=== PATIENT | female | born 1970 | race Caucasian/White ===

== ENCOUNTER → 2020-08-17 14:54 | Outpatient (BNVA) | payer MEDICARE, MEDICAID, SELFPAY | PROVIDERS: PCP Emergency Medicine; Visit Provider Physician Assistant ==

== ENCOUNTER → 2020-09-15 14:56 | Outpatient (BNVA) | payer MEDICARE, MEDICAID, SELFPAY | PROVIDERS: PCP Emergency Medicine; Referring Provider Emergency Medicine; Visit Provider Physician Assistant | DX: E10.9 Type 1 diabetes mellitus without complications (principal); E66.01 Morbid (severe) obesity due to excess calories; K31.84 Gastroparesis; I63.9 Cerebral infarction, unspecified; I10 Essential (primary) hypertension; G47.33 Obstructive sleep apnea (adult) (pediatric); J44.9 Chronic obstructive pulmonary disease, unspecified; E78.5 Hyperlipidemia, unspecified; K21.9 Gastro-esophageal reflux disease without esophagitis; E03.9 Hypothyroidism, unspecified | CPT/HCPCS: 99212 ==

== ENCOUNTER → 2020-09-29 08:21 | Outpatient (BNVA) | payer MEDICARE, SELFPAY | PROVIDERS: PCP Emergency Medicine; Visit Provider Physician Assistant ==

== ENCOUNTER 2021-10-02 19:52 | Emergency (ER) | payer MEDICARE, MEDICAID, SELFPAY ==
[2021-10-02 20:15] VITALS: BP 169/74; PULSE 102; RESP 18; TEMP 36.8; O2SAT 95; BMI 42.9
--- NOTE | 2021-10-02 21:01 | ED.BACK ---
HPI - Back Pain/Injury General Chief Complaint: Back Pain/Injury Stated Complaint: Sciatica pain Time Seen by Provider: 10/02/21 20:50 History of Present Illness HPI Narrative: Patient is a 51-year-old female presented with having back pain radiating down the left leg. There is no bowel urinary incontinence. There is no focal weakness. Positive history of having similar symptoms in the past. Positive history of a larger size. History of gastroparesis history of diabetes hypertension. No trauma. Denies any history of abdominal aortic aneurysm. Patient from home. Symptom has been ongoing getting worse over the last 3 days. No focal weakness. Related Data Home Medications Medication Instructions Recorded Confirmed aspirin 81 mg tablet,delayed 81 mg PO DAILY 09/15/20 09/15/20 release atorvastatin 80 mg tablet mg PO 09/15/20 09/15/20 cyclobenzaprine 5 mg tablet mg PO 09/15/20 09/15/20 diltiazem HCl 240 mg mg PO 09/15/20 09/15/20 capsule,extended release 24 hr, controlled famotidine 40 mg tablet mg PO 09/15/20 09/15/20 gabapentin 300 mg capsule mg PO 09/15/20 09/15/20 hydrochlorothiazide 25 mg tablet mg PO 09/15/20 09/15/20 insulin aspart U-100 100 unit/mL SUBCUT DAILY ml 09/15/20 09/15/20 subcutaneous solution insulin glargine 100 unit/mL (3 unit SUBCUT 09/15/20 09/15/20 mL) subcutaneous pen levothyroxine 75 mcg tablet mcg PO 09/15/20 09/15/20 losartan 100 mg tablet mg PO 09/15/20 09/15/20 omeprazole 40 mg capsule,delayed mg PO 09/15/20 09/15/20 release pen needle, diabetic 31 gauge x #1200 ea 09/15/20 09/15/20/16 sertraline 50 mg tablet mg PO 09/15/20 09/15/20 spironolactone 50 mg tablet mg PO 09/15/20 09/15/20 tramadol 50 mg tablet mg PO 09/15/20 09/15/20 Previous Rx's Medication Instructions Recorded methylprednisolone 4 mg tablets in 4 mg PO DAILY #21 ea 10/02/21 a dose pack (Medrol (Jose)) oxycodone 5 mg tablet 5 mg PO Q8H PRN #7 tab 10/02/21 Allergies Allergy/AdvReac Type Severity Reaction Status Date / Time lisinopril [LISINOPRIL] Allergy Severe ANGIOEDEMA, Verified 10/02/21 20:15 COUGH amlodipine [AMLODIPINE] Allergy Intermediate SWELLING Verified 10/02/21 20:15 Penicillins [PENICILLINS] Allergy Unknown RASH Verified 10/02/21 20:15 seasonal Allergy Unknown Anaphylaxis Uncoded 09/15/20 15:07 SEASONAL ALLERGIES Allergy Unknown ITCHING, Uncoded 09/15/20 15:07 WATERY EYES, STUFFY NOSE, COUGH Review of Systems Review of Systems: Positive back pain rating down the left leg Yes all other systems are reviewed and are negative FOR[facility]LY [facility] Past Medical History Attestation statement: The following information was validated with the patient. Medical History CVA (cerebral vascular accident) Surgical History Hx of appendectomy Family History Family History Mother Hypertension Father Hypertension Brother Hypertension Daughter No problems noted. Social History Social History Alcohol intake: current Alcohol intake frequency: holidays/special occasions only Advance Directives: No Physical Exam Vital Signs: Vital Signs: Last Vital Signs Temp 98.3 F 10/02/21 20:15 Pulse 102 H 10/02/21 20:15 Resp 18 10/02/21 20:15 BP 169/74 H 10/02/21 20:15 Pulse Ox 95 10/02/21 20:15 BMI result Body Mass Index 42.9 Appearance: Alert. Oriented X3. No acute distress. Eyes: Pupils equal, round and reactive to light. ENT: Pharynx normal. Neck: Normal inspection. Neck supple. No lymph nodes noted. No crepitus CVS: Normal heart rate and rhythm. Pulses normal. Normal S1 and S2 Respiratory: No respiratory distress. Breath sounds normal. No Wheezing. No rales Abdomen: Soft and nontender. No rigidity. No distention. good BS x4 Skin: Skin warm and dry. Normal skin color. Normal skin turgor. Extremities: No lower extremity edema. Neurovascular intact to all extremities. No Lacerations. No Rash. Sensation bilateral lower extremity intact. Ambulates with normal gait. Negative straight leg raise test. Neuro: Oriented X 3. No motor deficit. No sensory deficit. Moving all extermities. No slurred speech Discharge Plan Discharge Clinical Impression: Sciatica Patient Disposition: Home, Self-Care Instructions: Sciatica (ED) Prescriptions: New methylprednisolone [Medrol (Jose)] 4 mg tablets,dose pack 4 mg PO DAILY Qty: 21 0RF oxycodone 5 mg tablet 5 mg PO Q8H PRN (Reason: pain) Qty: 7 0RF No Action levothyroxine 75 mcg tablet PO 0RF cyclobenzaprine 5 mg tablet PO 0RF omeprazole 40 mg capsule,delayed release(DR/EC) PO 0RF atorvastatin 80 mg tablet PO 0RF (DME) pen needle, diabetic 31 gauge x 5/16 needle See Rx Instructions ea subcut .MEDSUPPLY Qty: 1200 0RF Rx Instructions: As directed spironolactone 50 mg tablet PO 0RF diltiazem HCl 240 mg capsule,ext.rel 24h degradable PO 0RF hydrochlorothiazide 25 mg tablet PO 0RF tramadol 50 mg tablet PO 0RF losartan 100 mg tablet PO 0RF gabapentin 300 mg capsule PO 0RF sertraline 50 mg tablet PO 0RF Lantus Solostar U-100 Insulin 100 unit/mL (3 mL) insulin pen subcut 0RF famotidine 40 mg tablet PO 0RF insulin aspart U-100 100 unit/mL solution subcut DAILY 0RF Rx Instructions: insulin pump and continuous monitor aspirin 81 mg tablet,delayed release (DR/EC) 81 mg PO DAILY 0RF Referrals: Medina Nascimento NP [Primary Care Provider] -
[2021-10-02] MEDS: oxyCODONE HCl Immed Release 5 MG TABLET PO (21:24)
== END 2021-10-02 21:35 | disposition home or self-care (01) ==
PROVIDERS: Emergency Provider Emergency Medicine Emergency Medical Services; PCP Nurse Practitioner Family
DX: M54.42 Lumbago with sciatica, left side (principal); R32 Unspecified urinary incontinence; Z79.899 Other long term (current) drug therapy
CPT/HCPCS: 99283

== ENCOUNTER → 2022-06-22 11:01 | Outpatient (REF) | payer MEDICARE, MEDICAID, SELFPAY ==
--- NOTE | 2022-06-22 11:22 | CA_ITS ---
Transthoracic Echocardiogram Patient (Last, First, Middle): Marian Mcbride A Gender: Female Date of : 1970 Age: 52 Procedure Date: 06/22/2022 Procedure Type: Transthoracic Echocardiogram Location: OP Height: 160.02 cm Weight: 102.06 kg BSA: 2.03 m2 Heart Rate: 81 bpm BP: 162 / 70 mmHg Freight Claim Investigator: TIFFANIE Referring MD: ANGELICA MONTIEL Acrylic Fabricator: Mansoor Greco MD Symptoms: HEART PALPITATIONS R00.2 GRADE 2 INTENSITY MURMUR Study Quality: Adequate w contrast ECG Rhythm: Sinus Conclusions: - 1. Hyperdynamic LV systolic function next 2. Normal cardiac valvular Doppler 3. Upper limits of normal RV systolic pressure 4. Small circumferential pericardial effusion Findings Procedure Information Contrast agent, definity, is being given per protocol without apparent complications. Left Ventricle Normal left ventricular cavity size. There is normal left ventricular wall thickness. The left ventricular systolic function is hyperdynamic. The visually estimated ejection fraction is >70%. Spectral Doppler is indicative of a normal filling pattern. Right Ventricle Normal right ventricular cavity size and systolic function. Atria Both atria are normal in size. There is no evidence of interatrial shunt. Aortic Valve Normal aortic valve structure and function. There is no aortic valve stenosis. There is no aortic valve regurgitation. Mitral Valve Normal mitral valve structure and function. There is trace mitral valve regurgitation. There is no mitral valve stenosis. Pulmonic Valve The pulmonic valve is likely normal. Tricuspid Valve Normal tricuspid valve structure. There is mild tricuspid valve regurgitation. Normal right atrial pressure. There is no evidence of pulmonary hypertension. Great Vessels All visible segments of the aorta are normal in size. The pulmonary artery was not well visualized. Venous The inferior vena cava is normal in size and collapses greater than 50% with inspiration. Pericardium/Pleural There is a small circumferential pericardial effusion. There are no definitive echocardiographic findings of tamponade physiology. Measurements 2D Linear Measurements IVSd: 1.04 0.6-0.9/0.6-1.0 cm LVIDd: 4.80 3.9-5.3/4.2-5.9 cm LVIDd Index: 2.36 2.4-3.2/2.2-3.1 cm/m2 LVIDs: 2.50 2.0-3.6 cm LVPWd: 1.08 0.7-1.1 cm LA Diam: 4.80 2.7-3.8/3.0-4.0 cm LAIDs Index: 2.36 1.5-2.3 cm/m2 LV Mass: 229.61 67-162/88-224 g LV Mass Index: 113.11 43-95/49-115 g/m2 LVOT Diam: 1.80 3.0+(-)1.3 cm 2D Systolic Function EF 4C: 74.00 >55% EF 2C: 79.20 >55% EF BiP: 76.90 >55% Mitral Valve MV Pk E: 1.27 MV PK A: 0.82 MV Decel Time: 230.00 E/A: 1.60 E'Lateral: 6.96 E'Medial: 8.05 E/E' Med: 15.80 E/E' Lat: 18.20 PHT: 67.00 MVA PHT: 3.28 Decel Rincon: 5.50 Aortic Valve AoV Pk Clarke: 1.66 AoV Mn Clarke: 1.11 AoV VTI: 0.35 AoV Pk Grad: 11.00 Aov Mn Grad: 6.00 CLARISSA Cont.VTI: 1.99 LVOT LVOT Pk Clarke: 1.31 LVOT Mn Clarke: 0.91 LVOT VTI: 0.27 LVOT Pk Grad: 7.00 LVOT Mn Grad: 4.00 LVOT Diam: 1.80 LVOT Area: 2.54 Diastolic Function MV Pk E: 1.27 MV Pk A: 0.82 E/A: 1.60 E'Medial: 8.05 E/E' Med: 15.80 E' Laterial: 6.96 E/E' Lat: 18.20 Right Ventricle TAPSE (mm): 19.40 TVS' Clarke: 14.60 Tricuspid Valve TR Pk Clarke: 2.88 TR Pk Grad: 33.00 RA Press: 3.00 RVSP: 36.00 Great Vessels Aorta Sinus of Valsalva: 2.30 2.0-3.5 cm Ao Asc: 2.90 2.1-3.4 cm Pulmonary Veins Pulm Vein S/D 0.50 Pulmonary Valve PV Pk Clarke: 1.35 Peak PV Grad: 7.00 Updated in Other Vendor System with Status of Final Mansoor Greco MD electronically signed on 06/22/2022 3:22:29 PM with status of Final
== END ==
LOC: HO.CARD 11:01
PROVIDERS: Visit Provider Nurse Practitioner Family
DX: R00.2 Palpitations (principal); R01.1 Cardiac murmur, unspecified
CPT/HCPCS: 93306; Q9957

== ENCOUNTER 2022-09-19 12:28 | Inpatient (IN) | payer MEDICARE, MEDICAID, SELFPAY ==
[2022-09-19] VITALS (14 sets, daily range): BP systolic 106–147; BP diastolic 43–60; PULSE 67–90; RESP 11–20; TEMP 36.4–37.1; O2SAT 96–100; BMI 39.9; BMI 39.4
--- NOTE | ~2022-09-19 | CT_ITS ---
EXAMINATION: CT ABDOMEN AND PELVIS WITHOUT CONTRAST CLINICAL INFORMATION: Diffuse abdominal pain COMPARISON: Previous CT of the abdomen and pelvis most recent May 2017 and abdominal ultrasound August 2018 and renal ultrasound August 2021 TECHNIQUE: Multidetector volumetric imaging was performed from the superior aspect of the liver through the pubic symphysis. Sagittal and coronal reformatted images were obtained on the technologist's workstation. This CT examination was performed using dose optimization techniques as appropriate, variously including the following: *Automated exposure control *Adjustment of mA and/or kV according to patient size (this includes techniques or standardized protocols for targeted exams where dose is matched to indication/reason for exam; i.e. extremities or head) *Use of iterative reconstruction technique DLP: 778 mGy-cm FINDINGS: LUNG BASES: There are small bilateral lower lobe pulmonary nodules. These are similar to May 2017 exam and therefore probably benign. LIVER, GALLBLADDER, AND BILIARY TREE: The liver is normal in size, shape, and attenuation. No focal hepatic lesion or biliary ductal dilatation is present. The gallbladder is unremarkable with no evidence of radiopaque gallstones, gallbladder wall thickening, or obvious pericholecystic inflammatory changes. PANCREAS: Unremarkable. SPLEEN: Unremarkable. ADRENAL GLANDS: Unremarkable. KIDNEYS AND URETERS: The kidneys are normal in size, shape, and attenuation. No hydronephrosis, hydroureter, or calculi seen. No perinephric stranding. BLADDER: Unremarkable. GASTROINTESTINAL TRACT: There is stool throughout the colon questionable for constipation. The small and large bowel are otherwise unremarkable. The appendix is not seen. No inflammatory changes in the right lower quadrant. ABDOMINAL WALL: No significant hernia is appreciated. LYMPH NODES: Normal. VASCULAR: Unremarkable. PELVIC VISCERA: There may be 2 small left ovarian cysts one measuring 2 x 2.5 cm measuring 2 cm. Uterus and adnexa are otherwise unremarkable. Uterus and adnexa are otherwise unremarkable. No fluid in the pelvis. OSSEOUS STRUCTURES: Unremarkable. CT/CT abdomen pelvis wo IV con IMPRESSION: Question constipation and 2 small left ovarian cyst. Fleischner guidelines were followed.
--- NOTE | 2022-09-19 12:50 | ED_ITS ---
HPI - Abdominal Pain General Stated Complaint: Vomiting Related Data Home Medications Medication Instructions Recorded Confirmed aspirin 81 mg tablet,delayed 81 mg PO DAILY 09/15/20 09/15/20 release atorvastatin 80 mg tablet mg PO 09/15/20 09/15/20 cyclobenzaprine 5 mg tablet mg PO 09/15/20 09/15/20 diltiazem HCl 240 mg mg PO 09/15/20 09/15/20 capsule,extended release 24 hr, controlled famotidine 40 mg tablet mg PO 09/15/20 09/15/20 gabapentin 300 mg capsule mg PO 09/15/20 09/15/20 hydrochlorothiazide 25 mg tablet mg PO 09/15/20 09/15/20 insulin aspart U-100 100 unit/mL subcut DAILY 09/15/20 09/15/20 subcutaneous solution insulin glargine 100 unit/mL (3 unit subcut 09/15/20 09/15/20 mL) subcutaneous pen levothyroxine 75 mcg tablet mcg PO 09/15/20 09/15/20 losartan 100 mg tablet mg PO 09/15/20 09/15/20 omeprazole 40 mg capsule,delayed mg PO 09/15/20 09/15/20 release pen needle, diabetic 31 gauge x #1,200 ea 09/15/20 09/15/2009/19 sertraline 50 mg tablet mg PO 09/15/20 09/15/20 spironolactone 50 mg tablet mg PO 09/15/20 09/15/20 tramadol 50 mg tablet mg PO 09/15/20 09/15/20 Previous Rx's Medication Instructions Recorded oxycodone 5 mg tablet 5 mg PO Q8H PRN pain #7 tabs 10/02/21 methylprednisolone 4 mg tablets in 4 mg PO DAILY # ea 10/03/21 a dose pack (Medrol (Jose)) methylprednisolone 4 mg tablets in 4 mg PO QAM as directed #10/03/21 a dose pack (Medrol (Jose)) Allergies Allergy/AdvReac Type Severity Reaction Status Date / Time lisinopril [LISINOPRIL] Allergy Severe ANGIOEDEMA, Verified 10/02/21 20:15 COUGH amlodipine [AMLODIPINE] Allergy Intermediate SWELLING Verified 10/02/21 20:15 Penicillins [PENICILLINS] Allergy Unknown RASH Verified 10/02/21 20:15 seasonal Allergy Unknown Anaphylaxis Uncoded 09/15/20 15:07 SEASONAL ALLERGIES Allergy Unknown ITCHING, Uncoded 09/15/20 15:07 WATERY EYES, STUFFY NOSE, COUGH PMFSH Past Medical History Medical History CVA (cerebral vascular accident) Surgical History Hx of appendectomy Family History Family History Mother Hypertension Father Hypertension Brother Hypertension Daughter No problems noted. Social History Social History Alcohol intake: current Alcohol intake frequency: holidays/special occasions only Course Course Course Narrative: This is a rapid medical exam. Deferred additional HPI, ROS, PE to primary provider. 52 yo female with history of DM, diabetic gastroporesis, GERD, hypothyroidism KIMBERLY, HTN, HLD here with complaints of vomiting since Sunday eveni ng, seemed better then vomiting began again today, feeling weak, blood sugar has been high at home. +upper abdominal pain. No diarrhea, fevers, urinary symptoms. Will obtain EKG, labs, UA, COVID screen. VSS Discharge Plan Discharge Prescriptions: No Action oxycodone 5 mg tablet 5 mg PO Q8H PRN (Reason: pain) Qty: 7 0RF methylprednisolone [Medrol (Jose)] 4 mg tablets,dose pack 4 mg PO DAILY Qty: 21 0RF Rx Instructions: As directed on pack methylprednisolone [Medrol (Jose)] 4 mg tablets,dose pack 4 mg PO QAM Qty: 21 0RF levothyroxine 75 mcg tablet PO cyclobenzaprine 5 mg tablet PO omeprazole 40 mg capsule,delayed release(DR/EC) PO atorvastatin 80 mg tablet PO (DME) pen needle, diabetic 31 gauge x 5/16 needle See Rx Instructions subcut .MEDSUPPLY Qty: 1200 Rx Instructions: As directed spironolactone 50 mg tablet PO diltiazem HCl 240 mg capsule,ext.rel 24h degradable PO hydrochlorothiazide 25 mg tablet PO tramadol 50 mg tablet PO losartan 100 mg tablet PO gabapentin 300 mg capsule PO sertraline 50 mg tablet PO Lantus Solostar U-100 Insulin 100 unit/mL (3 mL) insulin pen subcut famotidine 40 mg tablet PO insulin aspart U-100 100 unit/mL solution subcut DAILY Rx Instructions: insulin pump and continuous monitor aspirin 81 mg tablet,delayed release (DR/EC) 81 mg PO DAILY
--- NOTE | 2022-09-19 12:53 | ECG_ITS ---
Test Reason : abd pain Blood Pressure : / mmHG Vent. Rate : 085 BPM Atrial Rate : 085 BPM P-R Int : 188 ms QRS Dur : 098 ms QT Int : 378 ms P-R-T Axes : 070 086 096 degrees QTc Int : 449 ms Normal sinus rhythm Septal infarct (cited on or before 15-OCT-2016) Abnormal ECG When compared with ECG of 15-OCT-2016 09:53, Non-specific change in ST segment in Inferior leads Nonspecific T wave abnormality no longer evident in Inferior leads Referred By: Candice Costa Electronically Signed By:John Ferrara
[2022-09-19] MEDS: Ondansetron ODT 4 MG TAB.RAPDIS TRANSLINGU (12:57)
--- NOTE | 2022-09-19 13:28 | PC.NURSE ---
Alert and oriented. Reports nausea and vomiting over the weekend that resolved but then came back yesterday. States nausea and vomiting started again today and has a poor appetite and is only able to drink small amounts of fluid. Reports occasional non-productive cough. States having issues controlling blood sugars, that sugars have been going from high to low. States thyroid medications have been changed 6 times in the last few months. Reports 8/10 pain in head and stomach. States stomach pain is from throwing up. States has a heart murmur that she is following up with cardiology with this week.
--- NOTE | 2022-09-19 13:38 | ED_ITS ---
HPI - General Adult General Chief complaint: General Medical Stated complaint: Vomiting Time Seen by Provider: 09/19/22 13:22 Source: patient and family History of Present Illness HPI narrative: Patient with 3 days of vomiting and abdominal pain. No diarrhea. No prior history of similar issues. No sick contacts. She does have a sore throat now which started yesterday. No fevers. Positive chills. No urinary symptoms She states her blood sugars been very high since the illness started. It has been in the 3-400 range consistently despite giving extra doses of insulin. She has an insulin pump which has been working but not controlling her blood s ugar over the last few days. No dysuria. Surgical history significant for appendectomy at the age of 15. No other abdominal surgeries. History of DKA once multiple years ago when she had influenza. No significant cough. Related Data Home Medications Medication Instructions Recorded Confirmed aspirin 81 mg tablet,delayed 81 mg PO DAILY 09/15/20 09/15/20 release atorvastatin 80 mg tablet mg PO 09/15/20 09/15/20 cyclobenzaprine 5 mg tablet mg PO 09/15/20 09/15/20 diltiazem HCl 240 mg mg PO 09/15/20 09/15/20 capsule,extended release 24 hr, controlled famotidine 40 mg tablet mg PO 09/15/20 09/15/20 gabapentin 300 mg capsule mg PO 09/15/20 09/15/20 hydrochlorothiazide 25 mg tablet mg PO 09/15/20 09/15/20 insulin aspart U-100 100 unit/mL subcut DAILY 09/15/20 09/15/20 subcutaneous solution insulin glargine 100 unit/mL (3 unit subcut 09/15/20 09/15/20 mL) subcutaneous pen levothyroxine 75 mcg tablet mcg PO 09/15/20 09/15/20 losartan 100 mg tablet mg PO 09/15/20 09/15/20 omeprazole 40 mg capsule,delayed mg PO 09/15/20 09/15/20 release pen needle, diabetic 31 gauge x #1,200 ea 09/15/20 09/15/2009/19 sertraline 50 mg tablet mg PO 09/15/20 09/15/20 spironolactone 50 mg tablet mg PO 09/15/20 09/15/20 tramadol 50 mg tablet mg PO 09/15/20 09/15/20 Previous Rx's Medication Instructions Recorded oxycodone 5 mg tablet 5 mg PO Q8H PRN pain #7 tabs 10/02/21 methylprednisolone 4 mg tablets in 4 mg PO DAILY #21 ea 10/03/21 a dose pack (Medrol (Jose)) methylprednisolone 4 mg tablets in 4 mg PO QAM as directed #21 ea 10/03/21 a dose pack (Medrol (Jose)) Allergies Allergy/AdvReac Type Severity Reaction Status Date / Time lisinopril [LISINOPRIL] Allergy Severe ANGIOEDEMA, Verified 09/19/22 12:56 COUGH amlodipine [AMLODIPINE] Allergy Intermediate SWELLING Verified 09/19/22 12:56 Penicillins [PENICILLINS] Allergy Unknown RASH Verified 09/19/22 12:56 seasonal Allergy Unknown Anaphylaxis Uncoded 09/15/20 15:07 SEASONAL ALLERGIES Allergy Unknown ITCHING, Uncoded 09/15/20 15:07 WATERY EYES, STUFFY NOSE, COUGH Review of Systems Constitutional: Comments: General malaise. Chills without documented fever. ENT: Comments: Sore throat which she attributes to vomiting Cardiovascular: Comments: No chest pain Respiratory: Comments: Minimal cough. Patient denies dyspnea but her sister states she looked short of breath this morning Gastrointestinal: Comments: Vomiting and upper abdominal pain. No diarrhea Integumentary/Breasts: Comments: No rash Neurologic: Comments: No focal weakness. General malaise PMFSH Past Medical History Medical History CVA (cerebral vascular accident) Surgical History Hx of appendectomy Family History Family History Mother Hypertension Father Hypertension Brother Hypertension Daughter No problems noted. Social History Social History Alcohol intake: former Smoked in Last 30 Days: No Substance Use Type: Other Substance Use Type Other:: gummies at bedtime to help with sleep Substance Use Frequency: Daily Last Used Substance: Days (ago) Advance Directives: No Physical Exam ED Vital Signs: Vital Signs - 24 hr 09/19/22 12:51 09/19/22 13:05 09/19/22 13:22 Temperature 97.6 F Pulse Rate 84 90 76 Respiratory Rate 20 16 18 Blood Pressure 118/50 L 136/44 L 147/55 H Pulse Oximetry 99 99 99 Oxygen Delivery Method Room Air Room Air Room Air 09/19/22 14:39 09/19/22 15:37 09/19/22 16:06 Temperature Pulse Rate 82 80 72 Respiratory Rate 15 18 11 L Blood Pressure 122/43 L 137/53 L 114/60 Pulse Oximetry 98 100 96 Oxygen Delivery Method Room Air Room Air Room Air 09/19/22 16:49 Temperature 98.8 F Pulse Rate 75 Respiratory Rate 18 Blood Pressure 125/51 L Pulse Oximetry Oxygen Delivery Method Room Air BMI result Body Mass Index 39.4 Const Other: Awake alert. No acute distress. Vital signs stable. Afebrile here in the emergency department. Oxygen saturation 99% with a respiratory rate of 18. HENMT Other: No throat erythema. Mucosa very dry. Neck Other: No lymphadenopathy Resp Other: Clear and equal bilaterally without wheezes rales or rhonchi Cardio Other: Regular rate and rhythm . Positive systolic murmur GI Other: Soft. Nondistended. Tender across upper abdomen. Tenderness not localized to left or right side. Lower abdomen nontender Skin Other: Warm pink and dry without rash Neuro Other: Normal speech. Nonfocal neuro exam Medications Administered Generic Name Dose Route Start Last Admin Trade Name Freq PRN Reason Stop Dose Admin Insulin Human Regular 100 unit in 100 mls @ 6 mls/hr 09/19/22 15:30 09/19/22 16:35 Myxredlin IVCONT 9 unit/hr .[id number] SOLIS 9 mls/hr Titration Protocol 6 UNIT/HR Discontinued Medications Generic Name Dose Route Start Last Admin Trade Name Freq PRN Reason Stop Dose Admin Aspirin 325 mg 09/19/22 14:33 09/19/22 15:13 Aspirin Enteric Coated 325 Mg Tablet. PO 09/19/22 14:34 325 mg ONCE ONE Administration Sodium Chloride 1,000 mls @ 999 mls/hr 09/19/22 13:45 09/19/22 15:48 Ns IV 09/19/22 14:45 Infused .Q1H1M SOLIS Infusion Sodium Chloride 3,061.74 mls @ 3,061.74 mls/hr 09/19/22 14:42 09/19/22 15:05 Ns 30 ml/kg infuse over 1 hr (3061.74 ml) 09/19/22 15:41 3,061.74 mls/hr IV Administration .Q1H STA Levofloxacin 500 mg in 100 mls @ 100 mls/hr 09/19/22 14:42 09/19/22 16:36 Levaquin IV 09/19/22 15:41 Infused ONCE ONE Infusion Metronidazole 500 mg in 100 mls @ 100 mls/hr 09/19/22 14:42 09/19/22 16:38 Flagyl IV 09/19/22 15:41 100 mls/hr ONCE ONE Administration Insulin Human Regular 10 unit 09/19/22 14:06 09/19/22 14:11 Insulin Regular, Human 100 Unit/Ml 3 Ml Vial IVPUSH 09/19/22 14:07 10 unit ONCE ONE Administration Ondansetron HCl 4 mg 09/19/22 12:54 09/19/22 12:57 Ondansetron Odt 4 Mg Tab.Rapdis TRANSLINGU 09/19/22 12:55 4 mg ONCE ONE Administration Ondansetron HCl 4 mg 09/19/22 13:35 09/19/22 14:00 Ondansetron Hcl 4 Mg/2 Ml Vial IVPUSH 09/19/22 13:36 4 mg ONCE ONE Administration Medical Decision Making Medical Decision Making [facility] Narrative: Patient with intractable vomiting x3 days with hyperglycemia. Diabetic ketoacidosis Infectious causes such as urinary tract infection or pyelonephritis possible. Colitis, cholecystitis, diverticulitis, gastroenteritis all possible. Clinically she is dehydrated. Will start treatment with IV fluids and IV insulin. IV Zofran. Await lab work. Will order CT scan with IV contrast if renal function is normal. Otherwise will order without contrast. 14:45. Lab work shows multiple significant abnormalities. White count is 25.2. There is a bandemia no shift to the left. Chemistry show a creatinine of 4.75 with presumed acute kidney injury. She she has a blood glucose of 799 with pseudo hyponatremia of 124. Potassium is 5.4. Carbon dioxide is 15. Acetone is positive. Troponin is 403. EKG shows no evidence of ST elevations or significant depression. Given the above findings, will ordered noncontrast CT scan of the abdomen and pelvis. Aspirin for elevated troponin level. Troponin level, however is likely related to strain and or renal failure. She does not have symptoms consistent with myocardial infarction at the moment. Will add a 2nd troponin to check for Delta. Given abdominal symptoms with significant white count bandemia, will treat with broad-spectrum antibiotics. She is allergic to penicillin so will treat with Levaquin and Flagyl. Will start on insulin drip. Potassium is mildly elevated but will likely correct him possibly progress to hypokalemia at after treatment. Patient is otherwise hemodynamically stable despite the above findings. 16:06. CT scan is normal with the exception of constipation. Await final troponin and then disposition. 16:20. Second troponin is 379, trending down with hydration. Likely represents strain and kidney injury more so than acute coronary event. Will consult ICU Lab Data 09/19/22 13:54 09/19/22 13:54 Labs: Lab Results 09/19/22 09/19/22 09/19/22 Range/Units 11:12 13:54 13:54 WBC 25.2 H (4.8-10.8) X10*3/uL RBC 3.99 L (4.20-5.50) X10*6/uL Hgb 10.6 L (12.0-16.0) g/dl Hct 33.0 L (37.0-47.0) % MCV 82.7 (80.0-98.0) fL MCH 26.6 L (27.0-33.0) pg MCHC 32.1 (31.0-35.0) g/dl RDW 14.2 (11.0-16.0) % Plt Count 308 (160-400) X10*3/uL MPV 10.1 (9.4-12.3) fL Immature Gran % (Auto) 0.8 H (0.0-0.4) % Neut % (Auto) 93.7 H (45-73) % Lymph % (Auto) 2.8 L (20-40) % [place] % (Auto) 2.4 (2-11) % Eos % (Auto) 0.0 (0-4) % Baso % (Auto) 0.3 (0-2) % Lymph # (Auto) 0.7 L (1.2-4.9) X10*3/uL [place] # (Auto) 0.6 (0.1-1.2) X10*3/uL Eos # (Auto) 0.0 (0.0-0.4) X10*3/uL Baso # (Auto) 0.1 (0.0-0.2) X10*3/uL Abs Immat Gran (auto) 0.20 H (0.00-0.03) X10*3/uL Absolute Neuts (auto) 23.6 H (2.0-8.3) x10*3/uL Absolute Nucleated RBC 0.000 (0.0-0.012) X10*3/uL Nucleated RBC % (auto) 0.0 (0.0-0.2) /100WBC Smear Tech's Comments VERIFIED Sodium 124 L (135-145) mmol/L Potassium 5.4 H (3.3-5.1) mmol/L Chloride 92 L (96-108) mmol/L Carbon Dioxide 15 L (22-29) mmol/L Anion Gap 22 H (12-20) BUN 122 H (9-16) mg/dL Creatinine 4.75 H* (0.5-1.4) mg/dL Estim Creat Clear Calc 16.0 Estimated GFR 10 POC Glucose (60-115) mg/dL Random Glucose 799 H* (60-115) mg/dL Lactic Acid (0.5-2.0) mmol/L Calcium 9.2 (8.4-10.2) mg/dL Magnesium 2.9 H (1.6-2.6) mg/dL Total Bilirubin 0.8 (0.0-1.0) mg/dL Direct Bilirubin 0.2 (0.0-0.5) mg/dL AST 29 (5-31) U/L ALT 38 H (0-31) U/L Alkaline Phosphatase 100 (39-117) U/L Troponin I High Sens (<3.5-17.0) ng/L Total Protein 6.9 (6.5-8.0) g/dL Albumin 4.1 (3.5-5.0) g/dL Lipase 16 (8-78) U/L TSH (0.32-4.0) uIU/mL Urine Color Urine Appearance Urine pH (5.0-9.0) Ur Specific [place] (1.005-1.025) Urine Protein (Neg-Trace) mg/dL Urine Glucose (UA) (Negative) mg/dL Urine Ketones (Negative) mg/dL Urine Blood (Negative) Urine Nitrite (Negative) Ur Leukocyte Esterase (Negative) Urine RBC (0-2) /HPF Urine WBC (0-5) /HPF Ur Squamous Epith Cells (0-2) /HPF Urine Bacteria (None Seen) Hyaline Casts (0-2) /LPF Acetone, Qual Small H (Negative) COVID-19 (LITA) (Negative) COVID-19 Clin Com 09/19/22 09/19/22 09/19/22 Range/Units 13:54 13:54 13:54 WBC (4.8-10.8) X10*3/uL RBC (4.20-5.50) X10*6/uL Hgb (12.0-16.0) g/dl Hct (37.0-47.0) % MCV (80.0-98.0) fL MCH (27.0-33.0) pg MCHC (31.0-35.0) g/dl RDW (11.0-16.0) % Plt Count (160-400) X10*3/uL MPV (9.4-12.3) fL Immature Gran % (Auto) (0.0-0.4) % Neut % (Auto) (45-73) % Lymph % (Auto) (20-40) % [place] % (Auto) (2-11) % Eos % (Auto) (0-4) % Baso % (Auto) (0-2) % Lymph # (Auto) (1.2-4.9) X10*3/uL [place] # (Auto) (0.1-1.2) X10*3/uL Eos # (Auto) (0.0-0.4) X10*3/uL Baso # (Auto) (0.0-0.2) X10*3/uL Abs Immat Gran (auto) (0.00-0.03) X10*3/uL Absolute Neuts (auto) (2.0-8.3) x10*3/uL Absolute Nucleated RBC (0.0-0.012) X10*3/uL Nucleated RBC % (auto) (0.0-0.2) /100WBC Smear Tech's Comments Sodium (135-145) mmol/L Potassium (3.3-5.1) mmol/L Chloride (96-108) mmol/L Carbon Dioxide (22-29) mmol/L Anion Gap (12-20) BUN (9-16) mg/dL Creatinine (0.5-1.4) mg/dL Estim Creat Clear Calc Estimated GFR POC Glucose (60-115) mg/dL Random Glucose (60-115) mg/dL Lactic Acid 1.7 (0.5-2.0) mmol/L Calcium (8.4-10.2) mg/dL Magnesium (1.6-2.6) mg/dL Total Bilirubin (0.0-1.0) mg/dL Direct Bilirubin (0.0-0.5) mg/dL AST (5-31) U/L ALT (0-31) U/L Alkaline Phosphatase (39-117) U/L Troponin I High Sens 403.7 H* (<3.5-17.0) ng/L Total Protein (6.5-8.0) g/dL Albumin (3.5-5.0) g/dL Lipase (8-78) U/L TSH 0.98 (0.32-4.0) uIU/mL Urine Color Urine Appearance Urine pH (5.0-9.0) Ur Specific [place] (1.005-1.025) Urine Protein (Neg-Trace) mg/dL Urine Glucose (UA) (Negative) mg/dL Urine Ketones (Negative) mg/dL Urine Blood (Negative) Urine Nitrite (Negative) Ur Leukocyte Esterase (Negative) Urine RBC (0-2) /HPF Urine WBC (0-5) /HPF Ur Squamous Epith Cells (0-2) /HPF Urine Bacteria (None Seen) Hyaline Casts (0-2) /LPF Acetone, Qual (Negative) COVID-19 (LITA) (Negative) COVID-19 Clin Com 09/19/22 09/19/22 09/19/22 Range/Units 14:01 14:04 14:26 WBC (4.8-10.8) X10*3/uL RBC (4.20-5.50) X10*6/uL Hgb (12.0-16.0) g/dl Hct (37.0-47.0) % MCV (80.0-98.0) fL MCH (27.0-33.0) pg MCHC (31.0-35.0) g/dl RDW (11.0-16.0) % Plt Count (160-400) X10*3/uL MPV (9.4-12.3) fL Immature Gran % (Auto) (0.0-0.4) % Neut % (Auto) (45-73) % Lymph % (Auto) (20-40) % [place] % (Auto) (2-11) % Eos % (Auto) (0-4) % Baso % (Auto) (0-2) % Lymph # (Auto) (1.2-4.9) X10*3/uL [place] # (Auto) (0.1-1.2) X10*3/uL Eos # (Auto) (0.0-0.4) X10*3/uL Baso # (Auto) (0.0-0.2) X10*3/uL Abs Immat Gran (auto) (0.00-0.03) X10*3/uL Absolute Neuts (auto) (2.0-8.3) x10*3/uL Absolute Nucleated RBC (0.0-0.012) X10*3/uL Nucleated RBC % (auto) (0.0-0.2) /100WBC Smear Tech's Comments Sodium (135-145) mmol/L Potassium (3.3-5.1) mmol/L Chloride (96-108) mmol/L Carbon Dioxide (22-29) mmol/L Anion Gap (12-20) BUN (9-16) mg/dL Creatinine (0.5-1.4) mg/dL Estim Creat Clear Calc Estimated GFR POC Glucose > 600 H* > 600 H* (60-115) mg/dL Random Glucose (60-115) mg/dL Lactic Acid (0.5-2.0) mmol/L Calcium (8.4-10.2) mg/dL Magnesium (1.6-2.6) mg/dL Total Bilirubin (0.0-1.0) mg/dL Direct Bilirubin (0.0-0.5) mg/dL AST (5-31) U/L ALT (0-31) U/L Alkaline Phosphatase (39-117) U/L Troponin I High Sens (<3.5-17.0) ng/L Total Protein (6.5-8.0) g/dL Albumin (3.5-5.0) g/dL Lipase (8-78) U/L TSH (0.32-4.0) uIU/mL Urine Color Urine Appearance Urine pH (5.0-9.0) Ur Specific [place] (1.005-1.025) Urine Protein (Neg-Trace) mg/dL Urine Glucose (UA) (Negative) mg/dL Urine Ketones (Negative) mg/dL Urine Blood (Negative) Urine Nitrite (Negative) Ur Leukocyte Esterase (Negative) Urine RBC (0-2) /HPF Urine WBC (0-5) /HPF Ur Squamous Epith Cells (0-2) /HPF Urine Bacteria (None Seen) Hyaline Casts (0-2) /LPF Acetone, Qual (Negative) COVID-19 (LITA) Negative (Negative) COVID-19 Clin Com See Note 09/19/22 09/19/22 09/19/22 Range/Units 15:08 15:25 16:20 WBC (4.8-10.8) X10*3/uL RBC (4.20-5.50) X10*6/uL Hgb (12.0-16.0) g/dl Hct (37.0-47.0) % MCV (80.0-98.0) fL MCH (27.0-33.0) pg MCHC (31.0-35.0) g/dl RDW (11.0-16.0) % Plt Count (160-400) X10*3/uL MPV (9.4-12.3) fL Immature Gran % (Auto) (0.0-0.4) % Neut % (Auto) (45-73) % Lymph % (Auto) (20-40) % [place] % (Auto) (2-11) % Eos % (Auto) (0-4) % Baso % (Auto) (0-2) % Lymph # (Auto) (1.2-4.9) X10*3/uL [place] # (Auto) (0.1-1.2) X10*3/uL Eos # (Auto) (0.0-0.4) X10*3/uL Baso # (Auto) (0.0-0.2) X10*3/uL Abs Immat Gran (auto) (0.00-0.03) X10*3/uL Absolute Neuts (auto) (2.0-8.3) x10*3/uL Absolute Nucleated RBC (0.0-0.012) X10*3/uL Nucleated RBC % (auto) (0.0-0.2) /100WBC Smear Tech's Comments Sodium (135-145) mmol/L Potassium (3.3-5.1) mmol/L Chloride (96-108) mmol/L Carbon Dioxide (22-29) mmol/L Anion Gap (12-20) BUN (9-16) mg/dL Creatinine (0.5-1.4) mg/dL Estim Creat Clear Calc Estimated GFR POC Glucose 599 H* (60-115) mg/dL Random Glucose (60-115) mg/dL Lactic Acid (0.5-2.0) mmol/L Calcium (8.4-10.2) mg/dL Magnesium (1.6-2.6) mg/dL Total Bilirubin (0.0-1.0) mg/dL Direct Bilirubin (0.0-0.5) mg/dL AST (5-31) U/L ALT (0-31) U/L Alkaline Phosphatase (39-117) U/L Troponin I High Sens 375.1 H* (<3.5-17.0) ng/L Total Protein (6.5-8.0) g/dL Albumin (3.5-5.0) g/dL Lipase (8-78) U/L TSH (0.32-4.0) uIU/mL Urine Color Yellow Urine Appearance Clear Urine pH 5.0 (5.0-9.0) Ur Specific [place] 1.015 (1.005-1.025) Urine Protein Negative (Neg-Trace) mg/dL Urine Glucose (UA) >=1000 H (Negative) mg/dL Urine Ketones Trace (Negative) mg/dL Urine Blood Negative (Negative) Urine Nitrite Negative (Negative) Ur Leukocyte Esterase Negative (Negative) Urine RBC 0-2 (0-2) /HPF Urine WBC 0-5 (0-5) /HPF Ur Squamous Epith Cells 3-5 (0-2) /HPF Urine Bacteria None Seen (None Seen) Hyaline Casts 0-2 (0-2) /LPF Acetone, Qual (Negative) COVID-19 (LITA) (Negative) COVID-19 Clin Com 09/19/22 Range/Units 16:26 WBC (4.8-10.8) X10*3/uL RBC (4.20-5.50) X10*6/uL Hgb (12.0-16.0) g/dl Hct (37.0-47.0) % MCV (80.0-98.0) fL MCH (27.0-33.0) pg MCHC (31.0-35.0) g/dl RDW (11.0-16.0) % Plt Count (160-400) X10*3/uL MPV (9.4-12.3) fL Immature Gran % (Auto) (0.0-0.4) % Neut % (Auto) (45-73) % Lymph % (Auto) (20-40) % [place] % (Auto) (2-11) % Eos % (Auto) (0-4) % Baso % (Auto) (0-2) % Lymph # (Auto) (1.2-4.9) X10*3/uL [place] # (Auto) (0.1-1.2) X10*3/uL Eos # (Auto) (0.0-0.4) X10*3/uL Baso # (Auto) (0.0-0.2) X10*3/uL Abs Immat Gran (auto) (0.00-0.03) X10*3/uL Absolute Neuts (auto) (2.0-8.3) x10*3/uL Absolute Nucleated RBC (0.0-0.012) X10*3/uL Nucleated RBC % (auto) (0.0-0.2) /100WBC Smear Tech's Comments Sodium (135-145) mmol/L Potassium (3.3-5.1) mmol/L Chloride (96-108) mmol/L Carbon Dioxide (22-29) mmol/L Anion Gap (12-20) BUN (9-16) mg/dL Creatinine (0.5-1.4) mg/dL Estim Creat Clear Calc Estimated GFR POC Glucose 554 H* (60-115) mg/dL Random Glucose (60-115) mg/dL Lactic Acid (0.5-2.0) mmol/L Calcium (8.4-10.2) mg/dL Magnesium (1.6-2.6) mg/dL Total Bilirubin (0.0-1.0) mg/dL Direct Bilirubin (0.0-0.5) mg/dL AST (5-31) U/L ALT (0-31) U/L Alkaline Phosphatase (39-117) U/L Troponin I High Sens (<3.5-17.0) ng/L Total Protein (6.5-8.0) g/dL Albumin (3.5-5.0) g/dL Lipase (8-78) U/L TSH (0.32-4.0) uIU/mL Urine Color Urine Appearance Urine pH (5.0-9.0) Ur Specific [place] (1.005-1.025) Urine Protein (Neg-Trace) mg/dL Urine Glucose (UA) (Negative) mg/dL Urine Ketones (Negative) mg/dL Urine Blood (Negative) Urine Nitrite (Negative) Ur Leukocyte Esterase (Negative) Urine RBC (0-2) /HPF Urine WBC (0-5) /HPF Ur Squamous Epith Cells (0-2) /HPF Urine Bacteria (None Seen) Hyaline Casts (0-2) /LPF Acetone, Qual (Negative) COVID-19 (LITA) (Negative) COVID-19 Clin Com Critical Care Time Critical Care Time Critical Care Time: Yes Total Critical Care Time: 120 Attestation: Critical care time outside of separately billable procedures. It is secondary to multiple metabolic abnormalities and diabetic ketoacidosis requiring insulin drip. Also with elevated troponins and multiple electrolyte abnormalities and acute renal failure. Discharge Plan Discharge Patient Disposition: Admitted As Inpatient Prescriptions: No Action oxycodone 5 mg tablet 5 mg PO Q8H PRN (Reason: pain) Qty: 7 0RF methylprednisolone [Medrol (Jose)] 4 mg tablets,dose pack 4 mg PO DAILY Qty: 21 0RF Rx Instructions: As directed on pack methylprednisolone [Medrol (Jose)] 4 mg tablets,dose pack 4 mg PO QAM Qty: 21 0RF levothyroxine 75 mcg tablet PO cyclobenzaprine 5 mg tablet PO omeprazole 40 mg capsule,delayed release(DR/EC) PO atorvastatin 80 mg tablet PO (DME) pen needle, diabetic 31 gauge x 5/16 needle See Rx Instructions subcut .MEDSUPPLY Qty: 1200 Rx Instructions: As directed spironolactone 50 mg tablet PO diltiazem HCl 240 mg capsule,ext.rel 24h degradable PO hydrochlorothiazide 25 mg tablet PO tramadol 50 mg tablet PO losartan 100 mg tablet PO gabapentin 300 mg capsule PO sertraline 50 mg tablet PO Lantus Solostar U-100 Insulin 100 unit/mL (3 mL) insulin pen subcut famotidine 40 mg tablet PO insulin aspart U-100 100 unit/mL solution subcut DAILY Rx Instructions: insulin pump and continuous monitor aspirin 81 mg tablet,delayed release (DR/EC) 81 mg PO DAILY
[2022-09-19] MEDS: 0.9 % Sodium Chloride 1,000 ML 999 ML IV (13:55)
[2022-09-19] MEDS: ondansetron HCL 4 MG/2 ML VIAL IVPUSH (14:00)
[2022-09-19 14:02] LABS: Basophils Absolute Auto 0.1 X10*3/uL (0.0-0.2); Basophils Percent Auto 0.3 % (0-2); Hemoglobin 10.6 g/dl (12.0-16.0); Imm Gran Pct Auto 0.8 % (0.0-0.4); Lymphocytes Absolute Auto 0.7 X10*3/uL (1.2-4.9); Lymphocytes Percent Auto 2.8 % (20-40); MANUAL DIFF FLAG SCAN; Mean Corpuscular HGB Conc 32.1 g/dl (31.0-35.0); Mean Corpuscular Hemoglobin 26.6 pg (27.0-33.0); Mean Corpuscular Volume 82.7 fL (80.0-98.0); Mean Platelet Volume 10.1 fL (9.4-12.3); Monocytes Absolute Auto 0.6 X10*3/uL (0.1-1.2); Monocytes Percent Auto 2.4 % (2-11); Neutrophils Absolute Auto 23.6 x10*3/uL (2.0-8.3); Neutrophils Percent Auto 93.7 % (45-73); Platelet Count 308 X10*3/uL (160-400); Red Blood Count 3.99 X10*6/uL (4.20-5.50); Red Cell Distribution Width 14.2 % (11.0-16.0); SCAN SMEAR FLAG 1; White Blood Count 25.2 X10*3/uL (4.8-10.8)
[2022-09-19] MEDS: Insulin Regular, Human 100 UNIT/ML 3 ML VIAL 10 UNIT IVPUSH (14:11)
[2022-09-19 14:15] LABS: Lactic Acid 1.7 mmol/L (0.5-2.0)
[2022-09-19 14:16] LABS: Glucose, Whole Blood > 600 mg/dL (60-115)
[2022-09-19 14:16] LABS: Glucose, Whole Blood > 600 mg/dL (60-115)
[2022-09-19 14:26] LABS: SLIDE REVIEW VERIFIED
[2022-09-19 14:29] LABS: Troponin-I High Sensitivity 403.7 ng/L (<3.5-17.0)
[2022-09-19 14:31] LABS: Acetone, serum QL Small (Negative)
[2022-09-19 14:36] LABS: Alanine Aminotransferase 38 U/L (0-31); Albumin Level 4.1 g/dL (3.5-5.0); Alkaline Phosphatase 100 U/L (39-117); Anion Gap 22 (12-20); Aspartate Amino Transferase 29 U/L (5-31); Bilirubin Direct 0.2 mg/dL (0.0-0.5); Bilirubin Total 0.8 mg/dL (0.0-1.0); Blood Urea Nitrogen 122 mg/dL (9-16); Calcium 9.2 mg/dL (8.4-10.2); Carbon Dioxide 15 mmol/L (22-29); Chloride 92 mmol/L (96-108); Estimated Glomerular Filt Rate 10; Glucose Random 799 mg/dL (60-115); Lipase 16 U/L (8-78); Magnesium 2.9 mg/dL (1.6-2.6); Potassium 5.4 mmol/L (3.3-5.1); Sodium 124 mmol/L (135-145); Total Protein 6.9 g/dL (6.5-8.0)
[2022-09-19 14:40] LABS: TSH reflex Free T4 0.98 uIU/mL (0.32-4.0)
[2022-09-19] MEDS: 0.9 % Sodium Chloride 3,061.74 ML 3061.74 ML IV (15:05)
[2022-09-19 15:13] LABS: Glucose, Whole Blood 599 mg/dL (60-115)
[2022-09-19] MEDS: Aspirin Enteric Coated 325 MG TABLET.DR PO (15:13)
[2022-09-19 15:14] LABS: COVID-19 Test Negative (Negative); IDNOW Serial# 08D9AD1C
[2022-09-19] MEDS: Insulin Regular/NS 100 UNIT/100 ML PLAST..BAG 6 UNIT IVCONT (15:31)
[2022-09-19] MEDS: levoFLOXacin/D5W 500 MG/100 ML PIGGYBACK 100 MG IV (15:36)
--- NOTE | 2022-09-19 15:38 | PC.NURSE ---
Addendum entered by Cherri Garcia 09/19/22 15:45: NSR on monitor. Breathing even/unlabored. Skin pwd. Repeat Troponin sent. Pt denies cp or SOB at this time. Original Note: repeat blood glucose 599, iv drip started per orders. Second set of blood cultures obtained and IV abt started per order. Patient educated to remove insulin pod. Insulin POD paused patient stating she will remove pod. Offered but declined darling cath, stating she will use bedside commode. Patient reports feeling better after IV fluids and insulin. 2nd IV started.
[2022-09-19 16:19] LABS: Troponin-I High Sensitivity 375.1 ng/L (<3.5-17.0)
[2022-09-19 16:31] LABS: Glucose, Whole Blood 554 mg/dL (60-115)
[2022-09-19] MEDS: metroNIDAZOLE/NS 500 MG/100 ML PIGGYBACK 100 MG IV (16:38)
[2022-09-19 16:44] LABS: Appearance Urine Clear; Color Urine Yellow; Glucose Urine UA >=1000 mg/dL (Negative); Leukocyte Esterase Urine Negative (Negative); Nitrite Urine Negative (Negative); Specific Gravity - Urine 1.015 (1.005-1.025); UMIC TRIGGER UACC YES; Urine Blood Negative (Negative); Urine Ketones Trace mg/dL (Negative); Urine Protein Negative (Neg-Trace)
--- NOTE | 2022-09-19 16:45 | PC.NURSE ---
Alert and oriented. 1630 BS 554, insulin drip adjusted per order. no pain or sob, nsr on monitor. Patient reports feeling much better. IV abt running per order. Patient aware of plan to be admitted to ICU for BS monitoring
[2022-09-19 16:47] LABS: Bacteria Urine None Seen (None Seen); Hyaline Casts Urine 0-2 /LPF (0-2); RBC Urine 0-2 /HPF (0-2); WBC Urine 0-5 /HPF (0-5)
--- NOTE | 2022-09-19 16:55 | PM.CCHP ---
History of Present Illness Date of Service: 09/19/22 Chief Complaint: Abdominal discomfort, vomiting 52-year-old lady with underlying history of obesity, diabetes mellitus, gastroparesis, KIMBERLY /COPD overlap syndrome, hypertension, hypothyroidism being evaluated in ER for complaints of abdominal discomfort and vomiting over the last 3 days. patient noted to have diabetic ketoacidosis with significant hyperglycemia. She was started on insulin drip and IV fluids with significant improvement in her symptoms. His CT abdomen/pelvis is essentially unremarkable. She has mild troponinemia that appears to be related to underlying physiologic stress and is improving. Review of Systems Constitutional: Constitutional: Denies daytime sleepiness, Denies excessive sweating, Denies fatigue, Denies fever(s), Denies lethargy, Denies malaise, Denies night sweats, Denies snoring and Denies weight loss Eyes: Eyes: Denies blurry vision ENT: Denies nasal congestion, Denies post nasal drip, Denies sinus pain, Denies sinus pressure and Denies other ( Thrush) Cardiovascular: Cardiovascular: Denies chest pain, Denies pedal edema, Denies dyspnea, Denies orthopnea and Denies paroxysmal nocturnal dyspnea Respiratory: Respiratory: Denies cough, Denies hemoptysis, Denies excessive phlegm production, Denies dyspnea and Denies snoring Gastrointestinal: Gastrointestinal: Denies abdominal pain, Denies heartburn and Reports vomiting Musculoskeletal: Musculoskeletal: Denies myalgias, Denies arthralgias and Denies joint swelling Integumentary/Breasts: Skin/Breast: Denies rash Neurologic: Denies memory loss and Denies seizure-like activity Psychiatric: Psychiatric: Denies abnormal sleep pattern, Denies anxiety and Denies memory loss Endocrine: Endocrine: Denies excessive sweating, Denies fatigue and Denies heat intolerance Hematologic/Lymphatic: Hematologic/Lymphatic: Denies easy bruising PMFSH Past Medical History Medical History CVA (cerebral vascular accident) Family History Family History Mother Hypertension Father Hypertension Brother Hypertension Daughter No problems noted. Surgical History Surgical History Hx of appendectomy Social History Social History Alcohol intake: former Smoked in Last 30 Days: No Substance Use Type: Other Substance Use Type Other:: gummies at bedtime to help with sleep Substance Use Frequency: Daily Last Used Substance: Days (ago) Advance Directives: No Meds Allergies Allergy/AdvReac Type Severity Reaction Status Date / Time lisinopril [LISINOPRIL] Allergy Severe ANGIOEDEMA, Verified 09/19/22 12:56 COUGH amlodipine [AMLODIPINE] Allergy Intermediate SWELLING Verified 09/19/22 12:56 Penicillins [PENICILLINS] Allergy Unknown RASH Verified 09/19/22 12:56 seasonal Allergy Unknown Anaphylaxis Uncoded 09/15/20 15:07 SEASONAL ALLERGIES Allergy Unknown ITCHING, Uncoded 09/15/20 15:07 WATERY EYES, STUFFY NOSE, COUGH Active Medications: Current Medications Heparin Sodium (Porcine) (Heparin Sodium,Porcine 5,000 Unit/Ml Vial) 5,000 unit SUBCUT Q8H [facility] Insulin Human Regular (Myxredlin) 100 unit in 100 mls @ 6 mls/hr IVCONT .[id number] SOLIS; Protocol Last Titration: 09/19/22 16:35 Dose: 9 unit/hr, 9 mls/hr Lactated Ringer's (Lr) 1,000 mls @ 150 mls/hr IVCONT .Q6H40M [facility] Home Medications Medication Instructions Recorded Confirmed Last Taken Type aspirin 81 mg tablet,delayed 81 mg PO DAILY 09/15/20 09/15/20 Unknown History release atorvastatin 80 mg tablet mg PO 09/15/20 09/15/20 Unknown History cyclobenzaprine 5 mg tablet mg PO 09/15/20 09/15/20 Unknown History diltiazem HCl 240 mg mg PO 09/15/20 09/15/20 Unknown History capsule,extended release 24 hr, controlled famotidine 40 mg tablet mg PO 09/15/20 09/15/20 Unknown History gabapentin 300 mg capsule mg PO 09/15/20 09/15/20 Unknown History hydrochlorothiazide 25 mg tablet mg PO 09/15/20 09/15/20 Unknown History insulin aspart U-100 100 unit/mL subcut DAILY 09/15/20 09/15/20 Unknown History subcutaneous solution insulin glargine 100 unit/mL (3 unit subcut 09/15/20 09/15/20 Unknown History mL) subcutaneous pen levothyroxine 75 mcg tablet mcg PO 09/15/20 09/15/20 Unknown History losartan 100 mg tablet mg PO 09/15/20 09/15/20 Unknown History omeprazole 40 mg capsule,delayed mg PO 09/15/20 09/15/20 Unknown History release pen needle, diabetic 31 gauge x #1,200 ea 09/15/20 09/15/20 Unknown History 09/19 sertraline 50 mg tablet mg PO 09/15/20 09/15/20 Unknown History spironolactone 50 mg tablet mg PO 09/15/20 09/15/20 Unknown History tramadol 50 mg tablet mg PO 09/15/20 09/15/20 Unknown History Physical Exam Vital Signs: Vital Signs: Last Vital Signs Temp 98.8 F 09/19/22 16:49 Pulse 75 09/19/22 16:49 Resp 18 09/19/22 16:49 BP 125/51 L 09/19/22 16:49 Pulse Ox 96 09/19/22 16:06 O2 Del Method Room Air 09/19/22 16:49 BMI result Body Mass Index 39.4 Const: General: no acute distress and alert Nutritional Appearance: obese HEENT: Head: Yes atraumatic Mouth: no other ( thrush) Throat: No postnasal drainage Eyes: General: appearance normal, both eyes and all related structures Sclerae: sclerae normal EOM: EOMs intact bilaterally Neck: Neck: Yes supple Lymphatic: no lymphadenopathy noted Resp: Effort & Inspection: normal respiratory effort and no use of accessory muscles Auscultation: clear to auscultation bilaterally Cardio: Rate: regular rate Rhythm: regular rhythm Heart sounds: no gallops, no murmurs and no rubs GI: Palpation (GI): Soft to palpation and Other GI palpation findings present ( nontender) Skin: General skin exam: other ( warm) Rashes: no rashes Extrem: General: No clubbing, No cyanosis and Yes edema ( Trace bilateral) Results Labs 09/19/22 13:54 09/19/22 13:54 Labs: Laboratory Results - last 24 hr 09/19/22 09/19/22 09/19/22 11:12 13:54 13:54 MCV 82.7 MCH 26.6 L MCHC 32.1 RDW 14.2 Plt Count 308 MPV 10.1 Immature Gran % (Auto) 0.8 H Neut % (Auto) 93.7 H Lymph % (Auto) 2.8 L [place] % (Auto) 2.4 Eos % (Auto) 0.0 Baso % (Auto) 0.3 Lymph # (Auto) 0.7 L [place] # (Auto) 0.6 Eos # (Auto) 0.0 Baso # (Auto) 0.1 Abs Immat Gran (auto) 0.20 H Absolute Neuts (auto) 23.6 H Absolute Nucleated RBC 0.000 Nucleated RBC % (auto) 0.0 Smear Tech's Comments VERIFIED Anion Gap 22 H Estim Creat Clear Calc 16.0 Estimated GFR 10 POC Glucose Random Glucose 799 H* Lactic Acid Calcium 9.2 Magnesium 2.9 H Total Bilirubin 0.8 Direct Bilirubin 0.2 AST 29 ALT 38 H Alkaline Phosphatase 100 Troponin I High Sens Total Protein 6.9 Albumin 4.1 Lipase 16 TSH Urine Color Urine Appearance Urine pH Ur Specific [place] Urine Protein Urine Glucose (UA) Urine Ketones Urine Blood Urine Nitrite Ur Leukocyte Esterase Urine RBC Urine WBC Ur Squamous Epith Cells Urine Bacteria Hyaline Casts Acetone, Qual Small H COVID-19 (LITA) [email or web address] 09/19/22 09/19/22 09/19/22 13:54 13:54 13:54 MCV MCH MCHC RDW Plt Count MPV Immature Gran % (Auto) Neut % (Auto) Lymph % (Auto) [place] % (Auto) Eos % (Auto) Baso % (Auto) Lymph # (Auto) [place] # (Auto) Eos # (Auto) Baso # (Auto) Abs Immat Gran (auto) Absolute Neuts (auto) Absolute Nucleated RBC Nucleated RBC % (auto) Smear Tech's Comments Anion Gap Estim Creat Clear Calc Estimated GFR POC Glucose Random Glucose Lactic Acid 1.7 Calcium Magnesium Total Bilirubin Direct Bilirubin AST ALT Alkaline Phosphatase Troponin I High Sens 403.7 H* Total Protein Albumin Lipase TSH 0.98 Urine Color Urine Appearance Urine pH Ur Specific [place] Urine Protein Urine Glucose (UA) Urine Ketones Urine Blood Urine Nitrite Ur Leukocyte Esterase Urine RBC Urine WBC Ur Squamous Epith Cells Urine Bacteria Hyaline Casts Acetone, Qual COVID-19 (LITA) [id number] 09/19/22 09/19/22 09/19/22 14:01 14:04 14:26 MCV MCH MCHC RDW Plt Count MPV Immature Gran % (Auto) Neut % (Auto) Lymph % (Auto) [place] % (Auto) Eos % (Auto) Baso % (Auto) Lymph # (Auto) [place] # (Auto) Eos # (Auto) Baso # (Auto) Abs Immat Gran (auto) Absolute Neuts (auto) Absolute Nucleated RBC Nucleated RBC % (auto) Smear Tech's Comments Anion Gap Estim Creat Clear Calc Estimated GFR POC Glucose > 600 H* > 600 H* Random Glucose Lactic Acid Calcium Magnesium Total Bilirubin Direct Bilirubin AST ALT Alkaline Phosphatase Troponin I High Sens Total Protein Albumin Lipase TSH Urine Color Urine Appearance Urine pH Ur Specific [place] Urine Protein Urine Glucose (UA) Urine Ketones Urine Blood Urine Nitrite Ur Leukocyte Esterase Urine RBC Urine WBC Ur Squamous Epith Cells Urine Bacteria Hyaline Casts Acetone, Qual COVID-19 (LITA) Negative COVID-[employer] See Note 09/19/22 09/19/22 09/19/22 15:08 15:25 16:20 MCV MCH MCHC RDW Plt Count MPV Immature Gran % (Auto) Neut % (Auto) Lymph % (Auto) [place] % (Auto) Eos % (Auto) Baso % (Auto) Lymph # (Auto) [place] # (Auto) Eos # (Auto) Baso # (Auto) Abs Immat Gran (auto) Absolute Neuts (auto) Absolute Nucleated RBC Nucleated RBC % (auto) Smear Tech's Comments Anion Gap Estim Creat Clear Calc Estimated GFR POC Glucose 599 H* Random Glucose Lactic Acid Calcium Magnesium Total Bilirubin Direct Bilirubin AST ALT Alkaline Phosphatase Troponin I High Sens 375.1 H* Total Protein Albumin Lipase TSH Urine Color Yellow Urine Appearance Clear Urine pH 5.0 Ur Specific [place] 1.015 Urine Protein Negative Urine Glucose (UA) >=1000 H Urine Ketones Trace Urine Blood Negative Urine Nitrite Negative Ur Leukocyte Esterase Negative Urine RBC 0-2 Urine WBC 0-5 Ur Squamous Epith Cells 3-5 Urine Bacteria None Seen Hyaline Casts 0-2 Acetone, Qual COVID-19 (LITA) COVID-[employer] Com 09/19/22 16:26 MCV MCH MCHC RDW Plt Count MPV Immature Gran % (Auto) Neut % (Auto) Lymph % (Auto) [place] % (Auto) Eos % (Auto) Baso % (Auto) Lymph # (Auto) [place] # (Auto) Eos # (Auto) Baso # (Auto) Abs Immat Gran (auto) Absolute Neuts (auto) Absolute Nucleated RBC Nucleated RBC % (auto) Smear Tech's Comments Anion Gap Estim Creat Clear Calc Estimated GFR POC Glucose 554 H* Random Glucose Lactic Acid Calcium Magnesium Total Bilirubin Direct Bilirubin AST ALT Alkaline Phosphatase Troponin I High Sens Total Protein Albumin Lipase TSH Urine Color Urine Appearance Urine pH Ur Specific [place] Urine Protein Urine Glucose (UA) Urine Ketones Urine Blood Urine Nitrite Ur Leukocyte Esterase Urine RBC Urine WBC Ur Squamous Epith Cells Urine Bacteria Hyaline Casts Acetone, Qual COVID-19 (LITA) COVID-19 Clin Com Imaging Radiologist's Impressions: Impressions Abdomen/Pelvis CT 09/19/22 15:00 IMPRESSION: Question constipation and 2 small left ovarian cyst. Fleischner guidelines were followed. Assessment and Plan (1) DKA (diabetic ketoacidosis): Status: Acute (2) Morbid obesity: Status: Acute (3) Gastroparesis: Status: Acute (4) Type 1 diabetes mellitus: Status: Acute (5) KIMBERLY and COPD overlap syndrome: Status: Acute (6) HTN (hypertension), benign: Status: Acute Plan Assessment: 52-year-old lady with underlying diabetes mellitus, obesity, gastroparesis admitted with diabetic ketoacidosis Plan: Neuro: No acute issues. Cardiac: Mild troponinemia, improving, appears to be related to physiologic stress. Pulmonary: No acute issues. Renal: acute renal failure with metabolic acidosis, likely secondary to. Diabetic ketoacidosis. Non oliguric. Continue IV fluid support. Continue to monitor urine output and renal indices. Endo: Diabetic ketoacidosis, continue to titrate off insulin drip per protocol. GI: No acute issues. ID: leukocytosis appears to be reactive. Cultures are pending. Patient received empiric antibiotics in the emergency room. Heme/Onc: No acute issues. Psych: No acute issues. Miscellaneous: No acute issues. Prophylaxis: Heparin Diet: nothing by mouth Time Spent With Patient Time: Total time managing care of this patient today ____ minutes.
[2022-09-19 17:32] LABS: Glucose, Whole Blood 491 mg/dL (60-115)
[2022-09-19] MEDS: Lactated Ringers 1,000 ML 150 ML IVCONT (17:36)
[2022-09-19] MEDS: Heparin Sodium,Porcine 5,000 UNIT/ML VIAL 5000 UNIT SUBCUT (17:42)
--- NOTE | 2022-09-19 17:48 | PC.NURSE ---
POC 491, Per protocol rate will continue at 9units/hr. VSS.
--- NOTE | 2022-09-19 18:04 | PHA.MEDREC ---
Pharmacy Consult ? Medication Reconciliation Pharmacy has completed the medication reconciliation. Pt only uses lantus when insulin pump not working, pt does not know dose of lantus
--- NOTE | 2022-09-19 18:29 | PC.NURSE ---
Alert and oriented. Reports feeling better. Continues on IV insulin drip and LR. Family at bedside visiting. BS re-check [phone]
[2022-09-19 18:33] LABS: Glucose, Whole Blood 418 mg/dL (60-115)
--- NOTE | 2022-09-19 19:29 | PC.NURSE ---
Report to Felicia SHEPPARD in ICU.
[2022-09-19 19:37] LABS: Glucose, Whole Blood 421 mg/dL (60-115)
--- NOTE | 2022-09-19 19:46 | PC.NURSE ---
Pt BG 421. Per grant officer okay to continue rate of 7 units/hr.
[2022-09-19 20:07] LABS: Glucose, Whole Blood 357 mg/dL (60-115)
[2022-09-19 21:02] LABS: Glucose, Whole Blood 317 mg/dL (60-115)
[2022-09-19 22:08] LABS: Glucose, Whole Blood 272 mg/dL (60-115)
[2022-09-19 22:50] LABS: Anion Gap 16 (12-20); Blood Urea Nitrogen 96 mg/dL (9-16); Calcium 8.7 mg/dL (8.4-10.2); Carbon Dioxide 18 mmol/L (22-29); Chloride 108 mmol/L (96-108); Creatinine Clr Calc Pharmacy 22.5; Estimated Glomerular Filt Rate 15; Glucose Random 293 mg/dL (60-115); Potassium 5.4 mmol/L (3.3-5.1); Sodium 137 mmol/L (135-145)
[2022-09-19 22:59] LABS: Glucose, Whole Blood 218 mg/dL (60-115)
[2022-09-19] MEDS: Dextrose 5 % and Lactated Ring 1,000 ML 150 ML IVCONT (23:02)
[2022-09-19 23:45] LABS: Glucose, Whole Blood 207 mg/dL (60-115)
[2022-09-20] VITALS (18 sets, daily range): BP systolic 124–193; BP diastolic 47–107; PULSE 13–162; RESP 10–22; TEMP 36.2–37.3; O2SAT 93–99; BMI 41.7
--- NOTE | 2022-09-20 | ECG_ITS ---
Test Reason : doctor order Blood Pressure : / mmHG Vent. Rate : 147 BPM Atrial Rate : 000 BPM P-R Int : 000 ms QRS Dur : 086 ms QT Int : 296 ms P-R-T Axes : 000 065 237 degrees QTc Int : 463 ms Atrial fibrillation with rapid ventricular response Marked ST abnormality, possible inferior subendocardial injury Abnormal ECG No previous ECGs available Referred By: Maribell Lopez Electronically Signed By:John Ferrara
[2022-09-20] MEDS: Heparin Sodium,Porcine 5,000 UNIT/ML VIAL 5000 UNIT SUBCUT ×3 (01:07→16:39)
[2022-09-20 02:02] LABS: Glucose, Whole Blood 156 mg/dL (60-115)
[2022-09-20 03:05] LABS: Glucose, Whole Blood 136 mg/dL (60-115)
[2022-09-20 04:08] LABS: Glucose, Whole Blood 136 mg/dL (60-115)
[2022-09-20] MEDS: Acetaminophen 325 MG TABLET 650 MG PO ×2 (04:52→14:28)
[2022-09-20 05:04] LABS: Glucose, Whole Blood 142 mg/dL (60-115)
[2022-09-20 05:12] LABS: VBG Base Excess 1.7 mmol/L; VBG HCO3 24 mmol/L (22-26); VBG pCO2 32 mmHg; VBG pH 7.48 (7.32-7.43); VBG pO2 76 mmHg
[2022-09-20 05:25] LABS: Basophils Absolute Auto 0.1 X10*3/uL (0.0-0.2); Basophils Percent Auto 0.4 % (0-2); Eosinophils Absolute Auto 0.1 X10*3/uL (0.0-0.4); Eosinophils Percent Auto 0.5 % (0-4); Hematocrit 30.1 % (37.0-47.0); Hemoglobin 9.9 g/dl (12.0-16.0); Imm Gran Abs Auto 0.06 X10*3/uL (0.00-0.03); Imm Gran Pct Auto 0.4 % (0.0-0.4); Lymphocytes Absolute Auto 2.2 X10*3/uL (1.2-4.9); Lymphocytes Percent Auto 13.4 % (20-40); MANUAL DIFF FLAG SCAN; Mean Corpuscular HGB Conc 32.9 g/dl (31.0-35.0); Mean Corpuscular Hemoglobin 27.5 pg (27.0-33.0); Mean Corpuscular Volume 83.6 fL (80.0-98.0); Mean Platelet Volume 10.3 fL (9.4-12.3); Monocytes Absolute Auto 1.6 X10*3/uL (0.1-1.2); Monocytes Percent Auto 10.1 % (2-11); Neutrophils Absolute Auto 12.2 x10*3/uL (2.0-8.3); Neutrophils Percent Auto 75.2 % (45-73); Platelet Count 245 X10*3/uL (160-400); Red Cell Distribution Width 14.1 % (11.0-16.0); SCAN SMEAR FLAG 1; White Blood Count 16.2 X10*3/uL (4.8-10.8)
[2022-09-20] MEDS: Dextrose 5 % and Lactated Ring 1,000 ML 150 ML IVCONT (05:28)
[2022-09-20 05:45] LABS: Anion Gap 15 (12-20); Blood Urea Nitrogen 79 mg/dL (9-16); Calcium 9.2 mg/dL (8.4-10.2); Carbon Dioxide 21 mmol/L (22-29); Chloride 111 mmol/L (96-108); Estimated Glomerular Filt Rate 21; Glucose Random 142 mg/dL (60-115); Magnesium 2.4 mg/dL (1.6-2.6); Phosphorus 2.7 mg/dL (2.7-4.5); Potassium 4.3 mmol/L (3.3-5.1); Sodium 143 mmol/L (135-145)
[2022-09-20 05:53] LABS: SLIDE REVIEW VERIFIED
[2022-09-20] MEDS: Insulin Regular/NS 100 UNIT/100 ML PLAST..BAG IVCONT (05:56)
[2022-09-20 06:14] LABS: Glucose, Whole Blood 146 mg/dL (60-115)
[2022-09-20] MEDS: Losartan Potassium 50 MG TABLET PO (07:07)
[2022-09-20] MEDS: hydrALAZINE HCl 50 MG TABLET PO ×3 (07:07→19:35)
[2022-09-20 07:09] LABS: Venous Blood Gas Refer to POC result
[2022-09-20 08:07] LABS: Glucose, Whole Blood 170 mg/dL (60-115)
[2022-09-20] MEDS: Insulin Glargine,Hum.rec.anlog 100 UNIT/ML 10 ML VIAL 50 UNIT SUBCUT (09:26)
[2022-09-20 10:11] LABS: Glucose, Whole Blood 168 mg/dL (60-115)
--- NOTE | 2022-09-20 10:23 | MHC.CM.PN ---
This chief underwriter met with patient for CM assessment. From home, no services prior to admission. Reports having HCP- requested copy. D/C plan home w/ no services, family to transport. IMM completed.
[2022-09-20] MEDS: Insulin Lispro 100 UNIT/ML 3 ML VIAL SUBCUT ×3 (11:02→19:50)
--- NOTE | 2022-09-20 11:34 | PM.CCPN ---
Subjective Subjective Date of Service: 09/20/22 Interval History: 52-year-old lady with underlying history of obesity, diabetes mellitus on insulin pump, gastroparesis, KIMBERLY /COPD overlap syndrome, hypertension, hypothyroidism being evaluated in ER for complaints of abdominal discomfort and vomiting over the last 3 days. patient noted to have diabetic ketoacidosis with significant hyperglycemia. She was started on insulin drip and IV fluids with significant improvement in her symptoms. His CT abdomen/pelvis is essentially unremarkable. She has mild troponinemia that appears to be related to underlying physiologic stress and is improving. No events overnight. Titrated off insulin drip. Critical Care Time (minutes): 0 Physical Exam Vital Signs: Vital Signs: Last Vital Signs Temp 97.2 F 09/20/22 07:00 Pulse 13 L 09/20/22 11:00 Resp 12 09/20/22 11:00 BP 147/54 H 09/20/22 11:00 Pulse Ox 99 09/20/22 11:00 O2 Del Method Room Air 09/20/22 11:00 BMI result Body Mass Index 41.7 Const: General: no acute distress, alert and awake Eyes: Sclerae: sclerae normal EOM: EOMs intact bilaterally Neck: Neck: Yes no lymphadenopathy, Yes trachea midline and Yes supple Resp: Effort & Inspection: normal respiratory effort and no respiratory distress Auscultation: clear to auscultation bilaterally Cardio: Rate: regular rate Rhythm: regular rhythm Heart sounds: no gallops, no murmurs and no rubs GI: Palpation (GI): Soft to palpation and Other GI palpation findings present ( Nontender) Auscultation: normal bowel sounds Extrem: General: Yes no pedal edema, No clubbing and No cyanosis Objective Data Labs 09/20/22 05:07 09/20/22 05:06 Labs: Laboratory Results - last 24 hr 09/19/22 09/19/22 09/19/22 11:12 13:54 13:54 WBC 25.2 H RBC 3.99 L Hgb 10.6 L Hct 33.0 L MCV 82.7 MCH 26.6 L MCHC 32.1 RDW 14.2 Plt Count 308 MPV 10.1 Immature Gran % (Auto) 0.8 H Neut % (Auto) 93.7 H Lymph % (Auto) 2.8 L [place] % (Auto) 2.4 Eos % (Auto) 0.0 Baso % (Auto) 0.3 Lymph # (Auto) 0.7 L [place] # (Auto) 0.6 Eos # (Auto) 0.0 Baso # (Auto) 0.1 Abs Immat Gran (auto) 0.20 H Absolute Neuts (auto) 23.6 H Absolute Nucleated RBC 0.000 Nucleated RBC % (auto) 0.0 Smear Tech's Comments VERIFIED VBG pH VBG pCO2 VBG pO2 VBG HCO3 VBG O2 Saturation VBG Base Excess Sodium 124 L Potassium 5.4 H Chloride 92 L Carbon Dioxide 15 L Anion Gap 22 H BUN 122 H Creatinine 4.75 H* Estim Creat Clear Calc 16.0 Estimated GFR 10 POC Glucose Random Glucose 799 H* Lactic Acid Calcium 9.2 Phosphorus Magnesium 2.9 H Total Bilirubin 0.8 Direct Bilirubin 0.2 AST 29 ALT 38 H Alkaline Phosphatase 100 Troponin I High Sens Total Protein 6.9 Albumin 4.1 Lipase 16 TSH Urine Color Urine Appearance Urine pH Ur Specific [place] Urine Protein Urine Glucose (UA) Urine Ketones Urine Blood Urine Nitrite Ur Leukocyte Esterase Urine RBC Urine WBC Ur Squamous Epith Cells Urine Bacteria Hyaline Casts Acetone, Qual Small H COVID-19 (LITA) [employer] 09/19/22 09/19/22 09/19/22 13:54 13:54 13:54 WBC RBC Hgb Hct MCV MCH MCHC RDW Plt Count MPV Immature Gran % (Auto) Neut % (Auto) Lymph % (Auto) [place] % (Auto) Eos % (Auto) Baso % (Auto) Lymph # (Auto) [place] # (Auto) Eos # (Auto) Baso # (Auto) Abs Immat Gran (auto) Absolute Neuts (auto) Absolute Nucleated RBC Nucleated RBC % (auto) Smear Tech's Comments VBG pH VBG pCO2 VBG pO2 VBG HCO3 VBG O2 Saturation VBG Base Excess Sodium Potassium Chloride Carbon Dioxide Anion Gap BUN Creatinine Estim Creat Clear Calc Estimated GFR POC Glucose Random Glucose Lactic Acid 1.7 Calcium Phosphorus Magnesium Total Bilirubin Direct Bilirubin AST ALT Alkaline Phosphatase Troponin I High Sens 403.7 H* Total Protein Albumin Lipase TSH 0.98 Urine Color Urine Appearance Urine pH Ur Specific [place] Urine Protein Urine Glucose (UA) Urine Ketones Urine Blood Urine Nitrite Ur Leukocyte Esterase Urine RBC Urine WBC Ur Squamous Epith Cells Urine Bacteria Hyaline Casts Acetone, Qual COVID-19 (LITA) [employer] 09/19/22 09/19/22 09/19/22 14:01 14:04 14:26 WBC RBC Hgb Hct MCV MCH MCHC RDW Plt Count MPV Immature Gran % (Auto) Neut % (Auto) Lymph % (Auto) [place] % (Auto) Eos % (Auto) Baso % (Auto) Lymph # (Auto) [place] # (Auto) Eos # (Auto) Baso # (Auto) Abs Immat Gran (auto) Absolute Neuts (auto) Absolute Nucleated RBC Nucleated RBC % (auto) Smear Tech's Comments VBG pH VBG pCO2 VBG pO2 VBG HCO3 VBG O2 Saturation VBG Base Excess Sodium Potassium Chloride Carbon Dioxide Anion Gap BUN Creatinine Estim Creat Clear Calc Estimated GFR POC Glucose > 600 H* > 600 H* Random Glucose Lactic Acid Calcium Phosphorus Magnesium Total Bilirubin Direct Bilirubin AST ALT Alkaline Phosphatase Troponin I High Sens Total Protein Albumin Lipase TSH Urine Color Urine Appearance Urine pH Ur Specific [place] Urine Protein Urine Glucose (UA) Urine Ketones Urine Blood Urine Nitrite Ur Leukocyte Esterase Urine RBC Urine WBC Ur Squamous Epith Cells Urine Bacteria Hyaline Casts Acetone, Qual COVID-19 (LITA) Negative COVID-19 [employer] [facility] See Note 09/19/22 09/19/22 09/19/22 15:08 15:25 16:20 WBC RBC Hgb Hct MCV MCH MCHC RDW Plt Count MPV Immature Gran % (Auto) Neut % (Auto) Lymph % (Auto) [place] % (Auto) Eos % (Auto) Baso % (Auto) Lymph # (Auto) [place] # (Auto) Eos # (Auto) Baso # (Auto) Abs Immat Gran (auto) Absolute Neuts (auto) Absolute Nucleated RBC Nucleated RBC % (auto) Smear Tech's Comments VBG pH VBG pCO2 VBG pO2 VBG HCO3 VBG O2 Saturation VBG Base Excess Sodium Potassium Chloride Carbon Dioxide Anion Gap BUN Creatinine Estim Creat Clear Calc Estimated GFR POC Glucose 599 H* Random Glucose Lactic Acid Calcium Phosphorus Magnesium Total Bilirubin Direct Bilirubin AST ALT Alkaline Phosphatase Troponin I High Sens 375.1 H* Total Protein Albumin Lipase TSH Urine Color Yellow Urine Appearance Clear Urine pH 5.0 Ur Specific [place] 1.015 Urine Protein Negative Urine Glucose (UA) >=1000 H Urine Ketones Trace Urine Blood Negative Urine Nitrite Negative Ur Leukocyte Esterase Negative Urine RBC 0-2 Urine WBC 0-5 Ur Squamous Epith Cells 3-5 Urine Bacteria None Seen Hyaline Casts 0-2 Acetone, Qual COVID-19 (LITA) COVID-19 [employer] [facility] 09/19/22 09/19/22 09/19/22 16:26 17:26 18:27 WBC RBC Hgb Hct MCV MCH MCHC RDW Plt Count MPV Immature Gran % (Auto) Neut % (Auto) Lymph % (Auto) [place] % (Auto) Eos % (Auto) Baso % (Auto) Lymph # (Auto) [place] # (Auto) Eos # (Auto) Baso # (Auto) Abs Immat Gran (auto) Absolute Neuts (auto) Absolute Nucleated RBC Nucleated RBC % (auto) Smear Tech's Comments VBG pH VBG pCO2 VBG pO2 VBG HCO3 VBG O2 Saturation VBG Base Excess Sodium Potassium Chloride Carbon Dioxide Anion Gap BUN Creatinine Estim Creat Clear Calc Estimated GFR POC Glucose 554 H* 491 H* 418 H* Random Glucose Lactic Acid Calcium Phosphorus Magnesium Total Bilirubin Direct Bilirubin AST ALT Alkaline Phosphatase Troponin I High Sens Total Protein Albumin Lipase TSH Urine Color Urine Appearance Urine pH Ur Specific [place] Urine Protein Urine Glucose (UA) Urine Ketones Urine Blood Urine Nitrite Ur Leukocyte Esterase Urine RBC Urine WBC Ur Squamous Epith Cells Urine Bacteria Hyaline Casts Acetone, Qual COVID-19 (LITA) COVID-19 [employer] [facility] 09/19/22 09/19/22 09/19/22 19:32 20:00 20:58 WBC RBC Hgb Hct MCV MCH MCHC RDW Plt Count MPV Immature Gran % (Auto) Neut % (Auto) Lymph % (Auto) [place] % (Auto) Eos % (Auto) Baso % (Auto) Lymph # (Auto) [place] # (Auto) Eos # (Auto) Baso # (Auto) Abs Immat Gran (auto) Absolute Neuts (auto) Absolute Nucleated RBC Nucleated RBC % (auto) Smear Tech's Comments VBG pH VBG pCO2 VBG pO2 VBG HCO3 VBG O2 Saturation VBG Base Excess Sodium Potassium Chloride Carbon Dioxide Anion Gap BUN Creatinine Estim Creat Clear Calc Estimated GFR POC Glucose 421 H* 357 H* 317 H Random Glucose Lactic Acid Calcium Phosphorus Magnesium Total Bilirubin Direct Bilirubin AST ALT Alkaline Phosphatase Troponin I High Sens Total Protein Albumin Lipase TSH Urine Color Urine Appearance Urine pH Ur Specific [place] Urine Protein Urine Glucose (UA) Urine Ketones Urine Blood Urine Nitrite Ur Leukocyte Esterase Urine RBC Urine WBC Ur Squamous Epith Cells Urine Bacteria Hyaline Casts Acetone, Qual COVID-19 (LITA) COVID-19 Clin Com 09/19/22 09/19/22 09/19/22 22:03 22:05 22:55 WBC RBC Hgb Hct MCV MCH MCHC RDW Plt Count MPV Immature Gran % (Auto) Neut % (Auto) Lymph % (Auto) [place] % (Auto) Eos % (Auto) Baso % (Auto) Lymph # (Auto) [place] # (Auto) Eos # (Auto) Baso # (Auto) Abs Immat Gran (auto) Absolute Neuts (auto) Absolute Nucleated RBC Nucleated RBC % (auto) Smear Tech's Comments VBG pH VBG pCO2 VBG pO2 VBG HCO3 VBG O2 Saturation VBG Base Excess Sodium 137 Potassium 5.4 H Chloride 108 Carbon Dioxide 18 L Anion Gap 16 BUN 96 H Creatinine 3.34 H Estim Creat Clear Calc 22.5 Estimated GFR 15 POC Glucose 272 H 218 H Random Glucose 293 H Lactic Acid Calcium 8.7 Phosphorus Magnesium Total Bilirubin Direct Bilirubin AST ALT Alkaline Phosphatase Troponin I High Sens Total Protein Albumin Lipase TSH Urine Color Urine Appearance Urine pH Ur Specific [place] Urine Protein Urine Glucose (UA) Urine Ketones Urine Blood Urine Nitrite Ur Leukocyte Esterase Urine RBC Urine WBC Ur Squamous Epith Cells Urine Bacteria Hyaline Casts Acetone, Qual COVID-19 (LITA) COVID-19 Clin [facility] 09/19/22 09/20/22 09/20/22 23:41 01:59 03:01 WBC RBC Hgb Hct MCV MCH MCHC RDW Plt Count MPV Immature Gran % (Auto) Neut % (Auto) Lymph % (Auto) [place] % (Auto) Eos % (Auto) Baso % (Auto) Lymph # (Auto) [place] # (Auto) Eos # (Auto) Baso # (Auto) Abs Immat Gran (auto) Absolute Neuts (auto) Absolute Nucleated RBC Nucleated RBC % (auto) Smear Tech's Comments VBG pH VBG pCO2 VBG pO2 VBG HCO3 VBG O2 Saturation VBG Base Excess Sodium Potassium Chloride Carbon Dioxide Anion Gap BUN Creatinine Estim Creat Clear Calc Estimated GFR POC Glucose 207 H 156 H 136 H Random Glucose Lactic Acid Calcium Phosphorus Magnesium Total Bilirubin Direct Bilirubin AST ALT Alkaline Phosphatase Troponin I High Sens Total Protein Albumin Lipase TSH Urine Color Urine Appearance Urine pH Ur Specific [place] Urine Protein Urine Glucose (UA) Urine Ketones Urine Blood Urine Nitrite Ur Leukocyte Esterase Urine RBC Urine WBC Ur Squamous Epith Cells Urine Bacteria Hyaline Casts Acetone, Qual COVID-19 (LITA) COVID-19 Clin [facility] 09/20/22 09/20/22 09/20/22 04:04 05:00 05:03 WBC RBC Hgb Hct MCV MCH MCHC RDW Plt Count MPV Immature Gran % (Auto) Neut % (Auto) Lymph % (Auto) [place] % (Auto) Eos % (Auto) Baso % (Auto) Lymph # (Auto) [place] # (Auto) Eos # (Auto) Baso # (Auto) Abs Immat Gran (auto) Absolute Neuts (auto) Absolute Nucleated RBC Nucleated RBC % (auto) Smear Tech's Comments VBG pH 7.48 H VBG pCO2 32 VBG pO2 76 VBG HCO3 24 VBG O2 Saturation 96.0 VBG Base Excess 1.7 Sodium Potassium Chloride Carbon Dioxide Anion Gap BUN Creatinine Estim Creat Clear Calc Estimated GFR POC Glucose 136 H 142 H Random Glucose Lactic Acid Calcium Phosphorus Magnesium Total Bilirubin Direct Bilirubin AST ALT Alkaline Phosphatase Troponin I High Sens Total Protein Albumin Lipase TSH Urine Color Urine Appearance Urine pH Ur Specific [place] Urine Protein Urine Glucose (UA) Urine Ketones Urine Blood Urine Nitrite Ur Leukocyte Esterase Urine RBC Urine WBC Ur Squamous Epith Cells Urine Bacteria Hyaline Casts Acetone, Qual COVID-19 (LITA) COVID-19 Clin [facility] 09/20/22 09/20/22 09/20/22 05:06 05:07 06:09 WBC 16.2 H RBC 3.60 L Hgb 9.9 L Hct 30.1 L MCV 83.6 MCH 27.5 MCHC 32.9 RDW 14.1 Plt Count 245 MPV 10.3 Immature Gran % (Auto) 0.4 Neut % (Auto) 75.2 H Lymph % (Auto) 13.4 L [place] % (Auto) 10.1 Eos % (Auto) 0.5 Baso % (Auto) 0.4 Lymph # (Auto) 2.2 [place] # (Auto) 1.6 H Eos # (Auto) 0.1 Baso # (Auto) 0.1 Abs Immat Gran (auto) 0.06 H Absolute Neuts (auto) 12.2 H Absolute Nucleated RBC 0.000 Nucleated RBC % (auto) 0.0 Smear Tech's Comments VERIFIED VBG pH VBG pCO2 VBG pO2 VBG HCO3 VBG O2 Saturation VBG Base Excess Sodium 143 Potassium 4.3 D Chloride 111 H Carbon Dioxide 21 L Anion Gap 15 BUN 79 H Creatinine 2.43 H Estim Creat Clear Calc 31.0 Estimated GFR 21 POC Glucose 146 H Random Glucose 142 H Lactic Acid Calcium 9.2 Phosphorus 2.7 Magnesium 2.4 Total Bilirubin Direct Bilirubin AST ALT Alkaline Phosphatase Troponin I High Sens Total Protein Albumin Lipase TSH Urine Color Urine Appearance Urine pH Ur Specific [place] Urine Protein Urine Glucose (UA) Urine Ketones Urine Blood Urine Nitrite Ur Leukocyte Esterase Urine RBC Urine WBC Ur Squamous Epith Cells Urine Bacteria Hyaline Casts Acetone, Qual COVID-19 (LITA) COVID-19 [employer] 09/20/22 09/20/22 08:04 10:07 WBC RBC Hgb Hct MCV MCH MCHC RDW Plt Count MPV Immature Gran % (Auto) Neut % (Auto) Lymph % (Auto) [place] % (Auto) Eos % (Auto) Baso % (Auto) Lymph # (Auto) [place] # (Auto) Eos # (Auto) Baso # (Auto) Abs Immat Gran (auto) Absolute Neuts (auto) Absolute Nucleated RBC Nucleated RBC % (auto) Smear Tech's Comments VBG pH VBG pCO2 VBG pO2 VBG HCO3 VBG O2 Saturation VBG Base Excess Sodium Potassium Chloride Carbon Dioxide Anion Gap BUN Creatinine Estim Creat Clear Calc Estimated GFR POC Glucose 170 H 168 H Random Glucose Lactic Acid Calcium Phosphorus Magnesium Total Bilirubin Direct Bilirubin AST ALT Alkaline Phosphatase Troponin I High Sens Total Protein Albumin Lipase TSH Urine Color Urine Appearance Urine pH Ur Specific [place] Urine Protein Urine Glucose (UA) Urine Ketones Urine Blood Urine Nitrite Ur Leukocyte Esterase Urine RBC Urine WBC Ur Squamous Epith Cells Urine Bacteria Hyaline Casts Acetone, Qual COVID-19 (LITA) COVID-19 Clin Com Progress Note: A&P Assessment and plan (1) DKA (diabetic ketoacidosis): Status: Acute (2) Morbid obesity: Status: Acute (3) Gastroparesis: Status: Acute (4) Type 1 diabetes mellitus: Status: Acute (5) HTN (hypertension), benign: Status: Acute (6) KIMBERLY and COPD overlap syndrome: Status: Acute (7) Hypothyroid: Status: Acute (8) GERD (gastroesophageal reflux disease): Status: Acute Plan Assessment: 52-year-old lady with underlying diabetes mellitus, obesity, gastroparesis admitted with diabetic ketoacidosis Plan: Neuro: No acute issues. Cardiac: Mild troponinemia, improving, appears to be related to physiologic stress. Pulmonary: No acute issues. Renal: Acute renal failure improving. Non oliguric. Continue to monitor urine output and renal indices. Endo: Diabetic ketoacidosis, resolved. Titrated off insulin drip to subcutaneous insulin. Insulin pump is off at this time. GI: No acute issues. ID: Leukocytosis appears to be reactive, improving. Cultures are pending. Patient received empiric antibiotics in the emergency room. Will monitor off antibiotics at this time. Heme/Onc: No acute issues. Psych: No acute issues. Miscellaneous: No acute issues. Prophylaxis: Heparin Diet: diabetic Quality Stroke Does the patient have a stroke diagnosis?: No VTE Prior VTE?: No VTE Risk Level:: Medical - moderate - high VTE Device Contraindication: Treatment Not Indicated VTE Drug Contraindication: N/A - Med Ordered
[2022-09-20 12:28] LABS: Anion Gap 18 (12-20); Blood Urea Nitrogen 61 mg/dL (9-16); Calcium 9.2 mg/dL (8.4-10.2); Carbon Dioxide 20 mmol/L (22-29); Chloride 108 mmol/L (96-108); Creatinine Clr Calc Pharmacy 40.4; Estimated Glomerular Filt Rate 27; Glucose Random 258 mg/dL (60-115); Potassium 4.6 mmol/L (3.3-5.1); Sodium 141 mmol/L (135-145)
[2022-09-20] MEDS: Mag&Al/Sim/Diphenhyd/Lidocaine 10 ML ORAL.SUSP PO (13:27)
--- NOTE | 2022-09-20 15:11 | PC.NURSE ---
Assumed care at 0700. Patient transitioned off insulin drip per Dr Powers after 50 units Lantus insulin given. Last POC before meal was 170. Labs redrawn at 1200. Transfer orders placed for patient to transfer out of the ICU. Patient alert and oriented x 4. Afebrile. surveillance system monitor Sinus rhythm. SBP 150-160's po hydralazine given before transfer. C/o 12/14 headache, tylenol given and mouth pain in which magic mouth wash given. Started on diabetic diet. No nausea vomiting noted. No BM since 09/17. OOB independently with steady gait. Report given to [facility] tele nurse and patient transferred to unit via wheelchair.
[2022-09-20 16:12] LABS: Glucose, Whole Blood 274 mg/dL (60-115)
--- NOTE | 2022-09-20 16:42 | PM.EVENT ---
Event Note Date of Service: 09/20/22 Event Note: Marian Mcbride has been admitted to [facility] on 09/19/22 for acute medical illness. Time Spent With Patient Time: Total time managing care of this patient today ____ minutes.
[2022-09-20] MEDS: Metoprolol Succinate ER 25 MG TAB.ER.24H PO (19:35)
[2022-09-20 19:48] LABS: Glucose, Whole Blood 269 mg/dL (60-115)
[2022-09-21] VITALS (7 sets, daily range): BP systolic 139–184; BP diastolic 75–90; PULSE 71–135; RESP 20; TEMP 37–37.3; O2SAT 96–100
[2022-09-21] MEDS: Metoprolol Tartrate 5 MG/5 ML VIAL IVPUSH (00:17)
--- NOTE | 2022-09-21 00:25 | P.EN_ITS ---
Event Note Date of Service: 09/21/22 Event Note: Patient noted to have fast irregular heart rhythm on telemetry. An EKG was obtained which showed AFib with RVR. Patient denies history of AFib but reports palpitations, she has an appointment with Cardiology for evaluation tomorrow. Patient has a chads Vasc score of 5, will start her on Eliquis, patient is agreeable, patient already on metoprolol will continue, given 1 dose of Lopressor 5 mg IV given her fast heart rate in the 140s to 160s. Will continue to monitor closely. Patient reports that she had an echocardiogram done recently at [facility]. Time Spent With Patient Time: Total time managing care of this patient today ____ minutes.
[2022-09-21] MEDS: Apixaban 5 MG TABLET 10 MG PO ×3 (00:35→20:21)
[2022-09-21 00:51] LABS: Anion Gap 17 (12-20); Blood Urea Nitrogen 44 mg/dL (9-16); Calcium 9.9 mg/dL (8.4-10.2); Carbon Dioxide 23 mmol/L (22-29); Chloride 107 mmol/L (96-108); Creatinine Clr Calc Pharmacy 48.4; Estimated Glomerular Filt Rate 34; Glucose Random 160 mg/dL (60-115); Magnesium 2.1 mg/dL (1.6-2.6); Potassium 5.2 mmol/L (3.3-5.1); Sodium 142 mmol/L (135-145)
[2022-09-21] MEDS: dilTIAZem HCL 125 MG in 0.9 % Sodium Chloride 100 ML 10 MG IVCONT (01:00)
[2022-09-21 01:06] LABS: Thyroid Stimulating Hormone 5.36 uIU/mL (0.32-4.0)
[2022-09-21 06:43] LABS: MANUAL DIFF FLAG NO
[2022-09-21 06:48] LABS: Basophils Absolute Auto 0.1 X10*3/uL (0.0-0.2); Basophils Percent Auto 0.8 % (0-2); Eosinophils Absolute Auto 0.1 X10*3/uL (0.0-0.4); Eosinophils Percent Auto 0.9 % (0-4); Hematocrit 32.8 % (37.0-47.0); Hemoglobin 10.7 g/dl (12.0-16.0); Imm Gran Abs Auto 0.05 X10*3/uL (0.00-0.03); Imm Gran Pct Auto 0.5 % (0.0-0.4); Lymphocytes Absolute Auto 1.8 X10*3/uL (1.2-4.9); Lymphocytes Percent Auto 17.6 % (20-40); Mean Corpuscular HGB Conc 32.6 g/dl (31.0-35.0); Mean Corpuscular Hemoglobin 27.3 pg (27.0-33.0); Mean Corpuscular Volume 83.7 fL (80.0-98.0); Mean Platelet Volume 10.2 fL (9.4-12.3); Monocytes Absolute Auto 1.2 X10*3/uL (0.1-1.2); Monocytes Percent Auto 11.4 % (2-11); Neutrophils Percent Auto 68.8 % (45-73); Platelet Count 234 X10*3/uL (160-400); Red Blood Count 3.92 X10*6/uL (4.20-5.50); Red Cell Distribution Width 14.4 % (11.0-16.0); White Blood Count 10.1 X10*3/uL (4.8-10.8)
[2022-09-21 07:17] LABS: Albumin Level 3.5 g/dL (3.5-5.0); Anion Gap 15 (12-20); Blood Urea Nitrogen 38 mg/dL (9-16); Calcium 9.2 mg/dL (8.4-10.2); Carbon Dioxide 23 mmol/L (22-29); Chloride 107 mmol/L (96-108); Creatinine Clr Calc Pharmacy 48.4; Estimated Glomerular Filt Rate 34; Glucose Random 327 mg/dL (60-115); Magnesium 1.9 mg/dL (1.6-2.6); Phosphorus 2.4 mg/dL (2.7-4.5); Potassium 4.8 mmol/L (3.3-5.1); Sodium 140 mmol/L (135-145)
[2022-09-21 07:35] LABS: Glucose, Whole Blood 341 mg/dL (60-115)
[2022-09-21] MEDS: hydrALAZINE HCl 50 MG TABLET PO ×2 (08:12→16:12)
[2022-09-21] MEDS: Insulin Glargine,Hum.rec.anlog 100 UNIT/ML 10 ML VIAL 50 UNIT SUBCUT (08:14)
[2022-09-21] MEDS: Insulin Lispro 100 UNIT/ML 3 ML VIAL SUBCUT ×3 (08:14→20:44)
--- NOTE | 2022-09-21 09:12 | PM.CNCAR ---
History of Present Illness History of Present Illness Date of Service: 09/21/22 Requesting physician: Mynor Barboza Chief complaint: PAF, DKA Narrative: 52-year-old female with known history of diabetes presenting with vomiting and diabetic ketoacidosis. She also developed paroxysmal episodes of atrial fibrillation with rapid ventricular response. She has known history of hypertension, diabetes and previous stroke. She was on baby aspirin previously. She has been experiencing palpitations at home which were lasting from seconds to minutes. Last night she had prolonged episode of palpitations and was noticed to be in AFib with RVR. Overnight she has reverted back to sinus rhythm. She has no chest discomfort shortness of breath. She was due to see [facility] but has not seen anyone yet. [facility] Past Medical History Medical History CVA (cerebral vascular accident) Family History Family History Mother Hypertension Father Hypertension Brother Hypertension Daughter No problems noted. Surgical History Surgical History Hx of appendectomy Social History Social History Household Members: Significant Other Housing: House Alcohol intake: former Patient Tobacco Use Status: Former Tobacco user Smoked in Last 30 Days: No Substance Use Type: Other Substance Use Type Other:: gummies at bedtime to help with sleep Substance Use Frequency: Daily Last Used Substance: Days (ago) Currently Displaying Signs/Symptoms of Drug Intoxication Withdrawal: No Have you been hit, kicked, punched, or otherwise hurt by someone within the past year? If so, by whom?: No Do you feel safe in your current relationship?: Yes Is there a partner from a previous relationship who is making you feel unsafe now?: No Advance Directives: No Do you have thoughts of harming others: None Do you have a plan to hurt others: No Plan Patient : No Poor oral hygiene: No service: No Current occupational status: unemployed Meds Allergies Allergy/AdvReac Type Severity Reaction Status Date / Time lisinopril [LISINOPRIL] Allergy Severe ANGIOEDEMA, Verified 09/19/22 12:56 COUGH amlodipine [AMLODIPINE] Allergy Intermediate SWELLING Verified 09/19/22 12:56 Penicillins [PENICILLINS] Allergy Unknown RASH Verified 09/19/22 12:56 seasonal Allergy Unknown Anaphylaxis Uncoded 09/15/20 15:07 SEASONAL ALLERGIES Allergy Unknown ITCHING, Uncoded 09/15/20 15:07 WATERY EYES, STUFFY NOSE, COUGH Active Medications: Current Medications Acetaminophen (Acetaminophen 325 Mg Tablet) 650 mg PO Q6H PRN PRN Reason: Pain, Mild (Pain Scale 1-3) Last Admin: 09/20/22 14:28 Dose: 650 mg Apixaban (Apixaban 5 Mg Tablet) 10 mg PO BID [facility] Stop: 09/27/22 09:01 Last Admin: 09/21/22 08:14 Dose: 10 mg Hydralazine HCl (Hydralazine Hcl 50 Mg Tablet) 50 mg PO TID [facility]; Protocol Last Admin: 09/21/22 08:12 Dose: 50 mg Diltiazem HCl 125 mg/ Sodium (Chloride) 125 mls @ 0 mls/hr IVCONT .Q0M [facility]; Protocol Last Titration: 09/21/22 06:04 Dose: 0 mg/hr, 0 mls/hr Insulin Glargine (Insulin Glargine,Hum.Rec.Anlog 100 Unit/Ml 10 Ml Vial) 50 unit SUBCUT DAILY [facility] Last Admin: 09/21/22 08:14 Dose: 50 unit Insulin Human Lispro (Insulin Lispro 100 Unit/Ml 3 Ml Vial) 0 unit SUBCUT QIDACHS [facility]; Protocol Last Admin: 09/21/22 08:14 Dose: 8 unit Lidocaine/Diphenhydr/Alum/Mg/Simeth (Mag&Al/Sim/Diphenhyd/Lidocaine 10 Ml Oral.Susp) 10 ml PO Q4H PRN; Protocol PRN Reason: oral pain Last Admin: 09/20/22 13:27 Dose: 10 ml Losartan Potassium (Losartan Potassium 50 Mg Tablet) 50 mg PO DAILY [facility]; Protocol Last Admin: 09/20/22 07:07 Dose: 50 mg Metoprolol Succinate (Metoprolol Succinate Er 25 Mg Tab.Er.24h) 25 mg PO BEDTIME [facility]; Protocol Last Admin: 09/20/22 19:35 Dose: 25 mg Home Medications Medication Instructions Recorded Confirmed Last Taken Type pen needle, diabetic 31 gauge x #1,200 ea 09/15/20 09/15/20 Unknown History 09/19 aspirin 81 mg tablet,delayed 81 mg PO DAILY 09/19/22 09/19/22 09/18/22 History release atorvastatin 80 mg tablet 80 mg PO BEDTIME 09/19/22 09/19/22 09/18/22 History bupropion HCl 150 mg tablet,12 hr 150 mg PO BID 09/19/22 09/19/22 09/18/22 History sustained-release chlorthalidone 25 mg tablet 25 mg PO DAILY 09/19/22 09/19/22 09/18/22 History gabapentin 300 mg capsule 600 mg PO TID 09/19/22 09/19/22 09/18/22 History hydralazine 50 mg tablet 50 mg PO TID 09/19/22 09/19/22 09/18/22 History insulin aspart U-100 100 unit/mL See Protocol subcut QIDACHS 09/19/22 09/19/22 Unknown History (3 mL) subcutaneous pen (Novolog FlexPen U-100 Insulin aspart) insulin pump cart,automated,BT 09/19/22 09/19/22 Unknown History (Omnipod 5 G6 Pods (Gen 5) subcutaneous cartridge) levothyroxine 112 mcg tablet 112 mcg PO DAILY 09/19/22 09/19/22 09/18/22 History loratadine 10 mg tablet 10 mg PO DAILY PRN Allergy Symptoms 09/19/22 09/19/22 09/18/22 History losartan 50 mg tablet 50 mg PO DAILY 09/19/22 09/19/22 09/18/22 History metoprolol succinate 25 mg 25 mg PO BEDTIME 09/19/22 09/19/22 09/18/22 History tablet,extended release 24 hr naltrexone 50 mg tablet 25 mg PO DAILY 09/19/22 09/19/22 09/18/22 History omeprazole 40 mg capsule,delayed 40 mg PO BID 09/19/22 09/19/22 09/18/22 History release sertraline 50 mg tablet 50 mg PO BEDTIME 09/19/22 09/19/22 09/18/22 History spironolactone 50 mg tablet 50 mg PO DAILY 09/19/22 09/19/22 09/18/22 History spironolactone 50 mg tablet 100 mg PO DAILY@1600 09/19/22 09/19/22 09/18/22 History Physical Exam Vital Signs: Vital Signs: Last Vital Signs Temp 98.6 F 09/21/22 07:36 Pulse 78 09/21/22 07:36 Resp 20 09/21/22 07:36 BP 184/76 H 09/21/22 07:36 Pulse Ox 97 09/21/22 07:36 O2 Del Method Room Air 09/21/22 07:36 BMI result Body Mass Index 41.7 GENERAL APPEARANCE: in no acute distress, pleasant. NECK: Right carotid bruit, no jugular venous distention. SKIN: no suspicious lesions, warm and dry. HEART: no murmurs, regular rate and rhythm. LUNGS: clear to auscultation bilaterally. ABDOMEN: soft, nontender. EXTREMITIES: no edema. PERIPHERAL PULSES: equal. NEUROLOGIC: No gross deficits, AAO X 3 Objective Labs and Meds 09/21/22 06:29 09/21/22 06:29 Lab results: Laboratory Results - last 24 hr 09/20/22 09/20/22 09/20/22 10:07 12:08 16:09 WBC RBC Hgb Hct MCV MCH MCHC RDW Plt Count MPV Immature Gran % (Auto) Neut % (Auto) Lymph % (Auto) Delta % (Auto) Eos % (Auto) Baso % (Auto) Lymph # (Auto) Delta # (Auto) Eos # (Auto) Baso # (Auto) Abs Immat Gran (auto) Absolute Neuts (auto) Absolute Nucleated RBC Nucleated RBC % (auto) Sodium 141 Potassium 4.6 Chloride 108 Carbon Dioxide 20 L Anion Gap 18 BUN 61 H Creatinine 1.93 H Estim Creat Clear Calc 40.4 Estimated GFR 27 POC Glucose 168 H 274 H Random Glucose 258 H Calcium 9.2 Phosphorus Magnesium Albumin TSH 09/20/22 09/21/22 09/21/22 19:45 00:22 06:29 WBC 10.1 RBC 3.92 L Hgb 10.7 L Hct 32.8 L MCV 83.7 MCH 27.3 MCHC 32.6 RDW 14.4 Plt Count 234 MPV 10.2 Immature Gran % (Auto) 0.5 H Neut % (Auto) 68.8 Lymph % (Auto) 17.6 L Delta % (Auto) 11.4 H Eos % (Auto) 0.9 Baso % (Auto) 0.8 Lymph # (Auto) 1.8 Delta # (Auto) 1.2 Eos # (Auto) 0.1 Baso # (Auto) 0.1 Abs Immat Gran (auto) 0.05 H Absolute Neuts (auto) 7.0 Absolute Nucleated RBC 0.000 Nucleated RBC % (auto) 0.0 Sodium 142 Potassium 5.2 H Chloride 107 Carbon Dioxide 23 Anion Gap 17 BUN 44 H Creatinine 1.61 H Estim Creat Clear Calc 48.4 Estimated GFR 34 POC Glucose 269 H Random Glucose 160 H Calcium 9.9 D Phosphorus Magnesium 2.1 Albumin TSH 5.36 H 09/21/22 09/21/22 06:29 07:23 WBC RBC Hgb Hct MCV MCH MCHC RDW Plt Count MPV Immature Gran % (Auto) Neut % (Auto) Lymph % (Auto) Delta % (Auto) Eos % (Auto) Baso % (Auto) Lymph # (Auto) Delta # (Auto) Eos # (Auto) Baso # (Auto) Abs Immat Gran (auto) Absolute Neuts (auto) Absolute Nucleated RBC Nucleated RBC % (auto) Sodium 140 Potassium 4.8 Chloride 107 Carbon Dioxide 23 Anion Gap 15 BUN 38 H Creatinine 1.61 H Estim Creat Clear Calc 48.4 Estimated GFR 34 POC Glucose 341 H Random Glucose 327 H Calcium 9.2 D Phosphorus 2.4 L Magnesium 1.9 Albumin 3.5 TSH Assessment and Plan (1) DKA (diabetic ketoacidosis): Status: Acute (2) PAF (paroxysmal atrial fibrillation): Status: Acute Plan 52 year female presenting with diabetic ketoacidosis and developed episodes of atrial fibrillation. She had palpitations at home and felt similar palpitations when she developed atrial fibrillation in the hospital. She has reverted back to sinus rhythm at this stage. She has significant stroke risk and had previous stroke and is a diabetic. We discussed about starting long-term anticoagulation with apixaban or Xarelto and she is agreeable. She was started on Cardizem by the medicine team. I think that is reasonable to continue for now. Her blood pressure is elevated though and I think her hydralazine should be titrated further to 75 mg 3 times a day. She is going to follow up with [facility]. Thank you for allowing me to participate in the care of your patient. Please feel free to contact me if you have any questions. Time Spent With Patient Time: Total time managing care of this patient today ____ minutes. Procedures Date of Service Date of Service: 09/21/22
[2022-09-21 11:51] LABS: Glucose, Whole Blood 261 mg/dL (60-115)
[2022-09-21] MEDS: dilTIAZem HCL CD 180 MG CAP.ER.24H PO (12:00)
[2022-09-21] MEDS: Acetaminophen 325 MG TABLET 650 MG PO (12:03)
--- NOTE | 2022-09-21 16:04 | HO.PM.IMPN ---
Subjective Subjective Date of Service: 09/22/22 Interval History: dka, gabriella on possible CKD baseline unclear Review of Systems Last night patient went to [facility], started on Cardizem drip Denies any chest pain shortness breath abdominal pain fever chills Physical Exam Vital Signs: Vital Signs: Last Vital Signs Temp 99.2 F 09/21/22 15:05 Pulse 71 09/21/22 15:05 Resp 20 09/21/22 15:05 BP 179/79 H 09/21/22 15:05 Pulse Ox 100 09/21/22 15:05 O2 Del Method Room Air 09/21/22 15:05 BMI result Body Mass Index 41.7 Appearance: Alert.? Oriented X3.? not in distress.? cvs: [id number], [id number]. res: clear to auscultation ,no rhonchii or wheezing abd: no rebound or guarding ,nt, bs present. ext pulses present , no cyanosis. neuro: axo3 , nonfocal. Objective Data Active Medications Acetaminophen (Acetaminophen 325 Mg Tablet) 650 mg PO Q6H PRN PRN Reason: Pain, Mild (Pain Scale 1-3) Last Admin: 09/21/22 12:03 Dose: 650 mg Documented By: ELIEZER Apixaban (Apixaban 5 Mg Tablet) 10 mg PO BID [facility] Stop: 09/27/22 09:01 Last Admin: 09/21/22 08:14 Dose: 10 mg Documented By: ELIEZER Diltiazem HCl (Diltiazem Hcl Cd 180 Mg Cap.Er.24h) 180 mg PO DAILY [facility]; Protocol Last Admin: 09/21/22 12:00 Dose: 180 mg Documented By: ELIEZER Hydralazine HCl (Hydralazine Hcl 50 Mg Tablet) 50 mg PO TID [facility]; Protocol Last Admin: 09/21/22 08:12 Dose: 50 mg Documented By: ELIEZER Insulin Glargine (Insulin Glargine,Hum.Rec.Anlog 100 Unit/Ml 10 Ml Vial) 50 unit SUBCUT DAILY [facility] Last Admin: 09/21/22 08:14 Dose: 50 unit Documented By: ELIEZER Insulin Human Lispro (Insulin Lispro 100 Unit/Ml 3 Ml Vial) 0 unit SUBCUT QIDACHS [facility]; Protocol Last Admin: 09/21/22 12:00 Dose: 6 unit Documented By: FOGARTB Lidocaine/Diphenhydr/Alum/Mg/Simeth (Mag&Al/Sim/Diphenhyd/Lidocaine 10 Ml Oral.Susp) 10 ml PO Q4H PRN; Protocol PRN Reason: oral pain Last Admin: 09/20/22 13:27 Dose: 10 ml Documented By: SYDNIE Losartan Potassium (Losartan Potassium 50 Mg Tablet) 50 mg PO DAILY [facility]; Protocol Last Admin: 09/20/22 07:07 Dose: 50 mg Documented By: SYDNIE Metoprolol Succinate (Metoprolol Succinate Er 25 Mg Tab.Er.24h) 25 mg PO BEDTIME [facility]; Protocol Last Admin: 09/20/22 19:35 Dose: 25 mg Documented By: MILDRED Labs 09/21/22 06:29 09/21/22 06:29 Labs: Laboratory Results - last 24 hr 09/20/22 09/20/22 09/21/22 16:09 19:45 00:22 MCV MCH MCHC RDW Plt Count MPV Immature Gran % (Auto) Neut % (Auto) Lymph % (Auto) [place] % (Auto) Eos % (Auto) Baso % (Auto) Lymph # (Auto) [place] # (Auto) Eos # (Auto) Baso # (Auto) Abs Immat Gran (auto) Absolute Neuts (auto) Absolute Nucleated RBC Nucleated RBC % (auto) Anion Gap 17 Estim Creat Clear Calc 48.4 Estimated GFR 34 POC Glucose 274 H 269 H Random Glucose 160 H Calcium 9.9 D Phosphorus Magnesium 2.1 Albumin TSH 5.36 H 09/21/22 09/21/22 09/21/22 06:29 06:29 07:23 MCV 83.7 MCH 27.3 MCHC 32.6 RDW 14.4 Plt Count 234 MPV 10.2 Immature Gran % (Auto) 0.5 H Neut % (Auto) 68.8 Lymph % (Auto) 17.6 L [place] % (Auto) 11.4 H Eos % (Auto) 0.9 Baso % (Auto) 0.8 Lymph # (Auto) 1.8 [place] # (Auto) 1.2 Eos # (Auto) 0.1 Baso # (Auto) 0.1 Abs Immat Gran (auto) 0.05 H Absolute Neuts (auto) 7.0 Absolute Nucleated RBC 0.000 Nucleated RBC % (auto) 0.0 Anion Gap 15 Estim Creat Clear Calc 48.4 Estimated GFR 34 POC Glucose 341 H Random Glucose 327 H Calcium 9.2 D Phosphorus 2.4 L Magnesium 1.9 Albumin 3.5 TSH 09/21/22 11:33 MCV MCH MCHC RDW Plt Count MPV Immature Gran % (Auto) Neut % (Auto) Lymph % (Auto) [place] % (Auto) Eos % (Auto) Baso % (Auto) Lymph # (Auto) [place] # (Auto) Eos # (Auto) Baso # (Auto) Abs Immat Gran (auto) Absolute Neuts (auto) Absolute Nucleated RBC Nucleated RBC % (auto) Anion Gap Estim Creat Clear Calc Estimated GFR POC Glucose 261 H Random Glucose Calcium Phosphorus Magnesium Albumin TSH Microbiology Microbiology Results: Microbiology 09/19/22 13:54 Blood Culture - Preliminary Blood - Venous No growth after 48 hours. 09/19/22 15:25 Blood Culture - Preliminary Blood - Venous No growth after 24 hours. Assessment and Plan (1) DKA (diabetic ketoacidosis): Status: Acute Plan 52-year-old lady with underlying history of obesity, diabetes mellitus on insulin pump, gastroparesis, KIMBERLY /COPD overlap syndrome, hypertension, hypothyroidism,possible has ckd as per patient follows up with Dr bhatia. 1.dka: Seems to be improved with hydration and insulin drip. Uncontrolled diabetes with hyperglycemia: Continue current insulin regimen, the encouraged for p.o. intake. 2. Uncontrolled hypertension: Continue home medications, course losartan, added diltiazem 3. AFib with RVR: Received diltiazem drip, patient in sinus rhythm Switched to p.o. Cardizem,ac with eliquis, Cardio evaluation noted. 4. gabriella on possible ckd -baseline unclear continue hydration and moniter dvt prophylax: s/c eliquis, Ongoing inpatient need: AFib with RVR-needed Cardizem drip, in addition GABRIELLA seems improving-monitor renal function closely. Time Spent With Patient Time: Total time managing care of this patient today ____ minutes. Quality Stroke Does the patient have a stroke diagnosis?: No VTE Prior VTE?: No VTE Risk Level:: Medical - moderate - high VTE Device Contraindication: Treatment Not Indicated VTE Drug Contraindication: N/A - Med Ordered
[2022-09-21 16:11] LABS: Glucose, Whole Blood 122 mg/dL (60-115)
[2022-09-21] MEDS: Lactated Ringers 1,000 ML 80 ML IVCONT (16:21)
[2022-09-21] MEDS: Metoprolol Succinate ER 25 MG TAB.ER.24H PO (20:20)
[2022-09-21] MEDS: Atorvastatin Calcium 80 MG TABLET PO (20:20)
[2022-09-21] MEDS: hydrALAZINE HCl 25 MG TABLET 75 MG PO (20:20)
[2022-09-21] MEDS: Gabapentin 300 MG CAPSULE 600 MG PO (20:21)
[2022-09-21 20:34] LABS: Glucose, Whole Blood 158 mg/dL (60-115)
[2022-09-22 03:33] VITALS: BP 167/70; PULSE 84; RESP 20; TEMP 37.2; O2SAT 96
[2022-09-22] MEDS: Lactated Ringers 1,000 ML 80 ML IVCONT (03:56)
[2022-09-22] MEDS: Acetaminophen 325 MG TABLET 650 MG PO (03:57)
[2022-09-22] MEDS: Omeprazole 40 MG CAPSULE.DR PO (05:08)
[2022-09-22 06:57] LABS: Anion Gap 12 (12-20); Blood Urea Nitrogen 26 mg/dL (9-16); Calcium 9.5 mg/dL (8.4-10.2); Carbon Dioxide 30 mmol/L (22-29); Chloride 104 mmol/L (96-108); Creatinine Clr Calc Pharmacy 55.7; Estimated Glomerular Filt Rate 40; Glucose Random 202 mg/dL (60-115); Potassium 4.6 mmol/L (3.3-5.1); Sodium 141 mmol/L (135-145)
[2022-09-22 07:41] VITALS: BP 174/74; PULSE 84; RESP 19; TEMP 36.6; O2SAT 97
[2022-09-22 07:58] LABS: Glucose, Whole Blood 218 mg/dL (60-115)
[2022-09-22] MEDS: Levothyroxine Sodium 112 MCG TABLET PO (08:46)
[2022-09-22] MEDS: hydrALAZINE HCl 50 MG TABLET PO (08:47)
[2022-09-22] MEDS: buPROPion HCl XL 300 MG TAB.ER.24H PO (08:48)
[2022-09-22] MEDS: Gabapentin 300 MG CAPSULE 600 MG PO (08:48)
[2022-09-22] MEDS: Aspirin Enteric Coated 81 MG TABLET.DR PO (08:49)
[2022-09-22] MEDS: Apixaban 5 MG TABLET 10 MG PO (08:49)
[2022-09-22] MEDS: Naltrexone HCl 50 MG TABLET 25 MG PO (08:49)
[2022-09-22] MEDS: Insulin Glargine,Hum.rec.anlog 100 UNIT/ML 10 ML VIAL 50 UNIT SUBCUT (08:50)
[2022-09-22] MEDS: Insulin Lispro 100 UNIT/ML 3 ML VIAL SUBCUT ×2 (08:50→12:25)
[2022-09-22] MEDS: dilTIAZem HCL CD 180 MG CAP.ER.24H PO (09:17)
[2022-09-22 11:52] VITALS: BP 128/59; PULSE 90; RESP 20; TEMP 36.6; O2SAT 97
[2022-09-22 12:17] LABS: Glucose, Whole Blood 320 mg/dL (60-115)
--- NOTE | 2022-09-22 12:20 | P.DS_ITS ---
DS: Providers Provider Date of Service: 09/22/22 Date of admission: 09/19/22 16:36 Date of discharge: 09/22/22 Primary care physician: Medina Nascimento NP Consults: 09/21/22 00:18 Consult to Cardiology Routine Consulting Provider: [facility] Reason for consultation: new onset Afib Has provider been notified: No Attending physician on discharge: Mynor Barboza Discharging clinician: Mynor Barboza DS: Diagnosis Discharge Diagnosis (1) DKA (diabetic ketoacidosis): Status: Acute (2) PAF (paroxysmal atrial fibrillation): Status: Acute DS: Summary Hospital Course Hospital Course: 52-year-old lady with underlying history of obesity, diabetes mellitus, gastr oparesis, KIMBERLY /COPD overlap syndrome, hypertension, hypothyroidism being evaluated in ER for complaints of abdominal discomfort and vomiting over the last 3 days. patient noted to have diabetic ketoacidosis with significant hyperglycemia.? She was started on insulin drip and IV fluids with significant improvement in her symptoms.? His CT abdomen/pelvis? is essentially unremarkable.? She has mild troponinemia that appears to be related to underlying physiologic stress and is improving. Hospital course: Patient was admitted for DKA and GABRIELLA, also nausea vomiting: Patient was started on IV insulin drip and hydration and seems to be a DKA improved and as well as GABRIELLA . Patient was strongly advised to continue to use her home insulin regimen, follow-up with PCP and Endocrinology outpatient. Patient says that she has CKD she follows up with Dr. Cardenas's office outpatient. GABRIELLA is improved, will start losartan back and also slowly introduce chlorothiazide.Follow up BMP outpatient. nausea vomiting possibly related to DKA: Patient denies any urinary or respiratory or abdominal complaint: CT abdomen seems fine. Leukocytosis improved, blood culture negative at 48 hours. Will avoid an tibiotic for now. ct abd: incidenatl findin small left ovarian cyst. AFib with RVR: Started on Cardizem, Eliquis. Follow-up with [facility] cardiology. Plan: Continue Cardizem and Eliquis for AFib, follow-up with [facility] cardiology. Hold chlorthalidone until seen by Nephrology, repeat BMP and further management as per Nephrology. If blood pressure stays remain elevated in 140s consider adding another blood pressure medication out patiently with PCP. Patient was strongly advised to follow insulin regimen as well as consider follow-up with endocrinology outpatient. Above management discussed with the patient in detail length she understand and in agreement with the above plan, time spent 50 minutes and 50% time spent on counseling. Significant findings: As above. Procedures performed: None. Treatment and response: As above. Complications: None. Time Spent with Patient Time attestation: Total time managing care of this patient today ____ minutes. Discharge coordination time: Greater than 30 minutes Quality: Safe Use of Opioids Does Pt have an Active Cancer Diagnosis on the Problem List?: No Quality: Stroke Does the patient have a stroke diagnosis?: No Physical Exam Vital Signs: Vital Signs: Last Vital Signs Temp 97.8 F 09/22/22 11:52 Pulse 90 09/22/22 11:52 Resp 20 09/22/22 11:52 BP 128/59 L 09/22/22 11:52 Pulse Ox 97 09/22/22 11:52 O2 Del Method Room Air 09/22/22 11:52 BMI result Body Mass Index 41.7 Appearance: Alert.? Oriented X3.? not in distress.? cvs: [id number], [id number]. res: clear to auscultation ,no rhonchii or wheezing abd: no rebound or guarding ,nt, bs present. ext pulses present , no cyanosis. neuro: axo3 , nonfocal. DS: Data Data Completed and Pending Labs on day of discharge: Laboratory Results - last 24 hr 09/21/22 09/21/22 09/22/22 16:05 20:26 06:17 Sodium 141 Potassium 4.6 Chloride 104 Carbon Dioxide 30 H Anion Gap 12 BUN 26 H Creatinine 1.40 Estim Creat Clear Calc 55.7 Estimated GFR 40 POC Glucose 122 H 158 H Random Glucose 202 H Calcium 9.5 09/22/22 09/22/22 07:39 11:51 Sodium Potassium Chloride Carbon Dioxide Anion Gap BUN Creatinine Estim Creat Clear Calc Estimated GFR POC Glucose 218 H 320 H Random Glucose Calcium Preliminary micro results at discharge 09/19/22 15:25 Blood Culture - Preliminary Blood - Venous No growth after 48 hours. 09/19/22 13:54 Blood Culture - Preliminary Blood - Venous No growth after 48 hours. Imaging Chest x-ray: Radiologist's impression: ITS Impressions Abdomen/Pelvis CT 09/19/22 15:00 IMPRESSION: Question constipation and 2 small left ovarian cyst. Fleischner guidelines were followed. Discharge Plan Discharge Anticipated Discharge Date/Time: 09/22/22 12:14 Patient Disposition: Home, Self-Care Discharge Diagnosis: dka,gabriella on ckd,paf Referrals: Medina Nascimento NP [Primary Care Provider] - 1 Week Discharge Medications: New diltiazem HCl [Cardizem CD] 180 mg Capsule,Extended Release 24hr 180 mg PO DAILY Qty: 30 0RF Protocol: Hold for SBP/HR < HOLD for SBP < : 90 HOLD for HR < : 60 Eliquis 5 mg Tablet 5 mg PO BID Qty: 60 0RF Continued losartan 50 mg tablet 50 mg PO DAILY bupropion HCl 150 mg tablet sustained-release 12 hr 150 mg PO BID atorvastatin 80 mg tablet 80 mg PO BEDTIME naltrexone 50 mg tablet 25 mg PO DAILY omeprazole 40 mg capsule,delayed release(DR/EC) 40 mg PO BID aspirin 81 mg tablet,delayed release (DR/EC) 81 mg PO DAILY gabapentin 300 mg capsule 600 mg PO TID hydralazine 50 mg tablet 50 mg PO TID metoprolol succinate 25 mg tablet extended release 24 hr 25 mg PO BEDTIME sertraline 50 mg tablet 50 mg PO BEDTIME loratadine 10 mg tablet 10 mg PO DAILY PRN (Reason: Allergy Symptoms) spironolactone 50 mg tablet 50 mg PO DAILY spironolactone 50 mg tablet 100 mg PO DAILY@1600 levothyroxine 112 mcg tablet 112 mcg PO DAILY insulin aspart U-100 [Novolog FlexPen U-100 Insulin] 100 unit/mL (3 mL) insu otis pen See Protocol subcut QIDACHS Protocol: Insulin Correction Scale Less than or equal to 110 ---- Give (units): 0 111 to 150 Give (units): 0 151 to 200 Give (units): 2 201 to 250 Give (units): 4 251 to 300 Give (units): 6 301 to 350 Give (units): 8 Greater than 350 Give (units): 10 Call MD if Blood Glucose > : 350 Rx Instructions: use when insulin pump not working (DME) Omnipod 5 G6 Pods (Gen 5) Cartridge SUBCUT (DME) pen needle, diabetic 31 gauge x 5/16 needle See Rx Instructions subcut .MEDSUPPLY Qty: 1200 Rx Instructions: As directed Held chlorthalidone 25 mg tablet 25 mg PO DAILY Hold Instructions: Resume on 11/03/22. Hold unless blood pressure remains >140 mmhg Discharge Orders: Discharge Order (Routine); Ordered 09/22/22 Ordered By: Mynor Barboza Diet: Advance to usual diet Activity on Discharge: As tolerated Stand Alone Forms: Patient Portal Discharge page Other Ambulatory Orders: Basic Metabolic Panel (Routine) Timeframe: 1 Week Facility: [facility] - Location: Laboratory Ordered By: Mynor Barboza Care Plan Goals: Patient was admitted for DKA and GABRIELLA, also nausea vomiting: Patient was started on IV insulin drip and hydration and seems to be a DKA improved and as well as GABRIELLA . Patient was strongly advised to continue to use her home insulin regimen, follow-up with PCP and Endocrinology outpatient. Patient says that she has CKD she follows up with Dr. Cardenas's office outpatient. GABRIELLA is improved, will start losartan back and also slowly introduce chlorothiazide.Follow up BMP outpatient. nausea vomiting possibly related to DKA: Patient denies any urinary or respiratory or abdominal complaint: CT abdomen seems fine. Leukocytosis improved, blood culture negative at 48 hours. Will avoid antibiotic for now. AFib with RVR: Started on Cardizem, Eliquis. Follow-up with [facility] cardiology Health Concerns: As above. Plan of Treatment: As above. Assessment: As above.
--- NOTE | 2022-09-22 12:50 | P.PNCA_ITS ---
Subjective Subjective Date of Service: 09/22/22 Interval history: Seen examined at bedside. Doing well and will be going home today. Blood pressure is elevated. Physical Exam Vital Signs: Last Vital Signs Temp 97.8 F 09/22/22 11:52 Pulse 90 09/22/22 11:52 Resp 20 09/22/22 11:52 BP 128/59 L 09/22/22 11:52 Pulse Ox 97 09/22/22 11:52 O2 Del Method Room Air 09/22/22 11:52 BMI result Body Mass Index 41.7 GENERAL APPEARANCE: in no acute distress, pleasant. NECK: Right carotid bruit, no jugular venous distention. SKIN: no suspicious lesions, warm and dry. HEART: no murmurs, regular rate and rhythm. LUNGS: clear to auscultation bilaterally. ABDOMEN: soft, nontender. EXTREMITIES: no edema. PERIPHERAL PULSES: equal. NEUROLOGIC: No gross deficits, AAO X 3 Objective Labs and Meds 09/21/22 06:29 09/22/22 06:17 Lab results: Laboratory Results - last 24 hr 09/21/22 09/21/22 09/22/22 16:05 20:26 06:17 Sodium 141 Potassium 4.6 Chloride 104 Carbon Dioxide 30 H Anion Gap 12 BUN 26 H Creatinine 1.40 Estim Creat Clear Calc 55.7 Estimated GFR 40 POC Glucose 122 H 158 H Random Glucose 202 H Calcium 9.5 09/22/22 09/22/22 07:39 11:51 Sodium Potassium Chloride Carbon Dioxide Anion Gap BUN Creatinine Estim Creat Clear Calc Estimated GFR POC Glucose 218 H 320 H Random Glucose Calcium Progress Note: A&P Assessment and plan (1) PAF (paroxysmal atrial fibrillation): Status: Acute (2) HTN (hypertension), benign: Status: Acute Plan [age] year female with paroxysmal atrial fibrillation in setting of diabetic ketoacidosis. She has high chads Vasc score and has been started on apixaban. Blood pressure has been elevated but she also has not been receiving her home medications due to acute kidney injury. She is on hydralazine which can be titrated. Her losartan can be restarted if creatinine is at baseline. She will follow up with [facility]. Signing off. Time Spent With Patient Time: Total time managing care of this patient today ____ minutes. Progress Note: Quality Stroke Does the patient have a stroke diagnosis?: No Procedures Date of Service Date of Service: 09/22/22
--- NOTE | 2022-09-22 13:05 | MHC.CM.PN ---
Pt medically cleared for D/C home with no services. Pt has her own ride with family. [facility] [employer] [facility] 30-day card given to pt.
== END 2022-09-22 13:09 | disposition home or self-care (01) | DRG 638 ==
LOC: HO.ED 17:08 → HO.EDOVER 19:11 → HO.ICU 19:14 → HO.IMC 09-20 14:26
PROVIDERS: Internal Medicine; Nurse Practitioner Family; Admitting Provider Internal Medicine Pulmonary Disease; Emergency Provider Emergency Medicine; PCP Nurse Practitioner Family; Visit Provider Internal Medicine
DX: E10.10 Type 1 diabetes mellitus with ketoacidosis without coma (principal); N17.9 Acute kidney failure, unspecified; Z68.41 Body mass index [BMI] 40.0-44.9, adult; E10.43 Type 1 diabetes mellitus with diabetic autonomic (poly)neuropathy; K31.84 Gastroparesis; E66.01 Morbid (severe) obesity due to excess calories; J44.9 Chronic obstructive pulmonary disease, unspecified; G47.33 Obstructive sleep apnea (adult) (pediatric); I12.9 Hypertensive chronic kidney disease with stage 1 through stage 4 chronic kidney disease, or unspecified chronic kidney disease; N18.30 Chronic kidney disease, stage 3 unspecified; E10.22 Type 1 diabetes mellitus with diabetic chronic kidney disease; Z20.822 Contact with and (suspected) exposure to COVID-19; E03.9 Hypothyroidism, unspecified; Z86.73 Personal history of transient ischemic attack (TIA), and cerebral infarction without residual deficits; I48.0 Paroxysmal atrial fibrillation; Z96.41 Presence of insulin pump (external) (internal); Z88.0 Allergy status to penicillin; Z88.8 Allergy status to other drugs, medicaments and biological substances; Z79.4 Long term (current) use of insulin; Z79.82 Long term (current) use of aspirin; Z79.890 Hormone replacement therapy; Z79.899 Other long term (current) drug therapy
CPT/HCPCS: 36415; 74176; 80048; 80076; 81001; 82009; 82040; 82803; 82947; 83605; 83690; 83735; 84100; 84443; 84484; 85025; 87040; 87635; 93005; 99285; J1643; J1956; J2405

== ENCOUNTER 2023-10-09 11:11 | Outpatient (AMB) | payer MEDICARE, MEDICAID, SELFPAY ==
[2023-10-09 11:12] VITALS: BP 100/60; PULSE 70; O2SAT 96; BMI 43.2
--- NOTE | 2023-10-09 11:12 | HO.NEPHOV_ITS ---
Vital Signs 10/09/23 11:12 Height 5 ft 3 in Weight 244 lb BMI 43.2 BP 100/60 Blood Pressure Location Lt radial Position Sitting Pulse 70 Pulse Source Pulse Oximeter Pulse Oximetry (%) 96 Oxygen Delivery Method Room Air Intake Visit Reasons: CKD/ LVM [employer] Laboratory Technician Required: No Accompanied by: Self / Same As Patient Allergies lisinopril [LISINOPRIL] Allergy (Severe, Verified 10/09/23 11:14) ANGIOEDEMA, COUGH amlodipine [AMLODIPINE] Allergy (Intermediate, Verified 10/09/23 11:14) SWELLING Penicillins [PENICILLINS] Allergy (Unknown, Verified 10/09/23 11:14) RASH seasonal Allergy (Unknown, Uncoded 09/15/20 15:07) Anaphylaxis SEASONAL ALLERGIES Allergy (Unknown, Uncoded 09/15/20 15:07) ITCHING, WATERY EYES, STUFFY NOSE, COUGH Medication List - Last Reconciled 10/09/23 by Mario Cardenas MD apixaban (Eliquis) 5 mg PO BID aspirin 81 mg PO DAILY atorvastatin 80 mg PO BEDTIME bupropion HCl SR 150 mg PO BID carvedilol 25 mg PO BID chlorthalidone 25 mg PO DAILY cyclobenzaprine 5 mg PO TID PRN gabapentin 600 mg PO TID hydralazine 25 mg PO TID insulin aspart U-100 (Novolog FlexPen U-100 Insulin aspart) See Protocol units subcut QIDACHS insulin pump cart,automated,BT (Omnipod 5 G6 Pods (Gen 5) subcutaneous cartridge) levothyroxine 112 mcg PO DAILY loratadine 10 mg PO DAILY PRN losartan 50 mg PO BID naltrexone 50 mg PO DAILY omeprazole 40 mg PO BID pen needle, diabetic As directed sertraline 50 mg PO BEDTIME spironolactone 50 mg PO DAILY spironolactone 100 mg PO DAILY@1600 HPI Comments Details: 53 yr old woman with a history of obesity, diabetes mellitus on insulin, gastroparesis, KIMBERLY /COPD overlap syndrome, hypertension, hypothyroidism, and CKD Here for follow up. From renal standpoint she is doing well. She denies any new complaints. [facility] Medical History CVA (cerebral vascular accident) Surgical History Hx of appendectomy Family History Mother Hypertension Father Hypertension Brother Hypertension Daughter No problems noted. Social History Household Members: Significant Other Housing: House Alcohol intake: former Patient Tobacco Use Status: Former Tobacco user Substance Use Type: Other service: No Current occupational status: unemployed Review of Systems Const Denies fever(s) and Denies weight loss Card Denies chest pain Resp Denies cough and Denies hemoptysis GI Denies abdominal pain, Denies diarrhea and Denies nausea Musc Denies back pain Neuro Denies focal weakness Physical Exam Vital Signs: Last Vital Signs Pulse 70 10/09/23 11:12 BP 100/60 10/09/23 11:12 Pulse Ox 96 10/09/23 11:12 Oxygen Delivery Method Room Air 10/09/23 11:12 BMI result Body Mass Index 43.2 Const General: comfortable Nutritional Appearance: well nourished Orientation/consciousness: patient oriented x3 HEENT Head: No normal to inspection Mouth: moist mucous membranes Neck Neck: Yes supple and Yes no JVD Resp Auscultation: clear to auscultation bilaterally, no rales and rub present Cardio Jugular venous distension: no JVD Palpation: no palpable S3 and no palpable S4 Heart sounds: no rubs GI Palpation (GI): Soft to palpation and nontender Percussion: No Fluid wave present General: Yes no CVA tenderness Back/Spine/Pelvis Back: no CVA tenderness Skin General skin exam: no rashes or lesions noted Neuro General: patient oriented x3 Extrem General: Yes no pedal edema and No clubbing Results Reviewed Nephrology Results: Hgb 10.7 g/dl (12.0-16.0) L 09/21/22 WBC 10.1 X10*3/uL (4.8-10.8) 09/21/22 Plt Count 234 X10*3/uL (160-400) 09/21/22 Sodium 141 mmol/L (135-145) 09/22/22 Potassium 4.6 mmol/L (3.3-5.1) 09/22/22 Chloride 104 mmol/L (96-108) 09/22/22 Carbon Dioxide 30 mmol/L (22-29) H 09/22/22 BUN 26 mg/dL (9-16) H 09/22/22 Creatinine 1.40 mg/dL (0.5-1.4) 09/22/22 Calcium 9.5 mg/dL (8.4-10.2) 09/22/22 Phosphorus 2.4 mg/dL (2.7-4.5) L 09/21/22 Urine Protein Negative mg/dL (Neg-Trace) 09/19/22 Assessment & Plan Assessment & Plan (1) CKD (chronic kidney disease) stage 3, GFR 30-59 ml/min: Code(s): N18.30 - Chronic kidney disease, stage 3 unspecified Category: Medical (2) Type 1 diabetes mellitus: Code(s): E10.9 - Type 1 diabetes mellitus without complications Category: Medical (3) HTN (hypertension), benign: Code(s): I10 - Essential (primary) hypertension Category: Medical (4) PAF (paroxysmal atrial fibrillation): Code(s): I48.0 - Paroxysmal atrial fibrillation Category: Medical Plan . 53-year-old woman with a history of diabetes mellitus hypertension obesity with chronic kidney disease. [place] stage 3 chronic kidney disease. Renal function stable at baseline. Goal is to slow the portion disease. Discussed importance of tight control blood pressure and blood sugar to slow the progression. Continue to avoid nephrotoxic agents including NSAIDs. She is mild anemia which is multifactorial. No indication for Epogen. Currently she is on multiple antihypertensive agents including 2 diuretics and high dose of spironolactone. She will check renal panel along with the electrolytes and adjust diuretics as indicated. Orders: Orders Comprehensive Met. Panel Today E10.9 - Type 1 diabetes mellitus without complications, E11.10 - Type 2 diabetes mellitus with ketoacidosis without coma, I10 - Essential (primary) hypertension, I48.0 - Paroxysmal atrial fibrillation, N18.9 - Chronic kidney disease, unspecified UA and rflx microscopic Today E10.9 - Type 1 diabetes mellitus without complications, E11.10 - Type 2 diabetes mellitus with ketoacidosis without coma, I10 - Essential (primary) hypertension, I48.0 - Paroxysmal atrial fibrillation Complete Blood Count Auto Diff Today E10.9 - Type 1 diabetes mellitus without complications, E11.10 - Type 2 diabetes mellitus with ketoacidosis without coma, I10 - Essential (primary) hypertension, I48.0 - Paroxysmal atrial fibrillation, N18.30 - Chronic kidney disease, stage 3 unspecified Creatinine Urine Today E10.9 - Type 1 diabetes mellitus without complications, I10 - Essential (primary) hypertension, I48.0 - Paroxysmal atrial fibrillation Total Protein Urine Random Today E10.9 - Type 1 diabetes mellitus without complications, E11.10 - Type 2 diabetes mellitus with ketoacidosis without coma, I10 - Essential (primary) hypertension, I48.0 - Paroxysmal atrial fibrillation Coding Level of Care Code Est Pt Level 4 (71979) Diagnoses CKD (chronic kidney disease) stage 3, GFR 30-59 ml/min N18.30 Type 1 diabetes mellitus E10.9 HTN (hypertension), benign I10 PAF (paroxysmal atrial fibrillation) I48.0
== END 2023-10-09 11:32 | disposition home or self-care (01) ==
PROVIDERS: PCP Nurse Practitioner Family; Visit Provider Internal Medicine Hypertension Specialist
DX: N18.30 Chronic kidney disease, stage 3 unspecified (principal); E10.9 Type 1 diabetes mellitus without complications; I10 Essential (primary) hypertension; I48.0 Paroxysmal atrial fibrillation
CPT/HCPCS: 99214

== ENCOUNTER → 2023-10-09 11:11 | Outpatient (BNVA) | payer MEDICARE, MEDICAID, SELFPAY | PROVIDERS: PCP Nurse Practitioner Family; Visit Provider Internal Medicine Hypertension Specialist | DX: E10.22 Type 1 diabetes mellitus with diabetic chronic kidney disease (principal); I12.9 Hypertensive chronic kidney disease with stage 1 through stage 4 chronic kidney disease, or unspecified chronic kidney disease; N18.30 Chronic kidney disease, stage 3 unspecified; I48.0 Paroxysmal atrial fibrillation; Z79.899 Other long term (current) drug therapy | CPT/HCPCS: 36415; 80053; 85025; 99212 ==

== ENCOUNTER 2023-10-09 11:41 | Outpatient (REF) | payer MEDICARE, MEDICAID, SELFPAY ==
[2023-10-09 13:14] LABS: MANUAL DIFF FLAG NO
[2023-10-09 13:37] LABS: Basophils Absolute Auto 0.1 X10*3/uL (0.0-0.2); Basophils Percent Auto 1.3 % (0-2); Eosinophils Absolute Auto 0.3 X10*3/uL (0.0-0.4); Eosinophils Percent Auto 2.9 % (0-4); Hematocrit 35.7 % (37.0-47.0); Hemoglobin 11.4 g/dl (12.0-16.0); Imm Gran Abs Auto 0.04 X10*3/uL (0.00-0.03); Imm Gran Pct Auto 0.5 % (0.0-0.4); Lymphocytes Absolute Auto 1.5 X10*3/uL (1.2-4.9); Lymphocytes Percent Auto 16.6 % (20-40); Mean Corpuscular HGB Conc 31.9 g/dl (31.0-35.0); Mean Corpuscular Hemoglobin 27.9 pg (27.0-33.0); Mean Corpuscular Volume 87.5 fL (80.0-98.0); Mean Platelet Volume 10.6 fL (9.4-12.3); Monocytes Absolute Auto 0.9 X10*3/uL (0.1-1.2); Monocytes Percent Auto 10.1 % (2-11); Neutrophils Percent Auto 68.6 % (45-73); Platelet Count 289 X10*3/uL (160-400); Red Blood Count 4.08 X10*6/uL (4.20-5.50); Red Cell Distribution Width 13.5 % (11.0-16.0); White Blood Count 8.8 X10*3/uL (4.8-10.8)
[2023-10-09 14:04] LABS: Alanine Aminotransferase 31 U/L (0-31); Albumin Level 3.9 g/dL (3.5-5.0); Alkaline Phosphatase 102 U/L (39-117); Anion Gap 12 (12-20); Aspartate Amino Transferase 18 U/L (5-31); Bilirubin Total 0.3 mg/dL (0.0-1.0); Blood Urea Nitrogen 32 mg/dL (9-16); Calcium 9.9 mg/dL (8.4-10.2); Carbon Dioxide 24 mmol/L (22-29); Chloride 107 mmol/L (96-108); Estimated Glomerular Filt Rate 30; Glucose Random 180 mg/dL (60-115); Potassium 5.4 mmol/L (3.3-5.1); Sodium 138 mmol/L (135-145); Total Protein 7.2 g/dL (6.5-8.0)
== END 2023-10-09 11:42 | disposition home or self-care (01) ==
LOC: HO.10HDL 11:41
PROVIDERS: Visit Provider Internal Medicine Hypertension Specialist
DX: Z13.89 Encounter for screening for other disorder (principal)
CPT/HCPCS: 36415; 80053; 85025

== ENCOUNTER 2023-10-22 10:59 | Outpatient (REF) | payer MEDICARE, MEDICAID, SELFPAY ==
[2023-10-22 13:20] LABS: Appearance Urine Clear; Color Urine Yellow; Glucose Urine UA Negative (Negative); Leukocyte Esterase Urine Negative (Negative); Nitrite Urine Negative (Negative); Urine Blood Negative (Negative); Urine Ketones Negative (Negative); Urine Protein Negative (Neg-Trace)
[2023-10-22 13:51] LABS: Anion Gap 12 (12-20); Blood Urea Nitrogen 25 mg/dL (9-16); Calcium 9.5 mg/dL (8.4-10.2); Carbon Dioxide 24 mmol/L (22-29); Chloride 109 mmol/L (96-108); Estimated Glomerular Filt Rate 42; Glucose Random 92 mg/dL (60-115); Potassium 5.6 mmol/L (3.3-5.1); Sodium 139 mmol/L (135-145)
[2023-10-22 14:15] LABS: Total Protein Urine Random 13 mg/dL (<12)
== END 2023-10-22 11:00 | disposition home or self-care (01) ==
LOC: HO.10HDL 10:59
PROVIDERS: Visit Provider Internal Medicine Hypertension Specialist
DX: I10 Essential (primary) hypertension (principal); I48.0 Paroxysmal atrial fibrillation; E11.10 Type 2 diabetes mellitus with ketoacidosis without coma; N18.30 Chronic kidney disease, stage 3 unspecified
CPT/HCPCS: 36415; 80048; 81003; 82570; 84156

== ENCOUNTER 2023-11-07 11:37 | Outpatient (REF) | payer MEDICARE, MEDICAID, SELFPAY ==
[2023-11-07 12:52] LABS: Anion Gap 11 (12-20); Blood Urea Nitrogen 29 mg/dL (9-16); Carbon Dioxide 27 mmol/L (22-29); Chloride 106 mmol/L (96-108); Estimated Glomerular Filt Rate 35; Glucose Random 109 mg/dL (60-115); Sodium 139 mmol/L (135-145)
== END 2023-11-07 11:38 | disposition home or self-care (01) ==
LOC: HO.10HDL 11:37
PROVIDERS: Visit Provider Internal Medicine Hypertension Specialist
DX: N18.30 Chronic kidney disease, stage 3 unspecified (principal)
CPT/HCPCS: 36415; 80048

== ENCOUNTER 2024-02-05 11:26 | Outpatient (AMB) | payer MEDICARE, MEDICAID, SELFPAY ==
[2024-02-05 11:30] VITALS: BP 108/60; PULSE 72; O2SAT 96; BMI 44.5
--- NOTE | 2024-02-05 11:30 | HO.NEPHOV_ITS ---
Vital Signs 02/05/24 11:30 Height 5 ft 3 in Weight 251 lb BMI 44.5 BP 108/60 Blood Pressure Location Rt radial Position Sitting Pulse 72 Pulse Source Pulse Oximeter Pulse Oximetry (%) 96 Oxygen Delivery Method Room Air Intake Visit Reasons: CKD/ 4 MO FU/ Conf Physical Geographer Required: No Accompanied by: Self / Same As Patient Allergies lisinopril [LISINOPRIL] Allergy (Severe, Verified 02/05/24 11:32) ANGIOEDEMA, COUGH amlodipine [AMLODIPINE] Allergy (Intermediate, Verified 02/05/24 11:32) SWELLING Penicillins [PENICILLINS] Allergy (Unknown, Verified 02/05/24 11:32) RASH seasonal Allergy (Unknown, Uncoded 09/15/20 15:07) Anaphylaxis SEASONAL ALLERGIES Allergy (Unknown, Uncoded 09/15/20 15:07) ITCHING, WATERY EYES, STUFFY NOSE, COUGH Medication List - Last Reconciled 02/05/24 by Mario Cardenas MD apixaban (Eliquis) 5 mg PO BID aspirin 81 mg PO DAILY atorvastatin 80 mg PO BEDTIME bupropion HCl SR 150 mg PO BID carvedilol 25 mg PO BID chlorthalidone 25 mg PO DAILY cyclobenzaprine 5 mg PO TID PRN gabapentin 600 mg PO TID hydralazine 25 mg PO TID insulin aspart U-100 (Novolog FlexPen U-100 Insulin aspart) See Protocol units subcut QIDACHS insulin pump cart,automated,BT (Omnipod 5 G6 Pods (Gen 5) subcutaneous cartridge) levothyroxine 112 mcg PO DAILY loratadine 10 mg PO DAILY PRN losartan 50 mg PO BID naltrexone 50 mg PO DAILY omeprazole 40 mg PO BID pen needle, diabetic As directed sertraline 50 mg PO BEDTIME spironolactone 50 mg PO BID HPI Comments Details: 54 yr old woman with a history of obesity, diabetes mellitus on insulin, gastroparesis, KIMBERLY /COPD overlap syndrome, hypertension, hypothyroidism, and CKD Here for follow up. From renal standpoint she is doing well. She denies any new complaints. 02/05/24 Doing well Waiting to start [facility] Medical History CVA (cerebral vascular accident) Surgical History Hx of appendectomy Family History Mother Hypertension Father Hypertension Brother Hypertension Daughter No problems noted. Social History Household Members: Significant Other Housing: House Alcohol intake: former Patient Tobacco Use Status: Former Tobacco user Substance Use Type: Other service: No Current occupational status: unemployed Physical Exam Vital Signs: Last Vital Signs Pulse 72 02/05/24 11:30 BP 108/60 02/05/24 11:30 Pulse Ox 96 02/05/24 11:30 Oxygen Delivery Method Room Air 02/05/24 11:30 BMI result Body Mass Index 44.5 Results Reviewed Nephrology Results: Hgb 11.4 g/dl (12.0-16.0) L 10/09/23 WBC 8.8 X10*3/uL (4.8-10.8) 10/09/23 Plt Count 289 X10*3/uL (160-400) 10/09/23 Sodium 139 mmol/L (135-145) 11/07/23 Potassium 5.0 mmol/L (3.3-5.1) 11/07/23 Chloride 106 mmol/L (96-108) 11/07/23 Carbon Dioxide 27 mmol/L (22-29) 11/07/23 BUN 29 mg/dL (9-16) H 11/07/23 Creatinine 1.57 mg/dL (0.5-1.4) H 11/07/23 Calcium 10.0 mg/dL (8.4-10.2) 11/07/23 Phosphorus 2.4 mg/dL (2.7-4.5) L 09/21/22 Urine Protein Negative mg/dL (Neg-Trace) 10/22/23 Urine Creatinine 41.30 mg/dL 10/22/23 Assessment & Plan Assessment & Plan (1) CKD (chronic kidney disease) stage 3, GFR 30-59 ml/min: Code(s): N18.30 - Chronic kidney disease, stage 3 unspecified Category: Medical (2) Type 1 diabetes mellitus: Code(s): E10.9 - Type 1 diabetes mellitus without complications Category: Medical (3) HTN (hypertension), benign: Code(s): I10 - Essential (primary) hypertension Category: Medical (4) PAF (paroxysmal atrial fibrillation): Code(s): I48.0 - Paroxysmal atrial fibrillation Category: Medical Plan . 53-year-old woman with a history of diabetes mellitus hypertension obesity with chronic kidney disease. [place] stage 3 chronic kidney disease. Renal function stable at baseline. Goal is to slow the portion disease. Discussed importance of tight control blood pressure and blood sugar to slow the progression. Continue to avoid nephrotoxic agents including NSAIDs. She is mild anemia which is multifactorial. No indication for Epogen. Currently she is on multiple antihypertensive agents including 2 diuretics and high dose of spironolactone. BP is rather low DECREASE SPIRONOLACTONE to 50 mg BID Once she starts Wegovy and losses weight, we might be able to lower her antihypertensives Encouraged her to monitor BP and call me if BP drops Orders: Orders Basic Metabolic Panel 3 Months N18.30 - Chronic kidney disease, stage 3 unspecified Coding Level of Care Code Est Pt Level 4 (46266) Diagnoses CKD (chronic kidney disease) stage 3, GFR 30-59 ml/min N18.30 Type 1 diabetes mellitus E10.9 HTN (hypertension), benign I10 PAF (paroxysmal atrial fibrillation) I48.0
== END 2024-02-05 11:47 | disposition home or self-care (01) ==
PROVIDERS: PCP Nurse Practitioner Family; Visit Provider Internal Medicine Hypertension Specialist
DX: I12.9 Hypertensive chronic kidney disease with stage 1 through stage 4 chronic kidney disease, or unspecified chronic kidney disease (principal); N18.30 Chronic kidney disease, stage 3 unspecified; E10.22 Type 1 diabetes mellitus with diabetic chronic kidney disease; I48.0 Paroxysmal atrial fibrillation
CPT/HCPCS: 99214

== ENCOUNTER → 2024-02-05 11:26 | Outpatient (BNVA) | payer MEDICARE, MEDICAID, SELFPAY | PROVIDERS: PCP Nurse Practitioner Family; Visit Provider Internal Medicine Hypertension Specialist | DX: E10.22 Type 1 diabetes mellitus with diabetic chronic kidney disease (principal); I12.9 Hypertensive chronic kidney disease with stage 1 through stage 4 chronic kidney disease, or unspecified chronic kidney disease; I48.0 Paroxysmal atrial fibrillation; N18.30 Chronic kidney disease, stage 3 unspecified; E66.9 Obesity, unspecified; Z68.41 Body mass index [BMI] 40.0-44.9, adult; Z79.4 Long term (current) use of insulin | CPT/HCPCS: 99212 ==

== ENCOUNTER 2024-05-06 11:35 | Outpatient (REF) | payer MEDICARE, MEDICAID, SELFPAY ==
--- OUTSIDE RECORDS SUMMARY | 2024-05-06 11:45 | XMS_ITS | Continuity of Care Document ---
Author Organization [facility] Address [address] [place] [address]- Care Team Providers Care Expressive Therapist Name Role Phone Jemma Tavares MD Primary Care Phys[place] [facility] [place]): [place]02/24 [facility] [address] [place] [address]- Attending Physician: Geoffrey Clinton Admitting Physician: Geoffrey Clinton Referring Physician: Admtr ArJulisa Encounter Type: Triage Allergies, Adverse Reactions, Alerts Substance Criticality Severity Reaction Reaction Severity Status penicillin Hives Active lisinopril Chronic cough Activ e Mold Nasal congestio n Sneezing Active amLODIPine Swelling Active Medications amLODIPine 2.5 mg oral tablet 30 each, 0 Refill(s), TAKE 1 TABLET BY MOUTH EVERY DAY, 0 Refills, 10/15/23 1:49:00 PM EDT, Partial fill upon patient request if the prescription is for a schedule II opioid drug. Start Date: 10/15/23 Status: Ordered Repeat number: 1 amoxicillin 500 mg oral capsule 21 each, 0 Refill(s), TAKE 1 CAPSULE BY MOUTH THREE TIMES A DAY, 0 Refills, 10/15/23 1:49:00 PM EDT,Partial fill upon patient request if the prescription is for a schedule II opioid drug. Start Date: 10/15/23 Status: Ordered Repeat number: 1 aspirin 81 mg oral tablet 1 tablet = 81 mg, By Mouth, Daily, # 30 tablet, 0 Refills, Maintenance, 06/05/17 9:31:40 AM EST, Tablet Start Date: 06/05/17 Status: Ordered Quantity: 30.0 Unit: tablet Repeat number: 1 Aspirin Low Dose 81 mg oral delayed release tablet 90 each, 0 Refill(s), TAKE 1 TABLET BY MOUTH EVERY DAY, 0 Refills, 11/19/23 8:52:00 AM EDT, Partial fill upon patient request if the prescription is for a schedule II opioid drug. Start Date: 11/19/23 Status: Ordered Repeat number: 1 atorvastatin 80 mg oral tablet 1 tablet = 80 mg, By Mouth, Daily, # 30 tablet, 0 Refills, Maintenance, Tablet Start Date: 06/05/17 Status: Ordered Quantity: 30.0 Unit: tablet Repeat number: 1 Augmentin 875 mg-125 mg oral tablet 14 each, 0 Refill(s), TAKE 1 TABLET BY MOUTH EVERY 12 HOURS FOR 7 DAYS, 0 Refills, 11/19/23 8:52:00 AM EDT, Partial fill upon patient request if the prescription is for a schedule II opioid drug. Start Date: 11/19/23 Status: Ordered Repeat number: 1 BuPROPion (Eqv-Zyban Advantage Pack) 150 mg/12 hours oral tablet, extended release 90 each, 0 Refill(s), TAKE 1 TABLET BY MOUTH EVERY DAY IN THE MORNING, 0 Refills, 10/15/23 1:49:00 PM EDT, Partial fill upon patient request if the prescription is for a schedule II opioid drug. Start Date: 10/15/23 Status: Ordered Repeat number: 1 carvedilol 25 mg oral tablet 1, tablet, By Mouth, 2 times a day, # 180 tablet, Refills 3, Maintenance, 05/02/24 7:38:00 AM EST, Route to Pharmacy Electronically, [id number], 160, cm, 11/19/23 8:52:00 EDT, Height, 102.1, kg,11/23/22 17:32:00 EDT, Dry Weight Start Date: 05/02/24 Status: Ordered Quantity: 180.0 Unit: tablet Repeat number: 1 chlorthalidone 25 mg oral tablet Refills 0, Maintenance, 10/30/22 12:17:00 PM EDT, Partial fill upon patient request if the prescription is for a schedule II opioid drug. Start Date: 10/30/22 Status: Ordered Repeat number: 1 Cyclobenzaprine = 5 mg, By Mouth, 2 times a day, 0 Refills, Maintenance, 06/05/17 9:32:22 AM EST Start Date: 06/05/17 Status: Ordered Repeat number: 1 cyclobenzaprine 5 mg oral tablet 30 each, 0 Refill(s), TAKE 1 TABLET BY MOUTH THREE TIMES A DAY NEEDED FOR MUSCLE SPASM, 0 Refills, 10/15/23 1:49:00 PM EDT, Partial fill upon patient request if the prescription is for a schedule II opioid drug. Start Date: 10/15/23 Status: Ordered Repeat number: 1 dexamethasone 10 mg/mL injectable solution 10 Unknown, Intravenous, 0 Refill(s), 0 Refills, 04/19/23 1:45:00 PM EST, Partial fill upon patientrequest if the prescription is for a schedule II opioid drug. Start Date: 04/19/23 Status: Ordered Repeat number: 1 Dexcom G6 sensors Dexcom G6 sensors, See Instructions, # 9 each, Refills 3, Tot. Refills 3, Maintenance, to change every 10 days 90 days supply, 10/10/23 5:01:00 PM EDT, Supply, 160, cm, 10/10/23 14:59:00 EDT, Height, 102.1, kg, 11/23/22 17:32:00 EDT, Dry Weight Start Date: 10/10/23 Status: Ordered Quantity: 9.0 Unit: each Repeat number: 4 Dexcom G6 transmitter Dexcom G6 transmitter, See Instructions, # 1 pack/packet, Refills 3, Tot. Refills 3, Maintenance, Dexcom G6 Transmitter, 05/05/21 4:29:00 PM EST, Supply Start Date: 05/05/21 Status: Ordered Quantity: 1.0 Unit: pack/packet Repeat number: 4 Eliquis 5 mg oral tablet 1 tablet = 5 mg, By Mouth, 2 times a day, # 60 tablet, 5 Refills, Maintenance, 10/13/22 8:12:00 AM EDT, Tablet, Partial fill upon patient request if the prescription is for a schedule II opioid drug. Start Date: 10/13/22 Status: Ordered Quantity: 60.0 Unit: tablet Repeat number: 1 Famotidine 0 Refills, Maintenance, 06/05/17 9:32:59 AM EST Start Date: 06/05/17 Status: Ordered Repeat number: 1 Gabapentin = 600 mg, By Mouth, 3 times a day, 0 Refills, Maintenance, 10/13/22 8:09:00 AM EDT, Partial fill uponpatient request if the prescription is for a schedule II opioid drug. Start Date: 10/13/22 Status: Ordered Repeat number: 1 gabapentin 300 mg oral capsule 180 each, 0 Refill(s), TAKE 2 CAPSULES BY MOUTH 3 TIMES A DAY, Refills 0, 10/15/23 1:48:00 PM EDT, Partial fill upon patient request if the prescription is for a schedule II opioid drug. Start Date: 10/15/23 Status: Ordered Repeat number: 1 Glucagon Emergency Kit See Instructions, PRN, # 2 each, Refills 3, Tot. Refills 3, Maintenance, Blood Glucose, use as directed for Type 1 Diabetes Mellitus, 05/24/22 5:24:00 PM EST, Compound, 157.1, cm, 05/24/22 16:08:00 EST, Height, 114.8, kg, 08/03/20 8:18:00 EDT, Dry Weight Start Date: 05/24/22 Stop Date: 09/21/22 Status: Ordered Quantity: 2.0 Unit: each Repeat number: 4 Humalog 100 u/ml subcutaneous injection See Instructions, Subcutaneous Injection, Use as directed for Diabetes mellitus type 1 in insulin pump. (Max Dose = 150 units/day). 90day supply, # 150 mL, 3 Refills, Maintenance, 12/27/23 10:23:00 AMEDT, [id number], Partial fill upon patient request if the prescription is for a schedule IIopioid drug., 160, cm, 11/19/23 8:52:00 EDT, Height, 102.1, kg, 11/23/22 17:32:00 EDT, Dry Weight Start Date: 12/27/23 Stop Date: 12/21/24 Status: Ordered Quantity: 150.0 Unit: mL Repeat number: 4 Humalog Kwik Pen 100 units/mL subcutaneous injection See Instructions, INJECT 8 TO 20 UNITS SUBCUTANEOUSLY 3 TIMES DAY. MAX 30 UNITS A DAY. 30 DAYS SUPPLY IN CASE OF PUMP failuer. E10.65, # 30 mL, 5 Refills, Maintenance, 07/12/23 4:13:00 PM EST, Solution, [id number], Partial fill upon patient request if the prescription is for a schedule II opioid drug., 160, cm, 05/08/23 10:10:00 EST, Height, 102.1, kg, 11/23/22 17:32:00 EDT, Dry Weight Start Date: 07/12/23 Status: Ordered Quantity: 30.0 Unit: mL Repeat number: 6 hydrALAZINE 25 mg oral tablet 1, tablet, By Mouth, 3 times a day, # 90 tablet, Refills 1, Maintenance, 03/19/24 8:32:00 AM EST, Route to Pharmacy Electronically, [id number], 160, cm, 11/19/23 8:52:00 EDT, Height, 102.1, kg, 11/23/22 17:32:00 EDT, Dry Weight Start Date: 03/19/24 Status: Ordered Quantity: 90.0 Unit: tablet Repeat number: 1 Ketostix See Instructions, # 2 vials, Refills 11, Tot. Refills 11, Maintenance, use as directed for Type 1 Diabetes Mellitus, 05/29/17 9:00:51 AM EST, Compound Start Date: 05/29/17 Stop Date: 05/24/18 Status: Ordered Quantity: 2.0 Unit: vials Repeat number: 12 Lantus Solostar Pen 100 units/mL subcutaneous solution = 55 units, Subcutaneous Injection, Daily at bedtime, In case of pump failuer 55 units daily. E10.9, # 15 mL, 6 Refills, Maintenance, 10/17/22 3:45:00 PM EDT, Solution, [id number], Partial fill upon patient request if the prescription is for a schedule II opioid drug., 157.1, cm, 10/17/22 15:07:00 EDT, Height Start Date: 10/17/22 Stop Date: 05/15/23 Status: Ordered Quantity: 15.0 Unit: mL Repeat number: 7 levothyroxine 0.1 mg oral tablet See Instructions, TAKE 1 TABLET BY MOUTH DAILY(SUN-SUN) AND SUNDAYS TAKE 2 TABLETS, # 102 tablet, 0Refills, Maintenance, 04/28/24 12:21:00 PM EST, [id number], 160, cm, 11/19/23 8:52:00 EDT, Height, 102.1, kg, 11/23/22 17:32:00 EDT, Dry Weight Start Date: 04/28/24 Status: Ordered Quantity: 102.0 Unit: tablet Repeat number: 1 losartan 50 mg oral tablet 1 tablet = 50 mg, By Mouth, 2 times a day, # 60 tablet, 5 Refills, Maintenance, 07/02/23 3:20:00 PM EST, Tablet, [id number], Partial fill upon patient request if the prescription is for a schedule II opioid drug., 160, cm, 05/08/23 10:10:00 EST, Height, 102.1, kg, 11/23/22 17:32:00 EDT, Dry Weight Start Date: 07/02/23 Status: Ordered Quantity: 60.0 Unit: tablet Repeat number: 6 metoclopramide 10 mg oral tablet 28 each, 0 Refill(s), TAKE 1 TABLET IF NEEDED IN THE AM, AT NOON, IN THE PM, AND AT BEDTIME (NAUSEA) FOR UP TO 14 DAYS, 0 Refills, 10/15/23 1:48:00 PM EDT, Partial fill upon patient request if the prescription is for a schedule II opioid drug. Start Date: 10/15/23 Status: Ordered Repeat number: 1 Miscellaneous Rx 0 Refills, 10 each, 0 Refill(s), CHANGE EVERY 3 DAYS, 10/15/23 1:48:00 PM EDT Start Date: 10/15/23 Status: Ordered Repeat number: 1 naltrexone 50 mg oral tablet 1 tablet = 50 mg, By Mouth, Daily, # 30 tablet, 0 Refills, Maintenance, 05/24/22 4:10:00 PM EST, Tablet, Partial fill upon patient request if the prescription is for a schedule II opioid drug. Start Date: 05/24/22 Status: Ordered Quantity: 30.0 Unit: tablet Repeat number: 1 NIFEdipine (Eqv-Procardia XL) 30 mg oral tablet, extended release 30 each, 0 Refill(s), TAKE 1 TABLET BY MOUTH EVERY DAY, 0 Refills, 10/15/23 1:48:00 PM EDT, Partial fill upon patient request if the prescription is for a schedule II opioid drug. Start Date: 10/15/23 Status: Ordered Repeat number: 1 NovoLOG 100 units/mL injectable solution See Instructions, MAX DOSE =150 UNITS/DAY, PT NEED EXTRA FOR SITE CHANGES, SHE INFUSES VIA OMNIPOD,, # 100 mL, 5 Refills, Maintenance, 02/28/24 2:26:00 PM EDT, [id number], 160, cm, 11/19/23 8:52:00 EDT, Height, 102.1, kg, 11/23/22 17:32:00 EDT, Dry Weight Start Date: 02/28/24 Status: Ordered Quantity: 100.0 Unit: mL Repeat number: 6 NovoLOG FlexPen 100 units/mL injectable solution 15 mL, 0 Refill(s), PLEASE SEE ATTACHED FOR DETAILED DIRECTIONS, 0 Refills, 10/15/23 1:48:00 PM EDT,Partial fill upon patient request if the prescription is for a schedule II opioid drug. Start Date: 10/15/23 Status: Ordered Repeat number: 1 Omeprazole By Mouth, Daily, 0 Refills, Maintenance, 06/05/18 2:52:09 PM EST Start Date: 06/05/18 Status: Ordered Repeat number: 1 omeprazole 40 mg oral enteric coated capsule 180 each, 0 Refill(s), TAKE 1 CAPSULE (40 MG) BY MOUTH BEFORE BREAKFAST AND BEFORE EVENING MEAL. DONOT CRUSH OR CHEW, 0 Refills, 10/15/23 1:48:00 PM EDT, Partial fill upon patient request if the prescription is for a schedule II opioid drug. Start Date: 10/15/23 Status: Ordered Repeat number: 1 omnipod dash pods omnipod dash pods, See Instructions, # 10 each, Refills 11, Tot. Refills 11, Maintenance, e10.9 change every 3 days, 05/15/23 11:00:00 AM EST, Supply, 160, cm, 05/08/23 10:10:00 EST, Height, 102.1, kg,11/23/22 17:32:00 EDT, Dry Weight Start Date: 05/15/23 Status: Ordered Quantity: 10.0 Unit: each Repeat number: 12 OMNIPOD DASH PODS (GEN 4) 5PK OMNIPOD DASH PODS (GEN 4) 5PK, See Instructions, # 10 Unknown, 8 Refills, Maintenance, CHANGE EVERY3 DAYS, 04/22/24 4:18:00 PM EST, 160, cm, 11/19/23 8:52:00 EDT, Height, 102.1, kg, 11/23/22 17:32:00 EDT, Dry Weight Start Date: 04/22/24 Status: Ordered Quantity: 10.0 Unit: Unknown Repeat number: 1 Pen [employer], 31 G x 5 mm BD Ultra Fine III See Instructions, # 200 each, Refills 1, Tot. Refills 1, Maintenance, pen needels for QID, E10.9, 05/24/22 4:56:00 PM EST, Supply, 157.1, cm, 05/24/22 16:08:00 EST, Height, 114.8, kg, 08/03/20 8:18:00EDT, Dry Weight Start Date: 05/24/22 Status: Ordered Quantity: 200.0 Unit: each Repeat number: 2 Pen [employer], 31 G x 8 mm BD Ultra Fine III See Instructions, # 150 each, Refills 5, Tot. Refills 5, Maintenance, 4 pen needles daily. E10.9, 06/01/21 11:40:00 AM EST, Dx E10.9, Compound, 157.1, cm, 08/03/20 8:18:00 EDT, Height, 114.8, kg, 08/03/20 8:18:00 EDT, Dry Weight Start Date: 06/01/21 Stop Date: 11/23/22 Status: Ordered Quantity: 150.0 Unit: each Repeat number: 6 sertraline 50 mg oral tablet 1 tablet = 50 mg, By Mouth, Daily, # 30 tablet, 0 Refills, Maintenance, 06/05/17 9:32:10 AM EST, Tablet Start Date: 06/05/17 Status: Ordered Quantity: 30.0 Unit: tablet Repeat number: 1 spironolactone 50 mg oral tablet 1 tablet = 50 mg, By Mouth, 2 times a day, # 60 tablet, 0 Refills, Maintenance, 07/18/23 1:19:00 PM EDT, Tablet, Partial fill upon patient request if the prescription is for a schedule II opioid drug. Start Date: 07/18/23 Status: Ordered Quantity: 60.0 Unit: tablet Repeat number: 1 Tramadol = 50 mg, By Mouth, PRN, 0 Refills, Maintenance, 05/24/22 4:11:00 PM EST, Partial fill upon patient request if the prescription is for a schedule II opioid drug. Start Date: 05/24/22 Status: Ordered Repeat number: 1 traMADol 50 mg oral tablet 20 each, 0 Refill(s), TAKE 1 TABLET BY MOUTH EVERY 6 HOURS IF NEEDED FOR SEVERE PAIN FOR UP TO 5 DAYS., 0 Refills, 10/15/23 1:48:00 PM EDT, Partial fill upon patient request if the prescription is fora schedule II opioid drug. Start Date: 10/15/23 Status: Ordered Repeat number: 1 Problem List Condition Confirmation Course Effective Dates Status H ealth Status Informant CVA (cerebral vascular accident) Confirmed Active Chronic bilateral low back pain Confirmed Active Essential hypertension Confirmed Active GERD (gastroesophageal reflux disease) Confirmed Active Gastroparesis Confirmed Active Eczema of both hands Confirmed Active Hypothyroidism Confirmed Active Recurrent major depressive disorder, in partial remission Confirmed Active Sciatica Confirmed Active Severe obesity Confirmed Active Type 1 diabetes Confirmed Active Diabetes type I Confirmed Active Urinary incontinence Confirmed Active Social History Social History Type Response Smoking Status Former smoker, quit more than 30 days ago entered on: 10/30/22 Sex Sex Representation Female (finding) Laboratory * Event Display: Non Lab Results Authored Date: Patient Care team information Care Team Personnel Name: Theresa ADAME, Mario Albert Position: [facility] Renal MD Member Role: Lifetime Consulting Physician Address: [address] [place] [address] [id number] [facility] [address]- Telecom: Name: Jemma Tavares MD Position: [facility] Physician - Pediatrics Member Role: PCP Address: [address] [place] [id number]- Telecom: Name: Radames Guo RN Position: [facility] RN Member Role: Primary Care Nurse Name: Michael Fox RN Position: [facility] RN Member Role: Primary Care Nurse Name: Tommie Singleton Position: [facility] Outreach Member Role: Lifetime Consulting Physician Name: Carmen Tim MA Position: [facility] Outreach Member Role: Lifetime Consulting Physician Name: Bhavani Guerrero RN Position: [facility] DANN Nurse Member Role: Primary Care Nurse Name: Rupinder Leong Position: [facility] JILLIAN Office Staff Member Role: Lifetime Consulting Physician Care Team Related Persons Name: GUCCI YOUNG Insurance Providers Guarantor name: DORYS CORRAL Health Plan Information #: 1 Payer: MEDICARE PART B OUTPT Member Number: NA Policy Number: NA Group Number: NA Health Plan Information #: 2 Payer: [facility] [facility] [facility] Member Number: NA Policy Number: NA Group Number: NA
[2024-05-06 13:31] LABS: Anion Gap 12 (12-20); Blood Urea Nitrogen 29 mg/dL (9-16); Calcium 9.4 mg/dL (8.4-10.2); Carbon Dioxide 24 mmol/L (22-29); Chloride 109 mmol/L (96-108); Estimated Glomerular Filt Rate 35; Potassium 4.9 mmol/L (3.3-5.1); Sodium 140 mmol/L (135-145)
[2024-05-06 13:32] LABS: Anion Gap 12 (12-20); Blood Urea Nitrogen 28 mg/dL (9-16); Calcium 9.4 mg/dL (8.4-10.2); Carbon Dioxide 24 mmol/L (22-29); Chloride 109 mmol/L (96-108); Estimated Glomerular Filt Rate 34; Glucose Random 136 mg/dL (60-115); Sodium 140 mmol/L (135-145)
== END 2024-05-06 11:36 | disposition home or self-care (01) ==
LOC: HO.LAB 11:35
PROVIDERS: PCP Family Medicine; Visit Provider Internal Medicine Hypertension Specialist
DX: I12.9 Hypertensive chronic kidney disease with stage 1 through stage 4 chronic kidney disease, or unspecified chronic kidney disease (principal); N18.30 Chronic kidney disease, stage 3 unspecified
CPT/HCPCS: 36415; 80048; 80051; 82310; 82565; 84520

== ENCOUNTER 2024-05-08 11:15 | Outpatient (AMB) | payer MEDICARE, MEDICAID, SELFPAY ==
[2024-05-08 11:19] VITALS: BP 116/58; PULSE 67; O2SAT 95; BMI 45.5
--- NOTE | 2024-05-08 11:19 | HO.NEPHOV_ITS ---
Vital Signs 05/08/24 11:19 Height 5 ft 3 in Weight 257 lb BMI 45.5 BP 116/58 L Blood Pressure Location Lt brachial Position Sitting Pulse 67 Pulse Source Pulse Oximeter Pulse Oximetry (%) 95 Oxygen Delivery Method Room Air Intake Visit Reasons: CKD Residential Sales Manager Required: No Accompanied by: Self / Same As Patient Allergies lisinopril [LISINOPRIL] Allergy (Severe, Verified 05/08/24 11:21) ANGIOEDEMA, COUGH amlodipine [AMLODIPINE] Allergy (Intermediate, Verified 05/08/24 11:21) SWELLING Penicillins [PENICILLINS] Allergy (Unknown, Verified 05/08/24 11:21) RASH seasonal Allergy (Unknown, Uncoded 09/15/20 15:07) Anaphylaxis SEASONAL ALLERGIES Allergy (Unknown, Uncoded 09/15/20 15:07) ITCHING, WATERY EYES, STUFFY NOSE, COUGH Medication List - Last Reconciled 05/08/24 by Mario Cardenas MD apixaban (Eliquis) 5 mg PO BID aspirin 81 mg PO DAILY atorvastatin 80 mg PO BEDTIME bupropion HCl SR 150 mg PO BID carvedilol 25 mg PO BID chlorthalidone 25 mg PO DAILY cyclobenzaprine 5 mg PO TID PRN gabapentin 600 mg PO TID hydralazine 25 mg PO TID insulin aspart U-100 (Novolog FlexPen U-100 Insulin aspart) See Protocol units subcut QIDACHS insulin lispro (Humalog KwikPen (U-100) Insulin) subcut DAILY insulin pump cart,automated,BT (Omnipod 5 G6 Pods (Gen 5) subcutaneous cartridge) levothyroxine 100 mcg PO DAILY loratadine 10 mg PO DAILY PRN losartan 50 mg PO BID naltrexone 50 mg PO DAILY omeprazole 40 mg PO BID pen needle, diabetic As directed semaglutide (weight loss) (Wegovy) mg subcut sertraline 50 mg PO BEDTIME spironolactone 50 mg PO BID tramadol 50 mg PO Q6H PRN HPI Comments Details: 54 yr old woman with a history of obesity, diabetes mellitus on insulin, gastroparesis, KIMBERLY /COPD overlap syndrome, hypertension, hypothyroidism, and CKD Here for follow up. From renal standpoint she is doing well. She denies any new complaints. 02/05/24 Doing well;Waiting to start WeGovy 05/08/24 On Wegovy - month 2 No weight change yet [facility] Medical History CVA (cerebral vascular accident) Surgical History Hx of appendectomy Family History Mother Hypertension Father Hypertension Brother Hypertension Daughter No problems noted. Social History Household Members: Significant Other Housing: House Alcohol intake: former Patient Tobacco Use Status: Former Tobacco user Substance Use Type: Other service: No Current occupational status: unemployed Physical Exam Vital Signs: Last Vital Signs Pulse 67 05/08/24 11:19 BP 116/58 L 05/08/24 11:19 Pulse Ox 95 05/08/24 11:19 Oxygen Delivery Method Room Air 05/08/24 11:19 BMI result Body Mass Index 45.5 Comfortable Neck supple no JVD. Lungs entry equal no rales. Heart S1-S2 heard no gallop or rub. Abdomen soft nontender. Neuro alert awake oriented. No asterixis. Extremities no edema. Results Reviewed Nephrology Results: Hgb 11.4 g/dl (12.0-16.0) L 10/09/23 WBC 8.8 X10*3/uL (4.8-10.8) 10/09/23 Plt Count 289 X10*3/uL (160-400) 10/09/23 Sodium 140 mmol/L (135-145) 05/06/24 Potassium 5.0 mmol/L (3.3-5.1) 05/06/24 Chloride 109 mmol/L (96-108) H 05/06/24 Carbon Dioxide 24 mmol/L (22-29) 05/06/24 BUN 28 mg/dL (9-16) H 05/06/24 Creatinine 1.58 mg/dL (0.5-1.4) H 05/06/24 Calcium 9.4 mg/dL (8.4-10.2) 05/06/24 Phosphorus 2.4 mg/dL (2.7-4.5) L 09/21/22 Urine Protein Negative mg/dL (Neg-Trace) 10/22/23 Urine Creatinine 41.30 mg/dL 10/22/23 Assessment & Plan Assessment & Plan (1) CKD (chronic kidney disease) stage 3, GFR 30-59 ml/min: Code(s): N18.30 - Chronic kidney disease, stage 3 unspecified Category: Medical (2) Type 1 diabetes mellitus: Code(s): E10.9 - Type 1 diabetes mellitus without complications Category: Medical (3) HTN (hypertension), benign: Code(s): I10 - Essential (primary) hypertension Category: Medical (4) PAF (paroxysmal atrial fibrillation): Code(s): I48.0 - Paroxysmal atrial fibrillation Category: Medical Plan . 53-year-old woman with a history of diabetes mellitus hypertension obesity with chronic kidney disease. Marian stage 3 chronic kidney disease. Renal function stable at baseline. Goal is to slow the progression of renal disease Discussed importance of tight control blood pressure and blood sugar to slow the progression. Continue to avoid nephrotoxic agents including NSAIDs. She is mild anemia which is multifactorial. No indication for Epogen. Currently she is on multiple antihypertensive agents including 2 diuretics and high dose of spironolactone. BP better controlled after DECREASing SPIRONOLACTONE to 50 mg BID As she looses weight with Wegovy we might be able to lower her antihypertensives Encouraged her to monitor BP and call me if BP drops Orders: Orders Basic Metabolic Panel 3 Months N18.30 - Chronic kidney disease, stage 3 unspecified Coding Level of Care Code Est Pt Level 4 (56953) Diagnoses CKD (chronic kidney disease) stage 3, GFR 30-59 ml/min N18.30 Type 1 diabetes mellitus E10.9 HTN (hypertension), benign I10 PAF (paroxysmal atrial fibrillation) I48.0
== END 2024-05-08 11:32 | disposition home or self-care (01) ==
PROVIDERS: PCP Nurse Practitioner Family; Visit Provider Internal Medicine Hypertension Specialist
DX: I12.9 Hypertensive chronic kidney disease with stage 1 through stage 4 chronic kidney disease, or unspecified chronic kidney disease (principal); E10.22 Type 1 diabetes mellitus with diabetic chronic kidney disease; N18.30 Chronic kidney disease, stage 3 unspecified; I48.0 Paroxysmal atrial fibrillation
CPT/HCPCS: 99214

== ENCOUNTER → 2024-05-08 11:15 | Outpatient (BNVA) | payer MEDICARE, MEDICAID, SELFPAY | PROVIDERS: PCP Nurse Practitioner Family; Visit Provider Internal Medicine Hypertension Specialist | DX: E10.22 Type 1 diabetes mellitus with diabetic chronic kidney disease (principal); I12.9 Hypertensive chronic kidney disease with stage 1 through stage 4 chronic kidney disease, or unspecified chronic kidney disease; N18.30 Chronic kidney disease, stage 3 unspecified; I48.0 Paroxysmal atrial fibrillation | CPT/HCPCS: 99212 ==

== ENCOUNTER 2024-09-11 15:13 | Outpatient (REF) | payer MEDICARE, MEDICAID, SELFPAY ==
--- OUTSIDE RECORDS SUMMARY | 2024-09-11 15:46 | XMS_ITS | Encounter Summary ---
Author Organization [facility] Address [address] [facility] [address] [address] [place] [address] Phone Care Team Providers Care Roller Pneumatic Name Role Phone Jemma Tavares MD Primary Care Provider [phone] Reason for Visit * Reason Comments Med Refill Encounter Details Date Type Department Care Team (Late st Contact Info) Description 11/15/2021 Refill [facility] [address] [place] [id number] Mario Cardenas MD Social History Tobacco Use Types Packs/Day Years Used Date Smoking Tobacco: Former Smokeless Tobacco: Never Comments:Smoking History Inf o:Every day Alcohol Use Standard Drinks/Week Comments Yes 0 (1 standard drink = 0.6 oz pure alcohol) Alcoholic Drinks/day: Occasional social drink Comments Unknown Sex and Gender Information Value Date Recorded Sex Assigned at Not on file Legal Sex Female 4:51 PM EST Gender Identity Not on file Sexual Orientation Not on file documented as of this encounter Plan of Treatment Not on file documented as of this encounter Visit Diagnoses Not on filedocumented in this encounter Care Teams Roller Pneumatic Relationship Specialty Start Date End Date Jemma Tavares MD PCP - General Internal Medicine 10/19/22 documented as of this encounter
--- OUTSIDE RECORDS SUMMARY | 2024-09-11 15:46 | XMS_ITS | Clinical Summary ---
Author Organization [facility] Address [address] [place] [address] Phone Care Team Providers Care Auditor In Charge Name Role Phone Jemma Tavares MD Primary Care Provider [phone] Allergies Active Allergy Reactions Criticality Noted Date Comments Amlodipine Other (see comments) 02/08/2020 Lisinopril Other (see comments) 02/08/2020 Medications Aspirin Low Dose 81 MG EC tablet Take 81 mg by mouth 1 (one) time each day 1 Active atorvastatin (LIPITOR) 80 MG tablet Take 80 mg by mouth 1 (one) time each day 1 Active buPROPion SR (WELLBUTRIN SR) 150 MG 12 hr tablet TAKE 1 TABLET BY MOUTH IN THE MORNING TWICE A DAY FOR 30 DAYS 1 Active cyclobenzaprine (FLEXERIL) 5 MG tablet Take 1 tablet by mouth 3 (three) times a day Active gabapentin (NEURONTIN) 300 MG capsule 1 Active famotidine (PEPCID) 40 MG tablet Take 1 tablet by mouth 1 (one) time each day Active NovoLOG 100 UNIT/ML injection MAX DOSE 150 UNITS/DAY, PT NEED EXTRA FOR SITE CHANGES, SHE INFUSES VIA OMNIPOD, E10.9 1 Active insulin glargine (Lantus SoloStar) 100 UNIT/ML injection INJECT 72 UNITS INTO THE SKIN ONCE DAILY 0 Active Insulin Lispro, 1 Unit Dial, 100 UNIT/ML solution pen-injector Active loratadine (CLARITIN) 10 MG tablet Take 1 tablet by mouth 1 (one) time each day Active losartan (COZAAR) 100 MG tablet Take 50 mg by mouth 1 (one) time each day 1 Active naltrexone (DEPADE) 50 MG tablet TAKE 1/2 TABLET BY MOUTH ONCE A DAY FOR 30 DAYS 1 Active omeprazole (PriLOSEC) [address] capsule TAKE 1 CAPSULE BY MOUTH EVERY DAY BEFORE A MEAL 1 Active spironolactone (ALDACTONE) 50 MG tablet 1 Active traMADol (ULTRAM) 50 MG tablet 1 Active sertraline (ZOLOFT) 50 MG tablet Take 50 mg by mouth 1 (one) time each day 1 Active levothyroxine (SYNTHROID, LEVOTHROID) 88 MCG tablet TAKE 1 TABLET BY MOUTH 1 TIME EACH DAY. 90 tablet 3 Active Additional Information Patient taking differently: 100 mcg, Reported on 06/05/2022 hydrALAZINE 50 MG tablet TAKE 1 TABLET BY MOUTH IN THE MORNING AND 1 TABLET IN THE EVENING AND 1 TABLET BEFORE BEDTIME. 270 tablet 3 3 Active chlorthalidone 25 MG tablet TAKE 1 TABLET BY MOUTH EVERY DAY 90 tablet 1 3 Active Eliquis 5 MG tablet Take 5 mg by mouth 2 (two) times a day 3 Active Active Problems Problem Noted Date Diagnosed Date Mild depression 04/18/2022 Mild anxiety 04/18/2022 Grief finding 04/18/2022 Cerebrovascular accident 09/14/2021 Chronic low back pain 09/14/2021 Gastroesophageal reflux disease 09/14/2021 Gastroparesis syndrome 09/14/2021 Hand eczema 09/14/2021 Hypothyroidism 09/14/2021 Recurrent major depression in partial remission 09/14/2021 Sciatica 09/14/2021 Type 1 diabetes mellitus 09/14/2021 Urinary incontinence 09/14/2021 Anemia of chronic renal failure 01/04/2021 Hypertensive disorder 01/04/2021 Renal disorder due to type 1 diabetes mellitus 0 01/04/2021 Immunizations Immunization Administration Dates Next Due Influenza, Quadrivalent, Pre servative Free 02/19/2020 Influenza, Unspecified 03/15/2021,2018,04/02/2018,02/21 Pneumococcal Polysaccharide 04/02/2018 Tdap 12/14/2016 Family History Medical History Relation Comments Diabetes Father grandmother Heart disease Father grandmother Hypertension Father Hypertension Mother Diabetes Sibling Relation Status Comments Father Unknown Mother Unknown Sibling Social History Tobacco Use Types Packs/Day Years Used Date Smoking Tobacco: Former Smokeless Tobacco: Never Tobacco Cessation:Counseling Given: Not Answered Comments:Smoking History Info:Every day Alcohol Use Standard Drinks/Week Comments Yes 0 (1 standard drink = 0.6 oz pure alcohol) Alcoholic Drinks/day: Occasional social drink Comments Unknown Sex and Gender Information Value Date Recorded Sex Assigned at Not on file Legal Sex Female 4:51 PM EST Gender Identity Not on file Sexual Orientation Not on file Last Filed Vital Signs Vital Sign Reading Time Taken Comments Blood Pressure 140/68 01/25/2023 3:45 PM EDT Pulse 64 01/25/2023 3:45 PM EDT Temperature - - Respiratory Rate - - Oxygen Saturation 98% 01/25/2023 3:45 PM EDT Inhaled Oxygen Concentration - - Weight 112 kg (246 lb) 01/25/2023 3:45 PM EDT Height 162.6 cm (5' 4 ) 01/25/2023 3:45 PM EDT Body Mass Index 42.23 01/25/2023 3:45 PM EDT Plan of Treatment Health Maintenance Due Date Last Done Comments Breast Cancer Screening 1971 Hepatitis B Vaccine (1 of 3 - 19+ 3-dose series) 1990 Pneumococcal Vaccine: 50+ Ye ars (2 of 2 - PCV) 04/02/2019 04/02/2018 Colorectal Cancer Screening: Annual FOBT 01/25/2020 Colorectal Cancer Screening: Colonoscopy 01/25/2020 Colorectal Cancer Screening: Sigmoidoscopy 01/25/2020 Diabetes: Ophthalmology Exam 06/06/2020 Diabetes: Pedal Pulse Checked 06/06/2020 Diabetes: Sensory Foot Exam 06/06/2020 Diabetes: Visual Foot Exam 06/06/2020 Diabetes: Hemoglobin A1C 06/04/2021 03/04/2021, 02/0 12/2018 Influenza Vaccine (Season Ended) 2025 02/06/2023, 03/15/2021, 02/19/2020, Additional history exists Pneumococcal Vaccine: Peds ( 0 to 5 Years) and At-Risk Patients (6 to 49 Years) Discontinued 04/02/2018 Procedures Procedure Name Priority Date/Time Associated Diagnosis Comments HEMOGLOBIN A1C Routine 06/14/2018 2:53 PM EST from Last 3 Months or Most Recently Relevant to Health Maintenance Results * (ABNORMAL) Hemoglobin A1c (06/14/2018 2:53 PM EST) Hemoglobin A1C 9.1(H) (4-6) % [facility] 3 Comment: HEMOGLOBIN A1C(%) ?? GLUCOSE CONTROL INDEX ?<6% ? EXCELLENT ?6-7% ?VERY GOOD ?7-8% ?GOOD ?8-10% ? FAIR ?>10% ?POOR Hemoglobin (Hb) A1c testing is performed by Elder Dolly-quant immunoassay. Any cause of shortened erythrocyte survival will reduce exposure of erythrocytes to glucose with a consequent decrease in Hb A1c (%). Testing performed or reported by ~[facility], ~a Service of [facility], ~[address] [place] [address]~ 06/14/2018 2:53 PM EST us Mario Cardenas MD LAB BLOOD ORDERABLES Final Res ult [place] [id number] from Last 3 Months or Most Recently Relevant to Health Maintenance Insurance Medicaid [place] Medicare Medicare [place] Care Teams Auditor In Charge Relationship Specialty Start Date End Date Jemma Tavares MD PCP - General Internal Medicine 10/19/22
--- OUTSIDE RECORDS SUMMARY | 2024-09-11 15:46 | XMS_ITS | Encounter Summary ---
Author Organization [employer] Address [address] [place] [address] Care Team Providers Care Multimedia Engineer Name Role Phone Yoselyn Soto RADIATION PROTECTION TECHNICIAN Unavailable [phone] Tabby Jeong Primary Care Provider [phone] Shyann Ramirez DO Primary Care Provider [phone] Reason for Visit * Reason Comments Med Refill Encounter Details Date Type Department Care Team (Late st Contact Info) Description 02/23/2023 Refill [place] [facility] [address] [place] [id number] Medina Nascimento FNP Gastroesophageal reflux disease without esophagitis Social History Tobacco Use Types Packs/Day Years Used Date Smoking Tobacco: Former Cigarettes Smokeless Tobacco: Never Alcohol Use Standard Drinks/Week Comments Not Currently 0 (1 standard drink = 0.6 oz pur e alcohol) PHQ-2 Answer Date Recorded Patient Health Questionnaire-2 Score 0 06/07/2022 Depression Answer Date Recorded Patient Health Questionnaire-9 Score 5 04/18/2022 Housing Stability Answer Date Recorded What is your housing situation today? I have argelia jerez 02/19/[address] you li ve. Do you have problems with any of the following? None of the above 02/19/2023 Food Insecurity Answer Date Recorded Within the past 12 months, y ou worried that your food would run out before you got money to buy more: Sometimes True 2022 Within the past 12 months,th e food you bought just didn't last and you didn't have enough money to get more: Sometimes True 02/19/2023 Transportation Answer Date Recorded In the past 12 months, has l ack of transportation kept you from medical appts, meetings, work or from getting things needed for daily living? No 02/19/2023 Utilities Answer Date Recorded In the past 12 months, has t he electric, gas, oil or water company threatened to shut off services in your home? No 02/19/2023 Depression Answer Date Recorded Patient Health Questionnaire-2 Score 0 06/07/2022 Education Answer Date Recorded What is the highest level of school you have completed or the highest degree you have received? 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 documented in this encounter Plan of Treatment Not on file documented as of this encounter Visit Diagnoses Diagnosis Gastroesophageal reflux disease without esophagitis Esophageal reflux documented in this encounter Additional Health Concerns Assessment Noted Time PHQ-9 Depression Total Score: 5 04/18/20 22 2:05 PM EST documented as of this encounter Care Teams Multimedia Engineer Relationship Specialty Start Date End Date Tabby Jeong FNP [address] [place] [address] PCP - General Family Medicine 11/11/22 03/02/23 Shyann Ramirez DO [address] [place] [address] PCP - General Family Medicine 03/03/23 Yoselyn Soto LICSW [address] [place] [address] Police Department Secretary Behavioral Health 05/02/22 Anneliese Pedersen Community Health Worker Case Management 11/29/22 documented as of this encounter
--- OUTSIDE RECORDS SUMMARY | 2024-09-11 15:46 | XMS_ITS | Encounter Summary ---
Author Organization [employer] Address [address] [facility] [address] [place] [address] Care Team Providers Care Electronics Instructor Name Role Phone Yoselyn Soto PLANT UTILITIES ENGINEER Unavailable [phone] Shyann Ramirez DO Primary Care Provider [phone] Encounter Details Date Type Department Care Team (Late st Contact Info) Description 05/08/2024 Orders Only [facility] MEDICAL [address] [place], [place] [id number] ProviderElvin MD Social History Tobacco Use Types Packs/Day Years Used Date Smoking Tobacco: Former Cigarettes Passive Smoke Exposure: Past Smokeless Tobacco: Never Alcohol Use Standard Drinks/Week Comments Not Currently 0 (1 standard drink = 0.6 oz pur e alcohol) Alcohol Answer Date Recorded How often do you have a drink containing alcohol ? 0 04/19/2023 How many drinks containing a lcohol do you have on a typical day when you are drinking? 0 04/19/2023 How often do you have six or more drinks on one occasion? 0 04/19/2023 Depression Answer Date Recorded Patient Health Questionnaire-9 Score 14 02/05/2024 Patient Health Questionnaire-9 Score 14 02/05/2024 Last PHQ-9: Questionnaire Data Not on file 1 Housing Stability Answer Date Recorded What is your housing situation today? I have argelia jerez 02/19/[address] you li ve. Do you have problems with any of the following? None of the above 02/19/2023 Food Insecurity Answer Date Recorded Within the past 12 months, y ou worried that your food would run out before you got money to buy more: Never True 04/19/2023 Within the past 12 months,th e food you bought just didn't last and you didn't have enough money to get more: Never True Transportation Answer Date Recorded In the past 12 months, has l ack of transportation kept you from medical appts, meetings, work or from getting things needed for daily living? No 02/19/2023 Intimate Partner Violence Answer Date R ecorded Within the last year, have y ou been afraid of your partner or ex-partner? 2 04/19/2023 Within the last year, have y ou been humiliated or emotionally abused in other ways by your partner or ex-partner? 2 Within the last year, have y ou been kicked, hit, slapped, or otherwise physically hurt by your partner or ex-partner? 2 04/19/2023 Within the last year, have y ou been raped or forced to have any kind of sexual activity by your partner or ex-partner? 2 04/19/2023 Utilities Answer Date Recorded In the past 12 months, has t he electric, gas, oil or water company threatened to shut off services in your home? 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 Not on file Not on file Not on file documented as of this encounter Plan of Treatment Not on file documented as of this encounter Procedures Procedure Name Priority Date/Time Associated Diagnosis Comments BUN/CREATININE RATIO Routine 05/06/2024 6:32 PM EST ELECTROLYTE PANEL Routine 05/06/2024 6:32 PM EST BASIC METABOLIC PANEL Routine 05/06/2024 6:32 PM EST documented in this encounter Results * Basic Metabolic Panel (05/06/2024 6:32 PM EST) Blood Venous blood specimen / Unknown Historical Provider LAB BLOOD ORDERABLES Lydia l Result * Electrolyte Panel (05/06/2024 6:32 PM EST) Blood Venous blood specimen / Unknown Historical Provider MD LAB BLOOD ORDERABLES Lydia l Result * BUN/Creatinine Ratio (05/06/2024 6:32 PM EST) Blood Historical Provider LAB BLOOD ORDERABLES Lydia l Result documented in this encounter Visit Diagnoses Not on filedocumented in this encounter Additional Health Concerns Assessment Noted Time PHQ-9 Depression Total Score: 14 024 2:38 PM EDT documented as of this encounter Care Teams Electronics Instructor Relationship Specialty Start Date End Date Shyann Ramirez DO [address] [place] [address] PCP - General Family Medicine 03/03/23 Yoselyn Soto LICSW [address] [place] [address] Strength And Conditioning Coach Behavioral Health 05/02/22 Anneliese Pedersen Community Health Worker Case Management 11/29/22 documented as of this encounter
--- OUTSIDE RECORDS SUMMARY | 2024-09-11 15:46 | XMS_ITS | Encounter Summary ---
Author Organization [employer] Address [address] [facility] [address] [place] [address] Care Team Providers Care Professor Of Geology Name Role Phone Yoselyn Soto THRESHING MACHINE OPERATOR Unavailable [phone] Shyann Ramirez DO Primary Care Provider [phone] Encounter Details Date Type Department Care Team (Late st Contact Info) Description 05/14/2023 Orders Only [place] [facility] [address] [place] [address] Shyann Ramirez DO [address] [place] [address] Elevated erythrocyte sedimentation rate (Primary Dx); Intractable headache, unspecified chronicity pattern, unspecified headache type Social History Tobacco Use Types Packs/Day Years Used Date Smoking Tobacco: Former Cigarettes Passive Smoke Exposure: Past Smokeless Tobacco: Never Alcohol Use Standard Drinks/Week Comments Not Currently 0 (1 standard drink = 0.6 oz pur e alcohol) PHQ-2 Answer Date Recorded Patient Health Questionnaire-2 Score 0 06/07/2022 Alcohol Answer Date Recorded How often do [...] 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 Not on file Not on file documented as of this encounter Plan of Treatment Not on file documented as of this encounter Procedures Procedure Name Priority Date/Time Associated Diagnosis Comments C-REACTIVE PROTEIN Routine 05/25/2023 1: 04 PM EST Elevated erythrocyte sedimentation rate documented in this encounter Results * C-reactive protein (05/25/2023 1:04 PM EST) C-Reactive Protein <0.3 (0-0.5) MG/DL [facility] Comment: Testing performed or reported by [facility], a Service of [facility], [address] [place] [address] Buddy Roach MD, Account Executive Trainee SEBASTIEN# [id number] Blood Venous blood specimen / Unknown 05/25/2023 1:04 PM EST 05/25/2023 1:05 PM EST Shyann Ramirez DO LAB BLOOD ORDERABLES Final Res ult [facility] [address] [place] [address] documented in this encounter Visit Diagnoses Diagnosis Elevated erythrocyte sedimentation rate- Primary Elevated sedimentation rate Intractable headache, unspecified chronicity pattern, unspecified headache type documented in this encounter Additional Health Concerns Assessment Noted Time PHQ-9 Depression Total Score: 5 04/18/20 22 2:05 PM EST documented as of this encounter Care Teams Professor Of Geology Relationship Specialty Start Date End Date Shyann Ramirez DO [address] [place] [address] PCP - General Family Medicine 03/03/23 Yoselyn Soto LICSW [address] [place] [address] Primer Charging Tool Setter Behavioral Health 05/02/22 Anneliese Pedersen Community Health Worker Case Management 11/29/22 documented as of this encounter
--- OUTSIDE RECORDS SUMMARY | 2024-09-11 15:46 | XMS_ITS | Encounter Summary ---
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 on file Not on file documented as of this encounter Plan of Treatment Not on file documented as of this encounter Procedures Procedure Name Priority Date/Time Associated Diagnosis Comments HOME SLEEP TEST Routine 03/15/2023 documented in this encounter Results * Home sleep test (03/15/2023) us Jemma Tavares MD SLEEP [facility]ENTER ORDERABLES Edited R esult - Final documented in this encounter Visit Diagnoses Not on filedocumented in this encounter Additional Health Concerns Assessment Noted Time PHQ-9 Depression Total Score: 5 04/18/20 22 2:05 PM EST documented as of this encounter Care Teams Cow Rider Relationship Specialty Start Date End Date Shyann Ramirez DO [address] [place] [address] PCP - General Family Medicine 03/03/23 Yoselyn Soto LICSW [address] [place] [address] Commercial Lending Vice President Behavioral Health 05/02/22 Anneliese Pedersen Community Health Worker Case Management 11/29/22 documented as of this encounter
--- OUTSIDE RECORDS SUMMARY | 2024-09-11 15:46 | XMS_ITS | Clinical Summary ---
Author Organization [employer] Address [address] [place] [address] 7[address] [place] [address] Care Team Providers Care Human Resource Internship Name Role Phone Yoselyn Soto REGISTERED VETERINARY TECHNICIAN Unavailable [phone] Shyann Ramirez DO Primary Care Provider [phone] Allergies Active Allergy Reactions Criticality Noted Date Comments Amlodipine 02/08/2020 Other reaction(s): lymphedema, Other (see comments) Lisinopril 02/08/2020 Other reaction(s): Cough, Other (see comments) Molds & Smuts 03/13/2023 Other reaction(s): Nasal congestion, Sneezing Other 06/04/2022 Other reaction(s): itchy watery eyes, runny nose, sneezing , coughing Penicillins Rash High 09/26/2022 Pollen Extract 09/26/2022 Medications * This document contains information received from the source organization and may not represent a complete record from that organization. levothyroxine (Synthroid, Levoxyl) 100 MCG tablet Take 100 mcg by mouth in the morning. Take 200 mcg (2 tabs) on Sunday and 100mcg daily the rest of the week 023 Active B-D UF III MINI PEN NEEDLES 31G X 5 MM misc USE 4 TIMES A DAY 023 Active Lantus SoloStar 100 UNIT/ML pen INJECT 55 UNITS SUBCUTANEOUSLY DAILY AT BEDTIME 023 Active Continuous Blood Gluc Sensor (Dexcom G6 Sensor) misc Dexcom G6 sensors, See Instructions, # 1 pack/packet, Refills 3, Tot. Refills 3, Maintenance, to change every 10 days 90 days supply, 05/05/21 16:29:00 EST, Supply 021 Active Continuous Blood Gluc Transmit (Dexcom G6 transmitter) [facility] [place] Dexcom G6 transmitter, See Instructions, # 1 pack/packet, Refills 3, Tot. Refills 3, Maintenance, Dexcom G6 Transmitter, 05/05/21 16:29:00 EST, Supply 021 Active glucose blood (FREESTYLE LITE) test strip USE 1 STRIP TO CHECK BLOOD SUGAR 7 TIMES DAILY DIRECTED In Vitro 7x daily for 28 days Active famotidine (Pepcid) 40 MG tablet Take 1 tablet by mouth. 020 Active loratadine (Claritin) 10 MG tabletIndication s:Allergic rhinitis, unspecified seasonality, unspecified trigger Take 1 tablet (10 mg) by mouth Once daily. 90 tablet 3 023 Active GlucaGen HypoKit 1 MG injectionIndicat ions:Type 1 diabetes mellitus with hypoglycemia and without coma (CMS/HCC) Inject 1 mL (1 mg) under the skin 1 (one) time if needed for low blood sugar for up to 1 day. 1 each 2 023 Active metoclopramide (Reglan) 10 MG tabletIndication s:Diabetic gastroparesis associated with type 1 diabetes mellitus (CMS/HCC) TAKE 1 TABLET IF NEEDED IN THE AM, AT NOON, IN THE PM, AND AT BEDTIME (NAUSEA) FOR UP TO 14 DAYS 28 tablet 1 023 Active HumaLOG 100 UNIT/ML solution USE DIRECTED FOR DIABETES MELLITUS TYPE 1 IN INSULIN PUMP. (MAX DOSE = 150 UNITS/DAY). Active HumaLOG KWIKPEN 100 UNIT/ML injection INJECT 8 TO 20 UNITS SUBCUTANEOUSLY 3 TIMES DAY. MAX 30 UNITS A DAY. IN CASE OF PUMP FAILUE Active Insulin Disposable Pump (Omnipod DASH Pods, Gen 4,) [facility] [place] CHANGE EVERY 3 DAYS 024 Active carvedilol (Coreg) 25 MG tablet Take 25 mg by mouth 2 times daily. Active apixaban (Eliquis) 5 MG tabletIndication s:Persistent atrial fibrillation (CMS/HCC) Take 1 tablet (5 mg) by mouth 2 times daily. 180 tablet 3 024 Active naltrexone (Depade) 50 MG tabletIndication s:Class 2 severe obesity due to excess calories with serious comorbidity and body mass index (BMI) of 39.0 to 39.9 in adult (CMS/HCC) Take 1 tablet (50 mg) by mouth Once per day. 90 tablet 3 024 2024 Active omeprazole (PriLOSEC) [address] capsuleIndicatio ns:Gastroesophag eal reflux disease without esophagitis TAKE 1 CAPSULE (40 MG) BY MOUTH BEFORE BREAKFAST AND BEFORE EVENING MEAL. DO NOT CRUSH OR CHEW 180 capsule 1 024 Active spironolactone (Aldactone) 50 MG tabletIndication s:Primary hypertension TAKE 1 TABLET IN THE MORNING AND 2 TABLETS IN THE AFTERNOON. IF BOTTOM BP NUMBER UNDER 60 HOLD MED 270 tablet 2 024 Active aspirin (Aspirin Low Dose) 81 MG EC tabletIndication s:History of CVA (cerebrovascular accident) TAKE 1 TABLET BY MOUTH EVERY DAY 90 tablet 3 025 Active traMADol (Ultram) 50 MG tabletIndication s:Chronic left-sided low back pain with left-sided sciatica TAKE 1 TABLET BY MOUTH EVERY 6 HOURS IF NEEDED FOR SEVERE PAIN FOR UP TO 5 DAYS. 20 tablet 025 Active cyclobenzaprine (Flexeril) 5 MG tabletIndication s:Sciatica of left side TAKE 1 TABLET BY MOUTH THREE TIMES A DAY NEEDED FOR MUSCLE SPASM 90 tablet 3 025 Active gabapentin (Neurontin) 300 MG capsuleIndicatio ns:Neuropathy TAKE 2 CAPSULES BY MOUTH 3 TIMES DAILY. 540 capsule 1 025 Active Tirzepatide-Weig ht Management (Zepbound) 2.5 MG/0.5ML solution auto-injectorInd ications:Class 3 severe obesity due to excess calories with serious comorbidity and body mass index (BMI) of 40.0 to 44.9 in adult INJECT 1 PEN UNDER THE SKIN 1 TIME PER WEEK. 2 mL 025 Active buPROPion (Zyban) 150 MG 12 hr tabletIndication s:Mild depression TAKE 1 TABLET BY MOUTH EVERY DAY IN THE MORNING 90 tablet 2 025 Active atorvastatin (Lipitor) 80 MG tabletIndication s:High cholesterol TAKE 1 TABLET BY MOUTH EVERY DAY 90 tablet 1 025 Active sertraline (Zoloft) 50 MG tabletIndication s:Depression with anxiety TAKE 1 TABLET BY MOUTH EVERY DAY IN THE MORNING 90 tablet 1 025 Active chlorthalidone (Hygroton) 25 MG tabletIndication s:Primary hypertension TAKE 1 TABLET BY MOUTH EVERY DAY 90 tablet 3 025 Active losartan (Cozaar) 50 MG tabletIndication s:Primary hypertension Take 1 tablet twice a day/90 days 180 tablet 025 Active hydrALAZINE (Apresoline) 25 MG tablet TAKE 1 TABLET BY MOUTH THREE TIMES A DAY 90 tablet 025 Active losartan (Cozaar) 50 MG tabletIndication s:Primary hypertension TAKE 1 TABLET BY MOUTH EVERY DAY IN THE MORNING 90 tablet 3 024 2024 Discontinued hydrALAZINE (Apresoline) 25 MG tablet Take 25 mg by mouth 3 times daily. 024 2024 Discontinued chlorthalidone (Hygroton) 25 MG tabletIndication s:Primary hypertension Take 1 tablet (25 mg) by mouth Once per day. 90 tablet 3 024 2024 Discontinued sertraline (Zoloft) 50 MG tabletIndication s:Depression with anxiety TAKE 1 TABLET BY MOUTH EVERY DAY IN THE MORNING 90 tablet 1 024 2024 Discontinued Active Problems Problem Noted Date Diagnosed Date Intractable headache 04/23/2023 Assessment & Plan (04/23/2023 2:56 PM EST): Intractable bilateral headache, likely TTH. ddx migraine, GCA Stroke scale - negative for new onset neurologic symptoms (at baseline) Dexamethasone 4mg IM given NSAIDs contraindicated d/t anticoagulation; triptans contraindicated d/t h/o CAD ESR to r/o GCA ER precautions advised Neuropathy 03/13/2023 Assessment & Plan (03/13/2023 3:25 PM EST): Neuropathy as late effect of CVA. Continue gabapentin Last PDMP 03/13/23 Persistent atrial fibrillation 09/26/2022 Overview (09/26/2022): Dx 09/2022 Assessment & Plan (12/04/2023 10:47 PM EDT): On Eliquis, carvedilol. Managed by cardiology. Asymptomatic Idiopathic pericardial effusion 06/22/2022 Overview (07/03/2022): New incidental finding of small pericardial effusion without tamponade on echo from 06/22/22. Coronary artery disease 06/19/2022 History of CVA (cerebrovascular accident) 2022 Dysthymia 06/18/2022 Vitreous hemorrhage of right eye 06/18/2022 Carotid stenosis, right 06/18/2022 Overview (03/13/2023): S/p carotid endarterectomy 11/2022 Assessment & Plan (03/13/2023 2:14 PM EST): S/p carotid endarterectomy 11/2022 Smoking 06/18/2022 Seasonal allergies 06/18/2022 Presbyopia of both eyes 06/18/2022 Olecranon bursitis, left elbow 06/18/2022 Myopia of both eyes 06/18/2022 Class 3 severe obesity due t o excess calories with serious comorbidity and body mass index (BMI) of 40.0 to 44.9 in adult 06/18/2022 Assessment & Plan (12/04/2023 10:39 PM EDT): Not improving on bupropion-naltrexone. Discussed pros and cons of GLP1a. There is a risk of worsened gastroparesis with this class of medication, though veterinary medical officer endorses a trial. Insurance may not cover for type 1 diabetes, unfortunately, though there may be success if there is evidence of insulin resistance. Memory changes 06/18/2022 Lumbar back pain with radicu lopathy affecting left lower extremity 06/18/2022 Diaphragmatic hernia without obstruction or gang jacob 06/18/2022 Type 1 diabetes mellitus with hyperglycemia 06/07 Assessment & Plan (12/04/2023 10:35 PM EDT): Managed by endocrinology,On insulin pump Age-related nuclear cataract of both eyes 2022 Abnormal mammogram of left breast 06/18/2022 Diabetic retinopathy associa joel with type 1 diabetes mellitus 06/07/2022 Overview (02/28/2024): Images from the original note were not included. Diabetic gastroparesis assoc iated with type 1 diabetes mellitus 06/07/2022 Overview (04/08/2024): Images from the original note were not included. Followed by [facility] endocrine Has a pump Assessment & Plan (12/04/2023 10:42 PM EDT): Following with endocrinology. Continue Reglan, dietary management Hemiparesis affecting left s radha as late effect of cerebrovascular accident 06/07/2022 Assessment & Plan (12/04/2023 10:45 PM EDT): On ASA, statin. Following with cardiology for lipid and HTN management. Moderate obstructive sleep apnea 06/07/2022 Overview (04/23/2023): Initial sleep study from 4 yrs ago. No reported follow up. Home sleep test 03/15/23 showed moderate obstructive sleep apnea; recommended AutoCPAP 8-20cm Assessment & Plan (04/23/2023 2:46 PM EST): With classic symptoms of headache, snoring, daytime somnolence. Home sleep test 03/15/23 showed moderate obstructive sleep apnea; recommended AutoCPAP 8-20cm H20 and sleeping reclined (not flat). Discussed these recommendations with patient who agreed to start CPAP therapy. Will refer to sleep medicine to follow compliance data and provide further recommendations. Primary hypertension 06/07/2022 Assessment & Plan (12/04/2023 10:46 PM EDT): Slightly low today on new BP regimen. Encouraged adequate fluid intake Following with cardiology Stage 3b chronic kidney disease 06/07/2022 Overview (03/13/2023): Last eGFR 38 on 01/22/23. Following with [facility] Hyperlipidemia 06/07/2022 Grade 2 out of 6 intensity murmur 06/07/2022 Palpitations 04/26/2022 Overview (06/07/2022): Started when the Levothyroxine was increased to 112mg. Initially started around 04/27. Now on 100mcg - good compliance with daily dosing. New finding of heart murmur on exam (06/07/22) Mild anxiety 04/18/2022 Grief 04/18/2022 Mild depression 04/18/2022 Chronic left-sided low back pain with left-sided sciatica 09/14/2021 Assessment & Plan (03/13/2023 3:26 PM EST): Refer to physical therapy. Consider MRI if no improvement Continue Tramadol prn PDMP reviewed 03/13/23 Hypothyroidism 09/14/2021 Overview (03/13/2023): Recently changed dose of levothyroxine to 200 mg on Sunday and 100mg daily the rest of the week. Assessment & Plan (12/04/2023 10:42 PM EDT): Recheck thyroid function Assessment & Plan (03/13/2023 3:07 PM EST): States she recently changed dose of levothyroxine to 200 mg on Sunday and 100mg daily the rest of the week Last endocrinology visit documented in October Check TSH Urinary incontinence 09/14/2021 Sciatica 09/14/2021 Assessment & Plan (12/04/2023 10:41 PM EDT): Continue cyclobenzaprine prn Recurrent major depression in partial remission 09/14/2021 Assessment & Plan (12/04/2023 10:49 PM EDT): Doing well on SSRI Hand eczema 09/14/2021 Gastroparesis 09/14/2021 Gastroesophageal reflux disease 09/14/2021 Assessment & Plan (12/04/2023 10:47 PM EDT): Continue PPI Diabetic nephropathy associa joel with type 1 diabetes mellitus 01/04/2021 Overview (03/13/2023): Following with endocrinology for diabetes, on insulin pump. Reports recent high BG, has formula to use when high Following with nephrology for DKD, last eGFR 38 Anemia of chronic renal failure 01/04/2021 Resolved Problems Problem Noted Date Diagnosed Date Resolved Date Anticipatory grief 01/04/2023 Depression with anxiety 06/18/202211/04 Acute stress reaction 06/18/20222023 Adjustment disorder with mix ed anxiety and depressed mood 06/18/2022 11/20/2023 Type 1 diabetes mellitus 09/14/202111/2022 Cerebrovascular accident 07/07/2016 Encounters * This document contains information received from the source organization and may not represent a complete record from that organization. Date Type Department Care Team Description 09/02/2024 Refill [facility] MEDICAL [address] [place] [address] Shyann Ramirez DO 08/26/2024 Refill [facility] [address] [place] [address] Shyann Ramirez DO Primary hypertension 08/21/2024 Refill [facility] [address] [place] [address] Shyann Ramirez DO Depression with anxiety; Primary hypertension 07/28/2024 Refill [facility] [address] [place] [address] Shyann Ramirez DO Mild depression; High cholesterol 07/18/2024 Population Health Risk Score [facility] [address] [place] [phone] Provider, Population Health Generic 07/02/2024 Refill [facility] [address] [place] [address] Shyann Ramirez DO Class 3 severe obesity due to excess calories with serious comorbidity and body mass index (BMI) of 40.0 to 44.9 in adult (CMS/[facility]) from Last 3 Months Immunizations Name Administration Dates Next Due Influenza Injectable Quadriv alant Preservative Free IIV4 MDCK 02/06/2023 Influenza injectable quadriv alent preservative free 02/19/2020 Influenza, IIV3, injectable 03/15/2021,1 ,04/02/2018,02/21 Influenza, Unspecified 03/15/2021,2018,04/02/2018,02/21 Influenza, seasonal, injecta ble, preservative free 02/20/2024 Pneumococcal Polysaccharide PPSV23 04/02/2018 Tdap 12/14/2016 Zoster, Recombinant 05/12/2024,02/20/2024 Family History Medical History Relation Name Comments Atrial fibrillation Brother Diabetes type I Brother Hypertension Brother No Known Problems Daughter Atrial fibrillation Father Diabetes type II Father Hypertension Father Lung cancer Father 12/2021 Crohn's disease Maternal Grandmother Hypertension Mother Breast cancer Other Paternal Aunt Colon cancer Neg Hx Relation Name Status Comments Brother Alive Daughter Alive Father Maternal Grandmother Mother Alive Other Paternal Aunt Social History Tobacco Use Types Packs/Day Years [...] your housing situation today? 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 Not on file Not on file Retired Not on file Not on file Not on file Last Filed Vital Signs Vital Sign Reading Time Taken Comments Blood Pressure 98/67 11/06/2023 11:19 AM EDT Pulse 70 11/06/2023 11:19 AM EDT Temperature 36.8 ??C (98.2 ??F) 11/06/2023 11:19 AM E DT Respiratory Rate 16 09/26/2022 8:30 AM EDT Oxygen Saturation 97% 11/06/2023 11:19 AM EDT Inhaled Oxygen Concentration - - Weight 110 kg (243 lb) 11/06/2023 11:19 AM EDT Height 160 cm (5' 3 ) 11/06/2023 11:19 AM EDT Body Mass Index 43.05 11/06/2023 11:19 AM EDT Plan of Treatment Health Maintenance Due Date Last Done Comments CT Colonography 1971 Colonoscopy 1971 Colorectal Cancer Screening 1971 FIT DNA/Cologuard 1971 FIT 1971 FOBT 1971 HIV Screening 1971 Sigmoidoscopy 1971 Diabetes: Foot Exam 1981 Eye Exam 1981 Alcohol/Substance Use Screening 1983 Hepatitis B Vaccines (1 of 3 - 19+ 3-dose series) 1990 Pneumococcal Vaccine: 50+ Years (2 of 2 - PCV) 04/02/2019 04/02/2018 Mammogram 09/04/2020 09/04/2018, 08/06, 07/11/2017, Additional history exists Cervical Cancer Screening 12/26/2021 HPV/Cotest 12/26/2021 Pap Smear 12/26/2021 12/26/2016, 12/21/2016 Diabetes: Hemoglobin A1C 06/13/2023 023, 05/24/2022, 03/04/2021, Additional history exists Lipid Panel 10/14/2023 10/13/2022, 02/05, 03/04/2021, Additional history exists SDOH Screening 11/30/2023 11/29/2022 Tobacco Screening 11/05/2024 11/06/2023 Depression Screening 02/04/2025 02/05/2024, 02/05/20 24 DTaP/Tdap/Td Vaccines (2 - Td or Tdap) 12/14/2026 12/14/2016 RSV Patients and Patients Aged 60 years or older (1 - 1-dose 75+ series) 2046 Hepatitis C Screening Completed 12/21/2016 COVID-19 Vaccine Completed 02/20/2024, 06/2022, 03/10/2022, Additional history exists Influenza Vaccine Completed 02/20/2024, , 03/15/2021, Additional history exists Zoster Vaccines Completed 05/12/2024, 02/20/2024 HIB Vaccines Aged Out No longer eligi ble based on patient's age to complete this topic HPV Vaccines Aged Out No longer eligi ble based on patient's age to complete this topic Hepatitis A Vaccines Aged Out No long er eligible based on patient's age to complete this topic IPV Vaccines Aged Out No longer eligi ble based on patient's age to complete this topic Meningococcal Vaccine Aged Out No leonor evan eligible based on patient's age to complete this topic RSV under 20 months Aged Out No longe r eligible based on patient's age to complete this topic Rotavirus Vaccines Aged Out No longer eligible based on patient's age to complete this topic Procedures Procedure Name Priority Date/Time Associated Diagnosis Comments POCT GLYCOSYLATED HEMOGLOBIN (HGB A1C) Routine 03/13/2023 1:34 PM EST 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 (CMS/HCC) LIPID PANEL, STANDARD Routine 10/13/2022 7:32 AM EDT Coronary artery disease, unspecified vessel or lesion type, unspecified whether angina present, unspecified whether [place] or transplanted heart Hyperlipidemia, unspecified hyperlipidemia type MAMMOGRAM GENERIC Routine 09/04/2018 12: 00 AM EDT PAP SMEAR Routine 12/26/2016 12:00 AM EDT HEPATITIS C ANTIBODY (EXTERNAL RESULTS ONLY) Routine 12/21/2016 12:57 PM EDT from Last 3 Months or Most Recently Relevant to Health Maintenance Results * (ABNORMAL) POCT glycosylated hemoglobin (Hgb A1c) (03/13/2023 1:34 PM EST) Hemoglobin A1C 8.9(A) 4.0 - 6.0 % Blood Capillary blood specimen / Unknown 03/13/2023 1:34 PM EST [facility] POINT OF CARE TEST ENTER/EDIT ORDERABLES Final Result * (ABNORMAL) Lipid Panel, Standard (10/13/2022 7:32 AM EDT) Cholesterol, Total 119 (<200) MG/DL [facility] Triglyceride (mg/dL) in Serum/Plasma 90 (<150) MG/DL [facility] HDL Cholesterol 39(L) (>39) MG/DL [facility] LDL Cholesterol, Calculated 62 (0-130) MG/DL [facility] Non HDL Chol. (LDL+VLDL) 80 (<160) MG/DL [facility] Comment: Testing performed or reported by [facility], a Service of [facility], [address] [place] [id number] Buddy Roach MD, Sales Department Supervisor [facility]# [id number] Blood Venous blood specimen / Unknown 10/13/2022 7:32 AM EDT 10/13/2022 7:36 AM EDT Medina Nascimento [facility] BLOOD ORDERABLES Lydia l Result [address] [address] * MAMMOGRAM DIGITAL MAY SCREENING: [facility] (09/04/2018 12:00 AM EDT) Anatomical Region Laterality Modality Breast Bilateral Mammography 09/04/2018 Narrative 09/04/2018 12:00 AM EDT Refer to [facility] for result details Legacy Procedure: MAMMOGRAM DIGITAL MAY SCREENING: [facility] Procedure Note Provider, Elvin, - 08/31/2022 Refer to [facility] for result details Legacy Procedure: [facility] IMG BI PROCEDURES Final R esult * Pap Smear (12/26/2016 12:00 AM EDT) Swab Historical Provider LAB CYTOLOGY ORDERABLES F inal Result * Hepatitis C Antibody (12/21/2016 12:57 PM EDT) Hepatitis C Antibody Nonreactive Blood 12/21/2016 12:5 7 PM EDT Yogis Michele Cha CMA - 12/21/2016 12:57 PM EDT Negative us Historical Provider POINT OF CARE TEST ENTER/ EDIT ORDERABLES Final Result from Last 3 Months or Most Recently Relevant to Health Maintenance Insurance MEDICARE Member Subscriber Plan / Payer (Ef fective 2022-Present) Name:Marian Mcbride Member ID:[id number] Relation to Subscriber:Self Name:Marian Mcbride Subscriber ID:[id number] Payer ID:[id number] Group ID:Not on file Type:Medicare Address: [facility].[address] [address] [facility]LY [facility] Care Teams Human Resource Internship Relationship Specialty Start Date End Date JamesShyannDO [address] [place] [address] PCP - General Family Medicine 03/03/23 Yoselyn Soto LICSW [address] [place] [address] [employer] Crew Boss Behavioral Health 05/02/22 Anneliese Pedersen Community Health Worker Case Management 11/29/22
--- OUTSIDE RECORDS SUMMARY | 2024-09-11 15:46 | XMS_ITS | Encounter Summary ---
Author Organization [employer] Address [address] [facility] [address] [place] [address] Care Team Providers Care Sr Technical Sales Consultant Name Role Phone Yoselyn Soto ROLL OR TAPE EDGE MACHINE OPERATOR Unavailable [phone] Tabby Jeong Primary Care Provider [phone] Shyann Ramirez DO Primary Care Provider [phone] Reason for Visit * Reason Onset Date Comments Med Refill 12/20/2022 Encounter Details Date Type Department Care Team (Late st Contact Info) Description 12/20/2022 Refill [address] 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 Not on file Not on file documented as of this encounter Plan of Treatment Not on file documented as of this encounter Visit Diagnoses Diagnosis Persistent atrial fibrillation (CMS/HCC) Atrial fibrillation documented in this encounter Additional Health Concerns Assessment Noted Time PHQ-9 Depression Total Score: 5 04/18/20 22 2:05 PM EST documented as of this encounter Care Teams Sr Technical Sales Consultant Relationship Specialty Start Date End Date Tabby Jeong FNP [address] [place] [address] PCP - General Family Medicine 11/11/22 03/02/23 Shyann Ramirez DO [address] [place] [address] PCP - General Family Medicine 03/03/23 Yoselyn Soto LICSW [address] [place] [address] Phone Operator Behavioral Health 05/02/22 Anneliese Pedersen Community Health Worker Case Management 11/29/22 documented as of this encounter
--- OUTSIDE RECORDS SUMMARY | 2024-09-11 15:46 | XMS_ITS | Continuity of Care Document ---
Author Organization [facility] Address [address] [place] [address]- Care Team Providers Care Arch Pad Cementer Name Role Phone Jemma Tavares MD Primary Care Physician Encounter [facility] Date(s): 08/06/24 - 09/05/24 [facility] [address] [place] [address]- Attending Physician: Geoffrey Clinton Admitting Physician: Geoffrey Clinton Referring Physician: AdmtrGeoffrey Encounter Type: Triage Allergies, Adverse Reactions, Alerts Substance Criticality Severity Reaction Reaction Severity Status penicillin Hives Active lisinopril Chronic cough Activ e amLODIPine Swelling Active Mold Nasal congestio n Sneezing Active Medications amLODIPine 2.5 mg oral tablet [...] 7:38:00 AM EST, Route to Pharmacy Electronically, [id number], 160, cm, 11/19/23 8:52:00 EDT, Height, 102.1, [...] 04/19/23 Status: Ordered Repeat number: 1 Dexcom G7 metallurgical tester Dexcom G7 metallurgical tester, See Instructions, # 1 each, Refills 0, Tot. Refills 0, Maintenance, use to monitor bld glucose levels E10.9, 06/24/24 3:48:00 PM EST, Supply, 160, cm, 11/19/23 8:52:00 EDT, Height,102.1, kg, 11/23/22 17:32:00 EDT, Dry Weight Start Date: 06/24/24 Status: Ordered Quantity: 1.0 Unit: each Repeat number: 1 Dexcom G7 sensors Dexcom G7 sensors, See Instructions, # 9 each, Refills 3, Tot. Refills 3, Maintenance, use to monitor bld glucose levels, change every 10 days E10.9 90 days supply, 06/24/24 3:47:00 PM EST, Supply, 160, cm, 11/19/23 8:52:00 EDT, Height, 102.1, kg, 11/23/22 17:32:00 EDT, Dry Weight Start Date: 06/24/24 Status: Ordered Quantity: 9.0 Unit: each Repeat number: 4 Eliquis 5 mg oral [...] mL, 3 Refills, Maintenance, 12/27/23 10:23:00 AMEDT, [facility]/pharmacy #[id number], Partial fill upon patient request if [...] Refills, Maintenance, 07/12/23 4:13:00 PM EST, Solution, [facility]/pharmacy #[id number], Partial fill upon patient request if the prescription is for a schedule II opioid drug., 160, cm, 05/08/23 10:10:00 EST, Height, 102.1, kg, 11/23/22 17:32:00 EDT, Dry Weight Start Date: 07/12/23 Status: Ordered Quantity: 30.0 Unit: mL Repeat number: 6 hydrALAZINE 25 mg oral tablet 1, tablet, By Mouth, 3 times a day, # 90 tablet, Refills 0, Tot. Refills 0, Maintenance, 07/01/24 5:05:00 PM EST, [id number] 160, cm, 11/19/23 8:52:00 EDT, Height, 102.1, kg, 11/23/22 17:32:00 EDT, Dry Weight Start Date: 07/01/24 Status: Ordered Quantity: 90.0 Unit: tablet Repeat [...] Refills, Maintenance, 10/17/22 3:45:00 PM EDT, Solution, [facility]/pharmacy #[id number], Partial fill upon patient request if the prescription is for a schedule II opioid drug., 157.1, cm, 10/17/22 15:07:00 EDT, Height Start Date: 10/17/22 Stop Date: 05/15/23 Status: Ordered Quantity: 15.0 Unit: mL Repeat number: 7 levothyroxine 0.1 mg oral tablet See Instructions, TAKE 1 TABLET BY MOUTH DAILY(SUN-SUN) AND SUNDAYS TAKE 2 TABLETS, # 102 tablet, 0Refills, Maintenance, 07/24/24 12:56:00 PM EDT, [id number], 160, cm, 11/19/23 8:52:00 EDT, Height, 102.1, kg, 11/23/22 17:32:00 EDT, Dry Weight Start Date: 07/24/24 Status: Ordered Quantity: 102.0 Unit: tablet Repeat number: 1 losartan 50 mg oral tablet 1 tablet, By Mouth, 2 times a day, # 180 tablet, 1 Refills, Maintenance, 05/27/24 8:18:00 AM EST, [facility], 160, cm, 11/19/23 8:52:00 EDT, Height, 102.1, kg, 11/23/22 17:32:00 EDT, Dry Weight Start Date: 05/27/24 Status: Ordered Quantity: 180.0 Unit: tablet Repeat number: 1 metoclopramide 10 mg oral tablet 28 each, [...] solution See Instructions, MAX DOSE =150 UNITS/DAY, used as directed in insulin pump E10.9,, # 140 mL, 1 Refills, Maintenance, 06/24/24 3:51:00 PM EST, [facility], 160, cm, 11/19/23 8:52:00 EDT, Height, 102.1, kg, 11/23/22 17:32:00 EDT, Dry Weight Start Date: 06/24/24 Status: Ordered Quantity: 140.0 Unit: mL Repeat number: 2 NovoLOG FlexPen 100 units/mL injectable solution 15 mL, 0 Refill(s), PLEASE SEE ATTACHED FOR DETAILED DIRECTIONS, 0 Refills, 10/15/23 1:48:00 PM EDT,Partial fill upon patient request if the prescription is for a schedule II opioid drug. Start Date: 10/15/23 Status: Ordered Repeat number: 1 NovoLOG FlexPen 100 units/mL subcutaneous solution See Instructions, INJECT 8 TO 20 UNITS SUBCUTANEOUSLY 3 TIMES DAY. MAX 30 UNITS A DAY. 30 DAYS SUPPLY IN CASE OF PUMP failuer. E10.65, # 30 mL, 2 Refills, Maintenance, 06/25/24 6:52:00 PM EST, [facility], Partial fill upon patient request if the prescription is for a schedule II opioid drug., 160, cm, 11/19/23 8:52:00 EDT, Height, 102.1, kg, 11/23/22 17:32:00 EDT, Dry Weight Start Date: 06/25/24 Status: Ordered Quantity: 30.0 Unit: mL Repeat number: 3 Indication: Type 1 diabetes mellitus with hyperglycemia Omeprazole By Mouth, Daily, 0 Refills, Maintenance, [...] Date: 10/15/23 Status: Ordered Repeat number: 1 Omnipod 5 G6/G7 pods Omnipod 5 G6/G7 pods, See Instructions, # 15 each, Refills 11, Tot. Refills 11, Maintenance, Maintenance, change every 2 days E10.9 30 day supply, 08/01/24 12:26:00 PM EDT, Supply, 160, cm, 11/19/23 8:52:00 EDT, Height, 102.1, kg, 11/23/22 17:32:00 EDT, Dry Weight Start Date: 08/01/24 Status: Ordered Quantity: 15.0 Unit: each Repeat number: 12 OMNIPOD DASH PODS (GEN 4) 5PK OMNIPOD DASH PODS (GEN 4) 5PK, See Instructions, # 10 Unknown, 8 Refills, Maintenance, CHANGE EVERY3 DAYS, 04/22/24 4:18:00 PM EST, 160, cm, 11/19/23 8:52:00 EDT, Height, 102.1, kg, 11/23/22 17:32:00 EDT, Dry Weight Start Date: 04/22/24 Status: Ordered Quantity: 10.0 Unit: Unknown Repeat number: 1 Omnipod G6/G7 Intro kit Omnipod G6/G7 Intro kit, See Instructions, # 1 each, Refills 0, Tot. Refills 0, Maintenance, use asdirected via insulin pump E10.9, 06/26/24 8:39:00 AM EST, Supply, 160, cm, 11/19/23 8:52:00 EDT, Height, 102.1, kg, 11/23/22 17:32:00 EDT, Dry Weight Start Date: 06/26/24 Status: Ordered Quantity: 1.0 Unit: each Repeat number: 1 Pen [place], 31 G x 5 mm BD Ultra Fine III See Instructions, # 200 each, Refills 1, Tot. Refills 1, Maintenance, pen needels for QID, E10.9, 05/24/22 4:56:00 PM EST, Supply, 157.1, cm, 05/24/22 16:08:00 EST, Height, 114.8, kg, 08/03/20 8:18:00EDT, Dry Weight Start Date: 05/24/22 Status: Ordered Quantity: 200.0 Unit: each Repeat number: 2 Pen [place], 31 G x 8 mm BD Ultra [...] on: 10/30/22 Sex Sex Representation Female (finding) Patient Care team information Care Team Personnel Name: Mario Cardenas MD Position: [facility] Renal MD Member Role: Lifetime Consulting Physician Address: [address] [place] [address] [address] [facility] [address]- [place] Telecom: Name: Jemma Tavares MD Position: [facility] Physician - Pediatrics Member Role: PCP Address: [address] [place] [address]- [place] Telecom: Name: Radames Guo RN Position: [facility] RN Member Role: Primary Care Nurse Name: Michael Fox RN Position: [facility] RN Member Role: Primary Care Nurse Name: Tommie Singleton Position: [facility] Outreach Member Role: Lifetime Consulting Physician Name: Carmen Tim [place] Position: [facility] Outreach Member Role: Lifetime Consulting Physician Name: Bhavani Guerrero RN Position: [facility] AMB Nurse Member Role: Primary Care Nurse Name: Rupinder Leong Position: [facility] [place] Office Staff Member Role: Lifetime Consulting Physician Care Team Related Persons Name: GUCCI YOUNG Insurance Providers Guarantor name: DORYS CORRAL Health Plan Information #: 1 Payer: MEDICARE PART B OUTPT Member Number: NA Policy Number: NA Group Number: NA Health Plan Information #: 2 Payer: [place] Member Number: NA Policy Number: NA Group Number: NA
--- OUTSIDE RECORDS SUMMARY | 2024-09-11 15:46 | XMS_ITS | Continuity of Care Document ---
Author Organization [facility] Address [address] [place] [address]- Care Team Providers Care Cut Off Saw Operator Metal Name Role Phone Jemma Tavares MD Primary Care Physician [phone] Encounter [facility] Date(s): 05/08/24 - 09/05/24 [facility] [address] [place] [address] Attending Physician: Sadia Ruiz NP Referring Physician: Jemma Tavares MD Encounter Type: Pre Office Visit Allergies, Adverse Reactions, Alerts Substance Criticality Severity [...] 7:38:00 AM EST, Route to Pharmacy Electronically, [id number], 160, cm, 11/19/23 8:52:00 EDT, Height, 102.1, [...] Status: Ordered Repeat number: 1 Dexcom G7 umbrella cutter Dexcom G7 umbrella cutter, See Instructions, # 1 each, Refills 0, [...] mL, 3 Refills, Maintenance, 12/27/23 10:23:00 AMEDT, [facility]/pharmacy #[id number], Partial fill upon patient request if [...] Refills, Maintenance, 07/12/23 4:13:00 PM EST, Solution, [facility]/pharmacy #[id number], Partial fill upon patient request if [...] 5:05:00 PM EST, [id number], 160, cm, 11/19/23 8:52:00 EDT, Height, [...] Refills, Maintenance, 10/17/22 3:45:00 PM EDT, Solution, [facility]/pharmacy #[id number], Partial fill upon patient request if [...] tablet, 0Refills, Maintenance, 07/24/24 12:56:00 PM EDT, [facility], 160, cm, 11/19/23 8:52:00 EDT, Height, 102.1, kg, 11/23/22 17:32:00 EDT, Dry Weight Start Date: 07/24/24 Status: Ordered Quantity: 102.0 Unit: tablet Repeat number: 1 losartan 50 mg oral tablet 1 tablet, By Mouth, 2 times a day, # 180 tablet, 1 Refills, Maintenance, 05/27/24 8:18:00 AM EST, [id number], 160, cm, 11/19/23 8:52:00 EDT, Height, 102.1, [...] 1 Refills, Maintenance, 06/24/24 3:51:00 PM EST, [facility], 160, cm, 11/19/23 8:52:00 EDT, [...] 2 Refills, Maintenance, 06/25/24 6:52:00 PM EST, [facility], Partial fill upon patient request [...] 1.0 Unit: each Repeat number: 1 Pen [place], 31 G x 5 mm BD Ultra Fine III See Instructions, # 200 each, Refills 1, Tot. Refills 1, Maintenance, pen needels for QID, E10.9, 05/24/22 4:56:00 PM EST, Supply, 157.1, cm, 05/24/22 16:08:00 EST, Height, 114.8, kg, 08/03/20 8:18:00EDT, Dry Weight Start Date: 05/24/22 Status: Ordered Quantity: 200.0 Unit: each Repeat number: 2 Pen [place], 31 G x 8 mm BD Ultra [...] Team Personnel Name: Mario Cardenas MD Position: [facility] Renal MD Member Role: Lifetime Consulting Physician Address: [address] [place] [address] [address] [facility] [address]- [place] Telecom: Name: Jemma Tavares MD Position: [facility] Physician - Pediatrics Member Role: PCP Address: [address] [place] [address]- Telecom: Name: Radames Guo RN Position: [facility] RN Member Role: Primary Care Nurse Name: Michael Fox RN Position: [facility] RN Member Role: Primary Care Nurse Name: Tommie Singleton Position: [facility] Outreach Member Role: Lifetime Consulting Physician Name: Carmen Tim [place] Position: [facility] Outreach Member Role: Lifetime Consulting Physician Name: Bhavani Guerrero RN Position: [facility] AMB Nurse Member Role: Primary Care Nurse Name: Rupinder Leong Position: [facility] [place] Office Staff Member Role: Lifetime Consulting Physician Care Team Related Persons Name: GUCCI YOUNG Insurance Providers Guarantor name: [facility] Health Plan Information #: 1 Payer: MEDICARE PART B OUTPT Member Number: [id number] Policy Number: NA Group Number: NA Health Plan Information #: 2 Payer: [facility] Member Number: [id number] Policy Number: NA Group Number: NA
--- OUTSIDE RECORDS SUMMARY | 2024-09-11 15:46 | XMS_ITS | Encounter Summary ---
Author Organization [employer] Address [address] [facility] [address] [place] [address] Care Team Providers Care Circular Knife Cutter Machine Name Role Phone Yoselyn Soto BUSINESS PROCESS MODELER Unavailable [phone] Shyann Ramirez DO Primary Care Provider [phone] Reason for Visit * Reason Comments Med Refill Encounter Details Date Type Department Care Team (Late st Contact Info) Description 05/11/2023 Refill Luis Lopez [facility] [address] [place] [address] Shyann Ramirez DO [address] [place] [address] Neuropathy Social History Tobacco Use Types Packs/Day Years [...] the past 12 months, has t he [employer], gas, oil or water [employer] threatened to shut off services in your [...] 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 ESR was high (one of the inflammatory markers). This can be high in may conditions but one we are concerned about is Giant Cell Arteritis. Please ask her if she is still having headaches. If she is, I will need to start her on Prednisone and send a referral to vascular surgery to consider temporal artery biopsy. I would also like her to come back and get repeat labs done. Thank you * Telephone Encounter - Shyann Ramirez DO - 05/12/2023 3:18 PM EST Not due * Telephone Encounter - BELIA Prieto - 05/11/2023 12:35 PM EST [facility] Last fill Date: 05/01/23 #180/30 day Last OV: 04/20/23 Next OV: none scheduled Last UTOX: 03/13/23 CSA Date: needs to be updated in Epic DNF Date: documented in this encounter Plan of Treatment Not on file documented as of this encounter Visit Diagnoses Diagnosis Neuropathy Mononeuritis of unspecified site documented in this encounter Additional Health Concerns Assessment Noted Time PHQ-9 Depression Total Score: 5 04/18/20 22 2:05 PM EST documented as of this encounter Care Teams Circular Knife Cutter Machine Relationship Specialty Start Date End Date Shyann Ramirez DO [address] [place] [address] PCP - General Family Medicine 03/03/23 Yoselyn Soto LICSW [address] [place] [address] Installer Interior Assemblies Behavioral Health 05/02/22 Anneliese Pedersen Community Health Worker Case Management 11/29/22 documented as of this encounter
--- OUTSIDE RECORDS SUMMARY | 2024-09-11 15:46 | XMS_ITS | Encounter Summary ---
Author Organization [employer] Address [address] [facility] 7t [place] [address] Care Team Providers Care Director Learning And Development Name Role Phone Yoselyn SotoSW Unavailable [phone] Shyann Ramirez DO Primary Care Provider [phone] Reason for Visit * Reason Comments Med Change Request Encounter Details Date Type Department Care Team (Late st Contact Info) Description 06/03/2024 Perez Davidson [facility] [address] [place] [address] Jemma Tavares MD [address] [place] [address] Class 3 severe obesity due to excess calories with serious comorbidity and body mass index (BMI) of 40.0 to 44.9 in adult ([facility]/HCC); BMI 40.0-44.9, adult ([facility]) Social History Tobacco Use Types Packs/Day Years [...] 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 Date 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 Not on file Not on file Retired Not on file Not on file Not on file documented as of this encounter Miscellaneous Notes * Telephone Encounter - Rupinder Snow LPN - 06/04/2024 11:07 AM EST Pa started documented in this encounter Plan of Treatment Not on file documented as of this encounter Visit Diagnoses Diagnosis Class 3 severe obesity due to excess calories with serious comorbidity and body mass index (BMI) of 40.0 to 44.9 in adult BMI 40.0-44.9, adult (CMS/HCC) documented in this encounter Additional Health Concerns Assessment Noted Time PHQ-9 Depression Total Score: 14 024 2:38 PM EDT documented as of this encounter Care Teams Director Learning And Development Relationship Specialty Start Date End Date Shyann Ramirez DO [address] [place] [address] PCP - General Family Medicine 03/03/23 Yoselyn Soto LICSW [address] [place] [address] Quality Assurance Intern Behavioral Health 05/02/22 Anneliese Pedersen Community Health Worker Case Management 11/29/22 documented as of this encounter
--- OUTSIDE RECORDS SUMMARY | 2024-09-11 15:47 | XMS_ITS | Encounter Summary ---
Author Organization [employer] Address [address] [facility] [address] [place] [address] Care Team Providers Care Auto Crane Driver Name Role Phone Yoselyn Soto CHANGEOVER OPERATOR Unavailable [phone] Shyann Ramirez DO Primary Care Provider [phone] Reason for Visit * Reason Comments Med Change Request Encounter Details Date Type Department Care Team (Late st Contact Info) Description 06/06/2024 Perez Davidson [facility] [address] [place] [address] Shyann Ramirez DO [address] [place] [address] Class 3 severe obesity due to excess calories with serious comorbidity and body mass index (BMI) of 40.0 to 44.9 in adult (CMS/HCC) Social History Tobacco Use Types Packs/Day [...] 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 on file Not on file Retired Not on file Not on file Not on file documented as of this encounter Miscellaneous Notes * Telephone Encounter - Rupinder Snow LPN - 06/10/2024 8:09 AM EST Started PA documented in this encounter Plan of Treatment Not on file documented as of this encounter Visit Diagnoses Diagnosis Class 3 severe obesity due to excess calories with serious comorbidity and body mass index (BMI) of 40.0 to 44.9 in adult documented in this encounter Additional Health Concerns Assessment Noted Time PHQ-9 Depression Total Score: 14 024 2:38 PM EDT documented as of this encounter Care Teams Auto Crane Driver Relationship Specialty Start Date End Date Shyann Ramirez DO [address] [place] [address] PCP - General Family Medicine 03/03/23 Yoselyn Soto LICSW [address] [place] [address] [employer] Behavioral Health 05/02/22 Anneliese Pedersen Community Health Worker Case Management 11/29/22 documented as of this encounter
--- OUTSIDE RECORDS SUMMARY | 2024-09-11 15:47 | XMS_ITS | Encounter Summary ---
Author Organization [employer] Address [address] [facility] [address]t [place] [address] Care Team Providers Care Fisher Purse Seine Name Role Phone Yoselyn Soto SUPERVISOR SAFETY DEPOSIT Unavailable [phone] Shyann Ramirez DO Primary Care Provider [phone] Reason for Visit * Reason Comments Med Change Request Encounter Details Date Type Department Care Team (Late st Contact Info) Description 06/10/2024 Perez Davidson [facility] [address] [place] [address] Shyann Ramirez DO [address] [place] [address] Class 3 severe obesity due to excess [...] 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 on file Not on file Retired Not on file Not on file Not on file documented as of this encounter Miscellaneous Notes * Telephone Encounter - Rupinder Snow LPN - 06/10/2024 10:57 AM EST Already done documented in this encounter Plan of Treatment [...] documented as of this encounter Care Teams Fisher Purse Seine Relationship Specialty Start Date End Date Shyann Ramirez DO [address] [place] [address] PCP - General Family Medicine 03/03/23 Yoselyn Soto LICSW [address] [place] [address] Christmas Tree Farm Manager Behavioral Health 05/02/22 Anneliese Pedersen Community Health Worker Case Management 11/29/22 documented as of this encounter
--- OUTSIDE RECORDS SUMMARY | 2024-09-11 15:47 | XMS_ITS | Encounter Summary ---
Author Organization [employer] Address [address] [facility] [address] [place] [address] Care Team Providers Care Oral Communication Instructor Name Role Phone Yoselyn Soto ALARM OPERATOR Unavailable [phone] Shyann Ramirez DO Primary Care Provider [phone] Reason for Visit * Reason Comments Med Change Request Encounter Details Date Type Department Care Team (Late st Contact Info) Description 07/02/2024 Perez Davidson [facility] [address] [place] [address] Shyann Ramirez DO [address] [place] [address] Class 3 severe obesity due to excess [...] Date 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 on file Not on file 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 Not on file Not on file Not on file documented as of this encounter Miscellaneous Notes * Telephone Encounter - Shyann Ramirez DO - 07/02/2024 11:20 AM EST Rupinder per chart this med was approved but pharmacy is bouncing it back, please communicate the approval to pharmacy thanks documented in this encounter Plan of Treatment [...] documented as of this encounter Care Teams Oral Communication Instructor Relationship Specialty Start Date End Date Shyann Ramirez DO [address] [place] [address] PCP - General Family Medicine 03/03/23 Yoselyn Soto LICSW [address] [place] [address] Polytechnic Registrar Behavioral Health 05/02/22 Anneliese Pedersen Community Health Worker Case Management 11/29/22 documented as of this encounter
--- OUTSIDE RECORDS SUMMARY | 2024-09-11 15:47 | XMS_ITS | Encounter Summary ---
Author Organization [employer] Address [address] [facility] 7t [place] [address] Care Team Providers Care Financial Sales Manager Name Role Phone Yoselyn Soto DIGITAL MEASUREMENT ADVISOR Unavailable [phone] Shyann Ramirez DO Primary Care Provider [phone] Reason for Visit * Reason Onset Date Comments Med Refill 06/07/2024 Encounter Details Date Type Department Care Team (Late st Contact Info) Description 06/07/2024 Refill [facility] [address] [place] [address] Shyann Ramirez DO [address] [place] [address] Neuropathy Social History Tobacco Use Types Packs/Day [...] 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 TE is duplicated. documented in this encounter Plan of Treatment Not on file documented as of this encounter Visit Diagnoses Diagnosis Neuropathy Mononeuritis of unspecified site documented in this encounter Additional Health Concerns Assessment Noted Time PHQ-9 Depression Total Score: 14 024 2:38 PM EDT documented as of this encounter Care Teams Financial Sales Manager Relationship Specialty Start Date End Date Shyann Ramirez DO [address] [place] [address] PCP - General Family Medicine 03/03/23 Yoselyn Soto LICSW [address] [place] [address] Director Personal Behavioral Health 05/02/22 Anneliese Pedersen Community Health Worker Case Management 11/29/22 documented as of this encounter
--- OUTSIDE RECORDS SUMMARY | 2024-09-11 15:47 | XMS_ITS | Encounter Summary ---
Author Organization [employer] Address [address] [facility] 7t [place] [address] Care Team Providers Care Campaign Developer Name Role Phone Kaylin Deutsch MD Primary Care Provider [phone] Yoselyn Soto Unavailable [phone] Medina Nascimento Primary Care Provider Un available Tabby Jeong Primary Care Provider [phone] Shyann Ramirez DO Primary Care Provider [phone] Reason for Visit * Reason Comments Med Refill Encounter Details Date Type Department Care Team (Late st Contact Info) Description 05/04/2022 Telephone [facility] MEDICAL [address] [place], [place] [id number] Medina Nascimento FNP Med Refill Social History Tobacco Use Types Packs/Day Years Used Date Smoking Tobacco: Never Assessed PHQ-2 Answer Date Recorded Patient Health Questionnaire-2 Score 1 04/18/2022 Depression Answer Date Recorded Patient Health Questionnaire-9 Score 5 04/18/2022 Comments Unknown Sex and Gender Information Value Date Recorded Sex Assigned at Female 03/06/2022 10:36 AM EDT Legal Sex Female 10:36 AM EDT Gender Identity Female 03/06/2022 10:36 AM EDT Sexual Orientation Straight 03/06/2022 10 :36 AM EDT documented as of this encounter Miscellaneous Notes * Telephone Encounter - CYN Hernandez - 05/04/2022 3:23 PM EST Only sent for 30 days as pt has not been seen in over 1 year-needs visit please documented in this encounter Plan of Treatment Not on file documented as of this encounter Visit Diagnoses Diagnosis Primary hypertension- Primary Unspecified essential hypertension documented in this encounter Additional Health Concerns Assessment Noted Time PHQ-9 Depression Total Score: 5 04/18/20 2:05 PM EST documented as of this encounter Care Teams Campaign Developer Relationship Specialty Start Date End Date Kaylin Deutsch MD [address] [place] [address] PCP - General Family Medicine 04/16/20 05/21/22 Medina Nascimento FNP [address] [place] [address] PCP - General Family Medicine 05/22/22 11/10/22 Tabby Jeong FNP [address] [place] [address] PCP - General Family Medicine 11/11/22 03/02/23 Shyann Ramirez DO [address] [place] [address] PCP - General Family Medicine 03/03/23 Yoselyn Soto LICSW [address] [place] [address] Merchandising Team Lead Behavioral Health 05/02/22 Anneliese Pedersen Community Health Worker Case Management 11/29/22 documented as of this encounter
[2024-09-11 16:09] LABS: Anion Gap 10 (12-20); Blood Urea Nitrogen 41 mg/dL (9-16); Calcium 9.4 mg/dL (8.4-10.2); Carbon Dioxide 27 mmol/L (22-29); Chloride 105 mmol/L (96-108); Estimated Glomerular Filt Rate 25; Glucose Random 301 mg/dL (60-115); Potassium 4.9 mmol/L (3.3-5.1); Sodium 137 mmol/L (135-145)
== END 2024-09-11 15:14 | disposition home or self-care (01) ==
LOC: HO.LAB 15:13
PROVIDERS: PCP Family Medicine; Visit Provider Internal Medicine Hypertension Specialist
DX: N18.30 Chronic kidney disease, stage 3 unspecified (principal)
CPT/HCPCS: 36415; 80048

== ENCOUNTER 2024-09-15 10:24 | Outpatient (AMB) | payer MEDICARE, MEDICAID, SELFPAY ==
[2024-09-15 10:24] VITALS: BP 132/64; PULSE 81; O2SAT 96; BMI 44.6
--- NOTE | 2024-09-15 10:24 | HO.NEPHOV ---
Vital Signs 09/15/24 10:24 Height 5 ft 3 in Weight 252 lb BMI 44.6 BP 132/64 Blood Pressure Location Lt brachial Position Sitting Pulse 81 Pulse Source Pulse Oximeter Pulse Oximetry (%) 96 Oxygen Delivery Method Room Air Intake Visit Reasons: CKD/ Per Pt request Industrial Engineer Required: No Accompanied by: Self / Same As Patient Allergies lisinopril [LISINOPRIL] Allergy (Severe, Verified 09/15/24 10:26) ANGIOEDEMA, COUGH amlodipine [AMLODIPINE] Allergy (Intermediate, Verified 09/15/24 10:26) SWELLING Penicillins [PENICILLINS] Allergy (Unknown, Verified 09/15/24 10:26) RASH seasonal Allergy (Unknown, Uncoded 09/15/20 15:07) Anaphylaxis SEASONAL ALLERGIES Allergy (Unknown, Uncoded 09/15/20 15:07) ITCHING, WATERY EYES, STUFFY NOSE, COUGH Medication List - Last Reconciled 09/15/24 by Mario Cardenas MD apixaban (Eliquis) 5 mg PO BID aspirin 81 mg PO DAILY atorvastatin 80 mg PO BEDTIME bupropion HCl SR 150 mg PO BID carvedilol 25 mg PO BID chlorthalidone 25 mg PO DAILY cyclobenzaprine 5 mg PO TID PRN gabapentin 600 mg PO TID hydralazine 25 mg PO TID insulin aspart U-100 (Novolog FlexPen U-100 Insulin aspart) See Protocol units subcut QIDACHS insulin lispro (Humalog KwikPen (U-100) Insulin) subcut DAILY insulin pump cart,automated,BT (Omnipod 5 G6 Pods (Gen 5) subcutaneous cartridge) levothyroxine 100 mcg PO DAILY loratadine 10 mg PO DAILY PRN losartan 50 mg PO BID naltrexone 50 mg PO DAILY omeprazole 40 mg PO BID pen needle, diabetic As directed semaglutide (weight loss) (Wegovy) mg subcut sertraline 50 mg PO BEDTIME spironolactone 50 mg PO BID tramadol 50 mg PO Q6H PRN HPI Comments Details: 54 yr old woman with a history of obesity, diabetes mellitus on insulin, gastroparesis, KIMBERLY /COPD overlap syndrome, hypertension, hypothyroidism, and CKD Here for follow up. From renal standpoint she is doing well. She denies any new complaints. 02/05/24 ;Doing well;Waiting to start WeGovy 05/08/24;On Wegovy - month 2 ; No weight change yet 09/15/24: No weight change. Has not had Wegovy since Apr 2024 Blood sugar has been elevated Has had episodes of low BP No dizziness No new meds or NSAIDS [facility] Medical History CVA (cerebral vascular accident) Surgical History Hx of appendectomy Family History Mother Hypertension Father Hypertension Brother Hypertension Daughter No problems noted. Social History Household Members: Significant Other Housing: House Alcohol intake: former Patient Tobacco Use Status: Former Tobacco user Substance Use Type: Other service: No Current occupational status: unemployed Physical Exam Vital Signs: Last Vital Signs Pulse 81 09/15/24 10:24 BP 132/64 09/15/24 10:24 Pulse Ox 96 09/15/24 10:24 Oxygen Delivery Method Room Air 09/15/24 10:24 BMI result Body Mass Index 44.6 Comfortable Neck supple no JVD. Lungs entry equal no rales. Heart S1-S2 heard no gallop or rub. Abdomen soft nontender. Neuro alert awake oriented. No asterixis. Extremities trace edema. Results Reviewed Nephrology Results: Hgb 11.4 g/dl (12.0-16.0) L 10/09/23 WBC 8.8 X10*3/uL (4.8-10.8) 10/09/23 Plt Count 289 X10*3/uL (160-400) 10/09/23 Sodium 137 mmol/L (135-145) 09/11/24 Potassium 4.9 mmol/L (3.3-5.1) 09/11/24 Chloride 105 mmol/L (96-108) 09/11/24 Carbon Dioxide 27 mmol/L (22-29) 09/11/24 BUN 41 mg/dL (9-16) H 09/11/24 Creatinine 2.10 mg/dL (0.5-1.4) H 09/11/24 Calcium 9.4 mg/dL (8.4-10.2) 09/11/24 Urine Protein Negative mg/dL (Neg-Trace) 10/22/23 Urine Creatinine 41.30 mg/dL 10/22/23 Assessment & Plan Assessment & Plan (1) CKD (chronic kidney disease) stage 3, GFR 30-59 ml/min: Code(s): N18.30 - Chronic kidney disease, stage 3 unspecified Category: Medical (2) Type 1 diabetes mellitus: Code(s): E10.9 - Type 1 diabetes mellitus without complications Category: Medical (3) HTN (hypertension), benign: Code(s): I10 - Essential (primary) hypertension Category: Medical (4) PAF (paroxysmal atrial fibrillation): Code(s): I48.0 - Paroxysmal atrial fibrillation Category: Medical Plan . 54-year-old woman with a history of diabetes mellitus hypertension obesity with chronic kidney disease. Marian stage 3 chronic kidney disease. Goal is to slow the progression of renal disease Discussed importance of tight control blood pressure and blood sugar to slow the progression. Continue to avoid nephrotoxic agents including NSAIDs. She is mild anemia which is multifactorial. No indication for Epogen. Currently she is on multiple antihypertensive agents including 2 diuretics and high dose of spironolactone. BP was better controlled after DECREASing SPIRONOLACTONE to 50 mg BID Currently has had low BPs and Cr has bumped up Would decrease Chlorthalidone to 12.5 mg QD from 25 mg ( 09/15/24) As she looses weight with Wegovy we might be able to lower her antihypertensives Encouraged her to monitor BP and call me if BP drops Orders: Orders Basic Metabolic Panel 4 Weeks N18.30 - Chronic kidney disease, stage 3 unspecified Coding Level of Care Code Est Pt Level 4 (46913) Diagnoses CKD (chronic kidney disease) stage 3, GFR 30-59 ml/min N18.30 Type 1 diabetes mellitus E10.9 HTN (hypertension), benign I10 PAF (paroxysmal atrial fibrillation) I48.0
--- OUTSIDE RECORDS SUMMARY | 2024-09-15 10:58 | XMS_ITS | Encounter Summary ---
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
--- OUTSIDE RECORDS SUMMARY | 2024-09-15 10:58 | XMS_ITS | Encounter Summary ---
Author Organization [facility] Address [address] [facility] [address] [place] [address] Phone Care Team Providers Care Skin Therapist Name Role Phone Jemma Tavares MD Primary Care Provider [phone] Reason for Visit * Reason Comments Med Refill Encounter Details Date Type Department Care Team (Late st Contact Info) Description 11/15/2021 Refill [facility] [address] [place] [id number] Mario Cardenas MD Social History Tobacco Use [...] on filedocumented in this encounter Care Teams Skin Therapist Relationship Specialty Start Date End Date Jemma Tavares MD PCP - General Internal Medicine 10/19/22 documented as of this encounter
--- OUTSIDE RECORDS SUMMARY | 2024-09-15 10:58 | XMS_ITS | Encounter Summary ---
Author Organization [employer] Address [address] [facility] 7t [place] [address] Care Team Providers Care Project Management Professional Name Role Phone Yoselyn Soto HOPPER OPERATOR Unavailable [phone] Tabby Jeong Primary Care Provider [phone] Shyann Ramirez DO Primary Care Provider [phone] Reason for Visit * Reason Comments Med Refill Encounter Details Date Type Department Care Team (Late st Contact Info) Description 02/23/2023 Refill [place] [facility] MEDICAL [address] [place] [address] Medina Nascimento FNP Gastroesophageal reflux disease without [...] 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
--- OUTSIDE RECORDS SUMMARY | 2024-09-15 10:58 | XMS_ITS | Encounter Summary ---
Author Organization [employer] Address [address] [facility] 7t [place] [address] Care Team Providers Care Human Services Assistant Name Role Phone Yoselyn SotoSW Unavailable [phone] Shyann Ramirez DO Primary Care Provider [phone] Reason for Visit * Reason Comments Med Change Request Encounter Details Date Type Department Care Team (Late st Contact Info) Description 06/03/2024 [place] [facility] MEDICAL [address] [place] [address] Jemma Tavares MD [address] [place] [address] Class 3 severe obesity due to excess calories with serious comorbidity and body mass index (BMI) of 40.0 to 44.9 in adult ([facility]/HCC); BMI 40.0-44.9, adult ([facility]) Social History Tobacco Use Types Packs/Day Years [...] 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
--- OUTSIDE RECORDS SUMMARY | 2024-09-15 10:58 | XMS_ITS | Encounter Summary ---
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
--- OUTSIDE RECORDS SUMMARY | 2024-09-15 10:58 | XMS_ITS | Encounter Summary ---
Author Organization [employer] Address [address] [facility] 7t [place] [address] Care Team Providers Care Environment Artist Name Role Phone Yoselyn Soto NIGHT AUDITOR Unavailable [phone] Shyann Ramirez DO Primary Care Provider [phone] Reason for Visit * Reason Comments Med Refill Encounter Details Date Type Department Care Team (Late st Contact Info) Description 05/11/2023 Refill [place] [facility] MEDICAL [address] [place] [address] Shyann Ramirez DO [address] [place] [address] Neuropathy Social History Tobacco Use Types Packs/Day [...] the past 12 months, has t he [employer], gas, oil or water [employer] threatened to shut off services in your [...] 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
--- OUTSIDE RECORDS SUMMARY | 2024-09-15 10:58 | XMS_ITS | Encounter Summary ---
Author Organization [employer] Address [address] [facility] 7t [place] [address] Care Team Providers Care Model Maker Fiberglass Name Role Phone Yoselyn Soto CAMP ATTENDANT Unavailable [phone] Tabby Jeong Primary Care Provider [phone] Shyann Ramirez DO Primary Care Provider [phone] Reason for Visit * Reason Onset Date Comments Med Refill 12/20/2022 Encounter Details Date Type Department Care Team (Late st Contact Info) Description 12/20/2022 Refill [place] [facility] MEDICAL [address] [place] [address] Plant Antonieta Pepper FNP Persistent atrial fibrillation [...] documented as of this encounter Care Teams Model Maker Fiberglass Relationship Specialty Start Date End Date Tabby Jeong FNP [address] [place] [address] PCP - General Family Medicine 11/11/22 03/02/23 Shyann Ramirez DO [address] [place] [address] PCP - General Family Medicine 03/03/23 Yoselyn Soto LICSW [address] [place] [address] Corporate Responsibility Officer Behavioral Health 05/02/22 Anneliese Pedersen Community Health Worker Case Management 11/29/22 documented as of this encounter
--- OUTSIDE RECORDS SUMMARY | 2024-09-15 10:58 | XMS_ITS | Clinical Summary ---
Author Organization [facility] Address [address] [facility] [address] [place] [address] Phone Care Team Providers Care Emergency Department Manager Name Role Phone Jemma Tavares MD Primary Care Provider [phone] Allergies Active Allergy Reactions Criticality Noted Date [...] PM EST) Hemoglobin A1C 9.1(H) (4-6) % [facility] 3 Comment: HEMOGLOBIN A1C(%) ?? GLUCOSE CONTROL INDEX ?<6% ? EXCELLENT ?6-7% ?VERY GOOD ?7-8% ?GOOD ?8-10% ? FAIR ?>10% ?POOR Hemoglobin (Hb) A1c testing is performed by Elder Dolly-quant immunoassay. Any cause of shortened erythrocyte survival will reduce exposure of erythrocytes to glucose with a consequent decrease in Hb A1c (%). Testing performed or reported by ~[facility], ~a Service of [facility], ~[address] [place] [id number]~ 06/14/2018 2:53 PM EST us Mario Cardenas MD LAB BLOOD ORDERABLES Final Res ult [place] [id number] from Last 3 Months or Most Recently Relevant to Health Maintenance Insurance Medicaid [place] Medicare Medicare Medicaid [place] Care Teams Emergency Department Manager Relationship Specialty Start Date End Date Jemma Tavares MD PCP - General Internal Medicine 10/19/22
--- OUTSIDE RECORDS SUMMARY | 2024-09-15 10:59 | XMS_ITS | Encounter Summary ---
Author Organization [employer] Address 75 [facility] 7t [place] [address] Care Team Providers Care Avaya Engineer Name Role Phone Yoselyn Soto RAIL SWITCH OPERATOR Unavailable [phone] Shaynn Ramirez DO Primary Care Provider [phone] Reason for Visit * Reason Onset Date Comments Med Refill 06/07/2024 Encounter Details Date Type Department Care Team (Late st Contact Info) Description 06/07/[address] 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
--- OUTSIDE RECORDS SUMMARY | 2024-09-15 10:59 | XMS_ITS | Encounter Summary ---
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 Not on file Not on file documented as of this encounter Plan of Treatment Not on file documented as of this encounter Procedures Procedure Name Priority Date/Time Associated Diagnosis Comments C-REACTIVE PROTEIN Routine 05/25/2023 1: 04 PM EST Elevated erythrocyte sedimentation rate documented in this encounter Results * C-reactive protein (05/25/2023 1:04 PM EST) C-Reactive Protein <0.3 (0-0.5) MG/DL [facility] Comment: Testing performed or reported by [facility], a Service of [facility], [address] [place] [address] Buddy Roach MD, Cobol Programmer SEBASTIEN# [id number] Blood Venous blood specimen / Unknown 05/25/2023 1:04 PM EST 05/25/2023 1:05 PM EST Shyann Ramirez DO LAB BLOOD ORDERABLES Final Res ult [facility] [address] [place] [address] documented in this encounter Visit Diagnoses Diagnosis Elevated erythrocyte sedimentation rate- Primary Elevated sedimentation rate Intractable headache, unspecified chronicity pattern, unspecified headache type documented in this encounter Additional Health Concerns Assessment Noted Time PHQ-9 Depression Total Score: 5 04/18/20 22 2:05 PM EST documented as of this encounter Care Teams Bar Host/Hostess Relationship Specialty Start Date End Date Shyann Ramirez DO [address] [place] [address] PCP - General Family Medicine 03/03/23 Yoselyn Soto LICSW [address] [place] [address] Digital Forensic Analyst Behavioral Health 05/02/22 Anneliese Pedersen Community Health Worker Case Management 11/29/22 documented as of this encounter
--- OUTSIDE RECORDS SUMMARY | 2024-09-15 10:59 | XMS_ITS | Encounter Summary ---
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
--- OUTSIDE RECORDS SUMMARY | 2024-09-15 10:59 | XMS_ITS | Clinical Summary ---
Author Organization [employer] Address [address] [place] [address] 7t [place] [address] Care Team Providers Care Florist Helper Name Role Phone Yoselyn Soto INTERLOCKING PAVEMENT INSTALLER Unavailable Shyann Ramirez DO Primary Care Provider [phone] Allergies Active Allergy Reactions Criticality Noted Date [...] Continuous Blood Gluc Transmit (Dexcom G6 transmitter) [facility] Dexcom G6 transmitter, See Instructions, # 1 [...] Disposable Pump (Omnipod DASH Pods, Gen 4,) [facility] CHANGE EVERY 3 DAYS 024 Active carvedilol [...] gastroparesis with this class of medication, though analyst business analysis endorses a trial. Insurance may not cover [...] original note were not included. Followed by [facility] endocrine Has a pump Assessment & Plan [...] Type Department Care Team Description 09/02/2024 Refill [facility] MEDICAL [address] [place] [address] Shyann Ramirez DO 08/26/2024 Refill [facility] [address] [place] [address] Shyann Ramirez DO Primary hypertension 08/21/2024 Refill [facility] [address] [place] [address] Shyann Ramirez DO Depression with anxiety; Primary hypertension 07/28/2024 Refill [facility] [address] [place] [address] Shyann Ramirez DO Mild depression; High cholesterol 07/18/2024 Population Health Risk [facility] Department [address] [place] [address] [id number] Provider, Population Health Generic 07/02/2024 Refill [facility] [address] [place] [address] Shyann Ramirez DO Class 3 severe obesity due to excess calories with serious comorbidity and body mass index (BMI) of 40.0 to 44.9 in adult (CMS/[facility]) from Last 3 Months Immunizations Name [...] Start Date 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 Date 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 Not on file [...] type, unspecified whether angina present, unspecified whether [place] or transplanted heart Hyperlipidemia, unspecified hyperlipidemia type [...] specimen / Unknown 03/13/2023 1:34 PM EST [facility]INT [facility]ARE TEST ENTER/EDIT ORDERABLES Final Result * (ABNORMAL) Lipid Panel, Standard (10/13/2022 7:32 AM EDT) Cholesterol, Total 119 (<200) MG/DL [facility] Triglyceride (mg/dL) in Serum/Plasma 90 (<150) MG/DL [facility] HDL Cholesterol 39(L) (>39) MG/DL [facility] LDL Cholesterol, Calculated 62 (0-130) MG/DL [facility] Non HDL Chol. (LDL+VLDL) 80 (<160) MG/DL [facility] Comment: Testing performed or reported by [facility], a Service of [facility], [address] [place] [address] Buddy Roach MD, Adult Specialist [facility]# [id number] Blood Venous blood specimen / Unknown 10/13/2022 7:32 AM EDT 10/13/2022 7:36 AM EDT Medina Nascimento [facility] BLOOD ORDERABLES Lydia l Result [address] [address] * MAMMOGRAM DIGITAL MAY SCREENING: [facility] (09/04/2018 12:00 AM EDT) Anatomical Region Laterality Modality Breast Bilateral Mammography 09/04/2018 Narrative 09/04/2018 12:00 AM EDT Refer to [facility] for result details Legacy Procedure: MAMMOGRAM DIGITAL MAY SCREENING: [facility] Procedure Note Provider, Elvin, - 08/31/2022 Refer to [facility] for result details Legacy Procedure: [facility] IMG BI PROCEDURES Final [...] Payer (Ef fective 2022-Present) Name:Marian Mcbride Member ID:[id number] Relation to Subscriber:Self Name:Marian Mcbride Subscriber ID:[id number] Payer ID:[id number] Group ID:Not on file Type:Medicare Address: [facility].[address] [address] [facility] Care Teams Florist Helper Relationship Specialty Start Date End Date JamesShyannDO [address] [place] [address] PCP - General Family Medicine 03/03/23 Yoselyn Soto LICSW [address] [place] [address] Od Grinder Operator Behavioral Health 05/02/22 Anneliese Pedersen Community Health Worker Case Management 11/29/22
--- OUTSIDE RECORDS SUMMARY | 2024-09-15 10:59 | XMS_ITS | Encounter Summary ---
Author Organization [employer] Address [address] [facility] 7t [place] [address] Care Team Providers Care Public Health Internship Name Role Phone Yoselyn Soto SUPERVISOR PARK WORKERS Unavailable [phone] Shyann Ramirez DO Primary Care Provider Reason for Visit * Reason Comments Med Change Request Encounter Details Date Type Department Care Team (Late st Contact Info) Description 06/06/[address] 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
--- OUTSIDE RECORDS SUMMARY | 2024-09-15 10:59 | XMS_ITS | Encounter Summary ---
Author Organization [employer] Address [address] [facility] 7t [place] [address] Care Team Providers Care Telecommunications Equipment Installer Name Role Phone Yoselyn Soto LANDSCAPE ENGINEER Unavailable [phone] Shyann Ramirez DO Primary Care Provider [phone] Reason for Visit * Reason Comments Med Change Request Encounter Details Date Type Department Care Team (Late st Contact Info) Description 06/10/2024 Perez Davidson [facility] MEDICAL [address] [place], [place] [phone] Shyann Ramirez DO [address] [place] [address] Class 3 severe obesity due to excess [...] 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
--- OUTSIDE RECORDS SUMMARY | 2024-09-15 10:59 | XMS_ITS | Encounter Summary ---
Author Organization [employer] Address [address] [facility] 7t [place] [address] Care Team Providers Care Fish Rod Maker Name Role Phone Kaylin Deutsch MD Primary Care Provider [phone] Yoselyn Soto Unavailable [phone] Medina Nascimento Primary Care Provider Un available Tabby Jeong Primary Care Provider [phone] Shyann Ramirez DO Primary Care Provider [phone] Reason for Visit * Reason Comments Med Refill Encounter Details Date Type Department Care Team (Late st Contact Info) Description 05/04/2022 Telephone [facility] MEDICAL [address] [place], [place] [id number] Medina Nascimento FNP Med Refill Social History [...] documented as of this encounter Care Teams Fish Rod Maker Relationship Specialty Start Date End Date Kaylin Deutsch MD [address] [place] [address] PCP - General Family Medicine 04/16/20 05/21/22 Medina Nascimento FNP [address] [place] [address] PCP - General Family Medicine 05/22/22 11/10/22 Tabby Jeong FNP [address] [place] [address] PCP - General Family Medicine 11/11/22 03/02/23 Shyann Ramirez DO [address] [place] [address] PCP - General Family Medicine 03/03/23 Yoselyn Soto LICSW [address] [place] [address] Certified Pharmacy Technician Behavioral Health 05/02/22 Anneliese Pedersen Community Health Worker Case Management 11/29/22 documented as of this encounter
== END 2024-09-15 10:41 | disposition home or self-care (01) ==
LOC: HO.HKA 10:24
PROVIDERS: PCP Family Medicine; Visit Provider Internal Medicine Hypertension Specialist
DX: N18.30 Chronic kidney disease, stage 3 unspecified (principal); E10.9 Type 1 diabetes mellitus without complications; I10 Essential (primary) hypertension; I48.0 Paroxysmal atrial fibrillation
CPT/HCPCS: 99214

== ENCOUNTER → 2024-09-15 10:24 | Outpatient (BNVA) | payer MEDICARE, MEDICAID, SELFPAY | PROVIDERS: PCP Family Medicine; Visit Provider Internal Medicine Hypertension Specialist | DX: E10.22 Type 1 diabetes mellitus with diabetic chronic kidney disease (principal); I12.9 Hypertensive chronic kidney disease with stage 1 through stage 4 chronic kidney disease, or unspecified chronic kidney disease; N18.30 Chronic kidney disease, stage 3 unspecified; Z79.4 Long term (current) use of insulin | CPT/HCPCS: 99212 ==

== ENCOUNTER 2024-10-24 11:38 | Outpatient (REF) | payer MEDICARE, MEDICAID, SELFPAY ==
--- OUTSIDE RECORDS SUMMARY | 2024-10-24 12:01 | XMS_ITS | Encounter Summary ---
Author Organization [employer] Address [address] [place] [address] 7 [place] [address] Care Team Providers Care Administrator Social Welfare Name Role Phone Yoselny Soto RN NEUROSURGICAL Unavailable [phone] Tabby Jeong Primary Care Provider [phone] Shyann Ramirez DO Primary Care Provider [phone] Reason for Visit * Reason Onset Date Comments Med Refill 12/20/2022 Encounter Details Date Type Department Care Team (Late st Contact Info) Description 12/20/2022 Refill Lety [facility] MEDICAL [address] [place] [address] Plant Antonieta Pepper FNP Persistent atrial fibrillation [...] 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 on file Not on file documented as of this encounter Plan of Treatment Not on file documented as of this encounter Visit Diagnoses Diagnosis Persistent atrial fibrillation (CMS/HCC) Atrial fibrillation documented in this encounter Additional Health Concerns Assessment Noted Time PHQ-9 Depression Total Score: 5 04/18/20 22 2:05 PM EST documented as of this encounter Care Teams Administrator Social Welfare Relationship Specialty Start Date End Date Tabby Jeong FNP [address] [place] [address] PCP - General Family Medicine 11/11/22 03/02/23 Shyann Ramirez DO [address] [place] [address] PCP - General Family Medicine 03/03/23 Yoselyn Soto LICSW [address] [place] [address] It Intern Behavioral Health 05/02/22 Anneliese Pedersen Community Health Worker Case Management 11/29/22 documented as of this encounter
[2024-10-24 12:56] LABS: Anion Gap 11 (12-20); Blood Urea Nitrogen 32 mg/dL (9-16); Calcium 9.4 mg/dL (8.4-10.2); Carbon Dioxide 25 mmol/L (22-29); Chloride 107 mmol/L (96-108); Estimated Glomerular Filt Rate 35; Glucose Random 171 mg/dL (60-115); Potassium 5.4 mmol/L (3.3-5.1); Sodium 138 mmol/L (135-145)
== END 2024-10-24 11:39 | disposition home or self-care (01) ==
LOC: HO.LAB 11:38
PROVIDERS: Internal Medicine Hypertension Specialist; PCP Family Medicine; Visit Provider Psychiatry & Neurology Neurology
DX: N18.30 Chronic kidney disease, stage 3 unspecified (principal)
CPT/HCPCS: 36415; 80048

== ENCOUNTER 2024-10-27 10:19 | Outpatient (AMB) | payer MEDICARE, MEDICAID, SELFPAY ==
[2024-10-27 10:22] VITALS: BP 120/60; PULSE 77; O2SAT 95; BMI 45.2
--- NOTE | 2024-10-27 10:22 | HO.NEPHOV ---
Vital Signs 10/27/24 10:22 Height 5 ft 3 in Weight 255 lb BMI 45.2 BP 120/60 Blood Pressure Location Rt radial Position Sitting Pulse 77 Pulse Source Pulse Oximeter Pulse Oximetry (%) 95 Oxygen Delivery Method Room Air Intake Visit Reasons: 6 weeks fu Assistant Department Manager Required: No Accompanied by: Self / Same As Patient Allergies lisinopril (LISINOPRIL) Allergy (Severe, Verified 10/27/24 10:23) ANGIOEDEMA, COUGH amlodipine (AMLODIPINE) Allergy (Intermediate, Verified 10/27/24 10:23) SWELLING Penicillins (PENICILLINS) Allergy (Unknown, Verified 10/27/24 10:23) RASH seasonal Allergy (Unknown, Uncoded 09/15/20 15:07) Anaphylaxis SEASONAL ALLERGIES Allergy (Unknown, Uncoded 09/15/20 15:07) ITCHING, WATERY EYES, STUFFY NOSE, COUGH Medication List - Last Reconciled 10/27/24 by Mario Cardenas MD apixaban (Eliquis) 5 mg PO BID aspirin 81 mg PO DAILY atorvastatin 80 mg PO BEDTIME bupropion HCl SR 150 mg PO BID carvedilol 25 mg PO BID chlorthalidone 25 mg PO DAILY cyclobenzaprine 5 mg PO TID PRN gabapentin 600 mg PO TID hydralazine 25 mg PO TID insulin aspart U-100 (Novolog FlexPen U-100 Insulin aspart) See Protocol units subcut QIDACHS insulin lispro (Humalog KwikPen (U-100) Insulin) subcut DAILY insulin pump cart,automated,BT (Omnipod 5 G6 Pods (Gen 5) subcutaneous cartridge) levothyroxine 100 mcg PO DAILY loratadine 10 mg PO DAILY PRN losartan 50 mg PO BID naltrexone 50 mg PO DAILY omeprazole 40 mg PO BID pen needle, diabetic As directed semaglutide (weight loss) (Wegovy) mg subcut sertraline 50 mg PO BEDTIME spironolactone 50 mg PO BID tramadol 50 mg PO Q6H PRN HPI Comments Details: 54 yr old woman with a history of obesity, diabetes mellitus on insulin, gastroparesis, KIMBERLY /COPD overlap syndrome, hypertension, hypothyroidism, and CKD Here for follow up. From renal standpoint she is doing well. She denies any new complaints. 02/05/24 ;Doing well;Waiting to start WeGovy 05/08/24;On Wegovy - month 2 ; No weight change yet 09/15/24: No weight change. Has not had Wegovy since Apr 2024 Blood sugar has been elevated Has had episodes of low BP No dizziness No new meds or NSAIDS 10/27/24 54-year-old female presenting for follow-up on her chronic kidney disease and management of hyperkalemia and hypertension. The patient's chronic kidney disease has shown improvement, with her creatinine levels decreasing from 2.1 to 1.5, which is consistent with previous measurements from November and April. This improvement suggests stabilization of her renal function. The patient has been experiencing hyperkalemia, with a potassium level of 5.4. The patient is on spironolactone, which is known to increase potassium levels, and has been advised to monitor her dietary intake of potassium-rich foods such as oranges and bananas. She has been instructed to maintain her spironolactone dosage at one pill in the morning and one in the afternoon to prevent further elevation of potassium levels. The patient's hypertension is currently well-managed, with her blood pressure readings being stable. She has been advised to continue monitoring her blood pressure at home and adjust her spironolactone dosage if her diastolic pressure falls below 60 mmHg. [facility] Medical History CVA (cerebral vascular accident) Surgical History Hx of appendectomy Family History Mother Hypertension Father Hypertension Brother Hypertension Daughter No problems noted. Social History Household Members: Significant Other Housing: House Alcohol intake: former Patient Tobacco Use Status: Former Tobacco user Substance Use Type: Other service: No Current occupational status: unemployed Physical Exam Vital Signs: Last Vital Signs Pulse 77 10/27/24 10:22 BP 120/60 10/27/24 10:22 Pulse Ox 95 10/27/24 10:22 Oxygen Delivery Method Room Air 10/27/24 10:22 BMI result Body Mass Index 45.2 Comfortable Neck supple no JVD. Lungs entry equal no rales. Heart S1-S2 heard no gallop or rub. Abdomen soft nontender. Neuro alert awake oriented. No asterixis. Extremities trace edema. Results Reviewed Nephrology Results: Hgb, (12.0-16.0) 11.4 g/dl L 10/09/23 WBC, (4.8-10.8) 8.8 X10*3/uL 10/09/23 Plt Count, (160-400) 289 X10*3/uL 10/09/23 Sodium, (135-145) 138 mmol/L 10/24/24 Potassium, (3.3-5.1) 5.4 mmol/L H 10/24/24 Chloride, (96-108) 107 mmol/L 10/24/24 Carbon Dioxide, (22-29) 25 mmol/L 10/24/24 BUN, (9-16) 32 mg/dL H 10/24/24 Creatinine, (0.5-1.4) 1.56 mg/dL H 10/24/24 Calcium, (8.4-10.2) 9.4 mg/dL 10/24/24 Urine Protein, (Neg-Trace) Negative mg/dL 10/22/23 Urine Creatinine 41.30 mg/dL 10/22/23 Assessment & Plan Assessment & Plan (1) CKD (chronic kidney disease) stage 3, GFR 30-59 ml/min: Code(s): N18.30 - Chronic kidney disease, stage 3 unspecified Category: Medical (2) Type 1 diabetes mellitus: Code(s): E10.9 - Type 1 diabetes mellitus without complications Category: Medical (3) HTN (hypertension), benign: Code(s): I10 - Essential (primary) hypertension Category: Medical (4) PAF (paroxysmal atrial fibrillation): Code(s): I48.0 - Paroxysmal atrial fibrillation Category: Medical Plan . 54-year-old woman with a history of diabetes mellitus hypertension obesity with chronic kidney disease. Marian stage 3 chronic kidney disease. Goal is to slow the progression of renal disease Discussed importance of tight control blood pressure and blood sugar to slow the progression. Continue to avoid nephrotoxic agents including NSAIDs. She is mild anemia which is multifactorial. No indication for Epogen. Currently she is on multiple antihypertensive agents including 2 diuretics and high dose of spironolactone. BP was better controlled after DECREASing SPIRONOLACTONE to 50 mg BID Decreased Chlorthalidone to 12.5 mg QD from 25 mg ( 09/15/24) Cr is back to baseline of 1.56 K is at 5.4 - stary on low K diet Not on Wegovy anymore -due to insurance insurance Waiting to start Marc Orders: Orders Basic Metabolic Panel 2 Months N18.30 - Chronic kidney disease, stage 3 unspecified Coding Level of Care Code Est Pt Level 4 (01628) Diagnoses CKD (chronic kidney disease) stage 3, GFR 30-59 ml/min N18.30 Type 1 diabetes mellitus E10.9 HTN (hypertension), benign I10 PAF (paroxysmal atrial fibrillation) I48.0
--- OUTSIDE RECORDS SUMMARY | 2024-10-27 11:29 | XMS_ITS | Encounter Summary ---
Author Organization [employer] Address [address] [place] [address] 7 [place] [address] Care Team Providers Care Cardiac Cath Lab Manager Name Role Phone Yoselyn Soto SECTION LEADER SCREEN PRINTING Unavailable [phone] Tabby Jeong Primary Care Provider [phone] Shyann Ramirez DO Primary Care Provider [phone] Reason for Visit * Reason Onset Date Comments Med Refill 12/20/2022 Encounter Details Date Type Department Care Team (Late st Contact Info) Description 12/20/2022 Refill Lety [facility] MEDICAL [address] [place] [address] Plant Antonieta Pepper FNP Persistent atrial fibrillation [...] 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 Not on file Not on file documented as of this encounter Plan of Treatment Not on file documented as of this encounter Visit Diagnoses Diagnosis Persistent atrial fibrillation (CMS/HCC) Atrial fibrillation documented in this encounter Additional Health Concerns Assessment Noted Time PHQ-9 Depression Total Score: 5 04/18/20 22 2:05 PM EST documented as of this encounter Care Teams Cardiac Cath Lab Manager Relationship Specialty Start Date End Date Tabby Jeong FNP [address] [place] [address] PCP - General Family Medicine 11/11/22 03/02/23 Shyann Ramirez DO [address] [place] [address] PCP - General Family Medicine 03/03/23 Yoselyn Soto LICSW [address] [place] [address] Central Sterile Tech Behavioral Health 05/02/22 Anneliese Pedersen Community Health Worker Case Management 11/29/22 documented as of this encounter
== END 2024-10-27 10:41 | disposition home or self-care (01) ==
LOC: HO.HKA 10:19
PROVIDERS: PCP Family Medicine; Visit Provider Internal Medicine Hypertension Specialist
DX: N18.30 Chronic kidney disease, stage 3 unspecified (principal); E10.9 Type 1 diabetes mellitus without complications; I10 Essential (primary) hypertension; I48.0 Paroxysmal atrial fibrillation
CPT/HCPCS: 99214

== ENCOUNTER → 2024-10-27 10:19 | Outpatient (BNVA) | payer MEDICARE, MEDICAID, SELFPAY | PROVIDERS: PCP Family Medicine; Visit Provider Internal Medicine Hypertension Specialist | DX: E10.22 Type 1 diabetes mellitus with diabetic chronic kidney disease (principal); I12.9 Hypertensive chronic kidney disease with stage 1 through stage 4 chronic kidney disease, or unspecified chronic kidney disease; N18.30 Chronic kidney disease, stage 3 unspecified; I48.0 Paroxysmal atrial fibrillation | CPT/HCPCS: 99212 ==

== ENCOUNTER 2024-12-22 10:55 | Outpatient (REF) | payer MEDICARE, MEDICAID, SELFPAY ==
--- OUTSIDE RECORDS SUMMARY | 2024-12-22 12:06 | XMS_ITS | Clinical Summary ---
Author Organization [facility] Address [address] [facility] [address] [place] [address] Phone Care Team Providers Care Knotting Machine Operator Name Role Phone Cynthia Martel CNP Primary Care Provider Allergies Active Allergy Reactions Criticality Noted Date Comments Amlodipine 02/08/2020 Lisinopril 02/08/2020 Medications aspirin 81 mg chewable tablet CHEW 1 TABLET BY MOUTH EVERY DAY 0 Active atorvastatin (LIPITOR) 80 MG tablet Take 80 mg by mouth daily. 0 Active cyclobenzaprine (FLEXERIL) 5 MG tablet Take 5 mg by mouth 3 (three) times a day. 0 Active TIADYLT ER 240 mg 24 hr capsule Take 240 mg by mouth daily. 0 Active famotidine (PEPCID) 40 MG tablet Take 40 mg by mouth daily. 0 Active gabapentin (NEURONTIN) 300 MG capsule TAKE 2 CAPSULES BY MOUTH 3 TIMES A DAY 0 Active hydroCHLOROthia zide (HYDRODIURIL) 25 MG tablet Take 25 mg by mouth daily. 0 Active NOVOLOG U-100 INSULIN ASPART 100 unit/mL injection vial MAX DOSE 150 UNITS/DAY, PT NEED EXTRA FOR SITE CHANGES, SHE INFUSES VIA OMNIPOD, E10.9 0 Active levothyroxine (SYNTHROID, LEVOTHROID) 75 MCG tablet Take 75 mcg by mouth daily. 0 Active losartan (COZAAR) 100 MG tablet Take 100 mg by mouth daily. 0 Active losartan (COZAAR) 50 MG tablet Take 100 mg by mouth daily. 0 Active omeprazole (PRILOSEC) 40 MG capsule TAKE 1 CAPSULE BY MOUTH EVERY DAY BEFORE A MEAL 0 Active sertraline (ZOLOFT) 50 MG tablet Take 50 mg by mouth daily. 0 Active spironolactone (ALDACTONE) 50 MG tablet TAKE 1 TABLET BY ORAL ROUTE IN THE AM AND 2 TABLETS IN THE AFTERNOON 0 Active triamcinolone acetonide 0.5 % ointment APPLY THIN COAT TO AFFECTED AREA TWICE A DAY 0 Active DULoxetine (CYMBALTA) 20 MG capsule Take 20 mg by mouth 2 (two) times a day. 0 Active LANTUS SOLOSTAR U-100 INSULIN 100 unit/mL (3 mL) InPn injection pen INJECT 72 UNITS INTO THE SKIN ONCE DAILY 0 Active naproxen (NAPROSYN) 500 MG tablet Take 1 tablet (500 mg total) by mouth 2 (two) times a day with meals for 10 days. 20 tablet 0 Active Social History Tobacco Use Types Packs/Day Years Used Date Smoking Tobacco: Every Day Cigarettes Smokeless Tobacco: Never Education Answer Date Recorded Are you interested in more education? Not on ismael e 09/01/2022 Are you concerned about learning? Not on file 09/01/2022 No 09/01/2022 No 09/01/2022 Digital Access Answer Date Recorded No 10/03/2022 No 10/03/2022 Reliable internet access at home? Not on file 10/03/2022 Device with a working camera? Not on file Comments Unknown Sex and Gender Information Value Date Recorded Sex Assigned at Not on file Legal Sex Female 10:48 AM EDT Gender Identity Not on file Sexual Orientation Not on file Last Filed Vital Signs Vital Sign Reading Time Taken Comments Blood Pressure 161/80 02/08/2020 11:17 AM EDT Pulse 96 02/08/2020 11:17 AM EDT Temperature - - Respiratory Rate - - Oxygen Saturation 99% 02/08/2020 11:17 AM EDT Inhaled Oxygen Concentration - - Weight - - Height - - Body Mass Index - - Plan of Treatment Health Maintenance Due Date Last Done Comments Adult Td,Tdap Booster 1971 CREATININE LEVEL 1971 LIPID PANEL 1971 POTASSIUM LEVEL 1971 TSH LEVEL 1971 DEPRESSION SCREENING 1983 SMOKING Hx and SMOKELESS TOB ACCO SCREENING 01/25/1984 HEPATITIS C SCREENING 1989 HIV ONE-TIME SCREENING (18-6 5 YEARS) 1989 PNEUMOCOCCAL VACCINES (50+ y ears) (1 of 2 - PCV) 1990 PAP SMEAR 01/25/1992 MAMMOGRAM 2011 COLOGUARD 01/25/2016 COLONOSCOPY 01/25/2016 COLORECTAL CANCER SCREENING 01/25/2016 FIT TEST 01/25/2016 FOBT 01/25/2016 SIGMOIDOSCOPY 01/25/2016 VIRTUAL COLONOSCOPY 01/25/2016 ZOSTER VACCINES (1 of 2) 2021 COVID-19 VACCINE (2 - 2023-2 5 season) 2024 07/30/2020 HEPATITIS A VACCINES Aged Out No long er eligible based on patient's age to complete this topic HIB VACCINES Aged Out No longer eligi ble based on patient's age to complete this topic MENINGOCOCCAL VACCINES (ACWY) Aged Out No longer eligible based on patient's age to complete this topic MENINGOCOCCAL VACCINES (B) Aged Out N o longer eligible based on patient's age to complete this topic Medical Devices Not on file Insurance MEDICARE PART A & B MEDICARE PART A & B MEDICARE PART A & B MEDICARE PART A & B MEDICARE PART A & B Member Subscriber Plan / Payer ([facility] 04/06/2019-Present) Name:Rae Marian Member ID:[id number] Relation to Subscriber:Self Name:Marian Mcbride Subscriber ID:[id number] Payer ID:[id number] Group ID:Not on file Type:Medicare Address: [employer] [address] [place] [address] MEDICARE PART A & B MEDICARE PART A & B MEDICARE PART A & B MEDICARE PART A & B Care Teams Knotting Machine Operator Relationship Specialty Start Date End Date Cynthia Martel CNP [address] [facility] [address] [place] [address] [email or web address] PCP - General Family Medicine 02/08/20 Additional Source Comments The information contained in this document represents components of the legal health record. It is not the complete legal health record.[facility]
--- OUTSIDE RECORDS SUMMARY | 2024-12-22 12:06 | XMS_ITS | Encounter Summary ---
Author Organization [employer] Address [address] [place] [address] 7 [place] [address] Care Team Providers Care Textile Machine Maintenance Mechanic Name Role Phone Yoselyn Soto ADVANCED MANAGER Unavailable [phone] Tabby Jeong Primary Care Provider [phone] Shyann Ramirez DO Primary Care Provider [phone] Reason for Visit * Reason Onset Date Comments Med Refill 12/20/2022 Encounter Details Date Type Department Care Team (Late st Contact Info) Description 12/20/2022 Refill Lety [facility] MEDICAL [address] [place] [address] Plant Antonieta Pepper FNP Persistent atrial fibrillation [...] Start Date 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
--- OUTSIDE RECORDS SUMMARY | 2024-12-22 12:06 | XMS_ITS | Encounter Summary ---
Author Organization [facility] Address [address] [facility] [address] [place] [address] Phone Care Team Providers Care Rn Internal Medicine Name Role Phone Jemma Tavares MD Primary Care Provider [phone] Reason for Visit * Reason Comments Med Refill Encounter Details Date Type Department Care Team (Late st Contact Info) Description 11/15/2021 Refill [facility] [address] [place] [id number] Mario Cardenas MD Social History Tobacco Use [...] on filedocumented in this encounter Care Teams Rn Internal Medicine Relationship Specialty Start Date End Date Jemma Tavares MD PCP - General Internal Medicine 10/19/22 documented as of this encounter
[2024-12-22 12:28] LABS: Anion Gap 13 (12-20); Blood Urea Nitrogen 50 mg/dL (9-16); Calcium 9.2 mg/dL (8.4-10.2); Carbon Dioxide 25 mmol/L (22-29); Chloride 101 mmol/L (96-108); Estimated Glomerular Filt Rate 21; Potassium 5.4 mmol/L (3.3-5.1); Sodium 134 mmol/L (135-145)
== END 2024-12-22 10:56 | disposition home or self-care (01) ==
LOC: HO.LAB 10:55
PROVIDERS: PCP Family Medicine; Visit Provider Internal Medicine Hypertension Specialist
DX: N18.30 Chronic kidney disease, stage 3 unspecified (principal)
CPT/HCPCS: 36415; 80048

== ENCOUNTER 2024-12-23 11:08 | Outpatient (AMB) | payer MEDICARE, MEDICAID, SELFPAY ==
[2024-12-23 11:10] VITALS: BP 98/54; PULSE 81; O2SAT 96; BMI 42.9
--- NOTE | 2024-12-23 11:10 | HO.NEPHOV_ITS ---
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 Required: No Accompanied by: Self / Same As Patient Allergies lisinopril (LISINOPRIL) Allergy (Severe, Verified 12/23/24 11:11) ANGIOEDEMA, COUGH amlodipine (AMLODIPINE) Allergy (Intermediate, Verified 12/23/24 11:11) SWELLING Penicillins (PENICILLINS) Allergy (Unknown, Verified 12/23/24 11:11) RASH seasonal Allergy (Unknown, Uncoded 09/15/20 15:07) Anaphylaxis SEASONAL ALLERGIES Allergy (Unknown, Uncoded 09/15/20 15:07) ITCHING, WATERY EYES, STUFFY NOSE, COUGH Medication List - Last Reconciled 12/23/24 by Mario Cardenas MD apixaban (Eliquis) 5 mg PO BID aspirin 81 mg PO DAILY atorvastatin 80 mg PO BEDTIME bupropion HCl SR 150 mg PO BID carvedilol 25 mg PO BID chlorthalidone 25 mg PO DAILY cyclobenzaprine 5 mg PO TID PRN gabapentin 600 mg PO TID hydralazine 25 mg PO TID insulin aspart U-100 (Novolog FlexPen U-100 Insulin aspart) See Protocol units subcut QIDACHS insulin lispro (Humalog KwikPen (U-100) Insulin) subcut DAILY insulin pump cart,automated,BT (Omnipod 5 G6 Pods (Gen 5) subcutaneous cartridge) levothyroxine 100 mcg PO DAILY loratadine 10 mg PO DAILY PRN losartan 50 mg PO BID naltrexone 50 mg PO DAILY omeprazole 40 mg PO BID pen needle, diabetic As directed sertraline 50 mg PO BEDTIME spironolactone 50 mg PO BID tirzepatide (Mounjaro) mg subcut QWEEK tramadol 50 mg PO Q6H PRN HPI Comments Details: 54 yr old woman with a history of obesity, diabetes mellitus on insulin, gastroparesis, KIMBERLY /COPD overlap syndrome, hypertension, hypothyroidism, and CKD Here for follow up. From renal standpoint she is doing well. She denies any new complaints. 02/05/24 ;Doing well;Waiting to start WeGovy 1/2/25;On Wegovy - month 2 ; No weight change yet 09/15/24: No weight change. Has not had Wegovy since Apr 2024 Blood sugar has been elevated Has had episodes of low BP No dizziness No new meds or NSAIDS 10/27/24 54-year-old female presenting for follow-up on her chronic kidney disease and management of hyperkalemia and hypertension. The patient's chronic kidney disease has shown improvement, with her creatinine levels decreasing from 2.1 to 1.5, which is consistent with previous measurements from November and April. This improvement suggests stabilization of her renal function. The patient has been experiencing hyperkalemia, with a potassium level of 5.4. The patient is on spironolactone, which is known to increase potassium levels, and has been advised to monitor her dietary intake of potassium-rich foods such as oranges and bananas. She has been instructed to maintain her spironolactone dosage at one pill in the morning and one in the afternoon to prevent further elevation of potassium levels. The patient's hypertension is currently well-managed, with her blood pressure readings being stable. She has been advised to continue monitoring her blood pressure at home and adjust her spironolactone dosage if her diastolic pressure falls below 60 mmHg. 12/22/24 : Not taking Wegovy- not covered On Maunjaro She has lost about 12 lb. [facility] Medical History CVA (cerebral vascular accident) Surgical History Hx of appendectomy Family History Mother Hypertension Father Hypertension Brother Hypertension Daughter No problems noted. Social History Household Members: Significant Other Housing: House Alcohol intake: former Patient Tobacco Use Status: Former Tobacco user Substance Use Type: Other service: No Current occupational status: unemployed Physical Exam Vital Signs: Last Vital Signs Pulse 81 12/23/24 11:10 BP 98/54 L 12/23/24 11:10 Pulse Ox 96 12/23/24 11:10 Oxygen Delivery Method Room Air 12/23/24 11:10 BMI result Body Mass Index 42.9 Comfortable Neck supple no JVD. Lungs entry equal no rales. Heart S1-S2 heard no gallop or rub. Abdomen soft nontender. Neuro alert awake oriented. No asterixis. Extremities trace edema. Results Reviewed Nephrology Results: Sodium, (135-145) 134 mmol/L L 12/22/24 Potassium, (3.3-5.1) 5.4 mmol/L H 12/22/24 Chloride, (96-108) 101 mmol/L 12/22/24 Carbon Dioxide, (22-29) 25 mmol/L 12/22/24 BUN, (9-16) 50 mg/dL H 12/22/24 Creatinine, (0.5-1.4) 2.45 mg/dL H 12/22/24 Calcium, (8.4-10.2) 9.2 mg/dL 12/22/24 Assessment & Plan Assessment & Plan (1) HTN (hypertension), benign: Code(s): I10 - Essential (primary) hypertension Category: Medical (2) CKD (chronic kidney disease) stage 3, GFR 30-59 ml/min: Code(s): N18.30 - Chronic kidney disease, stage 3 unspecified Category: Medical (3) Type 1 diabetes mellitus: Code(s): E10.9 - Type 1 diabetes mellitus without complications Category: Medical (4) PAF (paroxysmal atrial fibrillation): Code(s): I48.0 - Paroxysmal atrial fibrillation Category: Medical Plan . 54-year-old woman with a history of diabetes mellitus hypertension obesity with chronic kidney disease. Marian stage 3 chronic kidney disease. Goal is to slow the progression of renal disease Discussed importance of tight control blood pressure and blood sugar to slow the progression. Continue to avoid nephrotoxic agents including NSAIDs. She is mild anemia which is multifactorial. No indication for Epogen. Currently she is on multiple antihypertensive agents including 2 diuretics and high dose of spironolactone. 12/22/2024. With the weight loss the blood pressure has dropped further. She has sustained acute kidney injury due to hypoperfusion. Has persistent mild hyperkalemia. Therefore I will discontinue spironolactone 50 mg b.i.d.. Encouraged to watch blood pressure at home. If systolic blood pressures less than 100 mm Hg I would lower the chlorthalidone as well. Recheck renal function in the next few weeks. Encouraged her to increase p.o. fluid intake. Orders: Orders Basic Metabolic Panel 4 Weeks I10 - Essential (primary) hypertension, N18.30 - Chronic kidney disease, stage 3 unspecified Coding Level of Care Code Est Pt Level 4 (03890) Diagnoses HTN (hypertension), benign I10 CKD (chronic kidney disease) stage 3, GFR 30-59 ml/min N18.30 Type 1 diabetes mellitus E10.9 PAF (paroxysmal atrial fibrillation) I48.0
--- OUTSIDE RECORDS SUMMARY | 2024-12-23 12:41 | XMS_ITS | Encounter Summary ---
Author Organization [employer] Address [address] [place] [address] 7 [place] [address] Care Team Providers Care County Attorney Name Role Phone Yoselyn Soto RETAIL BRANCH MANAGER Unavailable [phone] Tabby Jeong Primary Care Provider Shyann Ramirez DO Primary Care Provider [phone] Reason for Visit * Reason Onset Date Comments Med Refill 12/20/2022 Encounter Details Date Type Department Care Team (Late st Contact Info) Description 12/20/2022 Refill Lety [facility] MEDICAL [address] [place] [address] Plant Antonieta Pepper FNP Persistent atrial fibrillation [...] 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 Not on file Not on file documented as of this encounter Plan of Treatment Not on file documented as of this encounter Visit Diagnoses Diagnosis Persistent atrial fibrillation (CMS/HCC) Atrial fibrillation documented in this encounter Additional Health Concerns Assessment Noted Time PHQ-9 Depression Total Score: 5 04/18/20 22 2:05 PM EST documented as of this encounter Care Teams County Attorney Relationship Specialty Start Date End Date Tabby Jeong FNP [address] [place] [address] PCP - General Family Medicine 11/11/22 03/02/23 Shyann Ramirez DO [address] [place] [address] PCP - General Family Medicine 03/03/23 Yoselyn Soto LICSW [address] [place] [address] Human Resources Representative Behavioral Health 05/02/22 Anneliese Pedersen Community Health Worker Case Management 11/29/22 documented as of this encounter
--- OUTSIDE RECORDS SUMMARY | 2024-12-23 12:41 | XMS_ITS | Encounter Summary ---
Author Organization [facility] Address [address] [facility] [address] [place] [address] Phone Care Team Providers Care Rn Hospital Name Role Phone Jemma Tavares MD Primary Care Provider [phone] Reason for Visit * Reason Comments Med Refill Encounter Details Date Type Department Care Team (Late st Contact Info) Description 11/15/2021 Refill [facility] [address] [place] [phone] Mario Cardenas MD Social History Tobacco Use [...] filedocumented in this encounter Care Teams Rn Hospital Relationship Specialty Start Date End Date Jemma Tavares MD PCP - General Internal Medicine 10/19/22 documented as of this encounter
--- OUTSIDE RECORDS SUMMARY | 2024-12-23 12:41 | XMS_ITS | Clinical Summary ---
Author Organization [facility] Address [address] [facility] [address] [place] [address] Phone Care Team Providers Care Auto Body Straightener Name Role Phone Cynthia Martel CNP Primary Care Provider [phone] Allergies Active Allergy Reactions Criticality Noted Date [...] MEDICARE PART A & B Care Teams Auto Body Straightener Relationship Specialty Start Date End Date Cynthia Martel CNP [address] [facility] [address] [place] [address] [email or web address] PCP - General Family Medicine 02/08/20 Additional Source Comments The information contained in this document represents components of the legal health record. It is not the complete legal health record.[facility]
== END 2024-12-23 11:19 | disposition home or self-care (01) ==
LOC: HO.HKA 11:09
PROVIDERS: PCP Family Medicine; Visit Provider Internal Medicine Hypertension Specialist
DX: I10 Essential (primary) hypertension (principal); N18.30 Chronic kidney disease, stage 3 unspecified; E10.9 Type 1 diabetes mellitus without complications; I48.0 Paroxysmal atrial fibrillation
CPT/HCPCS: 99214

== ENCOUNTER → 2024-12-23 11:08 | Outpatient (BNVA) | payer MEDICARE, MEDICAID, SELFPAY | PROVIDERS: PCP Family Medicine; Visit Provider Internal Medicine Hypertension Specialist | DX: E10.22 Type 1 diabetes mellitus with diabetic chronic kidney disease (principal); I12.9 Hypertensive chronic kidney disease with stage 1 through stage 4 chronic kidney disease, or unspecified chronic kidney disease; N18.30 Chronic kidney disease, stage 3 unspecified; I48.0 Paroxysmal atrial fibrillation | CPT/HCPCS: 99212 ==

== ENCOUNTER 2025-01-19 10:13 | Outpatient (REF) | payer MEDICARE, MEDICAID, SELFPAY ==
[2025-01-19 11:05] LABS: Anion Gap 11 (12-20); Blood Urea Nitrogen 27 mg/dL (9-16); Calcium 9.4 mg/dL (8.4-10.2); Carbon Dioxide 29 mmol/L (22-29); Chloride 104 mmol/L (96-108); Estimated Glomerular Filt Rate 29; Potassium 4.6 mmol/L (3.3-5.1); Sodium 139 mmol/L (135-145)
--- OUTSIDE RECORDS SUMMARY | 2025-01-19 12:58 | XMS_ITS | Encounter Summary ---
Author Organization [employer] Address [address] [facility] 7 [place] [address] Care Team Providers Care Laboratory Equipment Cleaner Name Role Phone Yoselyn Soto GARBAGE TRUCK DISPATCHER Unavailable Shyann Ramirez DO Primary Care Provider [phone] Reason for Visit * Reason Onset Date Comments Med Refill 06/07/2024 Encounter Details Date Type Department Care Team (Late st Contact Info) Description 06/07/[address] 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 TE is duplicated. documented in this encounter Plan of Treatment Not on file documented as of this encounter Visit Diagnoses Diagnosis Neuropathy Mononeuritis of unspecified site documented in this encounter Additional Health Concerns Assessment Noted Time PHQ-9 Depression Total Score: 14 024 2:38 PM EDT documented as of this encounter Care Teams Laboratory Equipment Cleaner Relationship Specialty Start Date End Date Shyann Ramirez DO [address] [place] [address] PCP - General Family Medicine 03/03/23 Yoselyn Soto LICSW [address] [place] [address] Pin Maker Behavioral Health 05/02/22 Anneliese Pedersen Community Health Worker Case Management 11/29/22 documented as of this encounter
--- OUTSIDE RECORDS SUMMARY | 2025-01-19 12:58 | XMS_ITS | Encounter Summary ---
Author Organization [employer] Address [address] [place] [address] 7 [place] [address] Care Team Providers Care Depalletizer Operator Name Role Phone Yoselyn oSto DIRECTOR MATERNAL CHILD Unavailable [phone] Tabby Jeong Primary Care Provider [phone] Shyann Ramirez DO Primary Care Provider [phone] Reason for Visit * Reason Onset Date Comments Med Refill 12/20/2022 Encounter Details Date Type Department Care Team (Late st Contact Info) Description 12/20/2022 Refill Lety [facility] MEDICAL [address] [place] [address] Plant Antonieta Pepper FNP Persistent atrial fibrillation [...] 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 Not on file Not on file documented as of this encounter Plan of Treatment Not on file documented as of this encounter Visit Diagnoses Diagnosis Persistent atrial fibrillation (CMS/HCC) Atrial fibrillation documented in this encounter Additional Health Concerns Assessment Noted Time PHQ-9 Depression Total Score: 5 04/18/20 22 2:05 PM EST documented as of this encounter Care Teams Depalletizer Operator Relationship Specialty Start Date End Date Tabby Jeong FNP [address] [place] [address] PCP - General Family Medicine 11/11/22 03/02/23 Shyann Ramirez DO [address] [place] [address] PCP - General Family Medicine 03/03/23 Yoselyn Soto LICSW [address] [place] [address] Unit Operator Behavioral Health 05/02/22 Anneliese Pedersen Community Health Worker Case Management 11/29/22 documented as of this encounter
--- OUTSIDE RECORDS SUMMARY | 2025-01-19 12:58 | XMS_ITS | Encounter Summary ---
Author Organization [employer] Address 75 [facility] 7t [place] [address] Care Team Providers Care Dobby Looms Pegger Name Role Phone Yoselyn Soto DIRECTOR OF CASINO MARKETING Unavailable [phone] Shyann Ramirez DO Primary Care Provider [phone] Reason for Visit * Reason Comments Med Refill Encounter Details Date Type Department Care Team (Late st Contact Info) Description 01/16/2025 Refill [facility] MEDICAL [address] [place] [address] Shyann Ramirez DO [address] [place] [address] High cholesterol Social History Tobacco Use Types Packs/Day Years [...] 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 on file Not on file 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 Not on file Not on file Not on file documented as of this encounter Plan of Treatment Not on file documented as of this encounter Visit Diagnoses Diagnosis High cholesterol Pure hypercholesterolemia documented in this encounter Additional Health Concerns Assessment Noted Time PHQ-9 Depression Total Score: 14 024 2:38 PM EDT documented as of this encounter Care Teams Dobby Looms Pegger Relationship Specialty Start Date End Date Shyann Ramirez DO [address] [place] [address] PCP - General Family Medicine 03/03/23 Yoselyn Soto LICSW [address] [place] [address] Dog Or Horse Racing Official Behavioral Health 05/02/22 Anneliese Pedersen Community Health Worker Case Management 11/29/22 documented as of this encounter
--- OUTSIDE RECORDS SUMMARY | 2025-01-19 12:58 | XMS_ITS | Encounter Summary ---
Author Organization [employer] Address [address] [facility] 7t [place] [address] Care Team Providers Care Social Work Msw Name Role Phone Yoselyn Soto THREAD SPOOLER Unavailable [phone] Shyann Ramirez DO Primary Care Provider [phone] Reason for Visit * Reason Comments Med Change Request Encounter Details Date Type Department Care Team (Late st Contact Info) Description 07/02/2024 Perez [facility] MEDICAL [address] [place] [address] Shyann Ramirez DO [address] [place] [address] Class 3 severe obesity due to excess [...] 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
--- OUTSIDE RECORDS SUMMARY | 2025-01-19 12:58 | XMS_ITS | Encounter Summary ---
Author Organization [employer] Address [address] [facility] [address]t [place] [address] Care Team Providers Care Laboratory Apparatus Glass Blower Name Role Phone Yoselyn Soto LABORER HIGH DENSITY PRESS Unavailable [phone] Shyann Ramirez DO Primary Care Provider [phone] Reason for Visit * Reason Comments Med Change Request Encounter Details Date Type Department Care Team (Late st Contact Info) Description 06/06/2024 Perez Davidson [facility] MEDICAL [address] [place] [address] Shyann Ramirez DO [address] [place] [address] Class 3 severe obesity due to excess [...] Start 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
--- OUTSIDE RECORDS SUMMARY | 2025-01-19 12:58 | XMS_ITS | Encounter Summary ---
Author Organization [employer] Address [address] [facility] 7t [place] [address] Care Team Providers Care Irrigation Supervisor Name Role Phone Yoselyn Soto SPECIAL EDUCATION ADMINISTRATOR Unavailable [phone] Shyann Ramirez DO Primary Care Provider [phone] Encounter Details Date Type Department Care Team (Late st Contact Info) Description 05/14/[address] 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 on [...] PM EST) C-Reactive Protein <0.3 (0-0.5) MG/DL [facility] Comment: Testing performed or reported by [facility], a Service of [facility], [address] [place] [address] Buddy Roach MD, Revenue Liaison SEBASTIEN# [id number] Blood Venous blood specimen / Unknown 05/25/2023 1:04 PM EST 05/25/2023 1:05 PM EST Shyann Ramirez DO LAB BLOOD ORDERABLES Final Res ult [facility] [address] [place] [address] documented in this encounter Visit Diagnoses Diagnosis Elevated erythrocyte sedimentation rate- Primary Elevated sedimentation rate Intractable headache, unspecified chronicity pattern, unspecified headache type documented in this encounter Additional Health Concerns Assessment Noted Time PHQ-9 Depression Total Score: 5 04/18/20 22 2:05 PM EST documented as of this encounter Care Teams Irrigation Supervisor Relationship Specialty Start Date End Date Shyann Ramirez DO [address] [place] [address] PCP - General Family Medicine 03/03/23 Yoselyn Soto LICSW [address] [place] [address] Peoplesoft Taleo Manager Behavioral Health 05/02/22 Anneliese Pedersen Community Health Worker Case Management 11/29/22 documented as of this encounter
--- OUTSIDE RECORDS SUMMARY | 2025-01-19 12:58 | XMS_ITS | Clinical Summary ---
Author Organization [facility] Address [address] [facility] [address] [place] [address] Phone Care Team Providers Care Boiling Off Winder Name Role Phone Jemma Tavares MD Primary Care Provider [phone] Allergies Active Allergy Reactions Criticality Noted Date [...] A1C 06/04/2021 03/04/2021, 02/0 12/2018 Influenza Vaccine (#1) 2025 3, 03/15/2021, 02/19/2020, Additional history exists Pneumococcal Vaccine: Peds ( 0 to 5 Years) and At-Risk Patients (6 to 49 Years) Discontinued 04/02/2018 Procedures Procedure Name Priority Date/Time Associated Diagnosis Comments HEMOGLOBIN A1C Routine 06/14/2018 2:53 PM EST from Last 3 Months or Most Recently Relevant to Health Maintenance Results * (ABNORMAL) Hemoglobin A1c (06/14/2018 2:53 PM EST) Hemoglobin A1C 9.1(H) (4-6) % [facility] 3 Comment: HEMOGLOBIN A1C(%) GLUCOSE CONTROL INDEX <6% EXCELLENT 6-7% VERY GOOD 7-8% GOOD 8-10% FAIR >10% POOR Hemoglobin (Hb) A1c testing is performed by Elder Dolly-quant immunoassay. Any cause of shortened erythrocyte survival will reduce exposure of erythrocytes to glucose with a consequent decrease in Hb A1c (%). Testing performed or reported by ~[facility], ~a Service of [facility], ~[address] [place] [id number]~ 06/14/2018 2:53 PM EST us Mario Cardenas MD LAB BLOOD ORDERABLES Final Res ult [place] [id number] from Last 3 Months or Most Recently Relevant to Health Maintenance [place] Medicare Medicaid [place] Care Teams Boiling Off Winder Relationship Specialty Start Date End Date Jemma Tavares MD PCP - General Internal Medicine 10/19/22
--- OUTSIDE RECORDS SUMMARY | 2025-01-19 12:58 | XMS_ITS | Encounter Summary ---
Author Organization [employer] Address 75 [facility] 7t [place] [address] Care Team Providers Care Extract Puller Name Role Phone Yoselyn Soto HAIR SPRING WINDER Unavailable [phone] Shyann Ramirez DO Primary Care Provider [phone] Encounter Details Date Type Department Care Team (Late st Contact Info) Description 09/17/2024 Orders Only [facility] [address] [place], [place] [id number] Shyann Ramirez DO [address] [place] [address] Social History Tobacco Use Types Packs/Day Years [...] the past 12 months, has t he [employer], gas, oil or water company threatened to [...] Procedure Name Priority Date/Time Associated Diagnosis Comments BASIC METABOLIC PANEL Routine 09/11/2024 1:19 PM EDT documented in this encounter Results * Basic Metabolic Panel (09/11/2024 1:19 PM EDT) Blood Venous blood specimen / Unknown Shyann Ramirez DO LAB BLOOD ORDERABLES Final Res ult documented in this encounter Visit Diagnoses Not on filedocumented in this encounter Additional Health Concerns Assessment Noted Time PHQ-9 Depression Total Score: 14 024 2:38 PM EDT documented as of this encounter Care Teams Extract Puller Relationship Specialty Start Date End Date Shyann Ramirez DO [address] [place] [address] PCP - General Family Medicine 03/03/23 Yoselyn Soto LICSW [address] [place] [address] Director Erp Behavioral Health 05/02/22 Anneliese Pedersen Community Health Worker Case Management 11/29/22 documented as of this encounter
--- OUTSIDE RECORDS SUMMARY | 2025-01-19 12:58 | XMS_ITS | Encounter Summary ---
Author Organization [employer] Address 75 [facility] 7t [place] [address] Care Team Providers Care Principal Security Architect Name Role Phone Yoselyn Soto BULL FIDDLE PLAYER Unavailable [phone] Shyann Ramirez DO Primary Care Provider [phone] Reason for Visit * Reason Comments Med Change Request Encounter Details Date Type Department Care Team (Late st Contact Info) Description 06/10/2024 Perez Davidson [facility] [address] [place] [address] Shyann Ramirez DO [address] [place] [address] Class 3 severe obesity due to excess [...] 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
--- OUTSIDE RECORDS SUMMARY | 2025-01-19 12:58 | XMS_ITS | Encounter Summary ---
Author Organization [employer] Address 75 [facility] 7t [place] [address] Care Team Providers Care Military Pay Technician Name Role Phone Yoselyn Soto CHAIR INSPECTOR Unavailable Shyann Ramirez DO Primary Care Provider [phone] Reason for Visit * Reason Comments Med Change Request Encounter Details Date Type Department Care Team (Late st Contact Info) Description 06/03/2024 Perez Davidson [facility] [address] [place] [address] Jemma Tavares MD [address] [place] [address] Class 3 severe obesity due to excess calories with serious comorbidity and body mass index (BMI) of 40.0 to 44.9 in adult (CMS/HCC); BMI 40.0-44.9, adult ([facility]) Social History Tobacco Use Types Packs/Day Years [...] 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
--- OUTSIDE RECORDS SUMMARY | 2025-01-19 12:58 | XMS_ITS | Encounter Summary ---
Author Organization [employer] Address 75 [facility] 7t [place] [address] Care Team Providers Care Tester Printed Circuit Boards Name Role Phone Yoselyn Soto CFD ENGINEER Unavailable [phone] Shyann Ramirez DO Primary Care Provider [phone] Encounter Details Date Type Department Care Team (Late st Contact Info) Description 10/27/2024 Orders Only [facility] [address] [place], [place] [phone] Shyann Ramirez DO [address] [place] [address] Social History Tobacco Use Types Packs/Day Years [...] the past 12 months, has t he [employer], gas, oil or water company threatened to [...] 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 on file Not on file 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 Not on file Not on file Not on file documented as of this encounter Plan of Treatment Not on file documented as of this encounter Procedures Procedure Name Priority Date/Time Associated Diagnosis Comments BASIC METABOLIC PANEL Routine 10/24/2024 11:53 AM EDT documented in this encounter Results * Basic Metabolic Panel (10/24/2024 11:53 AM EDT) Blood Venous blood specimen / Unknown Shyann Ramirez DO LAB BLOOD ORDERABLES Final Res ult documented in this encounter Visit Diagnoses Not on filedocumented in this encounter Additional Health Concerns Assessment Noted Time PHQ-9 Depression Total Score: 14 024 2:38 PM EDT documented as of this encounter Care Teams Tester Printed Circuit Boards Relationship Specialty Start Date End Date Shyann Ramirez DO [address] [place] [address] PCP - General Family Medicine 03/03/23 Yoselyn Soto LICSW [address] [place] [address] Abstractor Behavioral Health 05/02/22 Anneliese Pedersen Community Health Worker Case Management 11/29/22 documented as of this encounter
--- OUTSIDE RECORDS SUMMARY | 2025-01-19 12:58 | XMS_ITS | Encounter Summary ---
Author Organization [facility] Address [address] [facility] [address] [place] [address] Phone Care Team Providers Care Trade Mark Examiner Name Role Phone Jemma Tavares MD Primary Care Provider [phone] Reason for Visit * Reason Comments Med Refill Encounter Details Date Type Department Care Team (Late st Contact Info) Description 11/15/2021 Refill [facility] [address] [place] [id number] Mario Cardenas MD Social History Tobacco Use [...] on filedocumented in this encounter Care Teams Trade Mark Examiner Relationship Specialty Start Date End Date Jemma Tavares MD PCP - General Internal Medicine 10/19/22 documented as of this encounter
--- OUTSIDE RECORDS SUMMARY | 2025-01-19 12:58 | XMS_ITS | Encounter Summary ---
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 file Not on file 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 Not on file Not on file Not on file documented as of this encounter Plan of Treatment Not on file documented as of this encounter Procedures Procedure Name Priority Date/Time Associated Diagnosis Comments BASIC METABOLIC PANEL Routine 12/22/2024 8:42 AM EDT documented in this encounter Results * Basic Metabolic Panel (12/22/2024 8:42 AM EDT) Blood Venous blood specimen / Unknown us Historical Provider LAB BLOOD ORDERABLES Lydia l Result documented in this encounter Visit Diagnoses Not on filedocumented in this encounter Additional Health Concerns Assessment Noted Time PHQ-9 Depression Total Score: 14 024 2:38 PM EDT documented as of this encounter Care Teams Heel Attacher Relationship Specialty Start Date End Date Shyann Ramirez DO [address] [place] [address] PCP - General Family Medicine 03/03/23 Yoselyn Soto LICSW [address] [place] [address] Web Marketing Specialist Behavioral Health 05/02/22 Anneliese Pedersen Community Health Worker Case Management 11/29/22 documented as of this encounter
--- OUTSIDE RECORDS SUMMARY | 2025-01-19 12:58 | XMS_ITS | Encounter Summary ---
Author Organization [employer] Address 75 [facility] 7t [place] [address] Care Team Providers Care Lead Ingot Molder Name Role Phone Yoselyn Soto ACCOUNTING LECTURER Unavailable [phone] Shyann Ramirez DO Primary Care Provider [phone] Encounter Details Date Type Department Care Team (Late st Contact Info) Description 05/08/[address] 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
--- OUTSIDE RECORDS SUMMARY | 2025-01-19 12:58 | XMS_ITS | Encounter Summary ---
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
--- OUTSIDE RECORDS SUMMARY | 2025-01-19 12:58 | XMS_ITS | Encounter Summary ---
Author Organization [employer] Address 75 [facility] 7t [place] [address] Care Team Providers Care Bliss Press Operator Name Role Phone Yoselyn Soto PLANT MANAGER Unavailable [phone] Tabby Jeong Primary Care Provider [phone] Shynan Ramirez DO Primary Care Provider [phone] Reason for Visit * Reason Comments Med Refill Encounter Details Date Type Department Care Team (Late st Contact Info) Description 02/23/2023 Refill [place] [facility] [address] [place] [address] Medina Nascimento FNP Gastroesophageal reflux disease without [...] Date 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
--- OUTSIDE RECORDS SUMMARY | 2025-01-19 12:58 | XMS_ITS | Clinical Summary ---
Author Organization [employer] Address [address] [place] [address] 7t [place] [address] Care Team Providers Care Panel Edge Sealer Name Role Phone Yoselyn Soto SECONDARY SCHOOL TEACHER LIBRARIAN Unavailable [phone] Shyann Ramirez DO Primary Care Provider [phone] Allergies Active Allergy Reactions Criticality Noted Date [...] 90 days supply, 05/05/21 16:29:00 EST, Supply 12/30/2 021 Active Continuous Blood Gluc Transmit (Dexcom G6 transmitter) [facility] Dexcom G6 transmitter, See Instructions, # 1 [...] Disposable Pump (Omnipod DASH Pods, Gen 4,) [facility] CHANGE EVERY 3 DAYS 024 Active carvedilol [...] OR CHEW 180 capsule 1 024 Active aspirin (Aspirin Low Dose) 81 MG EC tabletIndication s:History of CVA (cerebrovascular accident) TAKE 1 TABLET BY MOUTH EVERY DAY 90 tablet 3 025 Active gabapentin (Neurontin) [...] THE MORNING 90 tablet 2 025 Active sertraline (Zoloft) 50 MG tabletIndication s:Depression with anxiety TAKE 1 TABLET BY MOUTH EVERY DAY IN THE MORNING 90 tablet 1 025 Active chlorthalidone (Hygroton) 25 MG tabletIndication s:Primary hypertension TAKE 1 TABLET BY MOUTH EVERY DAY 90 tablet 3 025 Active losartan (Cozaar) 50 MG tabletIndication s:Primary hypertension Take 1 tablet twice a day/90 days 180 tablet 025 Active cyclobenzaprine (Flexeril) 5 MG tabletIndication s:Sciatica of left side TAKE 1 TABLET BY MOUTH THREE TIMES A DAY NEEDED FOR MUSCLE SPASM 90 tablet 3 025 Active hydrALAZINE (Apresoline) 25 MG tablet TAKE 1 TABLET BY MOUTH THREE TIMES A DAY 270 tablet 1 025 Active traMADol (Ultram) 50 MG tabletIndication s:Chronic left-sided low back pain with left-sided sciatica TAKE 1 TABLET BY MOUTH EVERY 6 HOURS IF NEEDED FOR SEVERE PAIN FOR UP TO 5 DAYS. 20 tablet 025 Active spironolactone (Aldactone) 50 MG tabletIndication s:Primary hypertension TAKE 1 TABLET IN THE MORNING AND 2 TABLETS IN THE AFTERNOON. IF BOTTOM BP NUMBER UNDER 60 HOLD MED 270 tablet 1 025 Active atorvastatin (Lipitor) 80 MG tabletIndication s:High cholesterol TAKE 1 TABLET BY MOUTH EVERY DAY 90 tablet 1 025 Active atorvastatin (Lipitor) 80 MG tabletIndication s:High cholesterol TAKE 1 TABLET BY MOUTH EVERY DAY 90 tablet 1 025 2024 Discontinued Active Problems Problem Noted Date [...] gastroparesis with this class of medication, though mds nurse endorses a trial. Insurance may not cover [...] original note were not included. Followed by [facility] endocrine Has a pump Assessment & [...] Date Anticipatory grief 01/04/2023 Depression with anxiety 06/18/2022 07/1 10/2023 Acute stress reaction 06/18/20222023 Adjustment disorder with mix ed anxiety and depressed mood 06/18/2022 11/20/2023 Type 1 diabetes mellitus 09/14/202111/2022 Cerebrovascular accident 07/07/2016 Encounters * This document contains information received from the source organization and may not represent a complete record from that organization. Date Type Department Care Team Description 01/16/2025 Refill [facility] MEDICAL [address] [place] [address] Shyann Ramirez DO High cholesterol 12/24/[address] [facility] MEDICAL [address] [place] [address] ProviderElvin MD 11/18/2024 Refill [facility] [address] [place] [address] Shyann Ramirez DO Primary hypertension 11/03/2024 Refill [facility] [address] [place] [address] Shyann Ramirez DO Chronic left-sided low back pain with left-sided sciatica 10/27/2024 Orders Only [facility] Information Management [address] [place] [address] Shyann Ramirez DO from Last 3 Months Immunizations Immunization Administration Dates Next Due Influenza Injectable Quadriv [...] the past 12 months, has t he [employer] 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 on file Not on file Retired Not on file Not on file Not on file Last Filed Vital Signs Vital Sign Reading Time Taken Comments Blood Pressure 98/67 11/06/2023 11:19 AM EDT Pulse 70 11/06/2023 11:19 AM EDT Temperature 36.8 C (98.2 F) 11/06/2023 11:19 AM EDT Respiratory Rate 16 09/26/2022 8:30 AM EDT [...] FOBT 1971 HIV Screening 1971 Sigmoidoscopy 1971 Disability Screening 1971 Diabetes: Foot Exam 1981 Eye Exam 1981 Alcohol/Substance Use Screening 1983 Hepatitis B Vaccines (1 of 3 - 19+ 3-dose series) 1990 Pneumococcal Vaccine: 50+ Years (2 of 2 - PCV) 04/02/2019 04/02/2018 Mammogram 09/04/2020 09/04/2018, 04/2 09/2018, 07/11/2017, Additional history exists Cervical Cancer Screening 12/26/2021 HPV/Cotest 12/26/2021 Pap Smear 12/26/2021 12/26/2016, 12/21/2016 Diabetes: Hemoglobin A1C 06/13/2023 023, 05/24/2022, 03/04/2021, Additional history exists Lipid Panel 10/14/2023 10/13/2022, 02/05, 03/04/2021, Additional history exists SDOH Screening 11/30/2023 11/29/2022 Depression Monitoring 08/05/2024 02/05/2024, 024 Tobacco Screening 11/05/2024 11/06/2023 Influenza Vaccine (#1) 2025 , 02/06/2023, 03/15/2021, Additional history exists DTaP/Tdap/Td Vaccines (2 - Td or Tdap) 12/14/2026 12/14/2016 RSV Patients and Patients Aged 60 years or older (1 - 1-dose 75+ series) 2046 Hepatitis C Screening Completed 12/21/2016 COVID-19 Vaccine Completed 02/20/2024, 06/2022, 03/10/2022, Additional history exists Zoster Vaccines Completed 05/12/2024, [...] patient's age to complete this topic Meningococcal B Vaccine Aged Out No l onger eligible based on patient's age to complete [...] METABOLIC PANEL Routine 12/22/2024 8:42 AM EDT BASIC METABOLIC PANEL Routine 10/24/2024 11:53 AM EDT POCT GLYCOSYLATED HEMOGLOBIN (HGB A1C) Routine 03/13/2023 1:34 PM EST 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 (CMS/HCC) LIPID PANEL, STANDARD Routine 10/13/2022 7:32 AM EDT Coronary artery disease, unspecified vessel or lesion type, unspecified whether angina present, unspecified whether [place] or transplanted heart Hyperlipidemia, unspecified hyperlipidemia type MAMMOGRAM GENERIC Routine 09/04/2018 12: 00 AM EDT PAP SMEAR Routine 12/26/2016 12:00 AM EDT HEPATITIS C ANTIBODY (EXTERNAL RESULTS ONLY) Routine 12/21/2016 12:57 PM EDT from Last 3 Months or Most Recently Relevant to Health Maintenance Results * Basic Metabolic Panel (12/22/2024 8:42 AM EDT) Only the most recent of2 resultswithin the time period is included. Blood Venous blood specimen / Unknown [facility] Provider MD LAB BLOOD ORDERABLES Lydia l Result * (ABNORMAL) POCT glycosylated hemoglobin (Hgb A1c) (03/13/2023 1:34 PM EST) Pathologist [facility] Hemoglobin A1C 8.9(A) 4.0 - 6.0 % Blood Capillary blood specimen / Unknown 03/13/2023 1:34 PM EST [facility] POINT OF CARE TEST ENTER/EDIT ORDERABLES Final Result * (ABNORMAL) Lipid Panel, Standard (10/13/2022 7:32 AM EDT) Cholesterol, Total 119 (<200) MG/DL [facility] Triglyceride (mg/dL) in Serum/Plasma 90 (<150) MG/DL [facility] HDL Cholesterol 39(L) (>39) MG/DL [facility] LDL Cholesterol, Calculated 62 (0-130) MG/DL [facility] Non HDL Chol. (LDL+VLDL) 80 (<160) MG/DL [facility] Comment: Testing performed or reported by [facility], a Service of [facility], [address] [place] [address] Buddy Roach MD, Health Systems Analyst ANNIE# [id number] Blood Venous blood specimen / Unknown 10/13/2022 7:32 AM EDT 10/13/2022 7:36 AM EDT Medina Nascimento FILTER TANK TENDER LAB BLOOD ORDERABLES Lydia l Result [facility] [address] [address] * MAMMOGRAM DIGITAL MAY SCREENING: [facility] (09/04/2018 12:00 AM EDT) Anatomical Region Laterality Modality Breast Bilateral Mammography 09/04/2018 Narrative 09/04/2018 12:00 AM EDT Refer to Arabella for result details Legacy Procedure: MAMMOGRAM DIGITAL MAY SCREENING: [facility] Procedure Note Provider, Elvin, - 08/31/2022 Refer to Arabella for result details Legacy Procedure: MAMMOGRAM DIGITAL [facility] Provider IMG BI PROCEDURES Final R esult * Pap Smear (12/26/2016 12:00 AM EDT) Swab Historical Provider LAB CYTOLOGY ORDERABLES F inal Result * Hepatitis C Antibody (12/21/2016 12:57 PM EDT) Hepatitis C Antibody Nonreactive Blood 12/21/2016 12:5 7 PM EDT Yogis Michele Cha CMA - 12/21/2016 12:57 PM EDT Negative Historical Provider POINT OF CARE TEST ENTER/ EDIT ORDERABLES Final Result from Last 3 Months or Most Recently Relevant to Health Maintenance [place] [phone] [facility] * Guarantor: [employer] Account Type Relation to Patient Date of Phone Billing Address Personal/Family Self [address] [place] Care Teams Panel Edge Sealer Relationship Specialty Start Date End Date Shyann Ramirez DO [address] [place] [address] [phone] (Work) PCP - General Family Medicine 03/03/23 Yoselyn Soto, SECONDARY SCHOOL TEACHER LIBRARIAN [address] [place] [address] Technical Support Representative Behavioral Health 05/02/22 Anneliese Pedersen Community Health Worker Case Management 11/29/22
--- OUTSIDE RECORDS SUMMARY | 2025-01-19 12:58 | XMS_ITS | Encounter Summary ---
Author Organization [employer] Address [address] [place] [address] 7 [place] [address] Care Team Providers Care Music Professionals Name Role Phone Kaylin Deutsch MD Primary Care Provider [phone] Yoselyn SotoSW Unavailable [phone] Medina Nascimento Primary Care Provider Un available Tabby Jeong Primary Care Provider [phone] Shyann Ramirez DO Primary Care Provider [phone] Reason for Visit * Reason Comments Med Refill Encounter Details Date Type Department Care Team (Late st Contact Info) Description 05/04/2022 Telephone [facility] MEDICAL [address] [place], [place] [phone] Medina Nascimento FNP Med Refill Social History [...] documented as of this encounter Care Teams Music Professionals Relationship Specialty Start Date End Date Kaylin Deutsch MD [address] [place] [address] PCP - General Family Medicine 04/16/20 05/21/22 Medina Nascimento FNP [address] [place] [address] PCP - General Family Medicine 05/22/22 11/10/22 Tabby Jeong FNP [address] [place] [address] PCP - General Family Medicine 11/11/22 03/02/23 Shyann Ramirez DO [address] [place] [address] PCP - General Family Medicine 03/03/23 Yoselyn Soto LICSW [address] [place] [address] Science Technician Behavioral Health 05/02/22 Anneliese Pedersen Community Health Worker Case Management 11/29/22 documented as of this encounter
--- OUTSIDE RECORDS SUMMARY | 2025-01-19 12:58 | XMS_ITS | Encounter Summary ---
Author Organization [employer] Address [address] [facility] 7t [place] [address] Care Team Providers Care Near East Archeology Professor Name Role Phone Yoselyn Soto SHEET PILE HAMMER OPERATOR Unavailable [phone] Shyann Ramirez DO Primary Care Provider [phone] Reason for Visit * Reason Comments Med Refill Encounter Details Date Type Department Care Team (Late st Contact Info) Description 05/11/2023 Refill [facility] MED[facility] [address] [place] [address] Shyann Ramirez DO [address] [place] [address] Neuropathy Social History Tobacco Use Types Packs/Day [...] the past 12 months, has t he [email or web address] gas, oil or water [employer] 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
== END 2025-01-19 10:14 | disposition home or self-care (01) ==
LOC: HO.LAB 10:13
PROVIDERS: PCP Family Medicine; Visit Provider Internal Medicine Hypertension Specialist
DX: I12.9 Hypertensive chronic kidney disease with stage 1 through stage 4 chronic kidney disease, or unspecified chronic kidney disease (principal); N18.30 Chronic kidney disease, stage 3 unspecified
CPT/HCPCS: 36415; 80048

== ENCOUNTER 2025-01-20 11:08 | Outpatient (AMB) | payer MEDICARE, MEDICAID, SELFPAY ==
[2025-01-20 11:15] VITALS: BP 156/78; PULSE 76; O2SAT 96; BMI 42.7
--- NOTE | 2025-01-20 11:15 | HO.NEPHOV_ITS ---
Vital Signs 01/20/25 11:15 Height 5 ft 3 in Weight 241 lb BMI 42.7 BP 156/78 H Blood Pressure Location Rt brachial Position Sitting Pulse 76 Pulse Source Pulse Oximeter Pulse Oximetry (%) 96 Oxygen Delivery Method Room Air Intake Visit Reasons: 4wk f/u w/labs Guide Rail Cleaner Required: No Accompanied by: Self / Same As Patient Allergies lisinopril (LISINOPRIL) Allergy (Severe, Verified 01/20/25 11:18) ANGIOEDEMA, COUGH amlodipine (AMLODIPINE) Allergy (Intermediate, Verified 01/20/25 11:18) SWELLING Penicillins (PENICILLINS) Allergy (Unknown, Verified 01/20/25 11:18) RASH seasonal Allergy (Unknown, Uncoded 09/15/20 15:07) Anaphylaxis SEASONAL ALLERGIES Allergy (Unknown, Uncoded 09/15/20 15:07) ITCHING, WATERY EYES, STUFFY NOSE, COUGH Medication List - Last Reconciled 01/20/25 by Mario Cardenas MD apixaban (Eliquis) 5 mg PO BID aspirin 81 mg PO DAILY atorvastatin 80 mg PO BEDTIME bupropion HCl (smoking deter) 150 mg PO BID carvedilol 25 mg PO BID chlorthalidone 25 mg PO DAILY cyclobenzaprine 5 mg PO TID PRN gabapentin 600 mg PO TID hydralazine 25 mg PO TID insulin aspart U-100 (Novolog FlexPen U-100 Insulin aspart) See Protocol units subcut QIDACHS insulin lispro (Humalog KwikPen (U-100) Insulin) subcut DAILY insulin pump cart,automated,BT (Omnipod 5 G6 Pods (Gen 5) subcutaneous cartridge) levothyroxine 100 mcg PO DAILY loratadine 10 mg PO DAILY PRN losartan 50 mg PO BID naltrexone 50 mg PO DAILY omeprazole 40 mg PO BID pen needle, diabetic As directed sertraline 50 mg PO BEDTIME tirzepatide (Mounjaro) mg subcut tramadol 50 mg PO Q6H PRN HPI Comments Details: 54 yr old woman with a history of obesity, diabetes mellitus on insulin, gastroparesis, KIMBERLY /COPD overlap syndrome, hypertension, hypothyroidism, and CKD Here for follow up. From renal standpoint she is doing well. She denies any new complaints. 02/05/24 ;Doing well;Waiting to start WeGovy 05/08/24;On Wegovy - month 2 ; No weight change yet 09/15/24: No weight change. Has not had Wegovy since Apr 2024 Blood sugar has been elevated Has had episodes of low BP No dizziness No new meds or NSAIDS 10/27/24 54-year-old female presenting for follow-up on her chronic kidney disease and management of hyperkalemia and hypertension. The patient's chronic kidney disease has shown improvement, with her creatinine levels decreasing from 2.1 to 1.5, which is consistent with previous measurements from November and April. This improvement suggests stabilization of her renal function. The patient has been experiencing hyperkalemia, with a potassium level of 5.4. The patient is on spironolactone, which is known to increase potassium levels, and has been advised to monitor her dietary intake of potassium-rich foods such as oranges and bananas. She has been instructed to maintain her spironolactone dosage at one pill in the morning and one in the afternoon to prevent further elevation of potassium levels. The patient's hypertension is currently well-managed, with her blood pressure readings being stable. She has been advised to continue monitoring her blood pressure at home and adjust her spironolactone dosage if her diastolic pressure falls below 60 mmHg. 12/22/24 : Not taking Wegovy- not covered On Maunjaro She has lost about 12 lb. 01/20/25 The patient is a 54-year-old female presenting with hypertension. Spironolactone was discontinued due to hypotension. Current medications include carvedilol, chlorthalidone, hydralazine, and losartan. BP remains slightly elevated at home The patient has diabetes mellitus and obesity. Wegovy was restarted last week after 4 weeks of lapse due to supply issue. Mild peripheral edema is present. Potassium levels and kidney function have improved. Medical History: - Hypertension - Diabetes Mellitus - Obesity Medications: - Carvedilol 25 mg twice daily for hypertension - Chlorthalidone for hypertension - Hydralazine 25 mg three times daily for hypertension - Losartan 50 mg twice daily for hypertension - Wegovy for weight management Diagnostic Results: - Labs: Potassium levels normalized after discontinuation of spironolactone - Labs: Improved kidney function noted [facility] Medical History CVA (cerebral vascular accident) Surgical History Hx of appendectomy Family History Mother Hypertension Father Hypertension Brother Hypertension Daughter No problems noted. Social History Household Members: Significant Other Housing: House Alcohol intake: former Patient Tobacco Use Status: Former Tobacco user Substance Use Type: Other service: No Current occupational status: unemployed Physical Exam Vital Signs: Last Vital Signs Pulse 76 01/20/25 11:15 BP 156/78 H 01/20/25 11:15 Pulse Ox 96 01/20/25 11:15 Oxygen Delivery Method Room Air 01/20/25 11:15 BMI result Body Mass Index 42.7 Results Reviewed Nephrology Results: Sodium, (135-145) 139 mmol/L 01/19/25 Potassium, (3.3-5.1) 4.6 mmol/L 01/19/25 Chloride, (96-108) 104 mmol/L 01/19/25 Carbon Dioxide, (22-29) 29 mmol/L 01/19/25 BUN, (9-16) 27 mg/dL H 01/19/25 Creatinine, (0.5-1.4) 1.81 mg/dL H 01/19/25 Calcium, (8.4-10.2) 9.4 mg/dL 01/19/25 Assessment & Plan Assessment & Plan (1) HTN (hypertension), benign: Code(s): I10 - Essential (primary) hypertension Category: Medical (2) CKD (chronic kidney disease) stage 3, GFR 30-59 ml/min: Code(s): N18.30 - Chronic kidney disease, stage 3 unspecified Category: Medical (3) Type 1 diabetes mellitus: Code(s): E10.9 - Type 1 diabetes mellitus without complications Category: Medical (4) PAF (paroxysmal atrial fibrillation): Code(s): I48.0 - Paroxysmal atrial fibrillation Category: Medical Plan . 54-year-old woman with a history of diabetes mellitus hypertension obesity with chronic kidney disease. Marian stage 3 chronic kidney disease. Goal is to slow the progression of renal disease Discussed importance of tight control blood pressure and blood sugar to slow the progression. Continue to avoid nephrotoxic agents including NSAIDs. She is mild anemia which is multifactorial. No indication for Epogen. Currently she is on multiple antihypertensive agents including 2 diuretics and high dose of spironolactone. 12/22/2024. With the weight loss the blood pressure has dropped further. She has sustained acute kidney injury due to hypoperfusion. Has persistent mild hyperkalemia. Therefore I will discontinue spironolactone 50 mg b.i.d.. Encouraged to watch blood pressure at home. If systolic blood pressures less than 100 mm Hg I would lower the chlorthalidone as well. Recheck renal function in the next few weeks. Encouraged her to increase p.o. fluid intake. 01/20/25 Renal Function has improved Potassium normalized BP sub optimal Continue to HOLD Spironolactone Increase Hydralazine to 50 mg TID Orders: Orders Complete Blood Count no Diff Today I10 - Essential (primary) hypertension, N18.30 - Chronic kidney disease, stage 3 unspecified Basic Metabolic Panel 8 Weeks I10 - Essential (primary) hypertension, N18.30 - Chronic kidney disease, stage 3 unspecified Medications: Changed From hydralazine 50 mg PO TID To hydralazine 50 mg PO TID 90 tabs 1RF Coding Level of Care Code Est Pt Level 4 (28812) Diagnoses HTN (hypertension), benign I10 CKD (chronic kidney disease) stage 3, GFR 30-59 ml/min N18.30 Type 1 diabetes mellitus E10.9 PAF (paroxysmal atrial fibrillation) I48.0
--- OUTSIDE RECORDS SUMMARY | 2025-01-20 15:14 | XMS_ITS | Encounter Summary ---
Author Organization [employer] Address [address] [facility] 7t [place] [address] Care Team Providers Care Manager Medical Device Name Role Phone Yoselyn Soto TOOL DESIGNER APPRENTICE Unavailable [phone] Shyann Ramirez DO Primary Care Provider Encounter Details Date Type Department Care Team (Late st Contact Info) Description 10/27/2024 Orders Only [facility] [address] [place], [place] [id number] Shyann Ramirez DO [address] [place] [address] Social History Tobacco Use Types Packs/Day Years [...] the past 12 months, has t he [employer] gas, oil or water company threatened to [...] 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
--- OUTSIDE RECORDS SUMMARY | 2025-01-20 15:14 | XMS_ITS | Clinical Summary ---
Author Organization [facility] Address [address] [place] [address] Phone Care Team Providers Care Mechanical Repair Worker Name Role Phone Jemma Tavares MD Primary Care Provider [phone] Allergies Active Allergy Reactions Criticality Noted Date [...] PM EST) Hemoglobin A1C 9.1(H) (4-6) % [facility] Comment: HEMOGLOBIN A1C(%) GLUCOSE CONTROL INDEX <6% EXCELLENT 6-7% VERY GOOD 7-8% GOOD 8-10% FAIR >10% POOR Hemoglobin (Hb) A1c testing is performed by Elder Dolly-quant immunoassay. Any cause of shortened erythrocyte survival will reduce exposure of erythrocytes to glucose with a consequent decrease in Hb A1c (%). Testing performed or reported by ~[facility], ~a Service of [facility], ~[address] [place] [address]~ 06/14/2018 2:53 PM EST us Mario Cardenas MD LAB BLOOD ORDERABLES Final Res ult [place] [id number] from Last 3 Months or Most Recently Relevant to Health Maintenance Insurance Medicaid [place] Medicare Medicare Medicaid [place] Care Teams Mechanical Repair Worker Relationship Specialty Start Date End Date Jemma Tavares MD PCP - General Internal Medicine 10/19/22
--- OUTSIDE RECORDS SUMMARY | 2025-01-20 15:14 | XMS_ITS | Encounter Summary ---
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
--- OUTSIDE RECORDS SUMMARY | 2025-01-20 15:14 | XMS_ITS | Encounter Summary ---
Author Organization [employer] Address [address] [facility] 7t [place] [address] Care Team Providers Care Mems Integration Engineer Name Role Phone Yoselyn Soto HOMEMAKER COMPANION Unavailable [phone] Shyann Ramirez DO Primary Care Provider [phone] Reason for Visit * Reason Comments Med Change Request Encounter Details Date Type Department Care Team (Late st Contact Info) Description 07/02/2024 [facility] MED[facility] [address] [place] [address] Shyann Ramirez DO [address] [place] [address] Class 3 severe obesity due to excess [...] 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
--- OUTSIDE RECORDS SUMMARY | 2025-01-20 15:14 | XMS_ITS | Encounter Summary ---
Author Organization [employer] Address [address] [place] [address] 7 [place] [address] Care Team Providers Care Program Schedule Clerk Name Role Phone Kaylin Deutsch MD Primary Care Provider [phone] Yoselyn SotoSW Unavailable [phone] Medina Nascimento Primary Care Provider Un available Tabby Jeong Primary Care Provider [phone] Shyann Ramirez DO Primary Care Provider [phone] Reason for Visit * Reason Comments Med Refill Encounter Details Date Type Department Care Team (Late st Contact Info) Description 05/04/[address] [facility] MEDICAL [address] [place], [place] [phone] Medina Nascimento FNP Med Refill Social History [...] documented as of this encounter Care Teams Program Schedule Clerk Relationship Specialty Start Date End Date Kaylin Deutsch MD [address] [place] [address] PCP - General Family Medicine 04/16/20 05/21/22 Medina Nascimento FNP [address] [place] [address] PCP - General Family Medicine 05/22/22 11/10/22 Tabby Jeong FNP [address] [place] [address] PCP - General Family Medicine 11/11/22 03/02/23 Shyann Ramirez DO [address] [place] [address] PCP - General Family Medicine 03/03/23 Yoselyn Soto LICSW [address] [place] [address] Assembler Dc Field Ring Behavioral Health 05/02/22 Anneliese Pedersen Community Health Worker Case Management 11/29/22 documented as of this encounter
--- OUTSIDE RECORDS SUMMARY | 2025-01-20 15:14 | XMS_ITS | Clinical Summary ---
Author Organization [facility] Address [address] [facility] [address] [place] [address] Phone Care Team Providers Care Absorption Operator Name Role Phone Cynthia Martel CNP [...] DEPRESSION SCREENING 1983 SMOKING Hx and SMOKELESS TOBACCO SCREENING 01/25/1984 HEPATITIS C SCREENING 1989 HIV ONE-TIME SCREENING (18-6 5 YEARS) 1989 PNEUMOCOCCAL VACCINES (50+ years) (1 of 2 - PCV) 1990 PAP SMEAR 01/25/1992 MAMMOGRAM 2011 COLOGUARD 01/25/2016 COLONOSCOPY 01/25/2016 COLORECTAL CANCER SCREENING 01/25/2016 FIT TEST 01/25/2016 FOBT 01/25/2016 SIGMOIDOSCOPY 01/25/2016 VIRTUAL COLONOSCOPY 01/25/2016 ZOSTER VACCINES (1 of 2) 2021 INFLUENZA VACCINE (#1) 2024 0, 02/20/2019 COVID-19 VACCINE (2 - 2024-2 6 season) 2025 07/30/2020 HEPATITIS A VACCINES Aged Out No [...] MEDICARE PART A & B Care Teams Absorption Operator Relationship Specialty Start Date End Date Cynthia Martel CNP [address] [facility] [address] [place] [address] [email or web address] PCP - General Family Medicine 02/08/20 Additional Source Comments The information contained in this document represents components of the legal health record. It is not the complete legal health record.[facility]
--- OUTSIDE RECORDS SUMMARY | 2025-01-20 15:14 | XMS_ITS | Encounter Summary ---
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 Not on file Not on file documented as of this encounter Plan of Treatment Not on file documented as of this encounter Procedures Procedure Name Priority Date/Time Associated Diagnosis Comments C-REACTIVE PROTEIN Routine 05/25/2023 1: 04 PM EST Elevated erythrocyte sedimentation rate documented in this encounter Results * C-reactive protein (05/25/2023 1:04 PM EST) C-Reactive Protein <0.3 (0-0.5) MG/DL [facility] Comment: Testing performed or reported by [facility], a Service of [facility], [address] [place] [address] Buddy Roach MD, Lead Business Systems Analyst [employer]# [id number] Blood Venous blood specimen / Unknown 05/25/2023 1:04 PM EST 05/25/2023 1:05 PM EST Shyann Ramirez DO LAB BLOOD ORDERABLES Final Res ult [facility] [address] [place] [address] documented in this encounter Visit Diagnoses Diagnosis Elevated erythrocyte sedimentation rate- Primary Elevated sedimentation rate Intractable headache, unspecified chronicity pattern, unspecified headache type documented in this encounter Additional Health Concerns Assessment Noted Time PHQ-9 Depression Total Score: 5 04/18/20 22 2:05 PM EST documented as of this encounter Care Teams Cutch Cleaner Relationship Specialty Start Date End Date Shyann Ramirez DO [address] [place] [address] PCP - General Family Medicine 03/03/23 Yoselyn Soto LICSW [address] [place] [address] Appeals Referee Behavioral Health 05/02/22 Anneliese Pedersen Community Health Worker Case Management 11/29/22 documented as of this encounter
--- OUTSIDE RECORDS SUMMARY | 2025-01-20 15:14 | XMS_ITS | Clinical Summary ---
Author Organization [employer] Address [address] [place] [address] 7t [place] [address] Care Team Providers Care Deputy Sheriff Court Services Name Role Phone Yoselyn Soto MANAGER RESORT Unavailable [phone] Shyann Ramirez DO Primary Care Provider [phone] Allergies Active Allergy Reactions Criticality Noted Date [...] Continuous Blood Gluc Transmit (Dexcom G6 transmitter) [facility] Dexcom G6 transmitter, See Instructions, # [...] Disposable Pump (Omnipod DASH Pods, Gen 4,) [facility] CHANGE EVERY 3 DAYS 024 Active [...] gastroparesis with this class of medication, though diorama model maker endorses a trial. Insurance may not cover [...] original note were not included. Followed by [facility] endocrine Has a pump Assessment & [...] organization. Date Type Department Care Team Description 01/20/2025 Orders Only [facility] Information Management [address] [place] [address] Shyann Ramirez DO 01/16/2025 Refill [facility] [address] [place] [address] Shyann Ramirez DO High cholesterol 12/24/2024 Orders Only [facility] MEDICAL [address] [place] [address] Provider, MD Elvin 11/18/2024 Refill [facility] [address] [place] [address] Shyann Ramirez DO Primary hypertension 11/03/[address] [address] Shyann Ramirez DO Chronic left-sided low back pain with left-sided sciatica 10/27/2024 Orders Only [facility] Information [facility] [address] [place] [address] Shyann Ramirez DO from Last 3 Months [...] 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 on file Not [...] Associated Diagnosis Comments BASIC METABOLIC PANEL Routine 01/19/2025 11:26 AM EDT BASIC METABOLIC PANEL Routine 12/22/2024 8:42 AM EDT BASIC METABOLIC PANEL Routine 10/24/2024 11:53 AM EDT POCT GLYCOSYLATED HEMOGLOBIN (HGB A1C) Routine 03/13/2023 1:34 PM EST 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 (CMS/HCC) LIPID PANEL, STANDARD Routine 10/13/2022 7:32 AM EDT Coronary artery disease, unspecified vessel or lesion type, unspecified whether angina present, unspecified whether [place] or transplanted heart Hyperlipidemia, unspecified hyperlipidemia type MAMMOGRAM GENERIC Routine 09/04/2018 12: 00 AM EDT PAP SMEAR Routine 12/26/2016 12:00 AM EDT HEPATITIS C ANTIBODY (EXTERNAL RESULTS ONLY) Routine 12/21/2016 12:57 PM EDT from Last 3 Months or Most Recently Relevant to Health Maintenance Results * Basic Metabolic Panel (01/19/2025 11:26 AM EDT) Only the most recent of3 resultswithin the time period is included. Blood Venous blood specimen / Unknown [facility] LAB BLOOD ORDERABLES Final Res ult * (ABNORMAL) POCT glycosylated hemoglobin (Hgb A1c) (03/13/2023 1:34 PM EST) Hemoglobin A1C 8.9(A) 4.0 - 6.0 % Blood Capillary blood specimen / Unknown 03/13/2023 1:34 PM EST [facility] POINT OF CARE TEST ENTER/EDIT ORDERABLES Final Result * (ABNORMAL) Lipid Panel, Standard (10/13/2022 7:32 AM EDT) Cholesterol, Total 119 (<200) MG/DL [facility] Triglyceride (mg/dL) in Serum/Plasma 90 (<150) MG/DL [facility] HDL Cholesterol 39(L) (>39) MG/DL [facility] LDL Cholesterol, Calculated 62 (0-130) MG/DL [facility] Non HDL Chol. (LDL+VLDL) 80 (<160) MG/DL [facility] Comment: Testing performed or reported by [facility], a Service of [facility], [address] [place] [address] Buddy Roach MD, Nut Blanker Operator [facility]# [id number] Blood Venous blood specimen / Unknown 10/13/2022 7:32 AM EDT 10/13/2022 7:36 AM EDT Medina Nascimento CHAIN MAKER HAND LAB BLOOD [place] [address] * MAMMOGRAM DIGITAL MAY SCREENING: [facility] (09/04/2018 12:00 AM EDT) Anatomical Region Laterality Modality Breast Bilateral Mammography 09/04/2018 Narrative 09/04/2018 12:00 AM EDT [facility] Procedure: MAMMOGRAM DIGITAL MAY SCREENING: [facility] Procedure Note Provider, Elvin, - 08/31/2022 Refer to [facility] for result details Legacy Procedure: MAMMOGRAM [facility]IGITAL [facility] IMG BI PROCEDURES Final R esult * Pap Smear (12/26/2016 12:00 AM EDT) Swab Historical Provider LAB CYTOLOGY ORDERABLES F inal Result * Hepatitis C Antibody (12/21/2016 12:57 PM EDT) Hepatitis C Antibody Nonreactive Blood 12/21/2016 12:5 7 PM EDT Impressions Michele Cha, MAURICE - 12/21/2016 12:57 PM EDT Negative us Historical Provider POINT OF CARE TEST ENTER/ EDIT ORDERABLES Final Result from Last 3 Months or Most Recently Relevant to Health Maintenance Insurance MEDICARE [facility] Care Teams Deputy Sheriff Court Services Relationship Specialty Start Date End Date James Shyann, [address] [place] [address] PCP - General Family Medicine 03/03/23 Yoselyn Soto LICSW [address] [place] [address] Hemp Fiber Taker Off Behavioral Health 05/02/22 Anneliese Pedersen Community Health Worker Case Management 11/29/22
--- OUTSIDE RECORDS SUMMARY | 2025-01-20 15:14 | XMS_ITS | Encounter Summary ---
Author Organization [employer] Address [address] [place] [address] 7 [place] [address] Care Team Providers Care Catcher Helper Name Role Phone Yoselyn Soto RETAIL FIELD SUPERVISOR Unavailable [phone] Tabby Jeong Primary Care Provider [phone] Shyann Ramirez DO Primary Care Provider [phone] Reason for Visit * Reason Onset Date Comments Med Refill 12/20/2022 Encounter Details Date Type Department Care Team (Late st Contact Info) Description 12/20/2022 Refill [facility] [address] [place] [address] Plant Antonieta Pepper FNP Persistent atrial fibrillation [...] 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 on file Not on file documented as of this encounter Plan of Treatment Not on file documented as of this encounter Visit Diagnoses Diagnosis Persistent atrial fibrillation (CMS/HCC) Atrial fibrillation documented in this encounter Additional Health Concerns Assessment Noted Time PHQ-9 Depression Total Score: 5 04/18/20 22 2:05 PM EST documented as of this encounter Care Teams Catcher Helper Relationship Specialty Start Date End Date Tabby Jeong FNP [address] [place] [address] PCP - General Family Medicine 11/11/22 03/02/23 Shyann Ramirez DO [address] [place] [address] PCP - General Family Medicine 03/03/23 Yoselyn Soto LICSW [address] [place] [address] Rubber Tile Floor Layer Behavioral Health 05/02/22 Anneliese Pedersen Community Health Worker Case Management 11/29/22 documented as of this encounter
--- OUTSIDE RECORDS SUMMARY | 2025-01-20 15:14 | XMS_ITS | Encounter Summary ---
Author Organization [employer] Address 75 [facility] 7t [place] [address] Care Team Providers Care Cutter In Name Role Phone Yoselyn Soto GHOST WRITER Unavailable [phone] Shyann Ramirez DO Primary Care Provider [phone] Encounter Details Date Type Department Care Team (Late st Contact Info) Description 01/20/2025 Orders Only [facility] [address] [place], [place] [phone] Shyann Ramirez DO [address] [place] [address] Social History Tobacco Use Types Packs/Day Years [...] the past 12 months, has t he [employer], gas, oil or water company threatened to [...] 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 on file Not on file 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 Not on file Not on file Not on file documented as of this encounter Plan of Treatment Not on file documented as of this encounter Procedures Procedure Name Priority Date/Time Associated Diagnosis Comments BASIC METABOLIC PANEL Routine 01/19/2025 11:26 AM EDT documented in this encounter Results * Basic Metabolic Panel (01/19/2025 11:26 AM EDT) Blood Venous blood specimen / Unknown Shyann Ramirez DO LAB BLOOD ORDERABLES Final Res ult documented in this encounter Visit Diagnoses Not on filedocumented in this encounter Additional Health Concerns Assessment Noted Time PHQ-9 Depression Total Score: 14 024 2:38 PM EDT documented as of this encounter Care Teams Cutter In Relationship Specialty Start Date End Date Shyann Ramirez DO [address] [place] [address] PCP - General Family Medicine 03/03/23 Yoselyn Soto LICSW [address] [place] [address] Manager Supply Behavioral Health 05/02/22 Anneliese Pedersen Community Health Worker Case Management 11/29/22 documented as of this encounter
--- OUTSIDE RECORDS SUMMARY | 2025-01-20 15:14 | XMS_ITS | Encounter Summary ---
Author Organization [employer] Address 75 [facility] 7t [place] [address] Care Team Providers Care Rocket Engine Tester Name Role Phone Yoselyn Stoo MOBILE BATTERY TECHNICIAN Unavailable [phone] Shyann Ramirez DO Primary Care Provider [phone] Encounter Details Date Type Department Care Team (Late st Contact Info) Description 09/17/2024 Orders Only [place] [address] [place], [place] [phone] Shyann Ramirez DO 73 [place] [address] Social History Tobacco Use Types Packs/Day Years [...] the past 12 months, has t he [employer], gas, oil or water company threatened to [...] 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
--- OUTSIDE RECORDS SUMMARY | 2025-01-20 15:14 | XMS_ITS | Encounter Summary ---
Author Organization [employer] Address 75 [facility] 7 [place] [address] Care Team Providers Care Educational Programming Director Name Role Phone Yoselyn Soto BUSHER HELPER Unavailable [phone] Shyann Ramirez DO Primary Care Provider [phone] Reason for Visit * Reason Onset Date Comments Med Refill 06/07/2024 Encounter Details Date Type Department Care Team (Late st Contact Info) Description 06/07/2024 Refill [facility] [address] [place] [address] Shyann Ramirez DO [address] [place] [address] Neuropathy Social History Tobacco Use Types Packs/Day [...] 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 TE is duplicated. documented in this encounter Plan of Treatment Not on file documented as of this encounter Visit Diagnoses Diagnosis Neuropathy Mononeuritis of unspecified site documented in this encounter Additional Health Concerns Assessment Noted Time PHQ-9 Depression Total Score: 14 024 2:38 PM EDT documented as of this encounter Care Teams Educational Programming Director Relationship Specialty Start Date End Date Shyann Ramirez DO [address] [place] [address] PCP - General Family Medicine 03/03/23 Yoselyn Soto LICSW [address] [place] [address] Integration Developer Behavioral Health 05/02/22 Anneliese Pedersen Community Health Worker Case Management 11/29/22 documented as of this encounter
--- OUTSIDE RECORDS SUMMARY | 2025-01-20 15:14 | XMS_ITS | Encounter Summary ---
Author Organization 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
--- OUTSIDE RECORDS SUMMARY | 2025-01-20 15:14 | XMS_ITS | Encounter Summary ---
Author Organization [employer] Address 75 [facility] 7t [place] [address] Care Team Providers Care Torch Straightener And Heater Name Role Phone Yoselyn Soto DIGITAL SERVICE ENGINEER Unavailable [phone] Tabby Jeong Primary Care Provider [phone] Shyann Ramirez DO Primary Care Provider Reason for Visit * Reason Comments Med Refill Encounter Details Date Type Department Care Team (Late st Contact Info) Description 02/23/2023 Refill [facility] [address] [place] [address] Medina Nascimento FNP Gastroesophageal reflux disease without [...] Start Date 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
--- OUTSIDE RECORDS SUMMARY | 2025-01-20 15:14 | XMS_ITS | Encounter Summary ---
Author Organization [employer] Address 75 [facility] 7t [place] [address] Care Team Providers Care Mems Engineer Name Role Phone Yoselyn Soto TRACK GREASER Unavailable [phone] Shyann Ramirez DO Primary Care Provider [phone] Reason for Visit * Reason Comments Med Change Request Encounter Details Date Type Department Care Team (Late st Contact Info) Description 06/06/2024 Perez Davidson [facility] [address] [place] [address] Shyann Ramirez DO [address] [place] [address] Class 3 severe obesity due to excess [...] Start Date 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
--- OUTSIDE RECORDS SUMMARY | 2025-01-20 15:14 | XMS_ITS | Encounter Summary ---
Author Organization [facility] Address [address] [facility] [address] [place] [address] Phone Care Team Providers Care Barn Hand Name Role Phone Jemma Tavares MD Primary Care Provider [phone] Reason for Visit * Reason Comments Med Refill Encounter Details Date Type Department Care Team (Late st Contact Info) Description 11/15/2021 Refill [facility] [address] [place] [phone] Mario Cardenas MD Social History Tobacco Use [...] on filedocumented in this encounter Care Teams Barn Hand Relationship Specialty Start Date End Date Jemma Tavares MD PCP - General Internal Medicine 10/19/22 documented as of this encounter
--- OUTSIDE RECORDS SUMMARY | 2025-01-20 15:14 | XMS_ITS | Encounter Summary ---
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
--- OUTSIDE RECORDS SUMMARY | 2025-01-20 15:14 | XMS_ITS | Encounter Summary ---
Author Organization [employer] Address 75 [facility] 7t [place] [address] Care Team Providers Care Aircraft Pneudraulic Systems Mechanic Name Role Phone Yoselyn Soto DAY HAUL OR FARM CHARTER BUS DRIVER Unavailable [phone] Shyann Ramirez DO Primary Care Provider [phone] Reason for Visit * Reason Comments Med Change Request Encounter Details Date Type Department Care Team (Late st Contact Info) Description 06/10/2024 Perez Davidson [facility] MED[facility] [address] [place] [address] Shyann Ramirez DO [address] [place] [address] Class 3 severe obesity due to excess [...] documented as of this encounter Care Teams Aircraft Pneudraulic Systems Mechanic Relationship Specialty Start Date End Date Shyann Ramirez DO [address] [place] [address] PCP - General Family Medicine 03/03/23 Yoselyn Soto LICSW [address] [place] [address] Residential Tech Behavioral Health 05/02/22 Anneliese Pedersen Community Health Worker Case Management 11/29/22 documented as of this encounter
--- OUTSIDE RECORDS SUMMARY | 2025-01-20 15:14 | XMS_ITS | Encounter Summary ---
Author Organization [employer] Address 75 [facility] 7t [place] [address] Care Team Providers Care Derrick Engineer Name Role Phone Yoselyn Soto MERCHANDISE EXAMINER Unavailable [phone] Shyann Ramirez DO Primary Care Provider [phone] Reason for Visit * Reason Comments Med Refill Encounter Details Date Type Department Care Team (Late st Contact Info) Description 05/11/2023 Refill [place] [facility] [address] [place] [address] Shyann Ramirez DO [address] [place] [address] Neuropathy Social History Tobacco Use Types Packs/Day [...] the past 12 months, has t he [employer], gas, oil or water [employer] threatened to shut off services in your [...] documented as of this encounter Care Teams Derrick Engineer Relationship Specialty Start Date End Date Shyann Ramirez DO [address] [place] [address] PCP - General Family Medicine 03/03/23 Yoselyn Soto LICSW [address] [place] [address] Assembler Wire Mesh Gate Behavioral Health 05/02/22 Anneliese Pedersen Community Health Worker Case Management 11/29/22 documented as of this encounter
--- OUTSIDE RECORDS SUMMARY | 2025-01-20 15:14 | XMS_ITS | Encounter Summary ---
Author Organization [employer] Address 75 [facility] 7t [place] [address] Care Team Providers Care Flotation Tank Operator Name Role Phone Yoselyn Soto TRACK ANNOUNCER Unavailable [phone] Shyann Ramirez DO Primary Care Provider [phone] Reason for Visit * Reason Comments Med Change Request Encounter Details Date Type Department Care Team (Late st Contact Info) Description 06/03/2024 Perez Davidson [facility] MED[facility] [address] [place] [address] Jemma Tavares MD [address] [place] [address] Class 3 severe obesity due to excess calories with serious comorbidity and body mass index (BMI) of 40.0 to 44.9 in adult (CMS/HCC); BMI 40.0-44.9, adult ([facility]) Social History Tobacco Use Types [...] 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
--- OUTSIDE RECORDS SUMMARY | 2025-01-20 15:14 | XMS_ITS | Encounter Summary ---
Author Organization 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
== END 2025-01-20 11:36 | disposition home or self-care (01) ==
LOC: HO.HKA 11:08
PROVIDERS: PCP Family Medicine; Visit Provider Internal Medicine Hypertension Specialist
DX: I10 Essential (primary) hypertension (principal); N18.30 Chronic kidney disease, stage 3 unspecified; E10.9 Type 1 diabetes mellitus without complications; I48.0 Paroxysmal atrial fibrillation
CPT/HCPCS: 99214

== ENCOUNTER → 2025-01-20 11:08 | Outpatient (BNVA) | payer MEDICARE, MEDICAID, SELFPAY | PROVIDERS: PCP Family Medicine; Visit Provider Internal Medicine Hypertension Specialist | DX: I10 Essential (primary) hypertension (principal); N18.30 Chronic kidney disease, stage 3 unspecified; E10.9 Type 1 diabetes mellitus without complications; I48.0 Paroxysmal atrial fibrillation; E66.9 Obesity, unspecified; D64.9 Anemia, unspecified | CPT/HCPCS: 99212 ==

== ENCOUNTER 2025-03-13 10:42 | Outpatient (REF) | payer MEDICARE, MEDICAID, SELFPAY ==
[2025-03-13 11:44] LABS: Hematocrit 34.6 % (37.0-47.0); Hemoglobin 10.9 g/dl (12.0-16.0); Mean Corpuscular HGB Conc 31.5 g/dl (31.0-35.0); Mean Corpuscular Hemoglobin 27.0 pg (27.0-33.0); Mean Corpuscular Volume 85.6 fL (80.0-98.0); NRBC Abs Auto 0.000 X10*3/uL (0.0-0.012); NRBC Pct Auto 0.0 /100WBC (0.0-0.2); Platelet Count 283 X10*3/uL (160-400); Red Blood Count 4.04 X10*6/uL (4.20-5.50); White Blood Count 8.8 X10*3/uL (4.8-10.8)
[2025-03-13 12:31] LABS: Anion Gap 14 (12-20); Blood Urea Nitrogen 33 mg/dL (9-16); Calcium 9.0 mg/dL (8.4-10.2); Carbon Dioxide 24 mmol/L (22-29); Chloride 104 mmol/L (96-108); Estimated Glomerular Filt Rate 30; Potassium 4.8 mmol/L (3.3-5.1); Sodium 137 mmol/L (135-145)
--- OUTSIDE RECORDS SUMMARY | 2025-03-13 12:41 | XMS_ITS | Encounter Summary ---
Author Organization [facility] Address [address] [facility] [address] [place] [address] Phone Care Team Providers Care Structural Architect Name Role Phone Jemma Tavares MD Primary Care Provider [phone] Reason for Visit * Reason Comments Med Refill Encounter Details Date Type Department Care Team (Late st Contact Info) Description 11/15/2021 Refill [facility] [address] [place] [phone] Mario Cardenas MD Social History Tobacco Use [...] on filedocumented in this encounter Care Teams Structural Architect Relationship Specialty Start Date End Date Jemma Tavares MD PCP - General Internal Medicine 10/19/22 documented as of this encounter
--- OUTSIDE RECORDS SUMMARY | 2025-03-13 12:41 | XMS_ITS | Encounter Summary ---
Author Organization [employer] Address [address] 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
--- OUTSIDE RECORDS SUMMARY | 2025-03-13 12:41 | XMS_ITS | Encounter Summary ---
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
--- OUTSIDE RECORDS SUMMARY | 2025-03-13 12:41 | XMS_ITS | Clinical Summary ---
Author Organization [facility] Address [address] [facility] [address] [place] [address] Phone Care Team Providers Care Office Aide Name Role Phone Cynthia Martel CNP Primary [...] (2 - 2024-2 6 season) 2025 07/30/2020 RSV VACCINE (1 - 1-dose 75+ series) 2046 HEPATITIS A VACCINES Aged Out No long [...] topic Medical Devices [place] [address] [place] [id number] MEDICARE PART A & B MEDICARE PART A & B MEDICARE PART A & B MEDICARE PART A & B MEDICARE PART A & B MEDICARE PART A & B MEDICARE PART A & B MEDICARE PART A & B Care Teams Office Aide Relationship Specialty Start Date End Date Cynthia Martel CNP [address] [place] [address] [email or web address] PCP - General Family Medicine 02/08/20 Additional Source Comments The information contained in this document represents components of the legal health record. It is not the complete legal health record.[facility]
--- OUTSIDE RECORDS SUMMARY | 2025-03-13 12:41 | XMS_ITS | Encounter Summary ---
Author Organization [employer] Address 75 [facility] 7t [place] [address] Care Team Providers Care 2Nd Pressman Name Role Phone Yoselyn Soto CUSTOMER SERVICE ADVOCATE Unavailable [phone] Shyann Ramirez DO Primary Care Provider [phone] Reason for Visit * Reason Comments Med Change Request Encounter Details Date Type Department Care Team (Late st Contact Info) Description 06/06/2024 Perez Davidson [facility] MED[facility] [address] [place] [address] Shyann Ramirez DO [address] [place] [address] Class 3 severe obesity due to excess [...] 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
--- OUTSIDE RECORDS SUMMARY | 2025-03-13 12:41 | XMS_ITS | Encounter Summary ---
Author Organization [employer] Address [address] [place] [address] 7 [place] [address] Care Team Providers Care Federal Java Developer Name Role Phone Kaylin Deutsch MD Primary Care Provider [phone] Yoselyn SotoSW Unavailable [phone] Medina Nascimento Primary Care Provider Un available Tabby Jeong NP Primary Care Provider UnavailShyann Ng DO Primary Care Provider [phone] Reason for Visit * Reason Comments Med Refill Encounter Details Date Type Department Care Team (Late st Contact Info) Description 05/04/2022 Telephone [facility] MEDICAL [address] [place] [address] Medina Nascimento FNP Med Refill Social History [...] documented as of this encounter Care Teams Federal Java Developer Relationship Specialty Start Date End Date Kaylin Deutsch MD [address] [place] [address] PCP - General Family Medicine 04/16/20 05/21/22 Medina Nascimento FNP [address] [place] [address] PCP - General Family Medicine 05/22/22 11/10/22 Tabby Jeong NP [address] [place] [address] PCP - General Family Medicine 11/11/22 03/02/23 Shyann Ramirez DO [address] [place] [address] PCP - General Family Medicine 03/03/23 Yoselyn Soto LICSW [address] [place] [address] Bioinformatics Assistant Behavioral Health 05/02/22 Anneliese Pedersen Community Health Worker Case Management 11/29/22 documented as of this encounter
--- OUTSIDE RECORDS SUMMARY | 2025-03-13 12:41 | XMS_ITS | Clinical Summary ---
Author Organization [employer] Address [address] [place] [address] 7t [place] [address] Care Team Providers Care Sanitation Lead Name Role Phone Yoselyn Soto GLUING MACHINE OPERATOR AUTOMATIC Unavailable [phone] Shyann Ramirez DO Primary Care Provider [phone] Allergies Active Allergy Reactions Criticality Noted Date [...] Continuous Blood Gluc Transmit (Dexcom G6 transmitter) [facility] Dexcom G6 transmitter, See Instructions, # 1 [...] diabetes mellitus with hypoglycemia and without coma (HCC) Inject 1 mL (1 mg) under the skin 1 (one) time if needed for low blood sugar for up to 1 day. 1 each 2 023 Active metoclopramide (Reglan) 10 MG tabletIndication s:Diabetic gastroparesis associated with type 1 diabetes mellitus (HCC) TAKE 1 TABLET IF NEEDED IN THE [...] Disposable Pump (Omnipod DASH Pods, Gen 4,) [facility] CHANGE EVERY 3 DAYS 024 Active carvedilol (Coreg) 25 MG tablet Take 25 mg by mouth 2 times daily. Active apixaban (Eliquis) 5 MG tabletIndication s:Persistent atrial fibrillation (CMS/HCC) (HCC) Take 1 tablet (5 mg) by mouth 2 times daily. 180 tablet 3 024 Active omeprazole (PriLOSEC) [address] capsuleIndicatio ns:Gastroesophag eal reflux disease without esophagitis TAKE 1 CAPSULE (40 MG) BY MOUTH BEFORE BREAKFAST AND BEFORE EVENING MEAL. DO NOT CRUSH OR CHEW 180 capsule 1 024 Active aspirin (Aspirin Low Dose) 81 MG EC tabletIndication s:History of CVA (cerebrovascular accident) TAKE 1 TABLET BY MOUTH EVERY DAY 90 tablet 3 025 Active Tirzepatide-Weig ht Management (Zepbound) 2.5 MG/0.5ML solution auto-injectorInd ications:Class 3 severe obesity due to excess calories with serious comorbidity and body mass index (BMI) of 40.0 to 44.9 in adult (HCC) INJECT 1 PEN UNDER THE SKIN 1 TIME PER WEEK. 2 mL 025 Active buPROPion (Zyban) 150 MG 12 hr tabletIndication s:Mild depression TAKE 1 TABLET BY MOUTH EVERY DAY IN THE MORNING 90 tablet 2 025 Active chlorthalidone (Hygroton) 25 MG tabletIndication [...] EVERY DAY 90 tablet 1 025 Active cyclobenzaprine (Flexeril) 5 MG tabletIndication s:Sciatica of left side TAKE 1 TABLET BY MOUTH THREE TIMES A DAY NEEDED FOR MUSCLE SPASM 90 tablet 3 025 Active gabapentin (Neurontin) 300 MG capsuleIndicatio ns:Neuropathy Take 2 capsules (600 mg) by mouth every 6 (six) hours during the day. 540 capsule 1 025 Active sertraline (Zoloft) 50 MG tabletIndication s:Depression with anxiety TAKE 1 TABLET BY MOUTH EVERY DAY IN THE MORNING 90 tablet 1 025 Active naltrexone (Depade) 50 MG tablet TAKE 1 TABLET BY MOUTH EVERY DAY 90 tablet 3 025 Active naltrexone (Depade) 50 MG tabletIndication s:Class 2 severe obesity due to excess calories with serious comorbidity and body mass index (BMI) of 39.0 to 39.9 in adult Take 1 tablet (50 mg) by mouth Once per day. 90 tablet 3 024 2024 sertraline (Zoloft) 50 MG tabletIndication s:Depression with anxiety TAKE 1 TABLET BY MOUTH EVERY DAY IN THE MORNING 90 tablet 1 025 2024 Discontinued Active [...] gabapentin Last PDMP 03/13/23 Persistent atrial fibrillation (CMS/HCC) 023 Overview (09/26/2022): Dx 09/2022 Assessment & Plan (12/04/2023 10:47 PM EDT): On Eliquis, carvedilol. Managed by cardiology. Asymptomatic Idiopathic pericardial effusion 06/22/2022 Overview (07/03/2022): New incidental finding of small pericardial effusion without tamponade on echo from 06/22/22. Coronary artery disease 06/19/2022 History of CVA (cerebrovascular accident) 2022 Dysthymia 06/18/2022 Vitreous hemorrhage of right eye (CMS/HCC) 06/18 Carotid stenosis, right 06/18/2022 Overview (03/13/2023): S/p [...] gastroparesis with this class of medication, though hot strip finisher endorses a trial. Insurance may not cover [...] original note were not included. Followed by [facility] endocrine Has a pump Assessment & Plan (12/04/2023 10:42 PM EDT): Following with endocrinology. Continue Reglan, dietary management Hemiparesis affecting left s radha as late effect of cerebrovascular accident ([facility]) 06/07/2022 Assessment & Plan (12/04/2023 10:45 PM [...] with cardiology Stage 3b chronic kidney disease ([facility]) 2022 Overview (03/13/2023): Last eGFR 38 on 01/22/23. [...] Type 1 diabetes mellitus 09/14/202111/2022 Cerebrovascular accident (CMS/HCC) 07/07/2016 06/19/2022 Encounters * This document contains information received from the source organization and may not represent a complete record from that organization. Date Type Department Care Team Description 02/26/[address] [address] Jemma Tavares MD 02/13/[address] [address] Shyann Ramirez DO Care Coordination 02/13/[address] [address] Shyann Ramirez DO Depression with anxiety 01/30/[address] [address] Shyann Ramirez DO Neuropathy (Primary Dx) 01/26/[address] [address] Shyann Ramirez DO Sciatica of left side 01/20/2025 Orders Only [facility] [address] [place] [address] Shyann Ramirez DO 01/16/[address] [address] Shyann Ramirez DO High cholesterol 12/24/2024 Orders Only [facility] [address] [place] [address] Provider, MD Elvin from Last 3 Months Immunizations Immunization Administration [...] the past 12 months, has t he [employer], gas, oil or water company threatened to [...] 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 Not on file Not [...] METABOLIC PANEL Routine 12/22/2024 8:42 AM EDT POCT GLYCOSYLATED HEMOGLOBIN (HGB A1C) Routine 03/13/2023 1:34 PM EST 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 ([facility]) LIPID PANEL, STANDARD Routine 10/13/2022 7:32 AM EDT Coronary artery disease, unspecified vessel or lesion type, unspecified whether angina present, unspecified whether cowlitz or transplanted heart Hyperlipidemia, unspecified hyperlipidemia type MAMMOGRAM GENERIC Routine 09/04/2018 12: 00 AM EDT PAP SMEAR Routine 12/26/2016 12:00 AM EDT HEPATITIS C ANTIBODY (EXTERNAL RESULTS ONLY) Routine 12/21/2016 12:57 PM EDT from Last 3 Months or Most Recently Relevant to Health Maintenance Results * Basic Metabolic Panel (01/19/2025 11:26 AM EDT) Only the most recent of2 resultswithin the time period is included. Blood Venous blood specimen / Unknown [facility] Final Res ult * (ABNORMAL) POCT glycosylated hemoglobin (Hgb A1c) (03/13/2023 1:34 PM EST) Hemoglobin A1C 8.9(A) 4.0 - 6.0 % Blood Capillary blood specimen / Unknown 03/13/2023 1:34 PM EST Shyann Ramirez DO POINT OF CARE TEST ENTER/EDIT ORDERABLES Final Result * (ABNORMAL) Lipid Panel, Standard (10/13/2022 7:32 AM EDT) Cholesterol, Total 119 (<200) MG/DL [facility] Triglyceride (mg/dL) in Serum/Plasma 90 (<150) MG/DL [facility] HDL Cholesterol 39(L) (>39) MG/DL [facility] LDL Cholesterol, Calculated 62 (0-130) MG/DL [facility] Non HDL Chol. (LDL+VLDL) 80 (<160) MG/DL [facility] Comment: Testing performed or reported by [facility], a Service of [facility], [address] [place] [address] Buddy Roach MD, Labor Standards Director [facility]# [id number] Blood Venous blood specimen / Unknown 10/13/2022 7:32 AM EDT 10/13/2022 7:36 AM EDT Medina Nascimento REVENUE ENFORCEMENT AGENT LAB BLOOD [place]AB[place] [address] * MAMMOGRAM DIGITAL MAY SCREENING: [facility] (09/04/2018 12:00 AM EDT) Anatomical Region Laterality Modality Breast Bilateral Mammography 09/04/2018 Narrative 09/04/2018 12:00 AM EDT Refer to Fovea for result details Legacy Procedure: MAMMOGRAM DIGITAL MAY SCREENING: [facility] Procedure Note Provider, MD Elvin - 08/31/2022 Refer to Arabella for result details Legacy Procedure: MAMMOGRAM DIGITAL [facility] Provider MD BRITT BI PROCEDURES Final R esult * Pap Smear (12/26/2016 12:00 AM EDT) Swab us Historical Provider LAB CYTOLOGY ORDERABLES F inal Result * Hepatitis C Antibody (12/21/2016 12:57 PM EDT) Hepatitis C Antibody Nonreactive Blood 12/21/2016 12:5 7 PM EDT Impressions StarlaMichele, DIRECTOR STAGE - 12/21/2016 12:57 PM EDT Negative us Historical Provider POINT OF CARE TEST ENTER/ EDIT ORDERABLES Final Result from Last 3 Months or Most Recently Relevant to Health Maintenance Insurance MEDICARE COUNTS INCLUDE 234 BEDS AT THE [facility] Care Teams Sanitation Lead Relationship Specialty Start Date End Date Shyann Ramirez DO [address] [place] [address] PCP - General Family Medicine 03/03/23 Yoselyn Soto LICSW [address] [place] [address] Youth Associate Behavioral Health 05/02/22 Anneliese Pedersen Community Health Worker Case Management 11/29/22
--- OUTSIDE RECORDS SUMMARY | 2025-03-13 12:41 | XMS_ITS | Encounter Summary ---
Author Organization [employer] Address [address] [place] [address] 7t [place] [address] Care Team Providers Care Mercantile Reporter Name Role Phone Yoselyn Soto MANAGER MERCHANDISING Unavailable [phone] Tabby Jeong NP Primary Care Provider Shyann Mondragon DO Primary Care Provider Reason for Visit * Reason Onset Date Comments Med Refill 12/20/2022 Encounter Details Date Type Department Care Team (Late st Contact Info) Description 12/20/2022 Refill [place] [facility] [address] [place] [address] Plant Antonieta Pepper FNP Persistent atrial fibrillation [...] 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 Not on file Not on file documented as of this encounter Plan of Treatment Not on file documented as of this encounter Visit Diagnoses Diagnosis Persistent atrial fibrillation (CMS/HCC) (HCC) Atrial fibrillation documented in this encounter Additional Health Concerns Assessment Noted Time PHQ-9 Depression Total Score: 5 04/18/20 22 2:05 PM EST documented as of this encounter Care Teams Mercantile Reporter Relationship Specialty Start Date End Date Tabby Jeong NP [address] [place] [address] PCP - General Family Medicine 11/11/22 03/02/23 Shyann Ramirez DO [address] [place] [address] PCP - General Family Medicine 03/03/23 Yoselyn Soto LICSW [address] [place] [address] Forming And Assembling Supervisor Behavioral Health 05/02/22 Anneliese Pedersen Community Health Worker Case Management 11/29/22 documented as of this encounter
--- OUTSIDE RECORDS SUMMARY | 2025-03-13 12:41 | XMS_ITS | Encounter Summary ---
Author Organization [employer] Address [address] [facility] 7t [place] [address] Care Team Providers Care Quantitative Developer Name Role Phone Yoselyn Soto TURNING SANDER OPERATOR Unavailable [phone] Shyann Ramirez DO Primary Care Provider [phone] Reason for Visit * Reason Comments Med Change Request Encounter Details Date Type Department Care Team (Late st Contact Info) Description 06/03/2024 Perez [facility] MED[facility] [address] [place] [address] Jemma Tavares MD [address] [place] [address] Class 3 severe obesity due to excess calories with serious comorbidity and body mass index (BMI) of 40.0 to 44.9 in adult (CMS/HCC); BMI 40.0-44.9, adult ([facility]) Social History Tobacco Use Types Packs/Day Years [...] 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
--- OUTSIDE RECORDS SUMMARY | 2025-03-13 12:41 | XMS_ITS | Encounter Summary ---
Author Organization [employer] Address [address] [facility] 7t [place] [address] Care Team Providers Care Manager Studio Name Role Phone Yoselyn Soto CERTIFIED PESTICIDE APPLICATOR Unavailable [phone] Shyann Ramirez DO Primary Care Provider [phone] Reason for Visit * Reason Comments Med Change Request Encounter Details Date Type Department Care Team (Late st Contact Info) Description 06/10/2024 Perez Davidson [facility] MED[facility] [address] [place] [address] Shyann Ramirez DO [address] [place] [address] Class 3 severe obesity due to excess [...] Date 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
--- OUTSIDE RECORDS SUMMARY | 2025-03-13 12:41 | XMS_ITS | Encounter Summary ---
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
--- OUTSIDE RECORDS SUMMARY | 2025-03-13 12:41 | XMS_ITS | Encounter Summary ---
Author Organization [employer] Address [address] [facility] 7t [place] [address] Care Team Providers Care Car Body Mechanic Name Role Phone Yoselyn Soto MEDICAL TECHNOLOGIST PRN Unavailable [phone] Shyann Ramirez DO Primary Care Provider [phone] Encounter Details Date Type Department Care Team (Late st Contact Info) Description 05/14/[address] 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 Not on [...] PM EST) C-Reactive Protein <0.3 (0-0.5) MG/DL [facility] Comment: Testing performed or reported by [facility], a Service of [facility], [address] [place] [address] Buddy Roach MD, Nurse Quality [facility]# [id number] Blood Venous blood specimen / Unknown 05/25/2023 1:04 PM EST 05/25/2023 1:05 PM EST Shyann Ramirez DO LAB BLOOD ORDERABLES Final Res ult [facility] [address] [place] [address] documented in this encounter Visit Diagnoses Diagnosis Elevated erythrocyte sedimentation rate- Primary Elevated sedimentation rate Intractable headache, unspecified chronicity pattern, unspecified headache type documented in this encounter Additional Health Concerns Assessment Noted Time PHQ-9 Depression Total Score: 5 04/18/20 22 2:05 PM EST documented as of this encounter Care Teams Car Body Mechanic Relationship Specialty Start Date End Date Shyann Ramirez DO [address] [place] [address] PCP - General Family Medicine 03/03/23 Yoselyn Soto LICSW [address] [place] [address] Rn Vascular Behavioral Health 05/02/22 Anneliese Pedersen Community Health Worker Case Management 11/29/22 documented as of this encounter
--- OUTSIDE RECORDS SUMMARY | 2025-03-13 12:41 | XMS_ITS | Encounter Summary ---
Author Organization [employer] Address 75 [facility] 7t [place] [address] Care Team Providers Care Performance Architect Name Role Phone Yoselyn Soto SEED POTATO CUTTER Unavailable [phone] Tabby Jeong NP Primary Care Provider Shyann Mondragon DO Primary Care Provider [phone] Reason for Visit * Reason Comments Med Refill Encounter Details Date Type Department Care Team (Late st Contact Info) Description 02/23/2023 Refill [facility] MEDICAL [address] [place] [address] Medina Nascimento FNP Gastroesophageal reflux disease without [...] Date 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
--- OUTSIDE RECORDS SUMMARY | 2025-03-13 12:41 | XMS_ITS | Encounter Summary ---
Author Organization [employer] Address [address] [facility] 7t [place] [address] Care Team Providers Care Hangersmith Name Role Phone Yoselyn Soto MANAGER IMMUNOLOGY Unavailable [phone] Shyann Ramirez DO Primary Care Provider [phone] Reason for Visit * Reason Comments Med Refill Encounter Details Date Type Department Care Team (Late st Contact Info) Description 05/11/2023 Refill [place] [facility] MED[facility] [address] [place] [address] Shyann Ramirez DO [address] [place] [address] Neuropathy Social History Tobacco Use Types Packs/Day [...] the past 12 months, has t he [employer], gas, oil or water [employer] threatened to shut off services in your [...] 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
--- OUTSIDE RECORDS SUMMARY | 2025-03-13 12:41 | XMS_ITS | Encounter Summary ---
Author Organization [employer] Address [address] [facility] 7 [place] [address] Care Team Providers Care News Internship Name Role Phone Yoselyn Soto SPECIAL EDUCATION PARAPROFESSIONAL Unavailable [phone] Shyann Ramirez DO Primary Care Provider [phone] Reason for Visit * Reason Onset Date Comments Med Refill 06/07/2024 Encounter Details Date Type Department Care Team (Late st Contact Info) Description 06/07/2024 Refill [facility] MEDICAL [address] [place] [address] Shyann Ramirez DO [address] [place] [address] Neuropathy Social History Tobacco Use Types Packs/Day [...] 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 TE is duplicated. documented in this encounter Plan of Treatment Not on file documented as of this encounter Visit Diagnoses Diagnosis Neuropathy Mononeuritis of unspecified site documented in this encounter Additional Health Concerns Assessment Noted Time PHQ-9 Depression Total Score: 14 024 2:38 PM EDT documented as of this encounter Care Teams News Internship Relationship Specialty Start Date End Date Shyann Ramirez DO [address] [place] [address] PCP - General Family Medicine 03/03/23 Yoselyn Soto LICSW [address] [place] [address] Fruit Farmworker Behavioral Health 05/02/22 Anneliese Pedersen Community Health Worker Case Management 11/29/22 documented as of this encounter
--- OUTSIDE RECORDS SUMMARY | 2025-03-13 12:41 | XMS_ITS | Encounter Summary ---
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
--- OUTSIDE RECORDS SUMMARY | 2025-03-13 12:41 | XMS_ITS | Clinical Summary ---
Author Organization [facility] Address [address] [place] [address] Phone Care Team Providers Care Harbor Boat Pilot Name Role Phone Jemma Tavares MD Primary Care Provider [phone] Allergies Active Allergy Reactions Criticality Noted Date [...] PM EST) Hemoglobin A1C 9.1(H) (4-6) % [facility] 3 Comment: HEMOGLOBIN A1C(%) GLUCOSE CONTROL INDEX <6% EXCELLENT 6-7% VERY GOOD 7-8% GOOD 8-10% FAIR >10% POOR Hemoglobin (Hb) A1c testing is performed by Elder Dolly-quant immunoassay. Any cause of shortened erythrocyte survival will reduce exposure of erythrocytes to glucose with a consequent decrease in Hb A1c (%). Testing performed or reported by ~[facility], ~a Service of [facility], ~[address] [place] [id number]~ 06/14/2018 2:53 PM EST us Mario Cardenas MD LAB BLOOD ORDERABLES Final Res ult [place] [id number] from Last 3 Months or Most Recently Relevant to Health Maintenance Insurance Medicaid [place] Medicare Medicare Medicaid [place] Care Teams Harbor Boat Pilot Relationship Specialty Start Date End Date Jemma Tavares MD PCP - General Internal Medicine 10/19/22
--- OUTSIDE RECORDS SUMMARY | 2025-03-13 12:42 | XMS_ITS | Encounter Summary ---
Author Organization [employer] Address [address] [place] [address] Care Team Providers Care Retail Loan Originator Name Role Phone Yoselyn Soto HIGH SCHOOL BUSINESS TEACHER Unavailable [phone] Shyann Ramirez DO Primary Care Provider [phone] Encounter Details Date Type Department Care Team (Late st Contact Info) Description 10/27/2024 Orders Only [facility] [address] [place], [place] [id number] Shyann Ramirez DO [address] [place] [address] Social History Tobacco Use Types Packs/Day Years [...] the past 12 months, has t he [employer], gas, oil or water company threatened to [...] 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
--- OUTSIDE RECORDS SUMMARY | 2025-03-13 12:42 | XMS_ITS | Encounter Summary ---
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
--- OUTSIDE RECORDS SUMMARY | 2025-03-13 12:42 | XMS_ITS | Encounter Summary ---
Author Organization [employer] Address [address] [place] [address] Care Team Providers Care Bill Checker Name Role Phone Yoselyn Soto MEDICAL BILL PROCESSOR Unavailable [phone] Shyann Ramirez DO Primary Care Provider [phone] Encounter Details Date Type Department Care Team (Late st Contact Info) Description 09/17/2024 Orders Only [facility] [address] [place], [place] [phone] Shyann Ramirez DO [address] [place] [address] Social History Tobacco Use Types Packs/Day Years [...] the past 12 months, has t he [employer], gas, oil or water company threatened to [...] 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
== END 2025-03-13 10:43 | disposition home or self-care (01) ==
LOC: HO.LAB 10:42
PROVIDERS: PCP Family Medicine; Visit Provider Internal Medicine Hypertension Specialist
DX: I12.9 Hypertensive chronic kidney disease with stage 1 through stage 4 chronic kidney disease, or unspecified chronic kidney disease (principal); N18.30 Chronic kidney disease, stage 3 unspecified
CPT/HCPCS: 36415; 80048; 85027

== ENCOUNTER 2025-03-17 11:21 | Outpatient (AMB) | payer MEDICARE, MEDICAID, SELFPAY ==
--- NOTE | 2025-03-17 11:24 | HO.NEPHOV ---
Vital Signs 03/17/25 11:25 Height 5 ft 3 in Weight 238 lb BMI 42.2 BP 110/62 Blood Pressure Location Lt brachial Position Sitting Pulse 80 Pulse Source Pulse Oximeter Pulse Oximetry (%) 96 Oxygen Delivery Method Room Air Intake Visit Reasons: 8wk f/u w/labs Community Health Consultant Required: No Accompanied by: Self / Same As Patient Allergies lisinopril (LISINOPRIL) Allergy (Severe, Verified 03/17/25 11:26) ANGIOEDEMA, COUGH amlodipine (AMLODIPINE) Allergy (Intermediate, Verified 03/17/25 11:26) SWELLING Penicillins (PENICILLINS) Allergy (Unknown, Verified 03/17/25 11:26) RASH seasonal Allergy (Unknown, Uncoded 09/15/20 15:07) Anaphylaxis SEASONAL ALLERGIES Allergy (Unknown, Uncoded 09/15/20 15:07) ITCHING, WATERY EYES, STUFFY NOSE, COUGH HPI Comments Details: 54 yr old woman with a history of obesity, diabetes mellitus on insulin, gastroparesis, KIMBERLY /COPD overlap syndrome, hypertension, hypothyroidism, and CKD Here for follow up. From renal standpoint she is doing well. She denies any new complaints. 02/05/24 ;Doing well;Waiting to start WeGovy 05/08/24;On Wegovy - month 2 ; No weight change yet 09/15/24: No weight change. Has not had Wegovy since Apr 2024 Blood sugar has been elevated Has had episodes of low BP No dizziness No new meds or NSAIDS 10/27/24 54-year-old female presenting for follow-up on her chronic kidney disease and management of hyperkalemia and hypertension. The patient's chronic kidney disease has shown improvement, with her creatinine levels decreasing from 2.1 to 1.5, which is consistent with previous measurements from November and April. This improvement suggests stabilization of her renal function. The patient has been experiencing hyperkalemia, with a potassium level of 5.4. The patient is on spironolactone, which is known to increase potassium levels, and has been advised to monitor her dietary intake of potassium-rich foods such as oranges and bananas. She has been instructed to maintain her spironolactone dosage at one pill in the morning and one in the afternoon to prevent further elevation of potassium levels. The patient's hypertension is currently well-managed, with her blood pressure readings being stable. She has been advised to continue monitoring her blood pressure at home and adjust her spironolactone dosage if her diastolic pressure falls below 60 mmHg. 12/22/24 : Not taking Wegovy- not covered On Maunjaro She has lost about 12 lb. 01/20/25 The patient is a 54-year-old female presenting with hypertension. Spironolactone was discontinued due to hypotension. Current medications include carvedilol, chlorthalidone, hydralazine, and losartan. BP remains slightly elevated at home The patient has diabetes mellitus and obesity. Wegovy was restarted last week after 4 weeks of lapse due to supply issue. Mild peripheral edema is present. Potassium levels and kidney function have improved. Medical History: - Hypertension - Diabetes Mellitus - Obesity Medications: - Carvedilol 25 mg twice daily for hypertension - Chlorthalidone for hypertension - Hydralazine 25 mg three times daily for hypertension - Losartan 50 mg twice daily for hypertension - Wegovy for weight management Diagnostic Results: - Labs: Potassium levels normalized after discontinuation of spironolactone - Labs: Improved kidney function noted 03/17/25 Lost 4-5 lbs Feels OK PFSH Medical History CVA (cerebral vascular accident) Surgical History Hx of appendectomy Family History Mother Hypertension Father Hypertension Brother Hypertension Daughter No problems noted. Social History Household Members: Significant Other Housing: House Alcohol intake: former Patient Tobacco Use Status: Former Tobacco user Substance Use Type: Other service: No Current occupational status: unemployed Physical Exam Vital Signs: Last Vital Signs Pulse 80 03/17/25 11: BP 110/62 03/17/25 11: Pulse Ox 96 03/17/25 11: Oxygen Delivery Method Room Air 03/17/25 11: BMI result Body Mass Index 42.2 Results Reviewed Nephrology Results: Hgb, (12.0-16.0) 10.9 g/dl L 03/13/25 WBC, (4.8-10.8) 8.8 X10*3/uL 03/13/25 Plt Count, (160-400) 283 X10*3/uL 03/13/25 Sodium, (135-145) 137 mmol/L 03/13/25 Potassium, (3.3-5.1) 4.8 mmol/L 03/13/25 Chloride, (96-108) 104 mmol/L 03/13/25 Carbon Dioxide, (22-29) 24 mmol/L 03/13/25 BUN, (9-16) 33 mg/dL H 03/13/25 Creatinine, (0.5-1.4) 1.76 mg/dL H 03/13/25 Calcium, (8.4-10.2) 9.0 mg/dL 03/13/25 Assessment & Plan Assessment & Plan (1) HTN (hypertension), benign: Code(s): I10 - Essential (primary) hypertension Category: Medical (2) CKD (chronic kidney disease) stage 3, GFR 30-59 ml/min: Code(s): N18.30 - Chronic kidney disease, stage 3 unspecified Category: Medical (3) Type 1 diabetes mellitus: Code(s): E10.9 - Type 1 diabetes mellitus without complications Category: Medical (4) PAF (paroxysmal atrial fibrillation): Code(s): I48.0 - Paroxysmal atrial fibrillation Category: Medical Plan . 54-year-old woman with a history of diabetes mellitus hypertension obesity with chronic kidney disease. Marian stage 3 chronic kidney disease. Goal is to slow the progression of renal disease Discussed importance of tight control blood pressure and blood sugar to slow the progression. Continue to avoid nephrotoxic agents including NSAIDs. She is mild anemia which is multifactorial. No indication for Epogen. Currently she is on multiple antihypertensive agents including 2 diuretics and high dose of spironolactone. 12/22/2024. With the weight loss the blood pressure has dropped further. She has sustained acute kidney injury due to hypoperfusion. Has persistent mild hyperkalemia. Therefore I will discontinue spironolactone 50 mg b.i.d.. Encouraged to watch blood pressure at home. If systolic blood pressures less than 100 mm Hg I would lower the chlorthalidone as well. Recheck renal function in the next few weeks. Encouraged her to increase p.o. fluid intake. 03/17/25 Decrease Losartan to 50 mg QD from BID Decrease Chlorthalidone frmo 25 mg to 12.5 mg QD Rechek labs in 3 weeks Orders: Orders Basic Metabolic Panel 3 Weeks I10 - Essential (primary) hypertension, N18.30 - Chronic kidney disease, stage 3 unspecified Coding Level of Care Code Est Pt Level 4 (30906) Diagnoses HTN (hypertension), benign I10 CKD (chronic kidney disease) stage 3, GFR 30-59 ml/min N18.30 Type 1 diabetes mellitus E10.9 PAF (paroxysmal atrial fibrillation) I48.0
[2025-03-17 11:25] VITALS: BP 110/62; PULSE 80; O2SAT 96; BMI 42.2
--- OUTSIDE RECORDS SUMMARY | 2025-03-17 13:33 | XMS_ITS | Encounter Summary ---
Author Organization [employer] Address [address] [facility] 7 [place] [address] Care Team Providers Care Doping Supervisor Name Role Phone Yoselyn Soto GLYCERIN OPERATOR Unavailable [phone] Shyann Ramirez DO Primary Care Provider [phone] Reason for Visit * Reason Onset Date Comments Med Refill 06/07/2024 Encounter Details Date Type Department Care Team (Late st Contact Info) Description 06/07/[address] 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 TE is duplicated. documented in this encounter Plan of Treatment Not on file documented as of this encounter Visit Diagnoses Diagnosis Neuropathy Mononeuritis of unspecified site documented in this encounter Additional Health Concerns Assessment Noted Time PHQ-9 Depression Total Score: 14 024 2:38 PM EDT documented as of this encounter Care Teams Doping Supervisor Relationship Specialty Start Date End Date Shyann Ramirez DO [address] [place] [address] PCP - General Family Medicine 03/03/23 Yoselyn Soto LICSW [address] [place] [address] Sawmill Production Worker Behavioral Health 05/02/22 Anneliese Pedersen Community Health Worker Case Management 11/29/22 documented as of this encounter
--- OUTSIDE RECORDS SUMMARY | 2025-03-17 13:33 | XMS_ITS | Encounter Summary ---
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
--- OUTSIDE RECORDS SUMMARY | 2025-03-17 13:33 | XMS_ITS | Encounter Summary ---
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
--- OUTSIDE RECORDS SUMMARY | 2025-03-17 13:33 | XMS_ITS | Encounter Summary ---
Author Organization [employer] Address [address] [place] [address] [address]t [place] [address] Care Team Providers Care Adolescent Specialist Name Role Phone Yoselyn Soto UPKEEP MECHANIC Unavailable [phone] Tabby Jeong NP Primary Care Provider Shyann Mondragon DO Primary Care Provider [phone] Reason for Visit * Reason Comments Med Refill Encounter Details Date Type Department Care Team (Late st Contact Info) Description 02/23/2023 Refill [facility] MEDICAL [address] [place] [address] Medina Nascimento FNP Gastroesophageal reflux disease without [...] Start Date 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
--- OUTSIDE RECORDS SUMMARY | 2025-03-17 13:33 | XMS_ITS | Encounter Summary ---
Author Organization [employer] Address [address] [facility] 7t [place] [address] Care Team Providers Care Nuisance Animal Damage Control Agent Name Role Phone Yoselyn Soto GLUING MACHINE ADJUSTER Unavailable [phone] Shyann Ramirez DO Primary Care Provider [phone] Encounter Details Date Type Department Care Team (Late st Contact Info) Description 09/17/2024 Orders Only [facility] [address] [place], [place] [phone] Shyann Ramirez DO [address] [place] [address] Social History Tobacco Use Types Packs/Day Years [...] the past 12 months, has t he [employer], gas, oil or water company threatened to [...] 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
--- OUTSIDE RECORDS SUMMARY | 2025-03-17 13:33 | XMS_ITS | Encounter Summary ---
Author Organization [employer] Address [address] [facility] 7t [place] [address] Care Team Providers Care Environmental Compliance Manager Name Role Phone Yoselyn Soto LEAD PROGRAMMER Unavailable [phone] Shyann Ramirez DO Primary Care Provider [phone] Encounter Details Date Type Department Care Team (Late st Contact Info) Description 10/27/2024 Orders Only [facility] [address] [place], [place] [phone] Shyann Ramirez DO [address] [place] [address] Social History Tobacco Use Types Packs/Day Years [...] the past 12 months, has t he [employer], gas, oil or water company threatened to [...] 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
--- OUTSIDE RECORDS SUMMARY | 2025-03-17 13:33 | XMS_ITS | Clinical Summary ---
Author Organization [employer] Address [address] [place] [address] 7t [place] [address] Care Team Providers Care Project Management Specialist Name Role Phone Yoselyn Soto TRANSCRIPTION COORDINATOR Unavailable [phone] Shyann Ramirez DO Primary Care Provider [phone] Allergies Active Allergy Reactions Criticality Noted Date [...] 100mcg daily the rest of the week 03/13/20 23 Active B-D UF III MINI PEN NEEDLES 31G X 5 MM misc USE 4 TIMES A DAY 05/24/19 23 Active Lantus SoloStar 100 UNIT/ML pen INJECT 55 UNITS SUBCUTANEOUSLY DAILY AT BEDTIME 05/24/19 23 Active Continuous Blood Gluc Sensor (Dexcom G6 Sensor) misc Dexcom G6 sensors, See Instructions, # 1 pack/packet, Refills 3, Tot. Refills 3, Maintenance, to change every 10 days 90 days supply, 12/30/21 16:29:00 EST, Supply 05/05/20 21 Active Continuous Blood Gluc Transmit (Dexcom G6 transmitter) [facility] [place]com G6 transmitter, See Instructions, # 1 pack/packet, Refills 3, Tot. Refills 3, Maintenance, Dexcom G6 Transmitter, 05/05/21 16:29:00 EST, Supply 05/05/20 Active glucose blood (FREESTYLE LITE) test strip USE 1 STRIP TO CHECK BLOOD SUGAR 7 TIMES DAILY DIRECTED In Vitro 7x daily for 28 days Active famotidine (Pepcid) 40 MG tablet Take 1 tablet by mouth. 01/18/20 20 Active loratadine (Claritin) 10 MG tabletIndications :Allergic rhinitis, unspecified seasonality, unspecified trigger Take 1 tablet (10 mg) by mouth Once daily. 90 tablet 3 06/19/19 23 Active GlucaGen HypoKit 1 MG injectionIndicati ons:Type 1 diabetes mellitus with hypoglycemia and without coma (HCC) Inject 1 mL (1 mg) under the skin 1 (one) time if needed for low blood sugar for up to 1 day. 1 each 2 07/22/19 23 Active metoclopramide (Reglan) 10 MG tabletIndications :Diabetic gastroparesis associated with type 1 diabetes mellitus (HCC) TAKE 1 TABLET IF NEEDED IN THE AM, AT NOON, IN THE PM, AND AT BEDTIME (NAUSEA) FOR UP TO 14 DAYS 28 tablet 1 03/26/20 23 Active HumaLOG 100 UNIT/ML solution USE DIRECTED FOR DIABETES MELLITUS TYPE 1 IN INSULIN PUMP. (MAX DOSE = 150 UNITS/DAY). Active HumaLOG KWIKPEN 100 UNIT/ML injection INJECT 8 TO 20 UNITS SUBCUTANEOUSLY 3 TIMES DAY. MAX 30 UNITS A DAY. IN CASE OF PUMP FAILUE Active Insulin Disposable Pump (Omnipod DASH Pods, Gen 4,) [facility] CH[facility] EVERY 3 DAYS 10/09/19 24 Active carvedilol (Coreg) 25 MG tablet Take 25 mg by mouth 2 times daily. Active apixaban (Eliquis) 5 MG tabletIndications :Persistent atrial fibrillation (CMS/HCC) (HCC) Take 1 tablet (5 mg) by mouth 2 times daily. 180 tablet 3 11/06/19 24 Active omeprazole (PriLOSEC) [address] capsuleIndication s:Gastroesophagea l reflux disease without esophagitis TAKE 1 CAPSULE (40 MG) BY MOUTH BEFORE BREAKFAST AND BEFORE EVENING MEAL. DO NOT CRUSH OR CHEW 180 capsule 1 05/03/20 24 Active aspirin (Aspirin Low Dose) 81 MG EC tabletIndications :History of CVA (cerebrovascular accident) TAKE 1 TABLET BY MOUTH EVERY DAY 90 tablet 3 05/11/19 25 Active Tirzepatide-Weigh t Management (Zepbound) 2.5 MG/0.5ML solution auto-injectorIndi cations:Class 3 severe obesity due to excess calories with serious comorbidity and body mass index (BMI) of 40.0 to 44.9 in adult ([facility]) INJECT 1 PEN UNDER THE SKIN 1 TIME PER WEEK. 2 mL 07/03/19 25 Active buPROPion (Zyban) 150 MG 12 hr tabletIndications :Mild depression TAKE 1 TABLET BY MOUTH EVERY DAY IN THE MORNING 90 tablet 2 07/29/19 25 Active chlorthalidone (Hygroton) 25 MG tabletIndications :Primary hypertension TAKE 1 TABLET BY MOUTH EVERY DAY 90 tablet 3 08/22/19 25 Active losartan (Cozaar) 50 MG tabletIndications :Primary hypertension Take 1 tablet twice a day/90 days 180 tablet 08/27/19 25 Active hydrALAZINE (Apresoline) 25 MG tablet TAKE 1 TABLET BY MOUTH THREE TIMES A DAY 270 tablet 1 09/27/19 25 Active traMADol (Ultram) 50 MG tabletIndications :Chronic left-sided low back pain with left-sided sciatica TAKE 1 TABLET BY MOUTH EVERY 6 HOURS IF NEEDED FOR SEVERE PAIN FOR UP TO 5 DAYS. 20 tablet 11/04/19 25 Active spironolactone (Aldactone) 50 MG tabletIndications :Primary hypertension TAKE 1 TABLET IN THE MORNING AND 2 TABLETS IN THE AFTERNOON. IF BOTTOM BP NUMBER UNDER 60 HOLD MED 270 tablet 1 11/20/19 25 Active atorvastatin (Lipitor) 80 MG tabletIndications :High cholesterol TAKE 1 TABLET BY MOUTH EVERY DAY 90 tablet 1 01/17/20 25 Active cyclobenzaprine (Flexeril) 5 MG tabletIndications :Sciatica of left side TAKE 1 TABLET BY MOUTH THREE TIMES A DAY NEEDED FOR MUSCLE SPASM 90 tablet 3 01/27/20 25 Active gabapentin (Neurontin) 300 MG capsuleIndication s:Neuropathy Take 2 capsules (600 mg) by mouth every 6 (six) hours during the day. 540 capsule 1 02/01/20 25 Active sertraline (Zoloft) 50 MG tabletIndications :Depression with anxiety TAKE 1 TABLET BY MOUTH EVERY DAY IN THE MORNING 90 tablet 1 02/14/20 25 Active naltrexone (Depade) 50 MG tablet TAKE 1 TABLET BY MOUTH EVERY DAY 90 tablet 3 02/27/20 25 Active Active Problems Problem Noted Date Diagnosed [...] gastroparesis with this class of medication, though armhole feller handstitching machine endorses a trial. Insurance may not cover [...] original note were not included. Followed by [facility] endocrine Has a pump Assessment & Plan (12/04/2023 10:42 PM EDT): Following with endocrinology. Continue Reglan, dietary management Hemiparesis affecting left s radha as late effect of cerebrovascular accident ([facility]/HCC) 06/07/2022 Assessment & Plan (12/04/2023 10:45 PM [...] with cardiology Stage 3b chronic kidney disease (CMS/HCC) 2022 Overview (03/13/2023): Last eGFR 38 on [...] Type Department Care Team Description 02/26/[address] [address] Jemma Tavares MD 02/13/[address] [place] [address] Shyann Ramirez DO Care Coordination 02/13/[address] [address] Shyann Ramirez DO Depression with anxiety 01/30/[address] [address] Shyann Ramirez DO Neuropathy (Primary Dx) 01/26/[address] [address] Shyann Ramirez DO Sciatica of left side 01/20/2025 Orders Only [facility] [address] [place] [address] Shyann Ramirez DO 01/16/[address] [address] Shyann Ramirez DO High cholesterol 12/24/2024 Orders Only [facility] [address] [place] [address] Provider, MD Elvin from Last 3 Months [...] 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 Blood Venous blood specimen / Unknown [facility] LAB BLOOD ORDERABLES Final Res ult * (ABNORMAL) POCT glycosylated hemoglobin (Hgb A1c) (03/13/2023 1:34 PM EST) Hemoglobin A1C 8.9(A) 4.0 - 6.0 % Blood Capillary blood specimen / Unknown 03/13/2023 1:34 PM EST [facility] POINT OF CARE TEST ENTER/EDIT ORDERABLES Final Result * (ABNORMAL) Lipid Panel, Standard (10/13/2022 7:32 AM EDT) Cholesterol, Total 119 (<200) MG/DL [facility] Triglyceride (mg/dL) in Serum/Plasma 90 (<150) MG/DL [facility] HDL Cholesterol 39(L) (>39) MG/DL [facility] LDL Cholesterol, Calculated 62 (0-130) MG/DL [facility] Non HDL Chol. (LDL+VLDL) 80 (<160) MG/DL [facility] Comment: Testing performed or reported by [facility], a Service of [facility], [address] [place] [address] Buddy Roach MD, Works Manager [facility]# [id number] Blood Venous blood specimen / Unknown 10/13/2022 7:32 AM EDT 10/13/2022 7:36 AM EDT Medina Nascimento MORTGAGE ASSISTANT LAB BLOOD ORDERABLES Lydia l Result [address] [address] * MAMMOGRAM DIGITAL MAY SCREENING: [facility] (09/04/2018 12:00 AM EDT) Anatomical Region Laterality Modality Breast Bilateral Mammography 09/04/2018 Narrative 09/04/2018 12:00 AM EDT Refer to Count Includes [facility] for result details Legacy Procedure: MAMMOGRAM DIGITAL MAY SCREENING: [facility] Procedure Note Provider, MD Elvin - 08/31/2022 Refer to Fovegirish for result details Legacy Procedure: MAMMOGRAM DIGITAL [facility] Historical Provider IMG BI PROCEDURES Final R [...] Payer (Ef fective 2022-Present) Name:Marian Mcbride Member ID:[id number] Relation to Subscriber:Self Name:Marian Mcbride Subscriber ID:[id number] Payer ID:[id number] Group ID:Not on file Type:Medicare Address: [facility] [address] [address] [facility] Care Teams Project Management Specialist Relationship Specialty Start Date End Date Shyann Ramirez DO [address] [place] [address] PCP - General Family Medicine 03/03/23 Yoselyn Soto LICSW [address] [place] [address] Vice President Of Marketing Behavioral Health 05/02/22 Anneliese Pedersen Community Health Worker Case Management 11/29/22
--- OUTSIDE RECORDS SUMMARY | 2025-03-17 13:33 | XMS_ITS | Clinical Summary ---
Author Organization [facility] Address [address] [facility] [address] [place] [address] Phone Care Team Providers Care Web Page Designer Name Role Phone Cynthia Martel CNP Primary Care Provider [phone] Allergies Active Allergy Reactions Criticality Noted Date [...] Medical Devices Not [place] [address] [place] [id number] MEDICARE PART A & B MEDICARE PART A & B MEDICARE PART A & B MEDICARE PART A & B MEDICARE PART A & B Member Subscriber Plan / Payer [facility]Present) Name:Marian Mcbride Member ID:[id number] Relation to Subscriber:Self Name:Mraian Mcbride Subscriber ID:[id number] Payer ID:[id number] Group ID:Not on file Type:Medicare Address: [facility] [address] [place] [address] MEDICARE PART A & B MEDICARE PART A & B Member Subscriber Plan / Payer ( fective 2019-Present) Name:Marian Mcbride Member ID:[id number] Relation to Subscriber:Self Name:Marian Mcbride Subscriber ID:[id number] Payer ID:[id number] Group ID:Not on file Type:Medicare Address: [facility] [address] [place] [id number] MEDICARE PART A & B Care Teams Web Page Designer Relationship Specialty Start Date End Date Cynthia Martel CNP [email or web address] PCP - General Family Medicine 02/08/20 Additional Source Comments The information contained in this document represents components of the legal health record. It is not the complete legal health record.[facility]
--- OUTSIDE RECORDS SUMMARY | 2025-03-17 13:33 | XMS_ITS | Encounter Summary ---
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
--- OUTSIDE RECORDS SUMMARY | 2025-03-17 13:33 | XMS_ITS | Encounter Summary ---
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
--- OUTSIDE RECORDS SUMMARY | 2025-03-17 13:33 | XMS_ITS | Encounter Summary ---
Author Organization [employer] Address [address] [facility] 7t [place] [address] Care Team Providers Care Sales Estimator Name Role Phone Yoselyn Soto AERODYNAMICS PROFESSOR Unavailable [phone] Shyann Ramirez DO Primary Care Provider [phone] Reason for Visit * Reason Comments Med Change Request Encounter Details Date Type Department Care Team (Late st Contact Info) Description 06/03/2024 Perez Davidson [facility] MEDICAL [address] [place] [address] Jemma Tavares MD [address] [place] [address] Class 3 severe obesity due to excess calories with serious comorbidity and body mass index (BMI) of 40.0 to 44.9 in adult (CMS/HCC); BMI 40.0-44.9, adult ([facility]) Social History Tobacco Use [...] 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
--- OUTSIDE RECORDS SUMMARY | 2025-03-17 13:33 | XMS_ITS | Encounter Summary ---
Author Organization [employer] Address [address] [facility] 7t [place] [address] Care Team Providers Care Board Filler Name Role Phone Yoselyn Soto COMPONENT DESIGN ENGINEER Unavailable [phone] Shyann Ramirez DO Primary Care Provider [phone] Encounter Details Date Type Department Care Team (Late st Contact Info) Description 12/24/[address] 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
--- OUTSIDE RECORDS SUMMARY | 2025-03-17 13:33 | XMS_ITS | Encounter Summary ---
Author Organization [employer] Address [address] [place] [address] 7t [place] [address] Care Team Providers Care Veterinary Epidemiologist Name Role Phone Yoselyn Soto POLICE CRIME SCENE TECHNICIAN Unavailable [phone] Tabby Jeong NP Primary Care Provider Shyann Mondragon DO Primary Care Provider [phone] Reason for Visit * Reason Onset Date Comments Med Refill 12/20/2022 Encounter Details Date Type Department Care Team (Late st Contact Info) Description 12/20/2022 Refill [facility] MEDICAL [address] [place] [address] Plant Antonieta Pepper FNP Persistent atrial fibrillation [...] documented as of this encounter Care Teams Veterinary Epidemiologist Relationship Specialty Start Date End Date Tabby Jeong NP [address] [place] [address] PCP - General Family Medicine 11/11/22 03/02/23 Shyann Ramirez DO [address] [place] [address] PCP - General Family Medicine 03/03/23 Yoselny Soto LICSW [address] [place] [address] Pipe Layer Behavioral Health 05/02/22 Anneliese Pedersen Community Health Worker Case Management 11/29/22 documented as of this encounter
--- OUTSIDE RECORDS SUMMARY | 2025-03-17 13:33 | XMS_ITS | Encounter Summary ---
Author Organization [employer] Address [address] [place] [address] 7 [place] [address] Care Team Providers Care Construction Recruiter Name Role Phone Kaylin Deutsch MD Primary Care Provider [phone] Yoselyn SotoSW Unavailable [phone] Medina Nascimento Primary Care Provider Un available Tabby Jeong NP Primary Care Provider UnavailShyann Ng DO Primary Care Provider [phone] Reason for Visit * Reason Comments Med Refill Encounter Details Date Type Department Care Team (Late st Contact Info) Description 05/04/[address] [facility] MEDICAL [address] [place] [address] Medina Nascimento FNP Med Refill Social History [...] documented as of this encounter Care Teams Construction Recruiter Relationship Specialty Start Date End Date Kaylin Deutsch MD [address] [place] [address] PCP - General Family Medicine 04/16/20 05/21/22 Medina Nascimento FNP [address] [place] [address] PCP - General Family Medicine 05/22/22 11/10/22 Tabby Jeong NP [address] [place] [address] PCP - General Family Medicine 11/11/22 03/02/23 Shyann Ramirez DO [address] [place] [address] PCP - General Family Medicine 03/03/23 Yoselyn Soto LICSW [address] [place] [address] Director Of Physical Security Behavioral Health 05/02/22 Anneliese Pedersen Community Health Worker Case Management 11/29/22 documented as of this encounter
--- OUTSIDE RECORDS SUMMARY | 2025-03-17 13:33 | XMS_ITS | Encounter Summary ---
Author Organization [employer] Address [address] [facility] 7t [place] [address] Care Team Providers Care Heavy Machinery Operator Name Role Phone Yoselyn Soto BOTTLING EQUIPMENT SALES REPRESENTATIVE Unavailable [phone] Shyann Ramirez DO Primary Care Provider [phone] Encounter Details Date Type Department Care Team (Late st Contact Info) Description 05/14/2023 Orders Only [facility] MEDICAL [address] [place] [address] Shyann Ramirez DO [address] [place] [address] Elevated erythrocyte sedimentation rate (Primary Dx); Intractable [...] 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 Comment: Testing performed or reported by [facility], a Service of [facility], [address] [place] [address] Buddy Roach MD, Flamer After Lasting [employer]# [id number] Blood Venous blood specimen / Unknown 05/25/2023 1:04 PM EST 05/25/2023 1:05 PM EST Shyann Ramirez DO LAB BLOOD ORDERABLES Final Res ult [facility] [address] [place] [address] documented in this encounter Visit Diagnoses Diagnosis Elevated erythrocyte sedimentation rate- Primary Elevated sedimentation rate Intractable headache, unspecified chronicity pattern, unspecified headache type documented in this encounter Additional Health Concerns Assessment Noted Time PHQ-9 Depression Total Score: 5 04/18/20 22 2:05 PM EST documented as of this encounter Care Teams Heavy Machinery Operator Relationship Specialty Start Date End Date Shyann Ramirez DO [address] [place] [address] PCP - General Family Medicine 03/03/23 Yoselyn Soto LICSW [address] [place] [address] Afterschool Babysitter Behavioral Health 05/02/22 Anneliese Pedersen Community Health Worker Case Management 11/29/22 documented as of this encounter
--- OUTSIDE RECORDS SUMMARY | 2025-03-17 13:33 | XMS_ITS | Encounter Summary ---
Author Organization [employer] Address [address] [facility] 7t [place] [address] Care Team Providers Care College Football Coach Name Role Phone Yoselyn Soto ASSISTANT FOOD SERVICE DIRECTOR Unavailable [phone] Shyann Ramirez DO Primary Care Provider [phone] Reason for Visit * Reason Comments Med Change Request Encounter Details Date Type Department Care Team (Late st Contact Info) Description 06/06/2024 Perez Davidson [facility] MEDICAL [address] [place] [address] Shyann Ramirez DO [address] [place] [address] Class 3 severe obesity due to excess [...] 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
--- OUTSIDE RECORDS SUMMARY | 2025-03-17 13:33 | XMS_ITS | Encounter Summary ---
Author Organization [employer] Address [address] [facility] 7t [place] [address] Care Team Providers Care Drywall Worker Name Role Phone Yoselyn Soto WAITER/WAITRESS SECOND CLASS Unavailable [phone] Shyann Ramirez DO Primary Care Provider [phone] Encounter Details Date Type Department Care Team (Late st Contact Info) Description 01/20/2025 Orders Only [facility] [address] [place], [place] [id number] Shyann Ramirez DO [address] [place] [address] Social History Tobacco Use Types Packs/Day Years [...] the past 12 months, has t he [employer], gas, oil or water company threatened to [...] documented as of this encounter Care Teams Drywall Worker Relationship Specialty Start Date End Date Shyann Ramirez DO [address] [place] [address] PCP - General Family Medicine 03/03/23 Yoselyn Soto LICSW [address] [place] [address] Double End Tenon Operator Behavioral Health 05/02/22 Anneliese Pedersen Community Health Worker Case Management 11/29/22 documented as of this encounter
--- OUTSIDE RECORDS SUMMARY | 2025-03-17 13:33 | XMS_ITS | Encounter Summary ---
Author Organization [employer] Address [address] [facility] [address] [place] [address] Care Team Providers Care Cooking Chef Name Role Phone Yoselyn Soto WOOL BATTING WORKER Unavailable [phone] Shyann Ramirez DO Primary Care Provider [phone] Reason for Visit * Reason Comments Med Refill Encounter Details Date Type Department Care Team (Late st Contact Info) Description 05/11/2023 Refill [facility] [address] [place] [address] Shyann Ramirez DO [address] [place] [address] Neuropathy Social History Tobacco Use Types Packs/Day [...] the past 12 months, has t he [employer] gas, oil or water [employer] threatened to shut off services in your [...] 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
== END 2025-03-17 11:38 | disposition home or self-care (01) ==
LOC: HO.HKA 11:22
PROVIDERS: PCP Family Medicine; Visit Provider Internal Medicine Hypertension Specialist
DX: I10 Essential (primary) hypertension (principal); N18.30 Chronic kidney disease, stage 3 unspecified; E10.9 Type 1 diabetes mellitus without complications; I48.0 Paroxysmal atrial fibrillation
CPT/HCPCS: 99214

== ENCOUNTER → 2025-03-17 11:21 | Outpatient (BNVA) | payer MEDICARE, MEDICAID, SELFPAY | PROVIDERS: PCP Family Medicine; Visit Provider Internal Medicine Hypertension Specialist | DX: E10.22 Type 1 diabetes mellitus with diabetic chronic kidney disease (principal); I10 Essential (primary) hypertension; N18.30 Chronic kidney disease, stage 3 unspecified; I48.0 Paroxysmal atrial fibrillation | CPT/HCPCS: 99212 ==

== ENCOUNTER 2025-04-13 09:30 | Outpatient (REF) | payer MEDICARE, MEDICAID, SELFPAY ==
[2025-04-13 10:23] LABS: Anion Gap 11 (12-20); Blood Urea Nitrogen 29 mg/dL (9-16); Calcium 9.2 mg/dL (8.4-10.2); Carbon Dioxide 26 mmol/L (22-29); Chloride 107 mmol/L (96-108); Estimated Glomerular Filt Rate 31; Potassium 4.2 mmol/L (3.3-5.1); Sodium 140 mmol/L (135-145)
== END 2025-04-13 09:31 | disposition home or self-care (01) ==
LOC: HO.LAB 09:30
PROVIDERS: PCP Family Medicine; Visit Provider Internal Medicine Hypertension Specialist
DX: I12.9 Hypertensive chronic kidney disease with stage 1 through stage 4 chronic kidney disease, or unspecified chronic kidney disease (principal); N18.30 Chronic kidney disease, stage 3 unspecified
CPT/HCPCS: 36415; 80048

== ENCOUNTER 2025-04-16 11:50 | Outpatient (AMB) | payer MEDICARE, MEDICAID, SELFPAY ==
--- NOTE | 2025-04-16 11:55 | HO.NEPHOV ---
Vital Signs 04/16/25 11:56 Height 5 ft 3 in Weight 240 lb BMI 42.5 BP 132/62 Blood Pressure Location Rt brachial Position Sitting Pulse 82 Pulse Source Pulse Oximeter Pulse Oximetry (%) 96 Oxygen Delivery Method Room Air Intake Visit Reasons: 4 wks f/u w/ labs Field Administrator Required: No Accompanied by: Self / Same As Patient Allergies lisinopril (LISINOPRIL) Allergy (Severe, Verified 04/16/25 11:57) ANGIOEDEMA, COUGH amlodipine (AMLODIPINE) Allergy (Intermediate, Verified 04/16/25 11:57) SWELLING Penicillins (PENICILLINS) Allergy (Unknown, Verified 04/16/25 11:57) RASH seasonal Allergy (Unknown, Uncoded 09/15/20 15:07) Anaphylaxis SEASONAL ALLERGIES Allergy (Unknown, Uncoded 09/15/20 15:07) ITCHING, WATERY EYES, STUFFY NOSE, COUGH Medication List - Last Reconciled 04/16/25 by Mario Cardenas MD apixaban (Eliquis) 5 mg PO BID aspirin 81 mg PO DAILY atorvastatin 80 mg PO BEDTIME bupropion HCl (smoking deter) 150 mg PO BID carvedilol 25 mg PO BID chlorthalidone 25 mg PO DAILY cyclobenzaprine 5 mg PO TID PRN gabapentin 600 mg PO TID hydralazine 50 mg PO TID insulin aspart U-100 (Novolog FlexPen U-100 Insulin aspart) See Protocol units subcut QIDACHS insulin lispro (Humalog KwikPen (U-100) Insulin) subcut DAILY insulin pump cart,automated,BT (Omnipod 5 G6 Pods (Gen 5) subcutaneous cartridge) levothyroxine 100 mcg PO DAILY loratadine 10 mg PO DAILY PRN losartan 50 mg PO DAILY naltrexone 50 mg PO DAILY omeprazole 40 mg PO BID pen needle, diabetic As directed sertraline 50 mg PO BEDTIME tirzepatide (Mounjaro) mg subcut tramadol 50 mg PO Q6H PRN HPI Comments Details: 54 yr old woman with a history of obesity, diabetes mellitus on insulin, gastroparesis, KIMBERLY /COPD overlap syndrome, hypertension, hypothyroidism, and CKD . She is taking Wegovy for weight loss, and antihypertensive medications have been gradually lowered. Her renal function has been stable for the last few months. During her last visit, losartan was decreased to 50 mg daily and chlorthalidone was decreased to 12.5 mg; however, she was unable to obtain the 12.5 mg dose of chlorthalidone due to insurance coverage and has continued taking the 25 mg dose. She reports that her blood pressure has not been well-controlled, with afternoon readings in the 150s and as high as 179. Her current antihypertensive regimen includes carvedilol 25 mg twice daily, chlorthalidone 25 mg once daily, hydralazine 50 mg three times daily, and losartan 50 mg once daily. Her weight has been stable for the past four months at around 240 lbs. Recent lab results show a creatinine of 1.71, which has slightly improved from 1.76 in March and 1.81 in January, and is down from a high of 2.45 in December when her potassium was also elevated. Her potassium is now 4.2 and blood sugar is 171. She also reports a new painful cyst that appeared approximately six weeks ago. She states it has been hurting, particularly at night, and seems to be getting bigger. Results - Creatinine: 1.71 mg/dL, showing a trend of slight improvement from 1.76 mg/dL in March and 1.81 mg/dL in January. - Potassium: 4.2 mEq/L. - Blood Sugar: 171 mg/dL. [facility] Medical History CVA (cerebral vascular accident) Surgical History Hx of appendectomy Family History Mother Hypertension Father Hypertension Brother Hypertension Daughter No problems noted. Social History Household Members: Significant Other Housing: House Alcohol intake: former Patient Tobacco Use Status: Former Tobacco user Substance Use Type: Other service: No Current occupational status: unemployed Physical Exam Exam Exam: Physical Exam General: Awake. Comfortable. HENT: Neck supple. Mucosa moist. Cyst present, causing pain. Pulmonary: Lungs aeration equal. No rales. Cardiology: Heart S1-S2 heard. No gallop. Abdomen: Soft. Non tender. Bowel sounds normal. Neurologic: No involuntary movements. No myoclonus. Extremities: Mild edema present. No rash. Vital Signs: Last Vital Signs Pulse 82 04/16/25 11:56 BP 132/62 04/16/25 11:56 Pulse Ox 96 04/16/25 11:56 Oxygen Delivery Method Room Air 04/16/25 11:56 BMI result Body Mass Index 42.5 Results Reviewed Nephrology Results: Hgb, (12.0-16.0) 10.9 g/dl L 03/13/25 WBC, (4.8-10.8) 8.8 X10*3/uL 03/13/25 Plt Count, (160-400) 283 X10*3/uL 03/13/25 Sodium, (135-145) 140 mmol/L 04/13/25 Potassium, (3.3-5.1) 4.2 mmol/L 04/13/25 Chloride, (96-108) 107 mmol/L 04/13/25 Carbon Dioxide, (22-29) 26 mmol/L 04/13/25 BUN, (9-16) 29 mg/dL H 04/13/25 Creatinine, (0.5-1.4) 1.71 mg/dL H 04/13/25 Calcium, (8.4-10.2) 9.2 mg/dL 04/13/25 Assessment & Plan Assessment & Plan (1) HTN (hypertension), benign: Code(s): I10 - Essential (primary) hypertension Category: Medical (2) CKD (chronic kidney disease) stage 3, GFR 30-59 ml/min: Code(s): N18.30 - Chronic kidney disease, stage 3 unspecified Category: Medical (3) Type 1 diabetes mellitus: Code(s): E10.9 - Type 1 diabetes mellitus without complications Category: Medical (4) PAF (paroxysmal atrial fibrillation): Code(s): I48.0 - Paroxysmal atrial fibrillation Category: Medical Plan Plan 1. Hypertension - The patient's blood pressure is elevated at home, with readings in the 150s and as high as 179, despite previous attempts to taper her antihypertensive regimen. - The plan is to increase losartan from 50 mg once daily back to 50 mg twice daily. - The patient believes she has a sufficient supply for the increased dosage. - Chlorthalidone will be continued at 25 mg daily to manage peripheral edema. 2. Chronic Kidney Disease - The patient's renal function is stable, with a slight improvement in creatinine to 1.71. - Potassium levels are within the normal range at 4.2. - No changes will be made to her current renal management. - Follow-up is scheduled in six weeks. 3. Cyst - right wrist - The patient has developed a painful, inflamed cyst over the last six weeks. - She is unable to see her primary care provider until June. - Due to the risk of renal injury with NSAIDs like ibuprofen, a short course of prednisone 10 mg once daily for three days will be prescribed to reduce inflammation. - The patient was counseled that prednisone may cause an increase in blood sugar and that she should monitor her levels accordingly. - She was advised to take the prednisone with food. Patient Instructions - You will increase your losartan dose to 50 mg twice a day. - If you do not have enough pills for this new dose, please call our office. - Continue all your other blood pressure medications as you have been taking them. - For the painful spot, take one prednisone 10 mg pill once a day for the next three days. Make sure to take it with food. - Be sure to check your blood sugar more often while taking prednisone, as it can make your sugar levels go up. - Continue with your efforts to lose weight, as this will help us lower your medications in the future. - We will see you back in the office in about six weeks. Orders: Orders Basic Metabolic Panel 6 Weeks N18.30 - Chronic kidney disease, stage 3 unspecified Medications: New prednisone 10 mg PO DAILY 3 tabs 0RF Changed From losartan 50 mg PO DAILY To losartan 50 mg PO BID Coding Level of Care Code Est Pt Level 4 (22496) Diagnoses HTN (hypertension), benign I10 CKD (chronic kidney disease) stage 3, GFR 30-59 ml/min N18.30 Type 1 diabetes mellitus E10.9 PAF (paroxysmal atrial fibrillation) I48.0
[2025-04-16 11:56] VITALS: BP 132/62; PULSE 82; O2SAT 96; BMI 42.5
== END 2025-04-16 12:12 | disposition home or self-care (01) ==
LOC: HO.HKA 11:51
PROVIDERS: PCP Family Medicine; Visit Provider Internal Medicine Hypertension Specialist
DX: I10 Essential (primary) hypertension (principal); N18.30 Chronic kidney disease, stage 3 unspecified; E10.9 Type 1 diabetes mellitus without complications; I48.0 Paroxysmal atrial fibrillation
CPT/HCPCS: 99214

== ENCOUNTER → 2025-04-16 11:50 | Outpatient (BNVA) | payer MEDICARE, MEDICAID, SELFPAY | PROVIDERS: PCP Family Medicine; Visit Provider Internal Medicine Hypertension Specialist | DX: I10 Essential (primary) hypertension (principal); N18.30 Chronic kidney disease, stage 3 unspecified; E10.9 Type 1 diabetes mellitus without complications; I48.0 Paroxysmal atrial fibrillation; M71.331 Other bursal cyst, right wrist | CPT/HCPCS: 99212 ==